=== PATIENT | male | born 1940 | race Caucasian/White ===

== ENCOUNTER → 2016-10-26 | Outpatient (CLI) | payer MEDICARE, BC | LOC: MW.CHFP 08:00 | PROVIDERS: ATTEND Emergency Medicine | DX: J32.9 Chronic sinusitis, unspecified (principal); J20.9 Acute bronchitis, unspecified | CPT/HCPCS: G0463 ==

== ENCOUNTER 2018-02-06 10:11 | Observation (INO) | payer MEDICARE, BC ==
[2018-02-06] MEDS ORDERED: Sodium Chloride 0.9% 10 ML Syringe FLUSH PRN (10:40)
[2018-02-06] MEDS ORDERED: Sodium Chloride 0.9% 1,000 ML IV ONE (10:40)
[2018-02-06] MEDS ORDERED: Sodium Chloride 0.9% 2.5 ML Syringe FLUSH PRN (10:40)
--- NOTE | 2018-02-06 10:44 | EDM.PDOC ---
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 Hope in the clinic and presents via EMS with for having chills 2 nights ago but no specific fever and then having a fever last night of 99.7 which then went up to 100.6 at 8 AM this morning. says she did not give any medications and he is currently afebrile. She says he's been eating and drinking normally and has had no systemic complaints of cough runny nose sore throat abdominal pain or urinary issues. He has been very constipated and she has given him symptomatic care and he started having loose stools over the last 1-2 days. The patient does get up with a walker and does work with physical therapy but is not as active as his baseline. He has not had any recent falls and she says that occasionally he will cough when he is eating but he has not had any choking episodes with food. She was concerned about the temperature and possibility of infection so asked for transport here. The patient's offers all history as the patient is not verbal on my evaluation. Review of systems: As per history of present illness and below otherwise all systems reviewed and negative. Past medical history: As per history of present illness and as reviewed below otherwise noncontributory. Surgical history: As per history of present illness and as reviewed below otherwise noncontributory. Social history: No reported history of drug or alcohol abuse. Family history: As per history of present illness and as reviewed below otherwise noncontributory. Physical exam: General: Well-developed well-nourished man who is thin and nontoxic and is nonverbal. Vital signs are noted by me HEENT: Atraumatic, normocephalic, pupils reactive, negative for conjunctival pallor or scleral icterus, mucous membranes dry, throat clear, neck supple, nontender, trachea midline. Lungs: Clear to auscultation diminished breath sounds bilaterally at the bases and poor effort but no overt wheezing stridor or rhonchi, breath sounds equal bilaterally, chest nontender. Heart: S1S2, regular, negative for clicks, rubs, or JVD. Abdomen: Soft, nondistended, nontender. Negative for masses or hepatosplenomegaly. NABS Pelvis: Deferred Genitourinary: Deferred. Rectal: Deferred. Extremities: Atraumatic, negative for cords or calf pain. Neurovascular unremarkable. Neuro: Awake, alert, oriented to voice and follows simple commands but is nonverbal. The patient's states that his neuro exam is at his baseline Exam nonfocal. He does have increased tone in all extremities upper greater than lower Diagnostics: CBC CMP UA urine culture blood cultures lactic acid chest x-ray Therapeutics: IV, IV fluids All testing results were discussed with the and patient as well as Dr. Hope , [id number].. Dr. Hope feels that he can follow this patient up in the clinic and once the to try to take him home as all testing is negative at this point and cultures are pending. The weight is comfortable taking him home and Dr. Hope just asked that we assist the in getting him up and make sure that he is at his baseline for movement so that she can handle him at home. We will do that prior to discharge. I've advised the to treat any temperatures over 100.4 high or in keep in touch with Dr. Hope. Impression: Episode of fever stable generalized weakness stable history of Bowie's chorea Definitive disposition and diagnosis as appropriate pending reevaluation and review of above. - Related Data Allergies Allergy/AdvReac Type Severity Reaction Status Date / Time olanzapine [From Zyprexa] Allergy Difficulty Verified 02/06/18 10:23 Swallowing Home Meds: Home Meds Pseudoephedrine HCl [Long Acting Nasal Decongestant] 120 mg PO BID 01/18/15 [ History] Sertraline HCl 100 mg PO BEDTIME 01/18/15 [History] guaiFENesin [Mucinex] 1,200 mg PO BEDTIME 01/18/15 [History] risperiDONE 3 mg PO BID 01/18/15 [History] Carboxymethylcellulose Sodium [Refresh Tears] 1 drop EYEBOTH DAILY 02/06/18 [ History] Cetirizine [ZyrTEC] 1 tab PO DAILY 02/06/18 [History] Oxybutynin [Oxybutynin ER] 10 mg PO DAILY 02/06/18 [History] guaiFENesin [Mucinex] 600 mg PO DAILY 02/06/18 [History] Past Medical History Other HEENT History: 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 ED EXAM, GENERAL - Physical Exam Exam: See Below (See dictation) Course - Vital Signs Last Recorded V/S: Last Vital Signs Temp 36.8 C 02/06/18 10:19 Pulse 92 02/06/18 10:19 Resp 24 H 02/06/18 10:19 BP 116/66 02/06/18 10:19 Pulse Ox 97 02/06/18 10:39 - Orders/Labs/Meds Orders: Active Orders 24 hr Category Date Time Status Blood Glucose Check, Bedside [RC] ONETIME Care 02/06/18 10:39 Active Oxygen Therapy, ED [RC] ASDIRECTED Care 02/06/18 10:39 Active Pulse Oximetry [RC] ASDIRECTED Care 02/06/18 10:39 Active Chest 1V Frontal [CR] Stat Exams 02/06/18 10:40 Taken CULTURE BLOOD [BC] Stat Lab 02/06/18 11:06 Received CULTURE BLOOD [BC] Stat Lab 02/06/18 11:06 Received CULTURE URINE [RM] Stat Lab 02/06/18 12:00 Ordered UA W/MICROSCOPIC [URIN] Stat Lab 02/06/18 12:00 Ordered Sodium Chloride 0.9% [Saline Flush] Med 02/06/18 10:40 Active 10 ml FLUSH ASDIRECTED PRN Sodium Chloride 0.9% [Saline Flush] Med 02/06/18 10:40 Active 2.5 ml FLUSH ASDIRECTED PRN Blood Culture x2 Reflex Set [OM.PC] Stat Oth 02/06/18 10:40 Ordered Saline Lock Insert [OM.PC] Stat Oth 02/06/18 10:39 Ordered Medication Orders Sodium Chloride (Saline Flush) 10 ml FLUSH ASDIRECTED PRN PRN Reason: Keep Vein Open Sodium Chloride (Saline Flush) 2.5 ml FLUSH ASDIRECTED PRN PRN Reason: Keep Vein Open Labs: Laboratory Tests 02/06/18 02/06/18 02/06/18 Range/Units 11:06 11:06 11:06 WBC 8.22 (4.0-11.0) K/uL RBC 4.73 (4.50-5.90) M/uL Hgb 13.8 (13.0-17.0) g/dL Hct 40.2 (38.0-50.0) % MCV 85.0 (80.0-98.0) fL MCH 29.2 (27.0-32.0) pg MCHC 34.3 (31.0-37.0) g/dL RDW Std Deviation 40.9 (28.0-62.0) fl RDW Coeff of Nino 13 (11.0-15.0) % Plt Count 137 L (150-400) K/uL MPV 9.00 (7.40-12.00) fL Neut % (Auto) 71.7 (48.0-80.0) % Lymph % (Auto) 17.2 (16.0-40.0) % Caroline % (Auto) 9.7 (0.0-15.0) % Eos % (Auto) 1.3 (0.0-7.0) % Baso % (Auto) 0.1 (0.0-1.5) % Neut # (Auto) 5.9 H (1.4-5.7) K/uL Lymph # (Auto) 1.4 (0.6-2.4) K/uL Caroline # (Auto) 0.8 (0.0-0.8) K/uL Eos # (Auto) 0.1 (0.0-0.7) K/uL Baso # (Auto) 0.0 (0.0-0.1) K/uL Nucleated RBC % 0.0 /100WBC Nucleated RBCs # 0 K/uL Lactate 0.7 (0.20-2.00) mmol/L Sodium 138 (136-148) mmol/L Potassium 4.0 (3.5-5.1) mmol/L Chloride 105 (98-107) mmol/L Carbon Dioxide 26.5 (21.0-32.0) mmol/L BUN 16 (7.0-18.0) mg/dL Creatinine 0.8 (0.8-1.3) mg/dL Est Cr Clr Drug Dosing 89.30 mL/min Estimated GFR (MDRD) > 60.0 ml/min Glucose 100 (74-106) mg/dL POC Glucose (60-110) mg/dL Calcium 8.7 (8.5-10.1) mg/dL Total Bilirubin 1.4 H (0.2-1.0) mg/dL AST 12 L (15-37) IU/L ALT 18 (14-63) IU/L Alkaline Phosphatase 71 (46-116) U/L Total Protein 7.0 (6.4-8.2) g/dL Albumin 3.5 (3.4-5.0) g/dL Globulin 3.5 (2.0-3.5) g/dL Albumin/Globulin Ratio 1.0 L (1.3-2.8) Urine Color Urine Appearance Urine pH (5.0-8.0) Ur Specific [place] (1.001-1.035) Urine Protein (NEGATIVE) mg/dL Urine Glucose (UA) (NEGATIVE) mg/dL Urine Ketones (NEGATIVE) mg/dL Urine Occult Blood (NEGATIVE) Urine Nitrite (NEGATIVE) Urine Bilirubin (NEGATIVE) Urine Urobilinogen (<2.0) EU/dL Ur Leukocyte Esterase (NEGATIVE) Urine RBC (0-2/HPF) Urine WBC (0-5/HPF) Ur Epithelial Cells (NONE-FEW) Urine Bacteria (NEGATIVE) 02/06/18 02/06/18 Range/Units 11:07 12:00 WBC (4.0-11.0) K/uL RBC (4.50-5.90) M/uL Hgb (13.0-17.0) g/dL Hct (38.0-50.0) % MCV (80.0-98.0) fL MCH (27.0-32.0) pg MCHC (31.0-37.0) g/dL RDW Std Deviation (28.0-62.0) fl RDW Coeff of Nino (11.0-15.0) % Plt Count (150-400) K/uL MPV (7.40-12.00) fL Neut % (Auto) (48.0-80.0) % Lymph % (Auto) (16.0-40.0) % Caroline % (Auto) (0.0-15.0) % Eos % (Auto) (0.0-7.0) % Baso % (Auto) (0.0-1.5) % Neut # (Auto) (1.4-5.7) K/uL Lymph # (Auto) (0.6-2.4) K/uL Caroline # (Auto) (0.0-0.8) K/uL Eos # (Auto) (0.0-0.7) K/uL Baso # (Auto) (0.0-0.1) K/uL Nucleated RBC % /100WBC Nucleated RBCs # K/uL Lactate (0.20-2.00) mmol/L Sodium (136-148) mmol/L Potassium (3.5-5.1) mmol/L Chloride (98-107) mmol/L Carbon Dioxide (21.0-32.0) mmol/L BUN (7.0-18.0) mg/dL Creatinine (0.8-1.3) mg/dL Est Cr Clr Drug Dosing mL/min Estimated GFR (MDRD) ml/min Glucose (74-106) mg/dL POC Glucose 97 (60-110) mg/dL Calcium (8.5-10.1) mg/dL Total Bilirubin (0.2-1.0) mg/dL AST (15-37) IU/L ALT (14-63) IU/L Alkaline Phosphatase (46-116) U/L Total Protein (6.4-8.2) g/dL Albumin (3.4-5.0) g/dL Globulin (2.0-3.5) g/dL Albumin/Globulin Ratio (1.3-2.8) Urine Color YELLOW Urine Appearance CLEAR Urine pH 5.5 (5.0-8.0) Ur Specific [place] >= 1.030 (1.001-1.035) Urine Protein NEGATIVE (NEGATIVE) mg/dL Urine Glucose (UA) NEGATIVE (NEGATIVE) mg/dL Urine Ketones NEGATIVE (NEGATIVE) mg/dL Urine Occult Blood MODERATE (NEGATIVE) Urine Nitrite NEGATIVE (NEGATIVE) Urine Bilirubin NEGATIVE (NEGATIVE) Urine Urobilinogen 0.2 (<2.0) EU/dL Ur Leukocyte Esterase NEGATIVE (NEGATIVE) Urine RBC 6-8 (0-2/HPF) Urine WBC 0-1 (0-5/HPF) Ur Epithelial Cells FEW (NONE-FEW) Urine Bacteria FEW (NEGATIVE) Meds: Medications Generic Name Dose Route Start Last Admin Trade Name Freq PRN Reason Stop Dose Admin Sodium Chloride 10 ml 02/06/18 10:40 Saline Flush FLUSH ASDIRECTED PRN Keep Vein Open Sodium Chloride 2.5 ml 02/06/18 10:40 Saline Flush FLUSH ASDIRECTED PRN Keep Vein Open Discontinued Medications Generic Name Dose Route Start Last Admin Trade Name Freq PRN Reason Stop Dose Admin Sodium Chloride 1,000 mls @ 999 mls/hr 02/06/18 10:40 02/06/18 11:00 Normal Saline IV 02/06/18 11:40 999 mls/hr STAT ONE Administration Departure - Departure Time of Disposition: 12:57 Disposition: Home, Self-Care 01 Condition: Good Clinical Impression: Weakness, Bowie chorea Fever Qualifiers: Fever type: unspecified Qualified Code(s): R50.9 - Fever, unspecified - Discharge Information Referrals: Ruslan Hope MD [Primary Care Provider] - Forms: ED Department Discharge Additional Instructions: The following information is given to patients seen in the emergency department who are being discharged to home. This information is to outline your options for follow-up care. We provide all patients seen in our emergency department with a follow-up referral. The need for follow-up, as well as the timing and circumstances, are variable depending upon the specifics of your emergency department visit. If you don't have a primary care physician on staff, we will provide you with a referral. We always advise you to contact your personal physician following an emergency department visit to inform them of the circumstance of the visit and for follow-up with them and/or the need for any referrals to a consulting specialist. The emergency department will also refer you to a specialist when appropriate. This referral assures that you have the opportunity for followup care with a specialist. All of these measure are taken in an effort to provide you with optimal care, which includes your followup. Under all circumstances we always encourage you to contact your private physician who remains a resource for coordinating your care. When calling for followup care, please make the office aware that this follow-up is from your recent emergency room visit. If for any reason you are refused follow-up, please contact the [facility] emergency department at and ask to speak to the emergency department charge nurse. [facility] Primary care- Internal Medicine and Family [address] Hope in the clinic and schedule a follow-up appointment as well as keep him in touch with any recurrent fevers. Please give Tylenol or ibuprofen for any temperatures greater than 100.4 as this needs to be treated. Push hydration and rest. The cultures will be called to if they are positive from blood and urine in the next few days. Return to ER as needed and as discussed - My Orders Last 24 Hours: My Active Orders 02/06/18 10:39 Blood Glucose Check, Bedside [RC] ONETIME Oxygen Therapy, ED [RC] ASDIRECTED Pulse Oximetry [RC] ASDIRECTED Saline Lock Insert [OM.PC] Stat 02/06/18 10:40 Chest 1V Frontal [CR] Stat Sodium Chloride 0.9% [Saline Flush] 10 ml FLUSH ASDIRECTED PRN Sodium Chloride 0.9% [Saline Flush] 2.5 ml FLUSH ASDIRECTED PRN Blood Culture x2 Reflex Set [OM.PC] Stat 02/06/18 11:06 CULTURE BLOOD [BC] Stat CULTURE BLOOD [BC] Stat 02/06/18 12:00 CULTURE URINE [RM] Stat UA W/MICROSCOPIC [URIN] Stat - Assessment/Plan Last 24 Hours: My Active Orders 02/06/18 10:39 Blood Glucose Check, Bedside [RC] ONETIME Oxygen Therapy, ED [RC] ASDIRECTED Pulse Oximetry [RC] ASDIRECTED Saline Lock Insert [OM.PC] Stat 02/06/18 10:40 Chest 1V Frontal [CR] Stat Sodium Chloride 0.9% [Saline Flush] 10 ml FLUSH ASDIRECTED PRN Sodium Chloride 0.9% [Saline Flush] 2.5 ml FLUSH ASDIRECTED PRN Blood Culture x2 Reflex Set [OM.PC] Stat 02/06/18 11:06 CULTURE BLOOD [BC] Stat CULTURE BLOOD [BC] Stat 02/06/18 12:00 CULTURE URINE [RM] Stat UA W/MICROSCOPIC [URIN] Stat
[2018-02-06 12:29] LABS: CHLORIDE,CL 105 mmol/L (98-107); SODIUM,NA 138 mmol/L (136-148)
--- NOTE | 2018-02-06 13:27 | CR ---
EXAM DATE: 02/06/18 PATIENT'S AGE: 77 Patient: JANES CHAPA Facility: [place], [place] Site . Site : [id number] Study: XRay Chest [id number]/22/2018 11:26:48 AM Ordering Physician: Veronica Edmond Final Report: HISTORY: Chest pain, fever, shortness of breath. TECHNIQUE: One view chest. COMPARISON: 10/19/2016. FINDINGS: Low lung volumes are shallow breath. Possible mild fibrosis. No acute lung infiltrate or pulmonary edema. No pneumothorax or pleural effusion. Cardiac size within normal limits. IMPRESSION: 1. No acute lung infiltrate. 2. Question mild fibrosis. Dictated by Quinton Ochoa MD @ 02/06/2018 11:59:01 AM Dictated by: Quinton Ochoa MD @ 02/06/2018 11:59:06 (Electronic Signature) Report Signed by Proxy. MADISON
[2018-02-07] MEDS ORDERED: Ondansetron 4 MG/2 ML SDV IVPUSH PRN (18:28)
[2018-02-07] MEDS ORDERED: Acetaminophen 325 MG Tab PO PRN (18:28)
[2018-02-07] MEDS ORDERED: LORazepam 2 MG/ML SDV IM PRN (18:28)
[2018-02-07] MEDS ORDERED: Levofloxacin/Dextrose 5%-Water 750 MG in Premix Bag 1 BAG IV ONE (18:32)
[2018-02-07] MEDS ORDERED: Vancomycin 2 GM in Sodium Chloride 0.9% 500 ML IV ONE (19:00)
[2018-02-07] MEDS: Enoxaparin 40 MG/0.4 ML Syringe SUBCUT SCH (19:18)
--- NOTE | 2018-02-07 19:24 | PCM.SN ---
- Free Text/Narrative Note: Called by nursing as they have been unable to obtain PIV access. Rt AC and Rt hand were attempted by me without success. Lt AC was visualized under ultrasound and 20g IV catheter was introduced without difficultly. 20mL of blood was obtained for lab studies. Catheter was secured with tape, tegaderm, and flushes with ease.
[2018-02-07] MEDS: Lactated Ringers 1,000 ML IV SCH (19:36)
[2018-02-07 19:42] LABS: CHLORIDE,CL 105 mmol/L (98-107); SODIUM,NA 138 mmol/L (136-148)
--- NOTE | 2018-02-07 20:36 | PCM.HP ---
H&P History of Present Illness - General Date of Service: 02/07/18 Admit Problem/Dx: Admission Diagnosis/Problem Admission Diagnosis/Problem Fever in adult Source of Information: Family () - History of Present Illness Initial Comments - Free Text/Narative: Patient 77 y old man presented to hospital due to lethargy for the past to 3 days, associated with the fever and gentamicin was 100.7, generalized weakness, decreased appetite, and poor oral intake. Patient was seen by his primary care physician Dr. Casas yesterday and he recommended patient to come to emergency room. In the emergency room chest x-ray and blood work were negative and patient returned home. Blood culture today to rule gram-positive cocci in clusters someone bottle, and patient returned to hospital to be admitted as direct admit as he was not feeling well he was lethargic for the past few days. His also was also sent that he was tachypneic at home . 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, and he follows up with physical therapy multiple days in a week, he needs assistance to transfer from bed to chair, but clinically he was not able to do it, because she was having generalized weakness Onset of Symptoms: Reports: Gradual Duration of Symptoms: Reports: Day(s): - Related Data Allergies/Adverse Reactions: Allergies Allergy/AdvReac Type Severity Reaction Status Date / Time olanzapine [From Zyprexa] Allergy Difficulty Verified 02/06/18 10:23 Swallowing Home Medications: Home Meds Pseudoephedrine HCl [Long Acting Nasal Decongestant] 120 mg PO BID 01/18/15 [ History] Sertraline HCl 100 mg PO BEDTIME 01/18/15 [History] guaiFENesin [Mucinex] 1,200 mg PO BEDTIME 01/18/15 [History] risperiDONE 3 mg PO BID 01/18/15 [History] Carboxymethylcellulose Sodium [Refresh Tears] 1 drop EYEBOTH DAILY 02/06/18 [ History] Cetirizine [ZyrTEC] 1 tab PO DAILY 02/06/18 [History] Oxybutynin [Oxybutynin ER] 10 mg PO DAILY 02/06/18 [History] guaiFENesin [Mucinex] 600 mg PO DAILY 02/06/18 [History] Past Medical History Other HEENT History: 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 Other Respiratory History: Patient had chronic Pneumonia as claimed Other Genitourinary History: Prostate Ablation Other Neuro History: dx with [place] Disease - Infectious Disease History Infectious Disease History: Reports: Measles, Mumps - Past Surgical History HEENT Surgical History: Reports: Adenoidectomy, Tonsillectomy GI Surgical History: Reports: Appendectomy Social & Family History - Family History Family Medical History: Noncontributory - Tobacco Use Smoking Status *Q: Former Smoker Used Tobacco, but Quit: Yes Month/Year Tobacco Last Used: 1988 Second Hand Smoke Exposure: No - Caffeine Use Caffeine Use: Reports: Coffee - Recreational Drug Use Recreational Drug Use: No H&P Review of Systems - Review of Systems: Review Of Systems: See Below General: Reports: Fever HEENT: Reports: No Symptoms Pulmonary: Reports: No Symptoms Cardiovascular: Reports: No Symptoms Gastrointestinal: Reports: No Symptoms Musculoskeletal: Reports: No Symptoms Skin: Reports: No Symptoms Psychiatric: Reports: No Symptoms Neurological: Reports: Trouble Speaking, Difficulty Walking, Weakness Hematologic/Lymphatic: Reports: No Symptoms Immunologic: Reports: No Symptoms Exam - Exam Exam: See Below - Vital Signs Vital Signs: Last Vital Signs Temp 98.5 F 02/07/18 19:56 Pulse 80 02/07/18 19:56 Resp 16 02/07/18 19:56 BP 120/66 02/07/18 19:56 Pulse Ox 97 02/07/18 19:56 Weight: 168 lb 12.8 oz - Exam General: Alert HEENT: Conjunctiva Clear Neck: Trachea Midline. No: JVD, Thyromegaly Lungs: Decreased Breath Sounds Cardiovascular: Regular Rate, Regular Rhythm, Normal S1, Normal S2 GI/Abdominal Exam: Normal Bowel Sounds, Soft, Non-Tender, No Organomegaly, No Distention Back Exam: Normal Inspection Extremities: Normal Inspection Skin: Warm, Dry, Intact Neurological: Cranial Nerves Intact Neuro Extensive - Mental Status: Alert, Oriented x3 - Patient Data Lab Results Last 24 hrs: Laboratory Results - last 24 hr 02/07/18 02/07/18 Range/Units 18:50 18:50 WBC 6.28 (4.0-11.0) K/uL RBC 4.31 L (4.50-5.90) M/uL Hgb 12.6 L (13.0-17.0) g/dL Hct 36.6 L (38.0-50.0) % MCV 84.9 (80.0-98.0) fL MCH 29.2 (27.0-32.0) pg MCHC 34.4 (31.0-37.0) g/dL RDW Std Deviation 40.9 (28.0-62.0) fl RDW Coeff of Nino 13 (11.0-15.0) % Plt Count 155 (150-400) K/uL MPV 9.00 (7.40-12.00) fL Neut % (Auto) 60.1 (48.0-80.0) % Lymph % (Auto) 22.9 (16.0-40.0) % [place] % (Auto) 13.5 (0.0-15.0) % Eos % (Auto) 3.3 (0.0-7.0) % Baso % (Auto) 0.2 (0.0-1.5) % Neut # (Auto) 3.8 (1.4-5.7) K/uL Lymph # (Auto) 1.4 (0.6-2.4) K/uL [place] # (Auto) 0.9 H (0.0-0.8) K/uL Eos # (Auto) 0.2 (0.0-0.7) K/uL Baso # (Auto) 0.0 (0.0-0.1) K/uL Nucleated RBC % 0.0 /100WBC Nucleated RBCs # 0 K/uL Sodium 138 (136-148) mmol/L Potassium 3.8 (3.5-5.1) mmol/L Chloride 105 (98-107) mmol/L Carbon Dioxide 27.3 (21.0-32.0) mmol/L BUN 16 (7.0-18.0) mg/dL Creatinine 0.9 (0.8-1.3) mg/dL Est Cr Clr Drug Dosing 74.44 mL/min Estimated GFR (MDRD) > 60.0 ml/min Glucose 102 (74-106) mg/dL Calcium 8.6 (8.5-10.1) mg/dL Total Bilirubin 0.8 (0.2-1.0) mg/dL AST 11 L (15-37) IU/L ALT 14 (14-63) IU/L Alkaline Phosphatase 62 (46-116) U/L Total Protein 6.4 (6.4-8.2) g/dL Albumin 2.9 L (3.4-5.0) g/dL Globulin 3.5 (2.0-3.5) g/dL Albumin/Globulin Ratio 0.8 L (1.3-2.8) Result Diagrams: 02/07/18 18:50 02/07/18 18:50 Derrick Results Last 24 hrs: Microbiology 02/06/18 11:06 Aerobic Blood Culture - Preliminary Blood - Venous Anaerobic Blood Culture - Preliminary NO GROWTH AFTER 1 DAY 02/06/18 11:06 Aerobic Blood Culture - Preliminary Blood - Venous - Lab Draw NO GROWTH AFTER 1 DAY Anaerobic Blood Culture - Preliminary NO GROWTH AFTER 1 DAY - Problem List (1) Pneumonia SNOMED Code(s): 458775865 ICD Code: J18.9 - PNEUMONIA, UNSPECIFIED ORGANISM Status: Acute Current Visit: Yes Problem List Initiated/Reviewed/Updated: Yes Orders Last 24hrs: Active Orders 24 hr Category Date Time Status Admission Status [Patient Status] [ADT] Routine ADT 02/07/18 19:02 Active Cardiac Monitoring [RC] Q8H Care 02/07/18 18:29 Active Up With Assistance [RC] ASDIRECTED Care 02/07/18 18:28 Active VTE/DVT Education [RC] PER UNIT ROUTINE Care 02/07/18 18:28 Active Vital Signs [RC] Q4H Care 02/07/18 18:28 Active Consult to Speech Language Pathology [TOUR ACTOR Evaluation Cons 02/07/18 19:50 Active and Treatment] [CONS] Routine OT Evaluation and Treatment [CONS] Routine Cons 02/07/18 18:28 Active PT Evaluation and Treatment [CONS] Routine Cons 02/07/18 18:28 Active 2 Gram Sodium Diet [DIET] Diet 02/07/18 Dinner Active CBC W/O DIFF,HEMOGRAM [HEME] AM Lab 02/08/18 05:11 Ordered COMPREHENSIVE METABOLIC PN,CMP [CHEM] AM Lab 02/08/18 05:11 Ordered CULTURE BLOOD [BC] Routine Lab 02/07/18 18:50 Received CULTURE BLOOD [BC] Routine Lab 02/07/18 19:05 Received VANCOMYCIN TROUGH [CHEM] Timed Lab 02/09/18 06:30 Ordered Acetaminophen [Tylenol] Med 02/07/18 18:28 Active 650 mg PO Q4H PRN Carboxymethylcellulose Sodium [Refresh Plus 0.5%] Med 02/08/18 09:00 Active 0 each EYEBOTH DAILY Cetirizine [ZyrTEC] Med 02/08/18 09:00 Active 10 mg PO DAILY Enoxaparin [Lovenox] Med 02/07/18 18:30 Active 40 mg SUBCUT Q24H LORazepam [Ativan] Med 02/07/18 18:28 Active 1 mg IM Q6H PRN Lactated Ringers [Ringers, Lactated] 1,000 ml Med 02/07/18 18:30 Active IV ASDIRECTED Ondansetron [Zofran] Med 02/07/18 18:28 Active 4 mg IVPUSH Q4H PRN Oxybutynin Med 02/08/18 09:00 Pending 10 mg PO DAILY Piperacillin/Tazobactam [Piperacil-Tazobact] 4.5 gm Med 02/07/18 20:00 Active Sodium Chloride 0.9% [Normal Saline] 100 ml IV Q6H Pseudoephedrine HCl [Long Acting Nasal Decongestant] Med 02/07/18 21:00 Pending 120 mg PO BID Sertraline [Zoloft] Med 02/07/18 21:00 Active 100 mg PO BEDTIME Vancomycin 1.25 gm Med 02/08/18 07:00 Active Sodium Chloride 0.9% [Normal Saline] 500 ml IV Q12H Vancomycin Pharmacy to Dose [Pharmacy to Dose - Med 02/07/18 18:45 Pending Vancomycin] See Dose Instructions .XX ASDIRECTED guaiFENesin [Mucinex] Med 02/08/18 09:00 Active 600 mg PO DAILY risperiDONE [RisperiDAL] Med 02/07/18 21:00 Active 3 mg PO BID Sequential Compression Device [OM.PC] Per Unit Routine Oth 02/07/18 18:29 Ordered Resuscitation Status Routine Resus Stat 02/07/18 18:28 Ordered Medication Orders Acetaminophen (Tylenol) 650 mg PO Q4H PRN PRN Reason: Pain (Mild 1-3)/fever Artificial Tears (Refresh Plus 0.5%) 0 each EYEBOTH DAILY KYRA Cetirizine HCl (Zyrtec) 10 mg PO DAILY KYRA Enoxaparin Sodium (Lovenox) 40 mg SUBCUT Q24H KYRA Last Admin: 02/07/18 19:18 Dose: 40 mg Guaifenesin (Mucinex) 600 mg PO DAILY [facility] Lactated Ringer's (Ringers, Lactated) 1,000 mls @ 125 mls/hr IV ASDIRECTED [facility] Last Admin: 02/07/18 19:36 Dose: 125 mls/hr Vancomycin HCl 1.25 gm/ Sodium (Chloride) 500 mls @ 333.333 mls/hr IV Q12H KYRA Piperacillin Sod/Tazobactam (Sod 4.5 gm/ Sodium Chloride) 100 mls @ 100 mls/hr IV Q6H KYRA Lorazepam (Ativan) 1 mg IM Q6H PRN PRN Reason: Nausea/Vomiting Non-Formulary Medication (Oxybutynin) 10 mg PO DAILY KYRA Non-Formulary Medication (Pseudoephedrine Hcl [Long Acting Nasal Decongestant]) 120 mg PO BID KYRA Ondansetron HCl (Zofran) 4 mg IVPUSH Q4H PRN PRN Reason: Nausea Risperidone (Risperidal) 3 mg PO BID [facility]RA Sertraline HCl (Zoloft) 100 mg PO BEDTIME KYRA Vancomycin HCl (Pharmacy To Dose - Vancomycin) 0 dose .XX ASDIRECTED [facility] CXr done 02/06/18- negative Assessment/Plan Comment:: a/p Fever - likely aspiration pneumonia , blood cultures , Gpositive cocci in clusters - will start patient on broad spectrum antibiotics: Vancomycin , zosyn and levaquin iv , f/up final report speech and swallow evaluation , PT/ OT Iv fluids For constipation - 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
[2018-02-07] MEDS ORDERED: PSEUDOEPHEDRINE HCL 120 MG PO PRN (21:00)
[2018-02-07] MEDS: Piperacillin/Tazobactam 4.5 GM in Sodium Chloride 0.9% 100 ML IV SCH (21:03)
[2018-02-07] MEDS: Sertraline 100 MG Tab PO SCH (21:06)
[2018-02-08] MEDS: Piperacillin/Tazobactam 4.5 GM in Sodium Chloride 0.9% 100 ML IV SCH ×4 (02:44→19:51)
[2018-02-08 06:00] LABS: CHLORIDE,CL 108 mmol/L (98-107); SODIUM,NA 143 mmol/L (136-148)
[2018-02-08] MEDS ORDERED: Vancomycin 1.25 GM in Sodium Chloride 0.9% 500 ML IV SCH ×2 (07:00→13:00)
[2018-02-08] MEDS: Lactated Ringers 1,000 ML IV SCH (08:38)
[2018-02-08] MEDS: Carboxymethylcellulose Sodium 0.5% Ophth Soln 0.4 ML UD Box of 30 EYEBOTH SCH (08:39)
[2018-02-08] MEDS: Cetirizine 10 MG Tab PO SCH (08:40)
[2018-02-08] MEDS: guaiFENesin 600 MG Tab.ER PO SCH (08:40)
[2018-02-08] MEDS ORDERED: Oxybutynin 5 MG Tab PO SCH (09:00)
[2018-02-08] MEDS ORDERED: Hydrocolloid Dressing 4x4 Bandage TOP PRN (14:43)
--- NOTE | 2018-02-08 17:05 | PCM.PN ---
- General Info Date of Service: 02/08/18 Admission Dx/Problem (Free Text): Admission Diagnosis/Problem Admission Diagnosis/Problem Fever in adult, generalized weakness Subjective Update: Patient strength is improved . He had physical therapy today . was able to walk across the room with one assist. His blood cx showed Staph epidermis which is a contaminant. - Review of Systems General: Reports: No Symptoms HEENT: Reports: No Symptoms Pulmonary: Reports: No Symptoms Cardiovascular: Reports: No Symptoms Gastrointestinal: Reports: No Symptoms Genitourinary: Reports: No Symptoms Musculoskeletal: Reports: No Symptoms Skin: Reports: No Symptoms Neurological: Reports: No Symptoms Psychiatric: Reports: No Symptoms - Patient Data Vitals - Most Recent: Last Vital Signs Temp 97.2 F 02/08/18 16:00 Pulse 77 02/08/18 16:00 Resp 18 02/08/18 16:00 BP 116/88 02/08/18 16:00 Pulse Ox 97 02/08/18 16:00 Weight - Most Recent: 164 lb 14.4 oz I&O - Last 24 Hours: Intake & Output 02/08/18 02/08/18 02/08/18 06:59 14:59 22:59 Intake Total 200 1349 Output Total 969 Balance -769 1349 Lab Results Last 24 Hours: Laboratory Results - last 24 hr 02/07/18 02/07/18 02/08/18 Range/Units 18:50 18:50 05:25 WBC 6.28 4.75 (4.0-11.0) K/uL RBC 4.31 L 4.09 L (4.50-5.90) M/uL Hgb 12.6 L 12.0 L (13.0-17.0) g/dL Hct 36.6 L 34.7 L (38.0-50.0) % MCV 84.9 84.8 (80.0-98.0) fL MCH 29.2 29.3 (27.0-32.0) pg MCHC 34.4 34.6 (31.0-37.0) g/dL RDW Std Deviation 40.9 40.1 (28.0-62.0) fl RDW Coeff of Nino 13 13 (11.0-15.0) % Plt Count 155 135 L (150-400) K/uL MPV 9.00 9.00 (7.40-12.00) fL Neut % (Auto) 60.1 (48.0-80.0) % Lymph % (Auto) 22.9 (16.0-40.0) % [place] % (Auto) 13.5 (0.0-15.0) % Eos % (Auto) 3.3 (0.0-7.0) % Baso % (Auto) 0.2 (0.0-1.5) % Neut # (Auto) 3.8 (1.4-5.7) K/uL Lymph # (Auto) 1.4 (0.6-2.4) K/uL [place] # (Auto) 0.9 H (0.0-0.8) K/uL Eos # (Auto) 0.2 (0.0-0.7) K/uL Baso # (Auto) 0.0 (0.0-0.1) K/uL Nucleated RBC % 0.0 0.0 /100WBC Nucleated RBCs # 0 0 K/uL Sodium 138 (136-148) mmol/L Potassium 3.8 (3.5-5.1) mmol/L Chloride 105 (98-107) mmol/L Carbon Dioxide 27.3 (21.0-32.0) mmol/L BUN 16 (7.0-18.0) mg/dL Creatinine 0.9 (0.8-1.3) mg/dL Est Cr Clr Drug Dosing 74.44 mL/min Estimated GFR (MDRD) > 60.0 ml/min Glucose 102 (74-106) mg/dL Calcium 8.6 (8.5-10.1) mg/dL Total Bilirubin 0.8 (0.2-1.0) mg/dL AST 11 L (15-37) IU/L ALT 14 (14-63) IU/L Alkaline Phosphatase 62 (46-116) U/L Total Protein 6.4 (6.4-8.2) g/dL Albumin 2.9 L (3.4-5.0) g/dL Globulin 3.5 (2.0-3.5) g/dL Albumin/Globulin Ratio 0.8 L (1.3-2.8) 02/08/18 Range/Units 05:25 WBC (4.0-11.0) K/uL RBC (4.50-5.90) M/uL Hgb (13.0-17.0) g/dL Hct (38.0-50.0) % MCV (80.0-98.0) fL MCH (27.0-32.0) pg MCHC (31.0-37.0) g/dL RDW Std Deviation (28.0-62.0) fl RDW Coeff of Nino (11.0-15.0) % Plt Count (150-400) K/uL MPV (7.40-12.00) fL Neut % (Auto) (48.0-80.0) % Lymph % (Auto) (16.0-40.0) % [place] % (Auto) (0.0-15.0) % Eos % (Auto) (0.0-7.0) % Baso % (Auto) (0.0-1.5) % Neut # (Auto) (1.4-5.7) K/uL Lymph # (Auto) (0.6-2.4) K/uL [place] # (Auto) (0.0-0.8) K/uL Eos # (Auto) (0.0-0.7) K/uL Baso # (Auto) (0.0-0.1) K/uL Nucleated RBC % /100WBC Nucleated RBCs # K/uL Sodium 143 (136-148) mmol/L Potassium 3.9 (3.5-5.1) mmol/L Chloride 108 H (98-107) mmol/L Carbon Dioxide 26.7 (21.0-32.0) mmol/L BUN 15 (7.0-18.0) mg/dL Creatinine 1.0 (0.8-1.3) mg/dL Est Cr Clr Drug Dosing 67.00 mL/min Estimated GFR (MDRD) > 60.0 ml/min Glucose 96 (74-106) mg/dL Calcium 8.9 (8.5-10.1) mg/dL Total Bilirubin 1.2 H (0.2-1.0) mg/dL AST 12 L (15-37) IU/L ALT 13 L (14-63) IU/L Alkaline Phosphatase 60 (46-116) U/L Total Protein 5.9 L (6.4-8.2) g/dL Albumin 2.6 L (3.4-5.0) g/dL Globulin 3.3 (2.0-3.5) g/dL Albumin/Globulin Ratio 0.8 L (1.3-2.8) Derrick Results Last 24 Hours: Microbiology 02/06/18 11:06 Aerobic Blood Culture - Preliminary Blood - Venous Anaerobic Blood Culture - Preliminary NO GROWTH AFTER 2 DAYS 02/06/18 11:06 Aerobic Blood Culture - Preliminary Blood - Venous - Lab Draw NO GROWTH AFTER 2 DAYS Anaerobic Blood Culture - Preliminary NO GROWTH AFTER 2 DAYS 02/06/18 12:00 Urine Culture - Final Urine, Clean Catch No Growth Med Orders - Current: Current Medications Acetaminophen (Tylenol) 650 mg PO Q4H PRN PRN Reason: Pain (Mild 1-3)/fever Artificial Tears (Refresh Plus 0.5%) 0 each EYEBOTH DAILY [facility] Last Admin: 02/08/18 08:39 Dose: 1 drop Cetirizine HCl (Zyrtec) 10 mg PO DAILY [facility] Last Admin: 02/08/18 08:40 Dose: 10 mg Enoxaparin Sodium (Lovenox) 40 mg SUBCUT Q24H [facility] Last Admin: 02/07/18 19:18 Dose: 40 mg Guaifenesin (Mucinex) 600 mg PO DAILY [facility] Last Admin: 02/08/18 08:40 Dose: 600 mg Lactated Ringer's (Ringers, Lactated) 1,000 mls @ 125 mls/hr IV ASDIRECTED [facility] Last Admin: 02/08/18 08:38 Dose: 125 mls/hr Piperacillin Sod/Tazobactam (Sod 4.5 gm/ Sodium Chloride) 100 mls @ 100 mls/hr IV Q6H [facility] Last Admin: 02/08/18 14:55 Dose: 100 mls/hr Lorazepam (Ativan) 1 mg IM Q6H PRN PRN Reason: Nausea/Vomiting Ondansetron HCl (Zofran) 4 mg IVPUSH Q4H PRN PRN Reason: Nausea Oxybutynin Chloride (Oxybutynin) 10 mg PO DAILY [facility] Last Admin: 02/08/18 08:39 Dose: 10 mg Pseudoephedrine Hcl [Long Acting Nasal Decongestant] 120mg 1 each PO BID PRN PRN Reason: congestion Risperidone (Risperidal) 3 mg PO BID [facility] Last Admin: 02/08/18 08:39 Dose: 3 mg Sertraline HCl (Zoloft) 100 mg PO BEDTIME [facility] Last Admin: 02/07/18 21:06 Dose: 100 mg Wound Care/Dressing Products (Duoderm Cgf) 1 each TOP ASDIRECTED PRN PRN Reason: pressure sore Discontinued Medications Sodium Chloride (Normal Saline) 1,000 mls @ 999 mls/hr IV STAT ONE Stop: 02/06/18 11:40 Last Admin: 02/06/18 11:00 Dose: 999 mls/hr Levofloxacin/Dextrose 750 mg/ (Premix) 150 mls @ 100 mls/hr IV ONETIME ONE Stop: 02/07/18 20:01 Last Admin: 02/07/18 19:14 Dose: 100 mls/hr Vancomycin HCl 2 gm/ Sodium (Chloride) 500 mls @ 333.333 mls/hr IV ONETIME ONE Stop: 02/07/18 20:29 Last Admin: 02/08/18 01:09 Dose: 333.333 mls/hr Vancomycin HCl 1.25 gm/ Sodium (Chloride) 500 mls @ 333.333 mls/hr IV Q12H [facility] Vancomycin HCl 1.25 gm/ Sodium (Chloride) 500 mls @ 333.333 mls/hr IV Q12H [facility] Vancomycin HCl 1.25 gm/ Sodium (Chloride) 250 mls @ 166.667 mls/hr IV Q12H [facility] Last Admin: 02/08/18 13:24 Dose: 166.667 mls/hr Sodium Chloride (Saline Flush) 10 ml FLUSH ASDIRECTED PRN PRN Reason: Keep Vein Open Sodium Chloride (Saline Flush) 2.5 ml FLUSH ASDIRECTED PRN PRN Reason: Keep Vein Open Vancomycin HCl (Pharmacy To Dose - Vancomycin) 0 dose .XX ASDIRECTED [facility] - Exam General: Alert, Oriented HEENT: Pupils Equal, Pupils Reactive Neck: Supple, Trachea Midline, No JVD, No Thyromegaly Lungs: Clear to Auscultation, Decreased Breath Sounds Cardiovascular: Regular Rate, Regular Rhythm GI/Abdominal Exam: Normal Bowel Sounds Extremities: Normal Inspection Skin: Warm, Dry Neurological: No New Focal Deficit Psy/Mental Status: Alert, Normal Affect - Problem List & Annotations (1) Pneumonia SNOMED Code(s): 993839660 Code(s): J18.9 - PNEUMONIA, UNSPECIFIED ORGANISM Status: Acute Current Visit: Yes - Problem List Review Problem List Initiated/Reviewed/Updated: Yes - My Orders Last 24 Hours: My Active Orders 02/07/18 18:28 Up With Assistance [RC] ASDIRECTED VTE/DVT Education [RC] PER UNIT ROUTINE Vital Signs [RC] Q4H OT Evaluation and Treatment [CONS] Routine PT Evaluation and Treatment [CONS] Routine Acetaminophen [Tylenol] 650 mg PO Q4H PRN LORazepam [Ativan] 1 mg IM Q6H PRN Ondansetron [Zofran] 4 mg IVPUSH Q4H PRN Resuscitation Status Routine 02/07/18 18:29 Cardiac Monitoring [RC] Q8H Sequential Compression Device [OM.PC] Per Unit Routine 02/07/18 18:30 Enoxaparin [Lovenox] 40 mg SUBCUT Q24H Lactated Ringers [Ringers, Lactated] 1,000 ml IV ASDIRECTED 02/07/18 18:50 CULTURE BLOOD [BC] Routine 02/07/18 19:02 Admission Status [Patient Status] [ADT] Routine 02/07/18 19:05 Telemetry Monitoring [Cardiac Monitoring] [RC] . DIRECTED CULTURE BLOOD [BC] Routine 02/07/18 19:50 Consult to Speech Language Pathology [ELECTRONIC SCIENCE TEACHER Evaluation and Treatment] [CONS] Routine 02/07/18 20:00 Piperacillin/Tazobactam [Piperacil-Tazobact] 4.5 gm Sodium Chloride 0.9% [ Normal Saline] 100 ml IV Q6H 02/07/18 21:00 Patient's Own Medication [Ptom] 1 each PO BID PRN Sertraline [Zoloft] 100 mg PO BEDTIME risperiDONE [RisperiDAL] 3 mg PO BID 02/08/18 09:00 Carboxymethylcellulose Sodium [Refresh Plus 0.5%] 0 each EYEBOTH DAILY Cetirizine [ZyrTEC] 10 mg PO DAILY Oxybutynin 10 mg PO DAILY guaiFENesin [Mucinex] 600 mg PO DAILY 02/08/18 14:43 Hydrocolloid Dressing [DuoDerm CGF] 1 each TOP ASDIRECTED PRN 02/08/18 Dinner Regular Diet [DIET] 02/09/18 05:11 BASIC METABOLIC PANEL,BMP [CHEM] Routine CBC WITH AUTO DIFF [HEME] Routine Aspiration pneumonia- continue Zosyn 4.5 grams q 6 h , d/c vancomycin , d/c levaquin. Modified barium studies as outpatient f/up PT upon discharge d/c planing tomorrow with Augmentine 875/125 1 tab po BID dvt prof : lovenox sq - Plan Plan:: a/p Fever - likely aspiration pneumonia , blood cultures , Gpositive cocci in clusters - will start patient on broad spectrum antibiotics: Vancomycin , zosyn and levaquin iv , f/up bc final report speech and swallow evaluation , PT/ OT Iv fluids For constipation - will continue with Miralax and colace prn for [place] Dz - risperdal 3 mg po BID PT/OT Depression: zoloft 100 mg po q hs Dvt prof : lovenox 40 mg sq daily
[2018-02-08] MEDS: Enoxaparin 40 MG/0.4 ML Syringe SUBCUT SCH (18:01)
[2018-02-08] MEDS: Sertraline 100 MG Tab PO SCH (20:01)
[2018-02-09] MEDS: Piperacillin/Tazobactam 4.5 GM in Sodium Chloride 0.9% 100 ML IV SCH ×4 (01:29→20:09)
[2018-02-09 06:21] LABS: CHLORIDE,CL 108 mmol/L (98-107); SODIUM,NA 143 mmol/L (136-148)
[2018-02-09] MEDS: Cetirizine 10 MG Tab PO SCH (08:22)
[2018-02-09] MEDS: guaiFENesin 600 MG Tab.ER PO SCH (08:23)
[2018-02-09] MEDS ORDERED: Bisacodyl 10 MG Supp RECTAL ONE (09:03)
[2018-02-09] MEDS: Carboxymethylcellulose Sodium 0.5% Ophth Soln 0.4 ML UD Box of 30 EYEBOTH SCH (10:00)
[2018-02-09] MEDS: Lactated Ringers 1,000 ML IV SCH (11:36)
--- NOTE | 2018-02-09 12:23 | PCM.PN ---
- General Info Date of Service: 02/09/18 Admission Dx/Problem (Free Text): Admission Diagnosis/Problem Admission Diagnosis/Problem Fever in adult, generalized weakness Subjective Update: Patient more alert and awake today , improved on physical therapy. - Review of Systems General: Reports: Weakness HEENT: Reports: No Symptoms Pulmonary: Reports: Cough Cardiovascular: Reports: No Symptoms Gastrointestinal: Reports: No Symptoms Genitourinary: Reports: No Symptoms Musculoskeletal: Reports: No Symptoms Skin: Reports: No Symptoms Neurological: Reports: Difficulty Walking, Weakness - Patient Data Vitals - Most Recent: Last Vital Signs Temp 96.7 F 02/09/18 08:00 Pulse 76 02/09/18 03:45 Resp 16 02/09/18 08:00 BP 108/59 L 02/09/18 08:00 Pulse Ox 93 L 02/09/18 08:00 Weight - Most Recent: 166 lb 4.8 oz I&O - Last 24 Hours: Intake & Output 02/08/18 02/09/18 02/09/18 22:59 06:59 14:59 Intake Total 1350 420 100 Balance 1350 420 100 Lab Results Last 24 Hours: Laboratory Results - last 24 hr 02/09/18 02/09/18 Range/Units 06:04 06:04 WBC 4.35 (4.0-11.0) K/uL RBC 4.16 L (4.50-5.90) M/uL Hgb 12.1 L (13.0-17.0) g/dL Hct 35.4 L (38.0-50.0) % MCV 85.1 (80.0-98.0) fL MCH 29.1 (27.0-32.0) pg MCHC 34.2 (31.0-37.0) g/dL RDW Std Deviation 40.1 (28.0-62.0) fl RDW Coeff of Nino 13 (11.0-15.0) % Plt Count 151 (150-400) K/uL MPV 8.50 (7.40-12.00) fL Neut % (Auto) 54.9 (48.0-80.0) % Lymph % (Auto) 28.7 (16.0-40.0) % [place] % (Auto) 12.0 (0.0-15.0) % Eos % (Auto) 4.4 (0.0-7.0) % Baso % (Auto) 0.0 (0.0-1.5) % Neut # (Auto) 2.4 (1.4-5.7) K/uL Lymph # (Auto) 1.3 (0.6-2.4) K/uL [place] # (Auto) 0.5 (0.0-0.8) K/uL Eos # (Auto) 0.2 (0.0-0.7) K/uL Baso # (Auto) 0.0 (0.0-0.1) K/uL Nucleated RBC % 0.0 /100WBC Nucleated RBCs # 0 K/uL Sodium 143 (136-148) mmol/L Potassium 3.9 (3.5-5.1) mmol/L Chloride 108 H (98-107) mmol/L Carbon Dioxide 29.9 (21.0-32.0) mmol/L BUN 14 (7.0-18.0) mg/dL Creatinine 1.0 (0.8-1.3) mg/dL Est Cr Clr Drug Dosing 65.45 mL/min Estimated GFR (MDRD) > 60.0 ml/min Glucose 93 (74-106) mg/dL Calcium 8.6 (8.5-10.1) mg/dL Derrick Results Last 24 Hours: Microbiology 02/06/18 11:06 Aerobic Blood Culture - Preliminary Blood - Venous - Lab Draw NO GROWTH AFTER 3 DAYS Anaerobic Blood Culture - Preliminary 02/06/18 11:06 Aerobic Blood Culture - Preliminary Blood - Venous Anaerobic Blood Culture - Preliminary NO GROWTH AFTER 3 DAYS 02/07/18 18:50 Aerobic Blood Culture - Preliminary Blood Anaerobic Blood Culture - Preliminary 02/07/18 19:05 Aerobic Blood Culture - Preliminary Blood - Venous NO GROWTH AFTER 1 DAY Anaerobic Blood Culture - Preliminary NO GROWTH AFTER 1 DAY 02/06/18 12:00 Urine Culture - Final Urine, Clean Catch No Growth Med Orders - Current: Current Medications Acetaminophen (Tylenol) 650 mg PO Q4H PRN PRN Reason: Pain (Mild 1-3)/fever Artificial Tears (Refresh Plus 0.5%) 0 each EYEBOTH DAILY [facility] Last Admin: 02/09/18 10:00 Dose: 1 drop Cetirizine HCl (Zyrtec) 10 mg PO DAILY [facility] Last Admin: 02/09/18 08:22 Dose: 10 mg Enoxaparin Sodium (Lovenox) 40 mg SUBCUT Q24H [facility] Last Admin: 02/08/18 18:01 Dose: 40 mg Guaifenesin (Mucinex) 600 mg PO DAILY [facility] Last Admin: 02/09/18 08:23 Dose: 600 mg Piperacillin Sod/Tazobactam (Sod 4.5 gm/ Sodium Chloride) 100 mls @ 100 mls/hr IV Q6H [facility] Last Admin: 02/09/18 08:23 Dose: 100 mls/hr Lactated Ringer's (Ringers, Lactated) 1,000 mls @ 75 mls/hr IV ASDIRECTED [facility] Last Admin: 02/09/18 11:36 Dose: 75 mls/hr Lorazepam (Ativan) 1 mg IM Q6H PRN PRN Reason: Nausea/Vomiting Ondansetron HCl (Zofran) 4 mg IVPUSH Q4H PRN PRN Reason: Nausea Pseudoephedrine Hcl [Long Acting Nasal Decongestant] 120mg 1 each PO BID PRN PRN Reason: congestion Risperidone (Risperidal) 3 mg PO BID [facility] Last Admin: 02/09/18 08:23 Dose: 3 mg Sertraline HCl (Zoloft) 100 mg PO BEDTIME [facility] Last Admin: 02/08/18 20:01 Dose: 100 mg Wound Care/Dressing Products (Duoderm Cgf) 1 each TOP ASDIRECTED PRN PRN Reason: pressure sore Last Admin: 02/08/18 20:06 Dose: 1 each Discontinued Medications Bisacodyl (Dulcolax) 10 mg RECTAL ONETIME ONE Stop: 02/09/18 09:04 Last Admin: 02/09/18 10:10 Dose: 10 mg Sodium Chloride (Normal Saline) 1,000 mls @ 999 mls/hr IV STAT ONE Stop: 02/06/18 11:40 Last Admin: 02/06/18 11:00 Dose: 999 mls/hr Lactated Ringer's (Ringers, Lactated) 1,000 mls @ 125 mls/hr IV ASDIRECTED [facility] Last Admin: 02/08/18 08:38 Dose: 125 mls/hr Levofloxacin/Dextrose 750 mg/ (Premix) 150 mls @ 100 mls/hr IV ONETIME ONE Stop: 02/07/18 20:01 Last Admin: 02/07/18 19:14 Dose: 100 mls/hr Vancomycin HCl 2 gm/ Sodium (Chloride) 500 mls @ 333.333 mls/hr IV ONETIME ONE Stop: 02/07/18 20:29 Last Admin: 02/08/18 01:09 Dose: 333.333 mls/hr Vancomycin HCl 1.25 gm/ Sodium (Chloride) 500 mls @ 333.333 mls/hr IV Q12H [facility] Vancomycin HCl 1.25 gm/ Sodium (Chloride) 500 mls @ 333.333 mls/hr IV Q12H [facility] Vancomycin HCl 1.25 gm/ Sodium (Chloride) 250 mls @ 166.667 mls/hr IV Q12H [facility] Last Admin: 02/08/18 13:24 Dose: 166.667 mls/hr Oxybutynin Chloride (Oxybutynin) 10 mg PO DAILY [facility] Last Admin: 02/08/18 08:39 Dose: 10 mg Sodium Chloride (Saline Flush) 10 ml FLUSH ASDIRECTED PRN PRN Reason: Keep Vein Open Sodium Chloride (Saline Flush) 2.5 ml FLUSH ASDIRECTED PRN PRN Reason: Keep Vein Open Vancomycin HCl (Pharmacy To Dose - Vancomycin) 0 dose .XX ASDIRECTED [facility] - Exam General: Alert HEENT: Pupils Equal Neck: Supple, No JVD Lungs: Decreased Breath Sounds. No: Wheezing Cardiovascular: Regular Rate, Regular Rhythm, No Murmurs GI/Abdominal Exam: Normal Bowel Sounds, Soft, Non-Tender, No Organomegaly, No Distention Extremities: Normal Inspection - Problem List & Annotations (1) Pneumonia SNOMED Code(s): 617078179 Code(s): J18.9 - PNEUMONIA, UNSPECIFIED ORGANISM Status: Acute Current Visit: Yes (2) Pneumonia, aspiration SNOMED Code(s): 547380532 Code(s): J69.0 - PNEUMONITIS DUE TO INHALATION OF FOOD AND VOMIT Status: Acute Current Visit: Yes - Problem List Review Problem List Initiated/Reviewed/Updated: Yes - My Orders Last 24 Hours: My Active Orders 02/08/18 14:43 Hydrocolloid Dressing [DuoDerm CGF] 1 each TOP ASDIRECTED PRN 02/08/18 Dinner Regular Diet [DIET] 02/09/18 10:03 Ready for Discharge [RC] PER UNIT ROUTINE 02/09/18 11:30 Lactated Ringers [Ringers, Lactated] 1,000 ml IV ASDIRECTED 02/09/18 12:22 Window Cutter Discontinue [Cardiac Monitoring Discontinue] [RC] Click to Edit - Plan Plan:: a/p aspiration pneumonia , blood cultures , Gpositive cocci in clusters coagulase negative - contamination- -d/c Vanco , d/c levaquin ( were d/c yesterday) iv , speech and swallow evaluation , PT/ OT recommended outpatient modified barium swallow Iv fluids For constipation - 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
[2018-02-09] MEDS: [UNRECOGNIZED DRUG - OTHER] PO SCH ×2 (13:16→20:10)
[2018-02-09] MEDS: Enoxaparin 40 MG/0.4 ML Syringe SUBCUT SCH (17:58)
[2018-02-09] MEDS: Sertraline 100 MG Tab PO SCH (20:10)
[2018-02-10] MEDS: Piperacillin/Tazobactam 4.5 GM in Sodium Chloride 0.9% 100 ML IV SCH ×2 (02:08→09:58)
[2018-02-10] MEDS: Lactated Ringers 1,000 ML IV SCH (02:14)
[2018-02-10] MEDS: Cetirizine 10 MG Tab PO SCH (09:56)
[2018-02-10] MEDS: guaiFENesin 600 MG Tab.ER PO SCH (09:59)
[2018-02-10] MEDS: [UNRECOGNIZED DRUG - OTHER] PO SCH (09:59)
[2018-02-10] MEDS: Carboxymethylcellulose Sodium 0.5% Ophth Soln 0.4 ML UD Box of 30 EYEBOTH SCH (10:00)
--- NOTE | 2018-02-10 11:20 | PCM.DCSUM1 ---
Discharge Summary - Hospital Course HPI Initial Comments: Patient 77 y old man presented to hospital due to lethargy for the past to 3 days, associated with the fever and gentamicin was 100.7, generalized weakness, decreased appetite, and poor oral intake. Patient was seen by his primary care physician Dr. Casas yesterday and he recommended patient to come to emergency room. In the emergency room chest x-ray and blood work were negative and patient returned home. Blood culture today to rule gram-positive cocci in clusters someone bottle, and patient returned to hospital to be admitted as direct admit as he was not feeling well he was lethargic for the past few days. His also was also sent that he was tachypneic at home . 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, and he follows up with physical therapy multiple days in a week, he needs assistance to transfer from bed to chair, but clinically he was not able to do it, because she was having generalized weakness Onset of Symptoms: Reports: Gradual Diagnosis: Stroke: No - Discharge Data Discharge Date: 02/10/18 Discharge Disposition: Home, Self-Care 01 Condition: Good - Discharge Diagnosis/Problem(s) (1) Pneumonia SNOMED Code(s): 266782682 ICD Code: J18.9 - PNEUMONIA, UNSPECIFIED ORGANISM Status: Deleted Qualifiers: Pneumonia type: aspiration pneumonia (2) Pneumonia, aspiration SNOMED Code(s): 241643493 ICD Code: J69.0 - PNEUMONITIS DUE TO INHALATION OF FOOD AND VOMIT Status: Acute (3) Pressure sore SNOMED Code(s): 412213948 ICD Code: L89.90 - PRESSURE ULCER OF UNSPECIFIED SITE, UNSPECIFIED STAGE Status: Acute (4) Generalized weakness SNOMED Code(s): 43854870 ICD Code: R53.1 - WEAKNESS Status: Acute (5) Gait disturbance SNOMED Code(s): 73692114 ICD Code: R26.9 - UNSPECIFIED ABNORMALITIES OF GAIT AND MOBILITY Status: Acute - Patient Summary/Data Consults: Consultations 02/07/18 18:28 OT Evaluation and Treatment [CONS] Routine PT Evaluation and Treatment [CONS] Routine 02/07/18 19:50 Consult to Speech Language Pathology [FIELD REPRESENTATIVE/HEALTH EDUCATION Evaluation and Treatment] [CONS] Routine Hospital Course: 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 Patient laboratory data show no significant leukocytosis and a chest x-ray was clear done the day prior to admission, patient had temperature maximum 100.7 as per his . Because patient has chronic and advanced neurologic: Disease he was treated for aspiration pneumonia and with Zosyn 4.5 g every 6 hours . Blood cultures were done at admission and the day before admission in ER and his his initial blood culture that were done a day ago in the emergency room grew gram-positive cocci in clusters and onto the definitive it is urgent was received patient was treated also with vancomycin and Levaquin. Patient also had physical therapy and speech and swallow evaluation. Speech and swallow recommended patient to have liquids with straw and sip cup, and the patient to have a modified barium swallow evaluation. Patient wanted to discuss this with and she said she will have this done as an outpatient . Patient was stable for discharge today, he was discharged home with another 8 days of Augmentin 875/125 mg by mouth twice a day . His final blood cultures grew out Staphylococcus epidermidis, and is coagulase negative - Patient Instructions Diet: Usual Diet as Tolerated Diet, Other: use straw and sip cups for liquids Activity: As Tolerated Driving: May Drive Today Showering/Bathing: May Shower - Discharge Plan Prescriptions/Med Rec: Amoxicillin/Clavulanate K [Augmentin 875-125 MG] 1 tab PO BID 8 Days #16 tablet Hydrocolloid Dressing [DuoDerm CGF] 1 each TOP ASDIRECTED PRN #14 bandage PRN Reason: pressure sore Home Medications: Home Meds Pseudoephedrine HCl [Long Acting Nasal Decongestant] 120 mg PO BID 01/18/15 [ History] Sertraline HCl 100 mg PO BEDTIME 01/18/15 [History] guaiFENesin [Mucinex] 1,200 mg PO BEDTIME 01/18/15 [History] risperiDONE 3 mg PO BID 01/18/15 [History] Carboxymethylcellulose Sodium [Refresh Tears] 1 drop EYEBOTH DAILY 02/06/18 [ History] Cetirizine [ZyrTEC] 1 tab PO DAILY 02/06/18 [History] guaiFENesin [Mucinex] 600 mg PO DAILY 02/06/18 [History] Amoxicillin/Clavulanate K [Augmentin 875-125 MG] 1 tab PO BID 8 Days #16 tablet 02/09/18 [Rx] Hydrocolloid Dressing [DuoDerm CGF] 1 each TOP ASDIRECTED PRN #14 bandage [Rx] Patient Handouts: Fergus Disease, Amoxicillin capsules or tablets, Weakness , [id number], Fever, Adult, [id number] Referrals: Ruslan Hope MD [Primary Care Provider] - - Discharge Summary/Plan Comment DC Time >30 min.: Yes - General Info Date of Service: 02/10/18 - Review of Systems Pulmonary: Reports: Cough - Patient Data Vitals - Most Recent: Last Vital Signs Temp 97.2 F 02/10/18 08:00 Pulse 73 02/10/18 04:00 Resp 18 02/10/18 08:00 BP 127/67 02/10/18 08:00 Pulse Ox 100 02/10/18 08:00 Weight - Most Recent: 166 lb 4.8 oz I&O - Last 24 hours: Intake & Output 02/09/18 02/10/18 02/10/18 22:59 06:59 14:59 Intake Total 1082 1339 Balance 1082 1339 LENA Results - Last 24 hrs: Microbiology 02/06/18 11:06 Aerobic Blood Culture - Preliminary Blood - Venous - Lab Draw NO GROWTH AFTER 4 DAYS Anaerobic Blood Culture - Preliminary 02/06/18 11:06 Aerobic Blood Culture - Preliminary Blood - Venous Anaerobic Blood Culture - Preliminary NO GROWTH AFTER 4 DAYS 02/07/18 19:05 Aerobic Blood Culture - Preliminary Blood - Venous NO GROWTH AFTER 2 DAYS Anaerobic Blood Culture - Preliminary NO GROWTH AFTER 2 DAYS 02/07/18 18:50 Aerobic Blood Culture - Preliminary Blood Anaerobic Blood Culture - Preliminary Med Orders - Current: Current Medications Acetaminophen (Tylenol) 650 mg PO Q4H PRN PRN Reason: Pain (Mild 1-3)/fever Amoxicillin/Clavulanate Potassium (Augmentin 875 Mg/125 Mg) 1 tab PO Q12HR [facility] Artificial Tears (Refresh Plus 0.5%) 0 each EYEBOTH DAILY [facility] Last Admin: 02/10/18 10:00 Dose: Not Given Cetirizine HCl (Zyrtec) 10 mg PO DAILY [facility] Last Admin: 02/10/18 09:56 Dose: 10 mg Enoxaparin Sodium (Lovenox) 40 mg SUBCUT Q24H [facility] Last Admin: 02/09/18 17:58 Dose: 40 mg Guaifenesin (Mucinex) 600 mg PO DAILY [facility] Last Admin: 02/10/18 09:59 Dose: 600 mg Piperacillin Sod/Tazobactam (Sod 4.5 gm/ Sodium Chloride) 100 mls @ 100 mls/hr IV Q6H [facility] Last Admin: 02/10/18 09:58 Dose: 100 mls/hr Lactated Ringer's (Ringers, Lactated) 1,000 mls @ 75 mls/hr IV ASDIRECTED [facility] Last Admin: 02/10/18 02:14 Dose: 75 mls/hr Lorazepam (Ativan) 1 mg IM Q6H PRN PRN Reason: Nausea/Vomiting Ondansetron HCl (Zofran) 4 mg IVPUSH Q4H PRN PRN Reason: Nausea Pseudoephedrine Hcl [Long Acting Nasal Decongestant] 120mg 1 each PO BID PRN PRN Reason: congestion Pseudoephedrine Hydrochloride Er 120mg/Tab 1 each PO BID [facility] Last Admin: 02/10/18 09:59 Dose: 1 each Risperidone (Risperidal) 3 mg PO BID [facility] Last Admin: 02/10/18 09:59 Dose: 3 mg Sertraline HCl (Zoloft) 100 mg PO BEDTIME [facility] Last Admin: 02/09/18 20:10 Dose: 100 mg Wound Care/Dressing Products (Duoderm Cgf) 1 each TOP ASDIRECTED PRN PRN Reason: pressure sore Last Admin: 02/08/18 20:06 Dose: 1 each Discontinued Medications Bisacodyl (Dulcolax) 10 mg RECTAL ONETIME ONE Stop: 02/09/18 09:04 Last Admin: 02/09/18 10:10 Dose: 10 mg Sodium Chloride (Normal Saline) 1,000 mls @ 999 mls/hr IV STAT ONE Stop: 02/06/18 11:40 Last Admin: 02/06/18 11:00 Dose: 999 mls/hr Lactated Ringer's (Ringers, Lactated) 1,000 mls @ 125 mls/hr IV ASDIRECTED [facility] Last Admin: 02/08/18 08:38 Dose: 125 mls/hr Levofloxacin/Dextrose 750 mg/ (Premix) 150 mls @ 100 mls/hr IV ONETIME ONE Stop: 02/07/18 20:01 Last Admin: 02/07/18 19:14 Dose: 100 mls/hr Vancomycin HCl 2 gm/ Sodium (Chloride) 500 mls @ 333.333 mls/hr IV ONETIME ONE Stop: 02/07/18 20:29 Last Admin: 02/08/18 01:09 Dose: 333.333 mls/hr Vancomycin HCl 1.25 gm/ Sodium (Chloride) 500 mls @ 333.333 mls/hr IV Q12H [facility] Vancomycin HCl 1.25 gm/ Sodium (Chloride) 500 mls @ 333.333 mls/hr IV Q12H [facility] Vancomycin HCl 1.25 gm/ Sodium (Chloride) 250 mls @ 166.667 mls/hr IV Q12H [facility] Last Admin: 02/08/18 13:24 Dose: 166.667 mls/hr Oxybutynin Chloride (Oxybutynin) 10 mg PO DAILY [facility] Last Admin: 02/08/18 08:39 Dose: 10 mg Sodium Chloride (Saline Flush) 10 ml FLUSH ASDIRECTED PRN PRN Reason: Keep Vein Open Sodium Chloride (Saline Flush) 2.5 ml FLUSH ASDIRECTED PRN PRN Reason: Keep Vein Open Vancomycin HCl (Pharmacy To Dose - Vancomycin) 0 dose .XX ASDIRECTED [facility] - Exam General: Reports: Alert HEENT: Reports: Pupils Equal, Pupils Reactive Neck: Reports: Supple, No JVD Lungs: Reports: Decreased Breath Sounds Cardiovascular: Reports: Regular Rate, Regular Rhythm, No Murmurs GI/Abdominal Exam: Normal Bowel Sounds, Soft, Non-Tender, No Organomegaly Skin: Reports: Warm, Dry Neurological: Reports: No New Focal Deficit. Denies: Normal Gait Psy/Mental Status: Reports: Alert
[2018-02-10 12:28] VITALS: BP 104/75
[2018-02-10] MEDS ORDERED: Amoxicillin/Clavulanate K 875-125 MG Tab PO SCH ×2 (12:45→21:00)
== END 2018-02-10 13:00 | disposition home or self-care (01) ==
LOC: MW.ED 10:11 → EEVIPCON 02-07 17:41 → MW.MS 02-07 17:41
PROVIDERS: ADMIT Internal Medicine; ATTEND Internal Medicine
DX: J69.0 Pneumonitis due to inhalation of food and vomit (principal); B95.7 Other staphylococcus as the cause of diseases classified elsewhere; B96.89 Other specified bacterial agents as the cause of diseases classified elsewhere; L89.90 Pressure ulcer of unspecified site, unspecified stage; K59.00 Constipation, unspecified; F32.9 Major depressive disorder, single episode, unspecified; R53.1 Weakness; R26.9 Unspecified abnormalities of gait and mobility; G10 Huntington's disease; Z87.891 Personal history of nicotine dependence; Z79.899 Other long term (current) drug therapy; Z88.8 Allergy status to other drugs, medicaments and biological substances
CPT/HCPCS: 36415; 71045; 80048; 80053; 81001; 82962; 83605; 85025; 85027; 87040; 87077; 87086; 87186; 96360; 97165; 97530; 99285; A9270; J1650; J1956; J2543; J3370; J7030; J7040; J7050; J7120; 96361; 99283

== ENCOUNTER 2018-02-07 17:41 | Inpatient (IN) | payer MEDICARE, BC ==
[2018-02-07 19:42] LABS: CHLORIDE,CL 105 mmol/L (98-107); SODIUM,NA 138 mmol/L (136-148)
--- NOTE | 2018-02-07 20:36 | PCM.HP ---
H&P History of Present Illness - General Date of Service: 02/07/18 Admit Problem/Dx: Admission Diagnosis/Problem Admission Diagnosis/Problem Fever in adult Source of Information: Family () - History of Present Illness Initial Comments - Free Text/Narative: Patient 77 y old man presented to hospital due to lethargy for the past to 3 days, associated with the fever and gentamicin was 100.7, generalized weakness, decreased appetite, and poor oral intake. Patient was seen by his primary care physician Dr. Casas yesterday and he recommended patient to come to emergency room. In the emergency room chest x-ray and blood work were negative and patient returned home. Blood culture today to rule gram-positive cocci in clusters someone bottle, and patient returned to hospital to be admitted as direct admit as he was not feeling well he was lethargic for the past few days. His also was also sent that he was tachypneic at home . 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, and he follows up with physical therapy multiple days in a week, he needs assistance to transfer from bed to chair, but clinically he was not able to do it, because she was having generalized weakness Onset of Symptoms: Reports: Gradual Duration of Symptoms: Reports: Day(s): - Related Data Allergies/Adverse Reactions: Allergies Allergy/AdvReac Type Severity Reaction Status Date / Time olanzapine [From Zyprexa] Allergy Difficulty Verified 02/06/18 10:23 Swallowing Home Medications: Home Meds Pseudoephedrine HCl [Long Acting Nasal Decongestant] 120 mg PO BID 01/18/15 [ History] Sertraline HCl 100 mg PO BEDTIME 01/18/15 [History] guaiFENesin [Mucinex] 1,200 mg PO BEDTIME 01/18/15 [History] risperiDONE 3 mg PO BID 01/18/15 [History] Carboxymethylcellulose Sodium [Refresh Tears] 1 drop EYEBOTH DAILY 02/06/18 [ History] Cetirizine [ZyrTEC] 1 tab PO DAILY 02/06/18 [History] Oxybutynin [Oxybutynin ER] 10 mg PO DAILY 02/06/18 [History] guaiFENesin [Mucinex] 600 mg PO DAILY 02/06/18 [History] Past Medical History Other HEENT History: 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 Other Respiratory History: Patient had chronic Pneumonia as claimed Other Genitourinary History: Prostate Ablation Other Neuro History: dx with Huntingtons Disease - Infectious Disease History Infectious Disease History: Reports: Measles, Mumps - Past Surgical History HEENT Surgical History: Reports: Adenoidectomy, Tonsillectomy GI Surgical History: Reports: Appendectomy Social & Family History - Family History Family Medical History: Noncontributory - Tobacco Use Smoking Status *Q: Former Smoker Used Tobacco, but Quit: Yes Month/Year Tobacco Last Used: 1988 Second Hand Smoke Exposure: No - Caffeine Use Caffeine Use: Reports: Coffee - Recreational Drug Use Recreational Drug Use: No H&P Review of Systems - Review of Systems: Review Of Systems: See Below General: Reports: Fever HEENT: Reports: No Symptoms Pulmonary: Reports: No Symptoms Cardiovascular: Reports: No Symptoms Gastrointestinal: Reports: No Symptoms Musculoskeletal: Reports: No Symptoms Skin: Reports: No Symptoms Psychiatric: Reports: No Symptoms Neurological: Reports: Trouble Speaking, Difficulty Walking, Weakness Hematologic/Lymphatic: Reports: No Symptoms Immunologic: Reports: No Symptoms Exam - Exam Exam: See Below - Vital Signs Vital Signs: Last Vital Signs Temp 98.5 F 02/07/18 19:56 Pulse 80 02/07/18 19:56 Resp 16 02/07/18 19:56 BP 120/66 02/07/18 19:56 Pulse Ox 97 02/07/18 19:56 Weight: 168 lb 12.8 oz - Exam General: Alert HEENT: Conjunctiva Clear Neck: Trachea Midline. No: JVD, Thyromegaly Lungs: Decreased Breath Sounds Cardiovascular: Regular Rate, Regular Rhythm, Normal S1, Normal S2 GI/Abdominal Exam: Normal Bowel Sounds, Soft, Non-Tender, No Organomegaly, No Distention Back Exam: Normal Inspection Extremities: Normal Inspection Skin: Warm, Dry, Intact Neurological: Cranial Nerves Intact Neuro Extensive - Mental Status: Alert, Oriented x3 - Patient Data Lab Results Last 24 hrs: Laboratory Results - last 24 hr 02/07/18 02/07/18 Range/Units 18:50 18:50 WBC 6.28 (4.0-11.0) K/uL RBC 4.31 L (4.50-5.90) M/uL Hgb 12.6 L (13.0-17.0) g/dL Hct 36.6 L (38.0-50.0) % MCV 84.9 (80.0-98.0) fL MCH 29.2 (27.0-32.0) pg MCHC 34.4 (31.0-37.0) g/dL RDW Std Deviation 40.9 (28.0-62.0) fl RDW Coeff of Nino 13 (11.0-15.0) % Plt Count 155 (150-400) K/uL MPV 9.00 (7.40-12.00) fL Neut % (Auto) 60.1 (48.0-80.0) % Lymph % (Auto) 22.9 (16.0-40.0) % [place] % (Auto) 13.5 (0.0-15.0) % Eos % (Auto) 3.3 (0.0-7.0) % Baso % (Auto) 0.2 (0.0-1.5) % Neut # (Auto) 3.8 (1.4-5.7) K/uL Lymph # (Auto) 1.4 (0.6-2.4) K/uL [place] # (Auto) 0.9 H (0.0-0.8) K/uL Eos # (Auto) 0.2 (0.0-0.7) K/uL Baso # (Auto) 0.0 (0.0-0.1) K/uL Nucleated RBC % 0.0 /100WBC Nucleated RBCs # 0 K/uL Sodium 138 (136-148) mmol/L Potassium 3.8 (3.5-5.1) mmol/L Chloride 105 (98-107) mmol/L Carbon Dioxide 27.3 (21.0-32.0) mmol/L BUN 16 (7.0-18.0) mg/dL Creatinine 0.9 (0.8-1.3) mg/dL Est Cr Clr Drug Dosing 74.44 mL/min Estimated GFR (MDRD) > 60.0 ml/min Glucose 102 (74-106) mg/dL Calcium 8.6 (8.5-10.1) mg/dL Total Bilirubin 0.8 (0.2-1.0) mg/dL AST 11 L (15-37) IU/L ALT 14 (14-63) IU/L Alkaline Phosphatase 62 (46-116) U/L Total Protein 6.4 (6.4-8.2) g/dL Albumin 2.9 L (3.4-5.0) g/dL Globulin 3.5 (2.0-3.5) g/dL Albumin/Globulin Ratio 0.8 L (1.3-2.8) Result Diagrams: 02/07/18 18:50 02/07/18 18:50 Derrick Results Last 24 hrs: Microbiology 02/06/18 11:06 Aerobic Blood Culture - Preliminary Blood - Venous Anaerobic Blood Culture - Preliminary NO GROWTH AFTER 1 DAY 02/06/18 11:06 Aerobic Blood Culture - Preliminary Blood - Venous - Lab Draw NO GROWTH AFTER 1 DAY Anaerobic Blood Culture - Preliminary NO GROWTH AFTER 1 DAY - Problem List (1) Pneumonia SNOMED Code(s): 816250100 ICD Code: J18.9 - PNEUMONIA, UNSPECIFIED ORGANISM Status: Acute Current Visit: Yes Problem List Initiated/Reviewed/Updated: Yes Orders Last 24hrs: Active Orders 24 hr Category Date Time Status Admission Status [Patient Status] [ADT] Routine ADT 02/07/18 19:02 Active Cardiac Monitoring [RC] Q8H Care 02/07/18 18:29 Active Up With Assistance [RC] ASDIRECTED Care 02/07/18 18:28 Active VTE/DVT Education [RC] PER UNIT ROUTINE Care 02/07/18 18:28 Active Vital Signs [RC] Q4H Care 02/07/18 18:28 Active Consult to Speech Language Pathology [BUSINESS SERVICES DIRECTOR Evaluation Cons 02/07/18 19:50 Active and Treatment] [CONS] Routine OT Evaluation and Treatment [CONS] Routine Cons 02/07/18 18:28 Active PT Evaluation and Treatment [CONS] Routine Cons 02/07/18 18:28 Active 2 Gram Sodium Diet [DIET] Diet 02/07/18 Dinner Active CBC W/O DIFF,HEMOGRAM [HEME] AM Lab 02/08/18 05:11 Ordered COMPREHENSIVE METABOLIC PN,CMP [CHEM] AM Lab 02/08/18 05:11 Ordered CULTURE BLOOD [BC] Routine Lab 02/07/18 18:50 Received CULTURE BLOOD [BC] Routine Lab 02/07/18 19:05 Received VANCOMYCIN TROUGH [CHEM] Timed Lab 02/09/18 06:30 Ordered Acetaminophen [Tylenol] Med 02/07/18 18:28 Active 650 mg PO Q4H PRN Carboxymethylcellulose Sodium [Refresh Plus 0.5%] Med 02/08/18 09:00 Active 0 each EYEBOTH DAILY Cetirizine [ZyrTEC] Med 02/08/18 09:00 Active 10 mg PO DAILY Enoxaparin [Lovenox] Med 02/07/18 18:30 Active 40 mg SUBCUT Q24H LORazepam [Ativan] Med 02/07/18 18:28 Active 1 mg IM Q6H PRN Lactated Ringers [Ringers, Lactated] 1,000 ml Med 02/07/18 18:30 Active IV ASDIRECTED Ondansetron [Zofran] Med 02/07/18 18:28 Active 4 mg IVPUSH Q4H PRN Oxybutynin Med 02/08/18 09:00 Pending 10 mg PO DAILY Piperacillin/Tazobactam [Piperacil-Tazobact] 4.5 gm Med 02/07/18 20:00 Active Sodium Chloride 0.9% [Normal Saline] 100 ml IV Q6H Pseudoephedrine HCl [Long Acting Nasal Decongestant] Med 02/07/18 21:00 Pending 120 mg PO BID Sertraline [Zoloft] Med 02/07/18 21:00 Active 100 mg PO BEDTIME Vancomycin 1.25 gm Med 02/08/18 07:00 Active Sodium Chloride 0.9% [Normal Saline] 500 ml IV Q12H Vancomycin Pharmacy to Dose [Pharmacy to Dose - Med 02/07/18 18:45 Pending Vancomycin] See Dose Instructions .XX ASDIRECTED guaiFENesin [Mucinex] Med 02/08/18 09:00 Active 600 mg PO DAILY risperiDONE [RisperiDAL] Med 02/07/18 21:00 Active 3 mg PO BID Sequential Compression Device [OM.PC] Per Unit Routine Oth 02/07/18 18:29 Ordered Resuscitation Status Routine Resus Stat 02/07/18 18:28 Ordered Medication Orders Acetaminophen (Tylenol) 650 mg PO Q4H PRN PRN Reason: Pain (Mild 1-3)/fever Artificial Tears (Refresh Plus 0.5%) 0 each EYEBOTH DAILY [facility]RA Cetirizine HCl (Zyrtec) 10 mg PO DAILY [facility] Enoxaparin Sodium (Lovenox) 40 mg SUBCUT Q24H [facility]RA Last Admin: 02/07/18 19:18 Dose: 40 mg Guaifenesin (Mucinex) 600 mg PO DAILY [facility] Lactated Ringer's (Ringers, Lactated) 1,000 mls @ 125 mls/hr IV ASDIRECTED [facility] Last Admin: 02/07/18 19:36 Dose: 125 mls/hr Vancomycin HCl 1.25 gm/ Sodium (Chloride) 500 mls @ 333.333 mls/hr IV Q12H KYRA Piperacillin Sod/Tazobactam (Sod 4.5 gm/ Sodium Chloride) 100 mls @ 100 mls/hr IV Q6H [facility]RA Lorazepam (Ativan) 1 mg IM Q6H PRN PRN Reason: Nausea/Vomiting Non-Formulary Medication (Oxybutynin) 10 mg PO DAILY [facility] Non-Formulary Medication (Pseudoephedrine Hcl [Long Acting Nasal Decongestant]) 120 mg PO BID [facility] Ondansetron HCl (Zofran) 4 mg IVPUSH Q4H PRN PRN Reason: Nausea Risperidone (Risperidal) 3 mg PO BID [facility] Sertraline HCl (Zoloft) 100 mg PO BEDTIME [facility]RA Vancomycin HCl (Pharmacy To Dose - Vancomycin) 0 dose .XX ASDIRECTED [facility] CXr done 02/06/18- negative Assessment/Plan Comment:: a/p Fever - likely aspiration pneumonia , blood cultures , Gpositive cocci in clusters - will start patient on broad spectrum antibiotics: Vancomycin , zosyn and levaquin iv , f/up final report speech and swallow evaluation , PT/ OT Iv fluids For constipation - 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
[2018-02-08 06:00] LABS: CHLORIDE,CL 108 mmol/L (98-107); SODIUM,NA 143 mmol/L (136-148)
--- NOTE | 2018-02-08 17:05 | PCM.PN ---
- General Info Date of Service: 02/08/18 Admission Dx/Problem (Free Text): Admission Diagnosis/Problem Admission Diagnosis/Problem Fever in adult, generalized weakness Subjective Update: Patient strength is improved . He had physical therapy today . was able to walk across the room with one assist. His blood cx showed Staph epidermis which is a contaminant. - Review of Systems General: Reports: No Symptoms HEENT: Reports: No Symptoms Pulmonary: Reports: No Symptoms Cardiovascular: Reports: No Symptoms Gastrointestinal: Reports: No Symptoms Genitourinary: Reports: No Symptoms Musculoskeletal: Reports: No Symptoms Skin: Reports: No Symptoms Neurological: Reports: No Symptoms Psychiatric: Reports: No Symptoms - Patient Data Vitals - Most Recent: Last Vital Signs Temp 97.2 F 02/08/18 16:00 Pulse 77 02/08/18 16:00 Resp 18 02/08/18 16:00 BP 116/88 02/08/18 16:00 Pulse Ox 97 02/08/18 16:00 Weight - Most Recent: 164 lb 14.4 oz I&O - Last 24 Hours: Intake & Output 02/08/18 02/08/18 02/08/18 06:59 14:59 22:59 Intake Total 200 1349 Output Total 969 Balance -769 1349 Lab Results Last 24 Hours: Laboratory Results - last 24 hr 02/07/18 02/07/18 02/08/18 Range/Units 18:50 18:50 05:25 WBC 6.28 4.75 (4.0-11.0) K/uL RBC 4.31 L 4.09 L (4.50-5.90) M/uL Hgb 12.6 L 12.0 L (13.0-17.0) g/dL Hct 36.6 L 34.7 L (38.0-50.0) % MCV 84.9 84.8 (80.0-98.0) fL MCH 29.2 29.3 (27.0-32.0) pg MCHC 34.4 34.6 (31.0-37.0) g/dL RDW Std Deviation 40.9 40.1 (28.0-62.0) fl RDW Coeff of Nino 13 13 (11.0-15.0) % Plt Count 155 135 L (150-400) K/uL MPV 9.00 9.00 (7.40-12.00) fL Neut % (Auto) 60.1 (48.0-80.0) % Lymph % (Auto) 22.9 (16.0-40.0) % [place] % (Auto) 13.5 (0.0-15.0) % Eos % (Auto) 3.3 (0.0-7.0) % Baso % (Auto) 0.2 (0.0-1.5) % Neut # (Auto) 3.8 (1.4-5.7) K/uL Lymph # (Auto) 1.4 (0.6-2.4) K/uL [place] # (Auto) 0.9 H (0.0-0.8) K/uL Eos # (Auto) 0.2 (0.0-0.7) K/uL Baso # (Auto) 0.0 (0.0-0.1) K/uL Nucleated RBC % 0.0 0.0 /100WBC Nucleated RBCs # 0 0 K/uL Sodium 138 (136-148) mmol/L Potassium 3.8 (3.5-5.1) mmol/L Chloride 105 (98-107) mmol/L Carbon Dioxide 27.3 (21.0-32.0) mmol/L BUN 16 (7.0-18.0) mg/dL Creatinine 0.9 (0.8-1.3) mg/dL Est Cr Clr Drug Dosing 74.44 mL/min Estimated GFR (MDRD) > 60.0 ml/min Glucose 102 (74-106) mg/dL Calcium 8.6 (8.5-10.1) mg/dL Total Bilirubin 0.8 (0.2-1.0) mg/dL AST 11 L (15-37) IU/L ALT 14 (14-63) IU/L Alkaline Phosphatase 62 (46-116) U/L Total Protein 6.4 (6.4-8.2) g/dL Albumin 2.9 L (3.4-5.0) g/dL Globulin 3.5 (2.0-3.5) g/dL Albumin/Globulin Ratio 0.8 L (1.3-2.8) 02/08/18 Range/Units 05:25 WBC (4.0-11.0) K/uL RBC (4.50-5.90) M/uL Hgb (13.0-17.0) g/dL Hct (38.0-50.0) % MCV (80.0-98.0) fL MCH (27.0-32.0) pg MCHC (31.0-37.0) g/dL RDW Std Deviation (28.0-62.0) fl RDW Coeff of Nino (11.0-15.0) % Plt Count (150-400) K/uL MPV (7.40-12.00) fL Neut % (Auto) (48.0-80.0) % Lymph % (Auto) (16.0-40.0) % [place] % (Auto) (0.0-15.0) % Eos % (Auto) (0.0-7.0) % Baso % (Auto) (0.0-1.5) % Neut # (Auto) (1.4-5.7) K/uL Lymph # (Auto) (0.6-2.4) K/uL [place] # (Auto) (0.0-0.8) K/uL Eos # (Auto) (0.0-0.7) K/uL Baso # (Auto) (0.0-0.1) K/uL Nucleated RBC % /100WBC Nucleated RBCs # K/uL Sodium 143 (136-148) mmol/L Potassium 3.9 (3.5-5.1) mmol/L Chloride 108 H (98-107) mmol/L Carbon Dioxide 26.7 (21.0-32.0) mmol/L BUN 15 (7.0-18.0) mg/dL Creatinine 1.0 (0.8-1.3) mg/dL Est Cr Clr Drug Dosing 67.00 mL/min Estimated GFR (MDRD) > 60.0 ml/min Glucose 96 (74-106) mg/dL Calcium 8.9 (8.5-10.1) mg/dL Total Bilirubin 1.2 H (0.2-1.0) mg/dL AST 12 L (15-37) IU/L ALT 13 L (14-63) IU/L Alkaline Phosphatase 60 (46-116) U/L Total Protein 5.9 L (6.4-8.2) g/dL Albumin 2.6 L (3.4-5.0) g/dL Globulin 3.3 (2.0-3.5) g/dL Albumin/Globulin Ratio 0.8 L (1.3-2.8) Derrick Results Last 24 Hours: Microbiology 02/06/18 11:06 Aerobic Blood Culture - Preliminary Blood - Venous Anaerobic Blood Culture - Preliminary NO GROWTH AFTER 2 DAYS 02/06/18 11:06 Aerobic Blood Culture - Preliminary Blood - Venous - Lab Draw NO GROWTH AFTER 2 DAYS Anaerobic Blood Culture - Preliminary NO GROWTH AFTER 2 DAYS 02/06/18 12:00 Urine Culture - Final Urine, Clean Catch No Growth Med Orders - Current: Current Medications Acetaminophen (Tylenol) 650 mg PO Q4H PRN PRN Reason: Pain (Mild 1-3)/fever Artificial Tears (Refresh Plus 0.5%) 0 each EYEBOTH DAILY [facility] Last Admin: 02/08/18 08:39 Dose: 1 drop Cetirizine HCl (Zyrtec) 10 mg PO DAILY [facility] Last Admin: 02/08/18 08:40 Dose: 10 mg Enoxaparin Sodium (Lovenox) 40 mg SUBCUT Q24H [facility] Last Admin: 02/07/18 19:18 Dose: 40 mg Guaifenesin (Mucinex) 600 mg PO DAILY [facility] Last Admin: 02/08/18 08:40 Dose: 600 mg Lactated Ringer's (Ringers, Lactated) 1,000 mls @ 125 mls/hr IV ASDIRECTED [facility] Last Admin: 02/08/18 08:38 Dose: 125 mls/hr Piperacillin Sod/Tazobactam (Sod 4.5 gm/ Sodium Chloride) 100 mls @ 100 mls/hr IV Q6H [facility] Last Admin: 02/08/18 14:55 Dose: 100 mls/hr Lorazepam (Ativan) 1 mg IM Q6H PRN PRN Reason: Nausea/Vomiting Ondansetron HCl (Zofran) 4 mg IVPUSH Q4H PRN PRN Reason: Nausea Oxybutynin Chloride (Oxybutynin) 10 mg PO DAILY [facility] Last Admin: 02/08/18 08:39 Dose: 10 mg Pseudoephedrine Hcl [Long Acting Nasal Decongestant] 120mg 1 each PO BID PRN PRN Reason: congestion Risperidone (Risperidal) 3 mg PO BID [facility] Last Admin: 02/08/18 08:39 Dose: 3 mg Sertraline HCl (Zoloft) 100 mg PO BEDTIME [facility] Last Admin: 02/07/18 21:06 Dose: 100 mg Wound Care/Dressing Products (Duoderm Cgf) 1 each TOP ASDIRECTED PRN PRN Reason: pressure sore Discontinued Medications Sodium Chloride (Normal Saline) 1,000 mls @ 999 mls/hr IV STAT ONE Stop: 02/06/18 11:40 Last Admin: 02/06/18 11:00 Dose: 999 mls/hr Levofloxacin/Dextrose 750 mg/ (Premix) 150 mls @ 100 mls/hr IV ONETIME ONE Stop: 02/07/18 20:01 Last Admin: 02/07/18 19:14 Dose: 100 mls/hr Vancomycin HCl 2 gm/ Sodium (Chloride) 500 mls @ 333.333 mls/hr IV ONETIME ONE Stop: 02/07/18 20:29 Last Admin: 02/08/18 01:09 Dose: 333.333 mls/hr Vancomycin HCl 1.25 gm/ Sodium (Chloride) 500 mls @ 333.333 mls/hr IV Q12H [facility] Vancomycin HCl 1.25 gm/ Sodium (Chloride) 500 mls @ 333.333 mls/hr IV Q12H [facility] Vancomycin HCl 1.25 gm/ Sodium (Chloride) 250 mls @ 166.667 mls/hr IV Q12H [facility] Last Admin: 02/08/18 13:24 Dose: 166.667 mls/hr Sodium Chloride (Saline Flush) 10 ml FLUSH ASDIRECTED PRN PRN Reason: Keep Vein Open Sodium Chloride (Saline Flush) 2.5 ml FLUSH ASDIRECTED PRN PRN Reason: Keep Vein Open Vancomycin HCl (Pharmacy To Dose - Vancomycin) 0 dose .XX ASDIRECTED [facility] - Exam General: Alert, Oriented HEENT: Pupils Equal, Pupils Reactive Neck: Supple, Trachea Midline, No JVD, No Thyromegaly Lungs: Clear to Auscultation, Decreased Breath Sounds Cardiovascular: Regular Rate, Regular Rhythm GI/Abdominal Exam: Normal Bowel Sounds Extremities: Normal Inspection Skin: Warm, Dry Neurological: No New Focal Deficit Psy/Mental Status: Alert, Normal Affect - Problem List & Annotations (1) Pneumonia SNOMED Code(s): 387878142 Code(s): J18.9 - PNEUMONIA, UNSPECIFIED ORGANISM Status: Acute Current Visit: Yes - Problem List Review Problem List Initiated/Reviewed/Updated: Yes - My Orders Last 24 Hours: My Active Orders 02/07/18 18:28 Up With Assistance [RC] ASDIRECTED VTE/DVT Education [RC] PER UNIT ROUTINE Vital Signs [RC] Q4H OT Evaluation and Treatment [CONS] Routine PT Evaluation and Treatment [CONS] Routine Acetaminophen [Tylenol] 650 mg PO Q4H PRN LORazepam [Ativan] 1 mg IM Q6H PRN Ondansetron [Zofran] 4 mg IVPUSH Q4H PRN Resuscitation Status Routine 02/07/18 18:29 Cardiac Monitoring [RC] Q8H Sequential Compression Device [OM.PC] Per Unit Routine 02/07/18 18:30 Enoxaparin [Lovenox] 40 mg SUBCUT Q24H Lactated Ringers [Ringers, Lactated] 1,000 ml IV ASDIRECTED 02/07/18 18:50 CULTURE BLOOD [BC] Routine 02/07/18 19:02 Admission Status [Patient Status] [ADT] Routine 02/07/18 19:05 Telemetry Monitoring [Cardiac Monitoring] [RC] . DIRECTED CULTURE BLOOD [BC] Routine 02/07/18 19:50 Consult to Speech Language Pathology [ASSISTANT PROFESSOR OF ENGLISH Evaluation and Treatment] [CONS] Routine 02/07/18 20:00 Piperacillin/Tazobactam [Piperacil-Tazobact] 4.5 gm Sodium Chloride 0.9% [ Normal Saline] 100 ml IV Q6H 02/07/18 21:00 Patient's Own Medication [Ptom] 1 each PO BID PRN Sertraline [Zoloft] 100 mg PO BEDTIME risperiDONE [RisperiDAL] 3 mg PO BID 02/08/18 09:00 Carboxymethylcellulose Sodium [Refresh Plus 0.5%] 0 each EYEBOTH DAILY Cetirizine [ZyrTEC] 10 mg PO DAILY Oxybutynin 10 mg PO DAILY guaiFENesin [Mucinex] 600 mg PO DAILY 02/08/18 14:43 Hydrocolloid Dressing [DuoDerm CGF] 1 each TOP ASDIRECTED PRN 02/08/18 Dinner Regular Diet [DIET] 02/09/18 05:11 BASIC METABOLIC PANEL,BMP [CHEM] Routine CBC WITH AUTO DIFF [HEME] Routine Aspiration pneumonia- continue Zosyn 4.5 grams q 6 h , d/c vancomycin , d/c levaquin. Modified barium studies as outpatient f/up PT upon discharge d/c planing tomorrow with Augmentine 875/125 1 tab po BID dvt prof : lovenox sq - Plan Plan:: a/p Fever - likely aspiration pneumonia , blood cultures , Gpositive cocci in clusters - will start patient on broad spectrum antibiotics: Vancomycin , zosyn and levaquin iv , f/up bc final report speech and swallow evaluation , PT/ OT Iv fluids For constipation - will continue with Miralax and colace prn for [place] Dz - risperdal 3 mg po BID PT/OT Depression: zoloft 100 mg po q hs Dvt prof : lovenox 40 mg sq daily
[2018-02-09 06:21] LABS: CHLORIDE,CL 108 mmol/L (98-107); SODIUM,NA 143 mmol/L (136-148)
--- NOTE | 2018-02-09 12:23 | PCM.PN ---
- General Info Date of Service: 02/09/18 Admission Dx/Problem (Free Text): Admission Diagnosis/Problem Admission Diagnosis/Problem Fever in adult, generalized weakness Subjective Update: Patient more alert and awake today , improved on physical therapy. - Review of Systems General: Reports: Weakness HEENT: Reports: No Symptoms Pulmonary: Reports: Cough Cardiovascular: Reports: No Symptoms Gastrointestinal: Reports: No Symptoms Genitourinary: Reports: No Symptoms Musculoskeletal: Reports: No Symptoms Skin: Reports: No Symptoms Neurological: Reports: Difficulty Walking, Weakness - Patient Data Vitals - Most Recent: Last Vital Signs Temp 96.7 F 02/09/18 08:00 Pulse 76 02/09/18 03:45 Resp 16 02/09/18 08:00 BP 108/59 L 02/09/18 08:00 Pulse Ox 93 L 02/09/18 08:00 Weight - Most Recent: 166 lb 4.8 oz I&O - Last 24 Hours: Intake & Output 02/08/18 02/09/18 02/09/18 22:59 06:59 14:59 Intake Total 1350 420 100 Balance 1350 420 100 Lab Results Last 24 Hours: Laboratory Results - last 24 hr 02/09/18 02/09/18 Range/Units 06:04 06:04 WBC 4.35 (4.0-11.0) K/uL RBC 4.16 L (4.50-5.90) M/uL Hgb 12.1 L (13.0-17.0) g/dL Hct 35.4 L (38.0-50.0) % MCV 85.1 (80.0-98.0) fL MCH 29.1 (27.0-32.0) pg MCHC 34.2 (31.0-37.0) g/dL RDW Std Deviation 40.1 (28.0-62.0) fl RDW Coeff of Nino 13 (11.0-15.0) % Plt Count 151 (150-400) K/uL MPV 8.50 (7.40-12.00) fL Neut % (Auto) 54.9 (48.0-80.0) % Lymph % (Auto) 28.7 (16.0-40.0) % [place] % (Auto) 12.0 (0.0-15.0) % Eos % (Auto) 4.4 (0.0-7.0) % Baso % (Auto) 0.0 (0.0-1.5) % Neut # (Auto) 2.4 (1.4-5.7) K/uL Lymph # (Auto) 1.3 (0.6-2.4) K/uL [place] # (Auto) 0.5 (0.0-0.8) K/uL Eos # (Auto) 0.2 (0.0-0.7) K/uL Baso # (Auto) 0.0 (0.0-0.1) K/uL Nucleated RBC % 0.0 /100WBC Nucleated RBCs # 0 K/uL Sodium 143 (136-148) mmol/L Potassium 3.9 (3.5-5.1) mmol/L Chloride 108 H (98-107) mmol/L Carbon Dioxide 29.9 (21.0-32.0) mmol/L BUN 14 (7.0-18.0) mg/dL Creatinine 1.0 (0.8-1.3) mg/dL Est Cr Clr Drug Dosing 65.45 mL/min Estimated GFR (MDRD) > 60.0 ml/min Glucose 93 (74-106) mg/dL Calcium 8.6 (8.5-10.1) mg/dL Derrick Results Last 24 Hours: Microbiology 02/06/18 11:06 Aerobic Blood Culture - Preliminary Blood - Venous - Lab Draw NO GROWTH AFTER 3 DAYS Anaerobic Blood Culture - Preliminary 02/06/18 11:06 Aerobic Blood Culture - Preliminary Blood - Venous Anaerobic Blood Culture - Preliminary NO GROWTH AFTER 3 DAYS 02/07/18 18:50 Aerobic Blood Culture - Preliminary Blood Anaerobic Blood Culture - Preliminary 02/07/18 19:05 Aerobic Blood Culture - Preliminary Blood - Venous NO GROWTH AFTER 1 DAY Anaerobic Blood Culture - Preliminary NO GROWTH AFTER 1 DAY 02/06/18 12:00 Urine Culture - Final Urine, Clean Catch No Growth Med Orders - Current: Current Medications Acetaminophen (Tylenol) 650 mg PO Q4H PRN PRN Reason: Pain (Mild 1-3)/fever Artificial Tears (Refresh Plus 0.5%) 0 each EYEBOTH DAILY [facility] Last Admin: 02/09/18 10:00 Dose: 1 drop Cetirizine HCl (Zyrtec) 10 mg PO DAILY [facility] Last Admin: 02/09/18 08:22 Dose: 10 mg Enoxaparin Sodium (Lovenox) 40 mg SUBCUT Q24H [facility] Last Admin: 02/08/18 18:01 Dose: 40 mg Guaifenesin (Mucinex) 600 mg PO DAILY [facility] Last Admin: 02/09/18 08:23 Dose: 600 mg Piperacillin Sod/Tazobactam (Sod 4.5 gm/ Sodium Chloride) 100 mls @ 100 mls/hr IV Q6H [facility] Last Admin: 02/09/18 08:23 Dose: 100 mls/hr Lactated Ringer's (Ringers, Lactated) 1,000 mls @ 75 mls/hr IV ASDIRECTED [facility] Last Admin: 02/09/18 11:36 Dose: 75 mls/hr Lorazepam (Ativan) 1 mg IM Q6H PRN PRN Reason: Nausea/Vomiting Ondansetron HCl (Zofran) 4 mg IVPUSH Q4H PRN PRN Reason: Nausea Pseudoephedrine Hcl [Long Acting Nasal Decongestant] 120mg 1 each PO BID PRN PRN Reason: congestion Risperidone (Risperidal) 3 mg PO BID [facility] Last Admin: 02/09/18 08:23 Dose: 3 mg Sertraline HCl (Zoloft) 100 mg PO BEDTIME [facility] Last Admin: 02/08/18 20:01 Dose: 100 mg Wound Care/Dressing Products (Duoderm Cgf) 1 each TOP ASDIRECTED PRN PRN Reason: pressure sore Last Admin: 02/08/18 20:06 Dose: 1 each Discontinued Medications Bisacodyl (Dulcolax) 10 mg RECTAL ONETIME ONE Stop: 02/09/18 09:04 Last Admin: 02/09/18 10:10 Dose: 10 mg Sodium Chloride (Normal Saline) 1,000 mls @ 999 mls/hr IV STAT ONE Stop: 02/06/18 11:40 Last Admin: 02/06/18 11:00 Dose: 999 mls/hr Lactated Ringer's (Ringers, Lactated) 1,000 mls @ 125 mls/hr IV ASDIRECTED [facility] Last Admin: 02/08/18 08:38 Dose: 125 mls/hr Levofloxacin/Dextrose 750 mg/ (Premix) 150 mls @ 100 mls/hr IV ONETIME ONE Stop: 02/07/18 20:01 Last Admin: 02/07/18 19:14 Dose: 100 mls/hr Vancomycin HCl 2 gm/ Sodium (Chloride) 500 mls @ 333.333 mls/hr IV ONETIME ONE Stop: 02/07/18 20:29 Last Admin: 02/08/18 01:09 Dose: 333.333 mls/hr Vancomycin HCl 1.25 gm/ Sodium (Chloride) 500 mls @ 333.333 mls/hr IV Q12H [facility] Vancomycin HCl 1.25 gm/ Sodium (Chloride) 500 mls @ 333.333 mls/hr IV Q12H [facility] Vancomycin HCl 1.25 gm/ Sodium (Chloride) 250 mls @ 166.667 mls/hr IV Q12H [facility] Last Admin: 02/08/18 13:24 Dose: 166.667 mls/hr Oxybutynin Chloride (Oxybutynin) 10 mg PO DAILY [facility] Last Admin: 02/08/18 08:39 Dose: 10 mg Sodium Chloride (Saline Flush) 10 ml FLUSH ASDIRECTED PRN PRN Reason: Keep Vein Open Sodium Chloride (Saline Flush) 2.5 ml FLUSH ASDIRECTED PRN PRN Reason: Keep Vein Open Vancomycin HCl (Pharmacy To Dose - Vancomycin) 0 dose .XX ASDIRECTED [facility] - Exam General: Alert HEENT: Pupils Equal Neck: Supple, No JVD Lungs: Decreased Breath Sounds. No: Wheezing Cardiovascular: Regular Rate, Regular Rhythm, No Murmurs GI/Abdominal Exam: Normal Bowel Sounds, Soft, Non-Tender, No Organomegaly, No Distention Extremities: Normal Inspection - Problem List & Annotations (1) Pneumonia SNOMED Code(s): 183410404 Code(s): J18.9 - PNEUMONIA, UNSPECIFIED ORGANISM Status: Acute Current Visit: Yes (2) Pneumonia, aspiration SNOMED Code(s): 954431678 Code(s): J69.0 - PNEUMONITIS DUE TO INHALATION OF FOOD AND VOMIT Status: Acute Current Visit: Yes - Problem List Review Problem List Initiated/Reviewed/Updated: Yes - My Orders Last 24 Hours: My Active Orders 02/08/18 14:43 Hydrocolloid Dressing [DuoDerm CGF] 1 each TOP ASDIRECTED PRN 02/08/18 Dinner Regular Diet [DIET] 02/09/18 10:03 Ready for Discharge [RC] PER UNIT ROUTINE 02/09/18 11:30 Lactated Ringers [Ringers, Lactated] 1,000 ml IV ASDIRECTED 02/09/18 12:22 Sheriffs Discontinue [Cardiac Monitoring Discontinue] [RC] Click to Edit - Plan Plan:: a/p aspiration pneumonia , blood cultures , Gpositive cocci in clusters coagulase negative - contamination- -d/c Vanco , d/c levaquin ( were d/c yesterday) iv , speech and swallow evaluation , PT/ OT recommended outpatient modified barium swallow Iv fluids For constipation - 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
--- NOTE | 2018-02-10 11:20 | PCM.DCSUM1 ---
Discharge Summary - Hospital Course HPI Initial Comments: Patient 77 y old man presented to hospital due to lethargy for the past to 3 days, associated with the fever and gentamicin was 100.7, generalized weakness, decreased appetite, and poor oral intake. Patient was seen by his primary care physician Dr. Casas yesterday and he recommended patient to come to emergency room. In the emergency room chest x-ray and blood work were negative and patient returned home. Blood culture today to rule gram-positive cocci in clusters someone bottle, and patient returned to hospital to be admitted as direct admit as he was not feeling well he was lethargic for the past few days. His also was also sent that he was tachypneic at home . 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, and he follows up with physical therapy multiple days in a week, he needs assistance to transfer from bed to chair, but clinically he was not able to do it, because she was having generalized weakness Onset of Symptoms: Reports: Gradual Diagnosis: Stroke: No - Discharge Data Discharge Date: 02/10/18 Discharge Disposition: Home, Self-Care 01 Condition: Good - Discharge Diagnosis/Problem(s) (1) Pneumonia SNOMED Code(s): 569241268 ICD Code: J18.9 - PNEUMONIA, UNSPECIFIED ORGANISM Status: Deleted Qualifiers: Pneumonia type: aspiration pneumonia (2) Pneumonia, aspiration SNOMED Code(s): 207817565 ICD Code: J69.0 - PNEUMONITIS DUE TO INHALATION OF FOOD AND VOMIT Status: Acute (3) Pressure sore SNOMED Code(s): 446983846 ICD Code: L89.90 - PRESSURE ULCER OF UNSPECIFIED SITE, UNSPECIFIED STAGE Status: Acute (4) Generalized weakness SNOMED Code(s): 93218618 ICD Code: R53.1 - WEAKNESS Status: Acute (5) Gait disturbance SNOMED Code(s): 50773447 ICD Code: R26.9 - UNSPECIFIED ABNORMALITIES OF GAIT AND MOBILITY Status: Acute - Patient Summary/Data Consults: Consultations 02/07/18 18:28 OT Evaluation and Treatment [CONS] Routine PT Evaluation and Treatment [CONS] Routine 02/07/18 19:50 Consult to Speech Language Pathology [END FINDER TWISTING DEPARTMENT Evaluation and Treatment] [CONS] Routine Hospital Course: 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 Patient laboratory data show no significant leukocytosis and a chest x-ray was clear done the day prior to admission, patient had temperature maximum 100.7 as per his . Because patient has chronic and advanced neurologic: Disease he was treated for aspiration pneumonia and with Zosyn 4.5 g every 6 hours . Blood cultures were done at admission and the day before admission in ER and his his initial blood culture that were done a day ago in the emergency room grew gram-positive cocci in clusters and onto the definitive it is urgent was received patient was treated also with vancomycin and Levaquin. Patient also had physical therapy and speech and swallow evaluation. Speech and swallow recommended patient to have liquids with straw and sip cup, and the patient to have a modified barium swallow evaluation. Patient wanted to discuss this with and she said she will have this done as an outpatient . Patient was stable for discharge today, he was discharged home with another 8 days of Augmentin 875/125 mg by mouth twice a day . His final blood cultures grew out Staphylococcus epidermidis, and is coagulase negative - Patient Instructions Diet: Usual Diet as Tolerated Diet, Other: use straw and sip cups for liquids Activity: As Tolerated Driving: May Drive Today Showering/Bathing: May Shower - Discharge Plan Prescriptions/Med Rec: Amoxicillin/Clavulanate K [Augmentin 875-125 MG] 1 tab PO BID 8 Days #16 tablet Hydrocolloid Dressing [DuoDerm CGF] 1 each TOP ASDIRECTED PRN #14 bandage PRN Reason: pressure sore Home Medications: Home Meds Pseudoephedrine HCl [Long Acting Nasal Decongestant] 120 mg PO BID 01/18/15 [ History] Sertraline HCl 100 mg PO BEDTIME 01/18/15 [History] guaiFENesin [Mucinex] 1,200 mg PO BEDTIME 01/18/15 [History] risperiDONE 3 mg PO BID 01/18/15 [History] Carboxymethylcellulose Sodium [Refresh Tears] 1 drop EYEBOTH DAILY 02/06/18 [ History] Cetirizine [ZyrTEC] 1 tab PO DAILY 02/06/18 [History] guaiFENesin [Mucinex] 600 mg PO DAILY 02/06/18 [History] Amoxicillin/Clavulanate K [Augmentin 875-125 MG] 1 tab PO BID 8 Days #16 tablet 02/09/18 [Rx] Hydrocolloid Dressing [DuoDerm CGF] 1 each TOP ASDIRECTED PRN #14 bandage [Rx] Patient Handouts: Hayes Disease, Amoxicillin capsules or tablets, Weakness , [id number], Fever, Adult, [id number] Referrals: Ruslan Hope MD [Primary Care Provider] - - Discharge Summary/Plan Comment DC Time >30 min.: Yes - General Info Date of Service: 02/10/18 - Review of Systems Pulmonary: Reports: Cough - Patient Data Vitals - Most Recent: Last Vital Signs Temp 97.2 F 02/10/18 08:00 Pulse 73 02/10/18 04:00 Resp 18 02/10/18 08:00 BP 127/67 02/10/18 08:00 Pulse Ox 100 02/10/18 08:00 Weight - Most Recent: 166 lb 4.8 oz I&O - Last 24 hours: Intake & Output 02/09/18 02/10/18 02/10/18 22:59 06:59 14:59 Intake Total 1082 1339 Balance 1082 1339 LENA Results - Last 24 hrs: Microbiology 02/06/18 11:06 Aerobic Blood Culture - Preliminary Blood - Venous - Lab Draw NO GROWTH AFTER 4 DAYS Anaerobic Blood Culture - Preliminary 02/06/18 11:06 Aerobic Blood Culture - Preliminary Blood - Venous Anaerobic Blood Culture - Preliminary NO GROWTH AFTER 4 DAYS 02/07/18 19:05 Aerobic Blood Culture - Preliminary Blood - Venous NO GROWTH AFTER 2 DAYS Anaerobic Blood Culture - Preliminary NO GROWTH AFTER 2 DAYS 02/07/18 18:50 Aerobic Blood Culture - Preliminary Blood Anaerobic Blood Culture - Preliminary Med Orders - Current: Current Medications Acetaminophen (Tylenol) 650 mg PO Q4H PRN PRN Reason: Pain (Mild 1-3)/fever Amoxicillin/Clavulanate Potassium (Augmentin 875 Mg/125 Mg) 1 tab PO Q12HR [facility] Artificial Tears (Refresh Plus 0.5%) 0 each EYEBOTH DAILY [facility] Last Admin: 02/10/18 10:00 Dose: Not Given Cetirizine HCl (Zyrtec) 10 mg PO DAILY [facility] Last Admin: 02/10/18 09:56 Dose: 10 mg Enoxaparin Sodium (Lovenox) 40 mg SUBCUT Q24H [facility] Last Admin: 02/09/18 17:58 Dose: 40 mg Guaifenesin (Mucinex) 600 mg PO DAILY [facility] Last Admin: 02/10/18 09:59 Dose: 600 mg Piperacillin Sod/Tazobactam (Sod 4.5 gm/ Sodium Chloride) 100 mls @ 100 mls/hr IV Q6H [facility] Last Admin: 02/10/18 09:58 Dose: 100 mls/hr Lactated Ringer's (Ringers, Lactated) 1,000 mls @ 75 mls/hr IV ASDIRECTED [facility] Last Admin: 02/10/18 02:14 Dose: 75 mls/hr Lorazepam (Ativan) 1 mg IM Q6H PRN PRN Reason: Nausea/Vomiting Ondansetron HCl (Zofran) 4 mg IVPUSH Q4H PRN PRN Reason: Nausea Pseudoephedrine Hcl [Long Acting Nasal Decongestant] 120mg 1 each PO BID PRN PRN Reason: congestion Pseudoephedrine Hydrochloride Er 120mg/Tab 1 each PO BID [facility] Last Admin: 02/10/18 09:59 Dose: 1 each Risperidone (Risperidal) 3 mg PO BID [facility] Last Admin: 02/10/18 09:59 Dose: 3 mg Sertraline HCl (Zoloft) 100 mg PO BEDTIME [facility] Last Admin: 02/09/18 20:10 Dose: 100 mg Wound Care/Dressing Products (Duoderm Cgf) 1 each TOP ASDIRECTED PRN PRN Reason: pressure sore Last Admin: 02/08/18 20:06 Dose: 1 each Discontinued Medications Bisacodyl (Dulcolax) 10 mg RECTAL ONETIME ONE Stop: 02/09/18 09:04 Last Admin: 02/09/18 10:10 Dose: 10 mg Sodium Chloride (Normal Saline) 1,000 mls @ 999 mls/hr IV STAT ONE Stop: 02/06/18 11:40 Last Admin: 02/06/18 11:00 Dose: 999 mls/hr Lactated Ringer's (Ringers, Lactated) 1,000 mls @ 125 mls/hr IV ASDIRECTED [facility] Last Admin: 02/08/18 08:38 Dose: 125 mls/hr Levofloxacin/Dextrose 750 mg/ (Premix) 150 mls @ 100 mls/hr IV ONETIME ONE Stop: 02/07/18 20:01 Last Admin: 02/07/18 19:14 Dose: 100 mls/hr Vancomycin HCl 2 gm/ Sodium (Chloride) 500 mls @ 333.333 mls/hr IV ONETIME ONE Stop: 02/07/18 20:29 Last Admin: 02/08/18 01:09 Dose: 333.333 mls/hr Vancomycin HCl 1.25 gm/ Sodium (Chloride) 500 mls @ 333.333 mls/hr IV Q12H KYRA Vancomycin HCl 1.25 gm/ Sodium (Chloride) 500 mls @ 333.333 mls/hr IV Q12H KYRA Vancomycin HCl 1.25 gm/ Sodium (Chloride) 250 mls @ 166.667 mls/hr IV Q12H [facility] Last Admin: 02/08/18 13:24 Dose: 166.667 mls/hr Oxybutynin Chloride (Oxybutynin) 10 mg PO DAILY [facility] Last Admin: 02/08/18 08:39 Dose: 10 mg Sodium Chloride (Saline Flush) 10 ml FLUSH ASDIRECTED PRN PRN Reason: Keep Vein Open Sodium Chloride (Saline Flush) 2.5 ml FLUSH ASDIRECTED PRN PRN Reason: Keep Vein Open Vancomycin HCl (Pharmacy To Dose - Vancomycin) 0 dose .XX ASDIRECTED KYRA - Exam General: Reports: Alert HEENT: Reports: Pupils Equal, Pupils Reactive Neck: Reports: Supple, No JVD Lungs: Reports: Decreased Breath Sounds Cardiovascular: Reports: Regular Rate, Regular Rhythm, No Murmurs GI/Abdominal Exam: Normal Bowel Sounds, Soft, Non-Tender, No Organomegaly Skin: Reports: Warm, Dry Neurological: Reports: No New Focal Deficit. Denies: Normal Gait Psy/Mental Status: Reports: Alert
== END 2018-02-10 13:00 | disposition home or self-care (01) | DRG 178 ==
LOC: MW.MS 17:41
PROVIDERS: ADMIT Internal Medicine; ATTEND Internal Medicine
DX: J69.0 Pneumonitis due to inhalation of food and vomit (principal); G10 Huntington's disease; R53.1 Weakness; R26.9 Unspecified abnormalities of gait and mobility; B95.7 Other staphylococcus as the cause of diseases classified elsewhere; K59.00 Constipation, unspecified; F32.9 Major depressive disorder, single episode, unspecified; L89.90 Pressure ulcer of unspecified site, unspecified stage; Z88.8 Allergy status to other drugs, medicaments and biological substances; Z79.899 Other long term (current) drug therapy; Z85.828 Personal history of other malignant neoplasm of skin; Z87.891 Personal history of nicotine dependence
CPT/HCPCS: 36415; 80048; 80053; 85025; 85027; 87040; 87077; 87186

== ENCOUNTER 2018-12-29 18:57 | Inpatient (IN) | payer MEDICARE, BC ==
--- NOTE | 2018-12-29 19:23 | EDM.PDOC ---
ED HPI GENERAL MEDICAL PROBLEM - General Chief Complaint: General Stated Complaint: AMB Time Seen by Provider: 12/29/18 19:23 Source of Information: Reports: Patient - History of Present Illness INITIAL COMMENTS - FREE TEXT/NARRATIVE: HISTORY AND PHYSICAL: History of present illness: [Patient presents via EMS Patient is nonverbal, he arrives on [employer]im[employer] oxygen at 10 L satting 97% hemodynamically stable street of [place]'s disease as well as recurrent pneumonia Review of systems: As per history of present illness and below otherwise all systems reviewed and negative. Past medical history: As per history of present illness and as reviewed below otherwise noncontributory. Surgical history: As per history of present illness and as reviewed below otherwise noncontributory. Social history: No reported history of drug or alcohol abuse. Family history: As per history of present illness and as reviewed below otherwise noncontributory. Physical exam: HEENT: Atraumatic, normocephalic, pupils reactive, negative for conjunctival pallor or scleral icterus, mucous membranes moist, throat clear, neck supple, nontender, trachea midline. Lungs: Clear to auscultation, breath sounds equal bilaterally, chest nontender. Post DuoNeb and Solu-Medrol Heart: S1S2, regular, negative for clicks, rubs, or JVD. Abdomen: Soft, nondistended, nontender. Negative for masses or hepatosplenomegaly. Negative for costovertebral tenderness. Pelvis: Stable nontender. Genitourinary: Deferred. Rectal: Deferred. Extremities: Atraumatic, negative for cords or calf pain. Neurovascular unremarkable. Neuro: Awake, alert, oriented. Cranial nerves II through XII unremarkable. Cerebellum unremarkable. Motor and sensory unremarkable throughout. Exam nonfocal. Diagnostics: [CBC CMP UA troponin lipase INR lactate blood cultures 2 Chest 1 view EKG ] Therapeutics: [ arm all saline DuoNeb Solu-Medrol 125 mg IV zosyn vanc admit in pt ] Impression: [ hypoxia Right-sided pneumonia Sinus tachycardia History of recurrent pneumonia ] History of Opal's disease Panic history baseline Definitive disposition and diagnosis as appropriate pending reevaluation and review of above. - Related Data Allergies Allergy/AdvReac Type Severity Reaction Status Date / Time olanzapine [From Zyprexa] Allergy Difficulty Verified 05/23/18 12:40 Swallowing Home Meds: Home Meds Pseudoephedrine HCl [Long Acting Nasal Decongestant] 120 mg PO BID 01/18/15 [ History] Sertraline HCl 100 mg PO BEDTIME 01/18/15 [History] guaiFENesin [Mucinex] 1,200 mg PO BEDTIME 01/18/15 [History] risperiDONE 3 mg PO BID 01/18/15 [History] guaiFENesin [Mucinex] 600 mg PO DAILY 02/06/18 [History] Famotidine [Pepcid] 20 mg PO BID 05/23/18 [History] Polyethylene Glycol 3350 [MiraLAX] 17 gm PO DAILY PRN 05/23/18 [History] Levofloxacin [Levaquin] 750 mg PO DAILY #3 tablet 05/28/18 [Rx] Past Medical History Other HEENT History: 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 Cardiovascular History: Reports: None Respiratory History: Reports: Pneumonia, Recurrent Other Respiratory History: Patient had chronic Pneumonia as claimed Gastrointestinal History: Reports: None Other Genitourinary History: Prostate Ablation Other Neuro History: dx with Huntingtons Disease - Infectious Disease History Infectious Disease History: Reports: Chicken Pox, Measles, Mumps - Past Surgical History HEENT Surgical History: Reports: Adenoidectomy, Tonsillectomy GI Surgical History: Reports: Appendectomy Social & Family History - Family History Family Medical History: Noncontributory - Caffeine Use Caffeine Use: Reports: Coffee - Living Situation & Occupation Living situation: Reports: Occupation: Retired ED ROS GENERAL - Review of Systems Review Of Systems: See Below ED EXAM, GENERAL - Physical Exam Exam: See Below Course - Vital Signs Last Recorded V/S: Last Vital Signs Temp 98.9 F 12/29/18 19:30 Pulse 108 H 12/29/18 19:30 Resp 34 H 12/29/18 19:30 BP 122/45 L 12/29/18 19:30 Pulse Ox 10 L 12/29/18 19:30 - Orders/Labs/Meds Orders: Active Orders 24 hr Category Date Time Status EKG Documentation Completion [RC] STAT Care 12/29/18 19:22 Active CULTURE BLOOD [BC] Stat Lab 12/29/18 19:48 Received CULTURE BLOOD [BC] Stat Lab 12/29/18 19:48 Received UA RFX LENA AND CULT IF INDIC [URIN] Stat Lab 12/29/18 19:22 Ordered Piperacillin/Tazobactam [Piperacil-Tazobact] 3.375 gm Med 12/29/18 20:42 Active Sodium Chloride 0.9% [Normal Saline] 50 ml IV ONETIME Sodium Chloride 0.9% [Normal Saline] 1,000 ml Med 12/29/18 19:30 Active IV STAT Vancomycin [Vancocin] 1 gm Med 12/29/18 20:42 Active Sodium Chloride 0.9% [Normal Saline] 250 ml IV ONETIME Blood Culture x2 Reflex Set [OM.PC] Stat Oth 12/29/18 19:36 Ordered Medication Orders Sodium Chloride (Normal Saline) 1,000 mls @ 125 mls/hr IV STAT KYRA Last Admin: 12/29/18 19:46 Dose: 125 mls/hr Piperacillin Sod/Tazobactam (Sod 3.375 gm/ Sodium Chloride) 50 mls @ 100 mls/ hr IV ONETIME ONE Stop: 12/29/18 21:11 Vancomycin HCl 1 gm/ Sodium (Chloride) 250 mls @ 166 mls/hr IV ONETIME ONE Stop: 12/29/18 22:12 Labs: Laboratory Tests 12/29/18 12/29/18 12/29/18 Range/Units 19:32 19:32 19:32 WBC 9.50 (4.0-11.0) K/uL RBC 5.02 (4.50-5.90) M/uL Hgb 14.2 (13.0-17.0) g/dL Hct 42.3 (38.0-50.0) % MCV 84.3 (80.0-98.0) fL MCH 28.3 (27.0-32.0) pg MCHC 33.6 (31.0-37.0) g/dL RDW Std Deviation 42.7 (28.0-62.0) fl RDW Coeff of Nino 14 (11.0-15.0) % Plt Count 162 (150-400) K/uL MPV 9.10 (7.40-12.00) fL Neut % (Auto) 79.2 (48.0-80.0) % Lymph % (Auto) 7.4 L (16.0-40.0) % [place] % (Auto) 13.2 (0.0-15.0) % Eos % (Auto) 0.2 (0.0-7.0) % Baso % (Auto) 0.0 (0.0-1.5) % Neut # (Auto) 7.5 H (1.4-5.7) K/uL Lymph # (Auto) 0.7 (0.6-2.4) K/uL [place] # (Auto) 1.3 H (0.0-0.8) K/uL Eos # (Auto) 0.0 (0.0-0.7) K/uL Baso # (Auto) 0.0 (0.0-0.1) K/uL Nucleated RBC % 0.0 /100WBC Nucleated RBCs # 0 K/uL INR 1.03 Lactate (0.20-2.00) mmol/L Sodium 139 (136-148) mmol/L Potassium 4.5 (3.5-5.1) mmol/L Chloride 104 (98-107) mmol/L Carbon Dioxide 24.7 (21.0-32.0) mmol/L BUN 21 H (7.0-18.0) mg/dL Creatinine 1.1 (0.8-1.3) mg/dL Est Cr Clr Drug Dosing TNP Estimated GFR (MDRD) > 60.0 ml/min Glucose 132 H (74-106) mg/dL Calcium 9.2 (8.5-10.1) mg/dL Total Bilirubin 1.1 H (0.2-1.0) mg/dL AST 19 (15-37) IU/L ALT 19 (14-63) IU/L Alkaline Phosphatase 90 (46-116) U/L Troponin I < 0.050 (0.000-0.056) ng/mL Total Protein 7.6 (6.4-8.2) g/dL Albumin 3.3 L (3.4-5.0) g/dL Globulin 4.3 H (2.6-4.0) g/dL Albumin/Globulin Ratio 0.8 L (0.9-1.6) Lipase 77 (73-393) U/L 12/29/18 Range/Units 19:32 WBC (4.0-11.0) K/uL RBC (4.50-5.90) M/uL Hgb (13.0-17.0) g/dL Hct (38.0-50.0) % MCV (80.0-98.0) fL MCH (27.0-32.0) pg MCHC (31.0-37.0) g/dL RDW Std Deviation (28.0-62.0) fl RDW Coeff of Nino (11.0-15.0) % Plt Count (150-400) K/uL MPV (7.40-12.00) fL Neut % (Auto) (48.0-80.0) % Lymph % (Auto) (16.0-40.0) % [place] % (Auto) (0.0-15.0) % Eos % (Auto) (0.0-7.0) % Baso % (Auto) (0.0-1.5) % Neut # (Auto) (1.4-5.7) K/uL Lymph # (Auto) (0.6-2.4) K/uL [place] # (Auto) (0.0-0.8) K/uL Eos # (Auto) (0.0-0.7) K/uL Baso # (Auto) (0.0-0.1) K/uL Nucleated RBC % /100WBC Nucleated RBCs # K/uL INR Lactate 1.1 (0.20-2.00) mmol/L Sodium (136-148) mmol/L Potassium (3.5-5.1) mmol/L Chloride (98-107) mmol/L Carbon Dioxide (21.0-32.0) mmol/L BUN (7.0-18.0) mg/dL Creatinine (0.8-1.3) mg/dL Est Cr Clr Drug Dosing Estimated GFR (MDRD) ml/min Glucose (74-106) mg/dL Calcium (8.5-10.1) mg/dL Total Bilirubin (0.2-1.0) mg/dL AST (15-37) IU/L ALT (14-63) IU/L Alkaline Phosphatase (46-116) U/L Troponin I (0.000-0.056) ng/mL Total Protein (6.4-8.2) g/dL Albumin (3.4-5.0) g/dL Globulin (2.6-4.0) g/dL Albumin/Globulin Ratio (0.9-1.6) Lipase (73-393) U/L Meds: Medications Generic Name Dose Route Start Last Admin Trade Name Freq PRN Reason Stop Dose Admin Sodium Chloride 1,000 mls @ 125 mls/hr 12/29/18 19:30 12/29/18 19:46 Normal Saline IV 125 mls/hr STAT KYRA Administration Piperacillin Sod/Tazobactam 50 mls @ 100 mls/hr 12/29/18 20:42 Sod 3.375 gm/ Sodium Chloride IV 12/29/18 21:11 ONETIME ONE Vancomycin HCl 1 gm/ Sodium 250 mls @ 166 mls/hr 12/29/18 20:42 Chloride IV 12/29/18 22:12 ONETIME ONE Discontinued Medications Generic Name Dose Route Start Last Admin Trade Name Freq PRN Reason Stop Dose Admin Albuterol/Ipratropium Confirm 12/29/18 19:38 12/29/18 19:44 Duoneb 3.0-0.5 Mg/3 Ml Administered 12/29/18 19:39 3 ml Dose Administration 3 ml .ROUTE .STK-MED ONE Methylprednisolone Sodium Succinate 125 mg 12/29/18 19:41 12/29/18 19:46 Solu-Medrol IVPUSH 12/29/18 19:42 125 mg ONETIME ONE Administration Departure - Departure Time of Disposition: 20:48 Disposition: Admitted As Inpatient 66 Condition: Poor Clinical Impression: Hypoxia Pneumonia Qualifiers: Pneumonia type: due to unspecified organism Laterality: bilateral Lung location : lower lobe of lung Qualified Code(s): J18.1 - Lobar pneumonia, unspecified organism - Discharge Information Referrals: Ruslan Hope MD [Primary Care Provider] - Forms: ED Department Discharge - My Orders Last 24 Hours: My Active Orders 12/29/18 19:22 EKG Documentation Completion [RC] STAT UA RFX LENA AND CULT IF INDIC [URIN] Stat 12/29/18 19:30 Sodium Chloride 0.9% [Normal Saline] 1,000 ml IV STAT 12/29/18 19:36 Blood Culture x2 Reflex Set [OM.PC] Stat 12/29/18 19:48 CULTURE BLOOD [BC] Stat CULTURE BLOOD [BC] Stat 12/29/18 20:42 Piperacillin/Tazobactam [Piperacil-Tazobact] 3.375 gm Sodium Chloride 0.9% [ Normal Saline] 50 ml IV ONETIME Vancomycin [Vancocin] 1 gm Sodium Chloride 0.9% [Normal Saline] 250 ml IV ONETIME - Assessment/Plan Last 24 Hours: My Active Orders 12/29/18 19:22 EKG Documentation Completion [RC] STAT UA RFX LENA AND CULT IF INDIC [URIN] Stat 12/29/18 19:30 Sodium Chloride 0.9% [Normal Saline] 1,000 ml IV STAT 12/29/18 19:36 Blood Culture x2 Reflex Set [OM.PC] Stat 12/29/18 19:48 CULTURE BLOOD [BC] Stat CULTURE BLOOD [BC] Stat 12/29/18 20:42 Piperacillin/Tazobactam [Piperacil-Tazobact] 3.375 gm Sodium Chloride 0.9% [ Normal Saline] 50 ml IV ONETIME Vancomycin [Vancocin] 1 gm Sodium Chloride 0.9% [Normal Saline] 250 ml IV ONETIME
[2018-12-29] MEDS ORDERED: Albuterol/Ipratropium 3.0-0.5 MG/3 ML Neb Soln ONE (19:38)
[2018-12-29] MEDS ORDERED: methylPREDNISolone Sodium Succinate 125 MG/2 ML SDV IVPUSH ONE (19:41)
[2018-12-29] MEDS: Sodium Chloride 0.9% 1,000 ML IV SCH (19:46)
[2018-12-29 20:07] LABS: CHLORIDE,CL 104 mmol/L (98-107); SODIUM,NA 139 mmol/L (136-148)
--- NOTE | 2018-12-29 20:35 | CR ---
INDICATION: Pt w/dyspnea. HISTORY: Dyspnea. COMPARISON: 06/07/2018. TECHNIQUE: Chest one-view portable upright. FINDINGS: Elevation of the right hemidiaphragm. Infiltrates are present in the right mid and lower lung zone, which are suspicious for pneumonia. Left lung is stable when compared with previous. Left lateral costophrenic sulcus is collimated off the field of view. Central airway is normal. The osseous structures are intact. IMPRESSION: 1. Airspace opacities in the right mid and lower lung zone are new when compared to 06/07/2018. 2. This may represent pneumonia given the history of dyspnea. Radiographic followup is advised to document resolution. Dictated by Ruslan Victoria MD @ 12/29/2018 8:33:30 PM Dictated by: Ruslan Victoria MD @ 12/29/2018 20:33:37 (Electronically Signed)
[2018-12-29] MEDS ORDERED: Piperacillin/Tazobactam 3.375 GM in Sodium Chloride 0.9% 50 ML IV ONE (20:42)
--- NOTE | 2018-12-29 23:11 | PCM.HP ---
H&P History of Present Illness - General Date of Service: 12/29/18 Admit Problem/Dx: Admission Diagnosis/Problem Admission Diagnosis/Problem Pneumonia - History of Present Illness Initial Comments - Free Text/Narative: 78 yo male with pmh of [place]'s chorea who presented to the ED with lethargy. He was satting in 90s with 10 L NC. His chest x-ray reported right mid and lower lung pneumonia. - Related Data Allergies/Adverse Reactions: Allergies Allergy/AdvReac Type Severity Reaction Status Date / Time olanzapine [From Zyprexa] Allergy Difficulty Verified 12/29/18 21:35 Swallowing Home Medications: Home Meds Pseudoephedrine HCl [Long Acting Nasal Decongestant] 120 mg PO BID 01/18/15 [ History] Sertraline HCl 100 mg PO BEDTIME 01/18/15 [History] guaiFENesin [Mucinex] 1,200 mg PO BEDTIME 01/18/15 [History] risperiDONE 3 mg PO BID 01/18/15 [History] guaiFENesin [Mucinex] 600 mg PO DAILY 02/06/18 [History] Famotidine [Pepcid] 20 mg PO BID 05/23/18 [History] Polyethylene Glycol 3350 [MiraLAX] 17 gm PO DAILY PRN 05/23/18 [History] Levofloxacin [Levaquin] 750 mg PO DAILY #3 tablet 05/28/18 [Rx] Cetirizine [ZyrTEC] 10 mg PO DAILY 12/30/18 [History] Past Medical History Other HEENT History: 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 - Infectious Disease History Infectious Disease History: Reports: Chicken Pox, Measles, Mumps - Past Surgical History HEENT Surgical History: Reports: Adenoidectomy, Tonsillectomy GI Surgical History: Reports: Appendectomy Social & Family History - Family History Family Medical History: Noncontributory - Tobacco Use Smoking Status *Q: Never Smoker Used Tobacco, but Quit: Yes Month/Year Tobacco Last Used: 1988 - Caffeine Use Caffeine Use: Reports: Coffee - Recreational Drug Use Recreational Drug Use: No - Living Situation & Occupation Living situation: Reports: Occupation: Retired H&P Review of Systems - Review of Systems: Review Of Systems: Unable To Obtain Exam - Exam Exam: See Below - Vital Signs Vital Signs: Last Vital Signs Temp 36.7 C 12/29/18 21:30 Pulse 106 H 12/29/18 21:30 Resp 25 H 12/29/18 21:30 BP 113/64 12/29/18 21:30 Pulse Ox 96 12/29/18 21:30 Weight: 75.342 kg - Exam General: No: Mild Distress HEENT: Mucosa Moist & [place] Lungs: Normal Respiratory Effort, Rhonchi Cardiovascular: Regular Rate, Regular Rhythm GI/Abdominal Exam: Soft, Non-Tender Extremities: Non-Tender, No Pedal Edema Skin: Warm, Intact - Patient Data Lab Results Last 24 hrs: Laboratory Results - last 24 hr 12/29/18 12/29/18 12/29/18 Range/Units 19:32 19:32 19:32 WBC 9.50 (4.0-11.0) K/uL RBC 5.02 (4.50-5.90) M/uL Hgb 14.2 (13.0-17.0) g/dL Hct 42.3 (38.0-50.0) % MCV 84.3 (80.0-98.0) fL MCH 28.3 (27.0-32.0) pg MCHC 33.6 (31.0-37.0) g/dL RDW Std Deviation 42.7 (28.0-62.0) fl RDW Coeff of Nino 14 (11.0-15.0) % Plt Count 162 (150-400) K/uL MPV 9.10 (7.40-12.00) fL Neut % (Auto) 79.2 (48.0-80.0) % Lymph % (Auto) 7.4 L (16.0-40.0) % [place] % (Auto) 13.2 (0.0-15.0) % Eos % (Auto) 0.2 (0.0-7.0) % Baso % (Auto) 0.0 (0.0-1.5) % Neut # (Auto) 7.5 H (1.4-5.7) K/uL Lymph # (Auto) 0.7 (0.6-2.4) K/uL [place] # (Auto) 1.3 H (0.0-0.8) K/uL Eos # (Auto) 0.0 (0.0-0.7) K/uL Baso # (Auto) 0.0 (0.0-0.1) K/uL Nucleated RBC % 0.0 /100WBC Nucleated RBCs # 0 K/uL INR 1.03 Lactate (0.20-2.00) mmol/L Sodium 139 (136-148) mmol/L Potassium 4.5 (3.5-5.1) mmol/L Chloride 104 (98-107) mmol/L Carbon Dioxide 24.7 (21.0-32.0) mmol/L BUN 21 H (7.0-18.0) mg/dL Creatinine 1.1 (0.8-1.3) mg/dL Est Cr Clr Drug Dosing TNP Estimated GFR (MDRD) > 60.0 ml/min Glucose 132 H (74-106) mg/dL Calcium 9.2 (8.5-10.1) mg/dL Total Bilirubin 1.1 H (0.2-1.0) mg/dL AST 19 (15-37) IU/L ALT 19 (14-63) IU/L Alkaline Phosphatase 90 (46-116) U/L Troponin I < 0.050 (0.000-0.056) ng/mL Total Protein 7.6 (6.4-8.2) g/dL Albumin 3.3 L (3.4-5.0) g/dL Globulin 4.3 H (2.6-4.0) g/dL Albumin/Globulin Ratio 0.8 L (0.9-1.6) Lipase 77 (73-393) U/L 12/29/18 Range/Units 19:32 WBC (4.0-11.0) K/uL RBC (4.50-5.90) M/uL Hgb (13.0-17.0) g/dL Hct (38.0-50.0) % MCV (80.0-98.0) fL MCH (27.0-32.0) pg MCHC (31.0-37.0) g/dL RDW Std Deviation (28.0-62.0) fl RDW Coeff of Nino (11.0-15.0) % Plt Count (150-400) K/uL MPV (7.40-12.00) fL Neut % (Auto) (48.0-80.0) % Lymph % (Auto) (16.0-40.0) % [place] % (Auto) (0.0-15.0) % Eos % (Auto) (0.0-7.0) % Baso % (Auto) (0.0-1.5) % Neut # (Auto) (1.4-5.7) K/uL Lymph # (Auto) (0.6-2.4) K/uL [place] # (Auto) (0.0-0.8) K/uL Eos # (Auto) (0.0-0.7) K/uL Baso # (Auto) (0.0-0.1) K/uL Nucleated RBC % /100WBC Nucleated RBCs # K/uL INR Lactate 1.1 (0.20-2.00) mmol/L Sodium (136-148) mmol/L Potassium (3.5-5.1) mmol/L Chloride (98-107) mmol/L Carbon Dioxide (21.0-32.0) mmol/L BUN (7.0-18.0) mg/dL Creatinine (0.8-1.3) mg/dL Est Cr Clr Drug Dosing Estimated GFR (MDRD) ml/min Glucose (74-106) mg/dL Calcium (8.5-10.1) mg/dL Total Bilirubin (0.2-1.0) mg/dL AST (15-37) IU/L ALT (14-63) IU/L Alkaline Phosphatase (46-116) U/L Troponin I (0.000-0.056) ng/mL Total Protein (6.4-8.2) g/dL Albumin (3.4-5.0) g/dL Globulin (2.6-4.0) g/dL Albumin/Globulin Ratio (0.9-1.6) Lipase (73-393) U/L Result Diagrams: 12/31/18 05:20 12/30/18 08:37 Problem List Initiated/Reviewed/Updated: Yes Orders Last 24hrs: Active Orders 24 hr Category Date Time Status Admission Status [Patient Status] [ADT] Stat ADT 12/29/18 20:49 Active EKG Documentation Completion [RC] STAT Care 12/29/18 19:22 Active CULTURE BLOOD [BC] Stat Lab 12/29/18 19:48 Received CULTURE BLOOD [BC] Stat Lab 12/29/18 19:48 Received UA RFX LENA AND CULT IF INDIC [URIN] Stat Lab 12/29/18 19:22 Ordered Azithromycin [Zithromax] 500 mg Med 12/29/18 23:15 Ordered Sodium Chloride 0.9% [Normal Saline] 250 ml IV Q24H Piperacillin/Tazobactam [Piperacil-Tazobact] 3.375 gm Med 12/30/18 03:00 Ordered Sodium Chloride 0.9% [Normal Saline] 50 ml IV Q6H Sertraline [Zoloft] Med 12/30/18 21:00 Ordered 100 mg PO BEDTIME Sodium Chloride 0.9% [Normal Saline] 1,000 ml Med 12/29/18 19:30 Active IV STAT risperiDONE [RisperiDAL] Med 12/30/18 09:00 Ordered 3 mg PO BID Blood Culture x2 Reflex Set [OM.PC] Stat Oth 12/29/18 19:36 Ordered Medication Orders Sodium Chloride (Normal Saline) 1,000 mls @ 125 mls/hr IV STAT [facility] Last Admin: 12/29/18 19:46 Dose: 125 mls/hr Azithromycin 500 mg/ Sodium (Chloride) 250 mls @ 250 mls/hr IV Q24H [facility] Piperacillin Sod/Tazobactam (Sod 3.375 gm/ Sodium Chloride) 50 mls @ 100 mls/ hr IV Q6H [facility] Risperidone (Risperidal) 3 mg PO BID [facility] Sertraline HCl (Zoloft) 100 mg PO BEDTIME [facility] Assessment/Plan Comment:: 78 yo male admitted with aspiration pneumonia. We will treat with Zosyn and azithromycin.
[2018-12-29] MEDS ORDERED: Azithromycin 500 MG in Sodium Chloride 0.9% 250 ML IV SCH (23:15)
[2018-12-30] MEDS: Piperacillin/Tazobactam 3.375 GM in Sodium Chloride 0.9% 50 ML IV SCH ×4 (03:33→20:40)
[2018-12-30] MEDS: Sodium Chloride 0.9% 1,000 ML IV SCH ×3 (03:34→20:30)
[2018-12-30] MEDS ORDERED: Acetaminophen 325 MG Tab PO PRN (09:06)
[2018-12-30] MEDS ORDERED: Ondansetron 4 MG/2 ML SDV IVPUSH PRN (09:06)
[2018-12-30] MEDS ORDERED: Polyethylene Glycol 3350 Powder 17 GM Packet PO PRN (09:08)
--- NOTE | 2018-12-30 09:10 | PCM.PN ---
- General Info Date of Service: 12/30/18 Admission Dx/Problem (Free Text): Admission Diagnosis/Problem Admission Diagnosis/Problem Pneumonia Subjective Update: feels he is more alert today, still not himself. Breathing has slowed slightly. Juan unable to communication, but shakes head no when asked about pain. - Patient Data Vitals - Most Recent: Last Vital Signs Temp 98.4 F 12/30/18 08:00 Pulse 94 12/30/18 08:00 Resp 34 H 12/30/18 08:00 BP 106/60 12/30/18 08:00 Pulse Ox 95 12/30/18 08:00 Weight - Most Recent: 75.342 kg I&O - Last 24 Hours: Intake & Output 12/29/18 12/30/18 12/30/18 22:59 06:59 14:59 Intake Total 992 Balance 992 Lab Results Last 24 Hours: Laboratory Results - last 24 hr 12/29/18 12/29/18 12/29/18 Range/Units 19:32 19:32 19:32 WBC 9.50 (4.0-11.0) K/uL RBC 5.02 (4.50-5.90) M/uL Hgb 14.2 (13.0-17.0) g/dL Hct 42.3 (38.0-50.0) % MCV 84.3 (80.0-98.0) fL MCH 28.3 (27.0-32.0) pg MCHC 33.6 (31.0-37.0) g/dL RDW Std Deviation 42.7 (28.0-62.0) fl RDW Coeff of Nino 14 (11.0-15.0) % Plt Count 162 (150-400) K/uL MPV 9.10 (7.40-12.00) fL Neut % (Auto) 79.2 (48.0-80.0) % Lymph % (Auto) 7.4 L (16.0-40.0) % [place] % (Auto) 13.2 (0.0-15.0) % Eos % (Auto) 0.2 (0.0-7.0) % Baso % (Auto) 0.0 (0.0-1.5) % Neut # (Auto) 7.5 H (1.4-5.7) K/uL Lymph # (Auto) 0.7 (0.6-2.4) K/uL [place] # (Auto) 1.3 H (0.0-0.8) K/uL Eos # (Auto) 0.0 (0.0-0.7) K/uL Baso # (Auto) 0.0 (0.0-0.1) K/uL Nucleated RBC % 0.0 /100WBC Nucleated RBCs # 0 K/uL INR 1.03 Lactate (0.20-2.00) mmol/L Sodium 139 (136-148) mmol/L Potassium 4.5 (3.5-5.1) mmol/L Chloride 104 (98-107) mmol/L Carbon Dioxide 24.7 (21.0-32.0) mmol/L BUN 21 H (7.0-18.0) mg/dL Creatinine 1.1 (0.8-1.3) mg/dL Est Cr Clr Drug Dosing TNP Estimated GFR (MDRD) > 60.0 ml/min Glucose 132 H (74-106) mg/dL Calcium 9.2 (8.5-10.1) mg/dL Total Bilirubin 1.1 H (0.2-1.0) mg/dL AST 19 (15-37) IU/L ALT 19 (14-63) IU/L Alkaline Phosphatase 90 (46-116) U/L Troponin I < 0.050 (0.000-0.056) ng/mL Total Protein 7.6 (6.4-8.2) g/dL Albumin 3.3 L (3.4-5.0) g/dL Globulin 4.3 H (2.6-4.0) g/dL Albumin/Globulin Ratio 0.8 L (0.9-1.6) Lipase 77 (73-393) U/L 12/29/18 12/30/18 12/30/18 Range/Units 19:32 08:37 08:37 WBC 10.47 (4.0-11.0) K/uL RBC 4.39 L (4.50-5.90) M/uL Hgb 12.4 L (13.0-17.0) g/dL Hct 37.6 L (38.0-50.0) % MCV 85.6 (80.0-98.0) fL MCH 28.2 (27.0-32.0) pg MCHC 33.0 (31.0-37.0) g/dL RDW Std Deviation 43.6 (28.0-62.0) fl RDW Coeff of Nino 14 (11.0-15.0) % Plt Count 137 L (150-400) K/uL MPV 9.40 (7.40-12.00) fL Neut % (Auto) 78.2 (48.0-80.0) % Lymph % (Auto) 9.7 L (16.0-40.0) % [place] % (Auto) 11.9 (0.0-15.0) % Eos % (Auto) 0.1 (0.0-7.0) % Baso % (Auto) 0.1 (0.0-1.5) % Neut # (Auto) 8.2 H (1.4-5.7) K/uL Lymph # (Auto) 1.0 (0.6-2.4) K/uL [place] # (Auto) 1.3 H (0.0-0.8) K/uL Eos # (Auto) 0.0 (0.0-0.7) K/uL Baso # (Auto) 0.0 (0.0-0.1) K/uL Nucleated RBC % 0.0 /100WBC Nucleated RBCs # 0 K/uL INR Lactate 1.1 (0.20-2.00) mmol/L Sodium 141 (136-148) mmol/L Potassium 3.8 (3.5-5.1) mmol/L Chloride 109 H (98-107) mmol/L Carbon Dioxide 25.4 (21.0-32.0) mmol/L BUN 23 H (7.0-18.0) mg/dL Creatinine 1.2 (0.8-1.3) mg/dL Est Cr Clr Drug Dosing 54.06 Estimated GFR (MDRD) 58.6 ml/min Glucose 118 H (74-106) mg/dL Calcium 8.5 (8.5-10.1) mg/dL Total Bilirubin (0.2-1.0) mg/dL AST (15-37) IU/L ALT (14-63) IU/L Alkaline Phosphatase (46-116) U/L Troponin I (0.000-0.056) ng/mL Total Protein (6.4-8.2) g/dL Albumin (3.4-5.0) g/dL Globulin (2.6-4.0) g/dL Albumin/Globulin Ratio (0.9-1.6) Lipase (73-393) U/L Med Orders - Current: Current Medications Azithromycin 500 mg/ Sodium (Chloride) 250 mls @ 250 mls/hr IV Q24H [facility] Last Admin: 12/30/18 01:14 Dose: 250 mls/hr Piperacillin Sod/Tazobactam (Sod 3.375 gm/ Sodium Chloride) 50 mls @ 100 mls/ hr IV Q6H [facility] Last Admin: 12/30/18 09:07 Dose: 100 mls/hr Risperidone (Risperidal) 3 mg PO BID [facility] Last Admin: 12/30/18 09:07 Dose: 3 mg Sertraline HCl (Zoloft) 100 mg PO BEDTIME [facility] Discontinued Medications Albuterol/Ipratropium (Duoneb 3.0-0.5 Mg/3 Ml) Confirm Administered Dose 3 ml .ROUTE .STK-MED ONE Stop: 12/29/18 19:39 Last Admin: 12/29/18 19:44 Dose: 3 ml Sodium Chloride (Normal Saline) 1,000 mls @ 125 mls/hr IV STAT [facility] Last Admin: 12/30/18 03:34 Dose: 125 mls/hr Piperacillin Sod/Tazobactam (Sod 3.375 gm/ Sodium Chloride) 50 mls @ 100 mls/ hr IV ONETIME ONE Stop: 12/29/18 21:11 Last Admin: 12/29/18 21:01 Dose: 100 mls/hr Vancomycin HCl 1 gm/ Sodium (Chloride) 250 mls @ 166 mls/hr IV ONETIME ONE Stop: 12/29/18 22:12 Last Admin: 12/29/18 23:03 Dose: 166 mls/hr Methylprednisolone Sodium Succinate (Solu-Medrol) 125 mg IVPUSH ONETIME ONE Stop: 12/29/18 19:42 Last Admin: 12/29/18 19:46 Dose: 125 mg - Exam General: Alert, Cooperative, Mild Distress (tachypnea) HEENT: No: Mucous Membr. Moist/[place] (dry) Neck: Supple Lungs: Crackles, Rhonchi. No: Normal Respiratory Effort (tachypnea) Cardiovascular: Regular Rate, Regular Rhythm GI/Abdominal Exam: Normal Bowel Sounds, Soft, Non-Tender Extremities: Normal Inspection, Normal Range of Motion, Non-Tender, No Pedal Edema Wound/Incisions: Other (redness to scrotum and sacral region, encourage frequent repositioning) Neurological: No New Focal Deficit Psy/Mental Status: Alert, Normal Affect - Problem List & Annotations (1) Aspiration pneumonia SNOMED Code(s): 137190019 Code(s): J69.0 - PNEUMONITIS DUE TO INHALATION OF FOOD AND VOMIT Status: Suspected Current Visit: Yes Qualifiers: Laterality: right Lung location: upper lobe of lung (2) Generalized weakness SNOMED Code(s): 13366926 Code(s): R53.1 - WEAKNESS Status: Acute Current Visit: No (3) Lethargy SNOMED Code(s): 900097567 Code(s): R53.83 - OTHER FATIGUE Status: Acute Current Visit: No (4) [facility] chorea SNOMED Code(s): 77669101 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 Priority: Medium Current Visit: No - Problem List Review Problem List Initiated/Reviewed/Updated: Yes - My Orders Last 24 Hours: My Active Orders 12/30/18 09:06 Oxygen Therapy [RC] PRN Up to Chair [RC] ASDIRECTED VTE/DVT Education [RC] PER UNIT ROUTINE Vital Signs [RC] Q4H PT Evaluation and Treatment [CONS] Routine Acetaminophen [Tylenol] 650 mg PO Q4H PRN Ondansetron [Zofran] 4 mg IVPUSH Q4H PRN Resuscitation Status Routine 12/30/18 09:07 Intake and Output [RC] QSHIFT 12/30/18 09:08 Polyethylene Glycol 3350 [MiraLAX] 17 gm PO DAILY PRN 12/30/18 09:09 guaiFENesin [Mucinex] 600 mg PO DAILY 12/30/18 09:15 Cetirizine [ZyrTEC] 10 mg PO DAILY Heparin Sodium 5,000 units SUBCUT Q12H Pseudoephedrine HCl [Long Acting Nasal Decongestant] 120 mg PO BID Sodium Chloride 0.9% @ 125 MLS/HR (1,000ml) Sodium Chloride 0.9% [Normal Saline ] 1,000 ml IV ASDIRECTED 12/30/18 21:00 Famotidine [Pepcid] 20 mg PO BID guaiFENesin [Mucinex] 1,200 mg PO BEDTIME 12/31/18 05:11 BASIC METABOLIC PANEL,BMP [CHEM] AM CBC WITH AUTO DIFF [HEME] AM 01/01/19 05:11 BASIC METABOLIC PANEL,BMP [CHEM] AM CBC WITH AUTO DIFF [HEME] AM 01/02/19 05:11 BASIC METABOLIC PANEL,BMP [CHEM] AM CBC WITH AUTO DIFF [HEME] AM - Plan Plan:: This 78 year old male admitted with tachypnea and suspected aspiration pneumonia 1. Suspected aspiration pneumonia: will not allow swallow study or ST consult. She notices coughing on certain foods and then avoids them. Will cover with Zosyn and Azithromycin. BC pending. 2. UTI: Zosyn will cover, UC pending. 3. Berny's chorea: Consult PT. is adamant about returning home with Home Health, she does not want placement in SNF even for short term rehabilitation. VTE prophylaxis: heparin Dispo: 2-3 days We did in depth talk about code status. She feels anything that were related to his admission, could be treated and she would like FULL CODE status. She would want everything to be at least tried, this is including pressors if needed as well as intubation.
[2018-12-30] MEDS ORDERED: Azithromycin 500 MG in Sodium Chloride 0.9% 250 ML IV SCH (10:31)
[2018-12-30] MEDS: Cetirizine 10 MG Tab PO SCH ×2 (11:46→19:32)
[2018-12-30] MEDS: guaiFENesin 600 MG Tab.ER PO SCH ×3 (11:46→20:46)
[2018-12-30] MEDS: Heparin Sodium 5,000 Units/ML Vial SUBCUT SCH ×2 (11:46→20:50)
[2018-12-30] MEDS: PSEUDOEPHEDRINE 120 MG PO SCH ×3 (11:46→20:46)
[2018-12-30] MEDS: Famotidine 20 MG Tab PO SCH (20:45)
[2018-12-30] MEDS: Sertraline 100 MG Tab PO SCH (20:45)
[2018-12-30] MEDS: Azithromycin 500 MG in Sodium Chloride 0.9% 250 ML IV SCH (23:15)
[2018-12-31] MEDS: Piperacillin/Tazobactam 3.375 GM in Sodium Chloride 0.9% 50 ML IV SCH ×4 (03:00→21:30)
[2018-12-31] MEDS: Sodium Chloride 0.9% 1,000 ML IV SCH (06:00)
[2018-12-31] MEDS: guaiFENesin 600 MG Tab.ER PO SCH ×2 (09:37→21:18)
[2018-12-31] MEDS: Famotidine 20 MG Tab PO SCH ×2 (09:38→21:18)
[2018-12-31] MEDS: Cetirizine 10 MG Tab PO SCH (09:39)
[2018-12-31] MEDS: PSEUDOEPHEDRINE 120 MG PO SCH ×2 (09:39→21:21)
[2018-12-31] MEDS: Heparin Sodium 5,000 Units/ML Vial SUBCUT SCH ×2 (09:46→21:29)
--- NOTE | 2018-12-31 09:55 | PCM.PN ---
- General Info Date of Service: 12/31/18 Admission Dx/Problem (Free Text): Admission Diagnosis/Problem Admission Diagnosis/Problem Pneumonia Subjective Update: Improving slightly today, respirations still up. reports more alert. Patient non verbal. - Patient Data Vitals - Most Recent: Last Vital Signs Temp 98.6 F 12/31/18 05:00 Pulse 92 12/31/18 05:00 Resp 32 H 12/31/18 05:00 BP 131/61 12/31/18 05:00 Pulse Ox 94 L 12/31/18 05:00 Weight - Most Recent: 75.342 kg I&O - Last 24 Hours: Intake & Output 12/30/18 12/31/18 12/31/18 22:59 06:59 14:59 Intake Total 1100 1262 Balance 1100 1262 Lab Results Last 24 Hours: Laboratory Results - last 24 hr 12/30/18 12/31/18 Range/Units 12:15 05:20 WBC 6.42 (4.0-11.0) K/uL RBC 3.79 L (4.50-5.90) M/uL Hgb 10.8 L (13.0-17.0) g/dL Hct 32.5 L (38.0-50.0) % MCV 85.8 (80.0-98.0) fL MCH 28.5 (27.0-32.0) pg MCHC 33.2 (31.0-37.0) g/dL RDW Std Deviation 44.7 (28.0-62.0) fl RDW Coeff of Nino 14 (11.0-15.0) % Plt Count 146 L (150-400) K/uL MPV 9.20 (7.40-12.00) fL Neut % (Auto) 75.8 (48.0-80.0) % Lymph % (Auto) 10.7 L (16.0-40.0) % [place] % (Auto) 12.5 (0.0-15.0) % Eos % (Auto) 0.8 (0.0-7.0) % Baso % (Auto) 0.2 (0.0-1.5) % Neut # (Auto) 4.9 (1.4-5.7) K/uL Lymph # (Auto) 0.7 (0.6-2.4) K/uL [place] # (Auto) 0.8 (0.0-0.8) K/uL Eos # (Auto) 0.1 (0.0-0.7) K/uL Baso # (Auto) 0.0 (0.0-0.1) K/uL Nucleated RBC % 0.0 /100WBC Nucleated RBCs # 0 K/uL Urine Color YELLOW Urine Appearance CLOUDY Urine pH 5.5 (5.0-8.0) Ur Specific [place] >= 1.030 (1.001-1.035) Urine Protein 100 H (NEGATIVE) mg/dL Urine Glucose (UA) NEGATIVE (NEGATIVE) mg/dL Urine Ketones NEGATIVE (NEGATIVE) mg/dL Urine Occult Blood LARGE H (NEGATIVE) Urine Nitrite NEGATIVE (NEGATIVE) Urine Bilirubin NEGATIVE (NEGATIVE) Urine Urobilinogen 1.0 (<2.0) EU/dL Ur Leukocyte Esterase MODERATE H (NEGATIVE) Urine RBC 0-3 (0-2/HPF) Urine WBC TO NUMEROUS TO COUNT H (0-5/HPF) Ur Epithelial Cells RARE (NONE-FEW) Urine Bacteria 1+ H (NEGATIVE) Derrick Results Last 24 Hours: Microbiology 12/29/18 19:48 Aerobic Blood Culture - Preliminary Blood - Venous - Lab Draw NO GROWTH AFTER 1 DAY Anaerobic Blood Culture - Preliminary NO GROWTH AFTER 1 DAY 12/29/18 19:48 Aerobic Blood Culture - Preliminary Blood - Venous NO GROWTH AFTER 1 DAY Anaerobic Blood Culture - Preliminary NO GROWTH AFTER 1 DAY Med Orders - Current: Current Medications Acetaminophen (Tylenol) 650 mg PO Q4H PRN PRN Reason: Pain (mild 1-3) Albuterol/Ipratropium (Duoneb 3.0-0.5 Mg/3 Ml) 3 ml NEB Q6HRRT [facility] Cetirizine HCl (Zyrtec) 10 mg PO DAILY [facility] Last Admin: 12/31/18 09:39 Dose: 10 mg Famotidine (Pepcid) 20 mg PO BID [facility] Last Admin: 12/31/18 09:38 Dose: 20 mg Guaifenesin (Mucinex) 600 mg PO DAILY [facility] Last Admin: 12/31/18 09:37 Dose: 600 mg Guaifenesin (Mucinex) 1,200 mg PO BEDTIME [facility] Last Admin: 12/30/18 20:46 Dose: Not Given Heparin Sodium (Porcine) (Heparin Sodium) 5,000 units SUBCUT Q12H [facility] Last Admin: 12/31/18 09:46 Dose: 5,000 units Piperacillin Sod/Tazobactam (Sod 3.375 gm/ Sodium Chloride) 50 mls @ 100 mls/ hr IV Q6H [facility] Last Admin: 12/31/18 09:29 Dose: 100 mls/hr Sodium Chloride (Normal Saline) 1,000 mls @ 125 mls/hr IV ASDIRECTED [facility] Last Admin: 12/31/18 06:00 Dose: 125 mls/hr Azithromycin 500 mg/ Sodium (Chloride) 250 mls @ 250 mls/hr IV Q24H [facility] Last Admin: 12/30/18 23:15 Dose: 250 mls/hr Ondansetron HCl (Zofran) 4 mg IVPUSH Q4H PRN PRN Reason: Nausea Pseudoephedrine 120 (Mg La) 1 each PO BID [facility] Last Admin: 12/31/18 09:39 Dose: 1 each Polyethylene Glycol (Miralax) 17 gm PO DAILY PRN PRN Reason: Constipation Risperidone (Risperidal) 3 mg PO BID [facility] Last Admin: 12/31/18 09:37 Dose: 3 mg Sertraline HCl (Zoloft) 100 mg PO BEDTIME [facility] Last Admin: 12/30/18 20:45 Dose: 100 mg Discontinued Medications Albuterol/Ipratropium (Duoneb 3.0-0.5 Mg/3 Ml) Confirm Administered Dose 3 ml .ROUTE .STK-MED ONE Stop: 12/29/18 19:39 Last Admin: 12/29/18 19:44 Dose: 3 ml Sodium Chloride (Normal Saline) 1,000 mls @ 125 mls/hr IV STAT [facility] Last Admin: 12/30/18 03:34 Dose: 125 mls/hr Piperacillin Sod/Tazobactam (Sod 3.375 gm/ Sodium Chloride) 50 mls @ 100 mls/ hr IV ONETIME ONE Stop: 12/29/18 21:11 Last Admin: 12/29/18 21:01 Dose: 100 mls/hr Vancomycin HCl 1 gm/ Sodium (Chloride) 250 mls @ 166 mls/hr IV ONETIME ONE Stop: 12/29/18 22:12 Last Admin: 12/29/18 23:03 Dose: 166 mls/hr Azithromycin 500 mg/ Sodium (Chloride) 250 mls @ 250 mls/hr IV Q24H [facility] Last Admin: 12/30/18 01:14 Dose: 250 mls/hr Azithromycin 500 mg/ Sodium (Chloride) 250 mls @ 250 mls/hr IV Q24H [facility] Methylprednisolone Sodium Succinate (Solu-Medrol) 125 mg IVPUSH ONETIME ONE Stop: 12/29/18 19:42 Last Admin: 12/29/18 19:46 Dose: 125 mg - Exam General: Alert, Cooperative, No Acute Distress Lungs: Decreased Breath Sounds (R lung monson) Cardiovascular: Regular Rate, Regular Rhythm GI/Abdominal Exam: Normal Bowel Sounds, Soft, Non-Tender Extremities: Normal Inspection, Normal Range of Motion, Non-Tender, No Pedal Edema Neurological: No New Focal Deficit Psy/Mental Status: Alert, Normal Affect, Normal Mood - Problem List & Annotations (1) Aspiration pneumonia SNOMED Code(s): 216613198 Code(s): J69.0 - PNEUMONITIS DUE TO INHALATION OF FOOD AND VOMIT Status: Suspected Current Visit: Yes Qualifiers: Laterality: right Lung location: upper lobe of lung (2) UTI (urinary tract infection) SNOMED Code(s): 19757887 Code(s): N39.0 - URINARY TRACT INFECTION, SITE NOT SPECIFIED Status: Acute Current Visit: Yes Qualifiers: Urinary tract infection type: acute cystitis (3) Generalized weakness SNOMED Code(s): 02077969 Code(s): R53.1 - WEAKNESS Status: Acute Current Visit: No (4) Lethargy SNOMED Code(s): 179061591 Code(s): R53.83 - OTHER FATIGUE Status: Acute Current Visit: No (5) Berny chorea SNOMED Code(s): 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 Priority: Medium Current Visit: No - Problem List Review Problem List Initiated/Reviewed/Updated: Yes - My Orders Last 24 Hours: My Active Orders 12/30/18 09:06 Oxygen Therapy [RC] PRN Up to Chair [RC] ASDIRECTED VTE/DVT Education [RC] PER UNIT ROUTINE Vital Signs [RC] Q4H PT Evaluation and Treatment [CONS] Routine Acetaminophen [Tylenol] 650 mg PO Q4H PRN Ondansetron [Zofran] 4 mg IVPUSH Q4H PRN Resuscitation Status Routine 12/30/18 09:07 Intake and Output [RC] QSHIFT 12/30/18 09:08 Polyethylene Glycol 3350 [MiraLAX] 17 gm PO DAILY PRN 12/30/18 09:09 guaiFENesin [Mucinex] 600 mg PO DAILY 12/30/18 09:15 Cetirizine [ZyrTEC] 10 mg PO DAILY Heparin Sodium 5,000 units SUBCUT Q12H Patient's Own Medication [Ptom] 1 each PO BID Sodium Chloride 0.9% [Normal Saline] 1,000 ml IV ASDIRECTED 12/30/18 21:00 Famotidine [Pepcid] 20 mg PO BID guaiFENesin [Mucinex] 1,200 mg PO BEDTIME 12/31/18 05:20 BASIC METABOLIC PANEL,BMP [CHEM] AM 12/31/18 09:32 Albuterol/Ipratropium [DuoNeb 3.0-0.5 MG/3 ML] 3 ml NEB Q6HRRT RT Acapella [RESPCARE] Routine 12/31/18 09:33 RT Aerosol Therapy [RC] ASDIRECTED 01/01/19 05:11 BASIC METABOLIC PANEL,BMP [CHEM] AM CBC WITH AUTO DIFF [HEME] AM 01/02/19 05:11 BASIC METABOLIC PANEL,BMP [CHEM] AM CBC WITH AUTO DIFF [HEME] AM - Plan Plan:: This 78 year old male admitted with tachypnea and suspected aspiration pneumonia 1. Suspected aspiration pneumonia: will not allow swallow study. Wanted ST consult today to discuss thickening liquids. Delayed cough noted today with yogurt, during my assessment with patient. Continue Zosyn and Azithromycin. BC pending. 2. UTI: Zosyn will cover, UC pending. 3. [place]'s chorea: Consult PT. is adamant about returning home with Home Health, she does not want placement in SNF even for short term rehabilitation. VTE prophylaxis: heparin Dispo: 2-3 days
[2018-12-31] MEDS: Albuterol/Ipratropium 3.0-0.5 MG/3 ML Neb Soln NEB SCH ×4 (10:05→23:15)
[2018-12-31 12:18] LABS: CHLORIDE,CL 111 mmol/L (98-107); SODIUM,NA 144 mmol/L (136-148)
[2018-12-31] MEDS: Sertraline 100 MG Tab PO SCH (21:18)
[2018-12-31] MEDS: Azithromycin 500 MG in Sodium Chloride 0.9% 250 ML IV SCH (22:10)
[2019-01-01] MEDS: Piperacillin/Tazobactam 3.375 GM in Sodium Chloride 0.9% 50 ML IV SCH ×4 (03:15→20:59)
[2019-01-01] MEDS: Albuterol/Ipratropium 3.0-0.5 MG/3 ML Neb Soln NEB SCH ×3 (06:09→18:18)
[2019-01-01] MEDS: Cetirizine 10 MG Tab PO SCH (09:48)
[2019-01-01] MEDS: guaiFENesin 600 MG Tab.ER PO SCH ×2 (09:48→20:41)
[2019-01-01] MEDS: Heparin Sodium 5,000 Units/ML Vial SUBCUT SCH ×2 (09:52→21:08)
[2019-01-01] MEDS: PSEUDOEPHEDRINE 120 MG PO SCH ×2 (10:08→20:42)
[2019-01-01] MEDS: Famotidine 20 MG Tab PO SCH ×2 (10:22→20:41)
--- NOTE | 2019-01-01 11:39 | PCM.PN ---
- General Info Date of Service: 01/01/19 - Review of Systems Systems Review Comment:: nonverbal - Patient Data Vitals - Most Recent: Last Vital Signs Temp 36.4 C 01/01/19 07:35 Pulse 69 01/01/19 07:35 Resp 25 H 01/01/19 07:35 BP 105/54 L 01/01/19 07:35 Pulse Ox 97 01/01/19 03:45 Weight - Most Recent: 75.342 kg I&O - Last 24 Hours: Intake & Output 12/31/18 01/01/19 01/01/19 22:59 06:59 14:59 Intake Total 550 500 Output Total 0 Balance 550 500 Lab Results Last 24 Hours: Laboratory Results - last 24 hr 12/31/18 01/01/19 01/01/19 Range/Units 05:20 06:20 06:20 WBC 4.59 (4.0-11.0) K/uL RBC 3.67 L (4.50-5.90) M/uL Hgb 10.3 L (13.0-17.0) g/dL Hct 31.5 L (38.0-50.0) % MCV 85.8 (80.0-98.0) fL MCH 28.1 (27.0-32.0) pg MCHC 32.7 (31.0-37.0) g/dL RDW Std Deviation 44.1 (28.0-62.0) fl RDW Coeff of Nino 14 (11.0-15.0) % Plt Count 139 L (150-400) K/uL MPV 9.30 (7.40-12.00) fL Neut % (Auto) 64.4 (48.0-80.0) % Lymph % (Auto) 21.8 (16.0-40.0) % [place] % (Auto) 12.9 (0.0-15.0) % Eos % (Auto) 0.9 (0.0-7.0) % Baso % (Auto) 0.0 (0.0-1.5) % Neut # (Auto) 3.0 (1.4-5.7) K/uL Lymph # (Auto) 1.0 (0.6-2.4) K/uL [place] # (Auto) 0.6 (0.0-0.8) K/uL Eos # (Auto) 0.0 (0.0-0.7) K/uL Baso # (Auto) 0.0 (0.0-0.1) K/uL Nucleated RBC % 0.0 /100WBC Nucleated RBCs # 0 K/uL Sodium 144 146 (136-148) mmol/L Potassium 3.8 3.6 (3.5-5.1) mmol/L Chloride 111 H 111 H (98-107) mmol/L Carbon Dioxide 26.2 25.7 (21.0-32.0) mmol/L BUN 21 H 18 (7.0-18.0) mg/dL Creatinine 1.1 1.2 (0.8-1.3) mg/dL Est Cr Clr Drug Dosing 58.98 54.06 mL/min Estimated GFR (MDRD) > 60.0 58.6 ml/min Glucose 99 99 (74-106) mg/dL Calcium 8.2 L 8.3 L (8.5-10.1) mg/dL Derrick Results Last 24 Hours: Microbiology 12/30/18 12:15 Urine Culture - Final Urine, Clean Catch MIXED JAZZMINE <1000 CFU/ML 12/29/18 19:48 Aerobic Blood Culture - Preliminary Blood - Venous - Lab Draw NO GROWTH AFTER 2 DAYS Anaerobic Blood Culture - Preliminary NO GROWTH AFTER 2 DAYS 12/29/18 19:48 Aerobic Blood Culture - Preliminary Blood - Venous NO GROWTH AFTER 2 DAYS Anaerobic Blood Culture - Preliminary NO GROWTH AFTER 2 DAYS Med Orders - Current: Current Medications Acetaminophen (Tylenol) 650 mg PO Q4H PRN PRN Reason: Pain (mild 1-3) Albuterol/Ipratropium (Duoneb 3.0-0.5 Mg/3 Ml) 3 ml NEB Q6HRRT [facility] Last Admin: 01/01/19 06:09 Dose: 3 ml Cetirizine HCl (Zyrtec) 10 mg PO DAILY [facility] Last Admin: 01/01/19 09:48 Dose: 10 mg Famotidine (Pepcid) 20 mg PO BID [facility] Last Admin: 01/01/19 10:22 Dose: 20 mg Guaifenesin (Mucinex) 600 mg PO DAILY [facility] Last Admin: 01/01/19 09:48 Dose: 600 mg Guaifenesin (Mucinex) 1,200 mg PO BEDTIME [facility] Last Admin: 12/31/18 21:18 Dose: 600 mg Heparin Sodium (Porcine) (Heparin Sodium) 5,000 units SUBCUT Q12H [facility] Last Admin: 01/01/19 09:52 Dose: 5,000 units Piperacillin Sod/Tazobactam (Sod 3.375 gm/ Sodium Chloride) 50 mls @ 100 mls/ hr IV Q6H [facility] Last Admin: 01/01/19 10:19 Dose: 100 mls/hr Azithromycin 500 mg/ Sodium (Chloride) 250 mls @ 250 mls/hr IV Q24H [facility] Last Admin: 12/31/18 22:10 Dose: 250 mls/hr Ondansetron HCl (Zofran) 4 mg IVPUSH Q4H PRN PRN Reason: Nausea Pseudoephedrine 120 (Mg La) 1 each PO BID [facility] Last Admin: 01/01/19 10:08 Dose: 1 each Polyethylene Glycol (Miralax) 17 gm PO DAILY PRN PRN Reason: Constipation Risperidone (Risperidal) 3 mg PO BID [facility] Last Admin: 01/01/19 09:48 Dose: 3 mg Sertraline HCl (Zoloft) 100 mg PO BEDTIME [facility] Last Admin: 12/31/18 21:18 Dose: 100 mg Discontinued Medications Albuterol/Ipratropium (Duoneb 3.0-0.5 Mg/3 Ml) Confirm Administered Dose 3 ml .ROUTE .STK-MED ONE Stop: 12/29/18 19:39 Last Admin: 12/29/18 19:44 Dose: 3 ml Sodium Chloride (Normal Saline) 1,000 mls @ 125 mls/hr IV STAT [facility] Last Admin: 12/30/18 03:34 Dose: 125 mls/hr Piperacillin Sod/Tazobactam (Sod 3.375 gm/ Sodium Chloride) 50 mls @ 100 mls/ hr IV ONETIME ONE Stop: 12/29/18 21:11 Last Admin: 12/29/18 21:01 Dose: 100 mls/hr Vancomycin HCl 1 gm/ Sodium (Chloride) 250 mls @ 166 mls/hr IV ONETIME ONE Stop: 12/29/18 22:12 Last Admin: 12/29/18 23:03 Dose: 166 mls/hr Azithromycin 500 mg/ Sodium (Chloride) 250 mls @ 250 mls/hr IV Q24H [facility] Last Admin: 12/30/18 01:14 Dose: 250 mls/hr Sodium Chloride (Normal Saline) 1,000 mls @ 125 mls/hr IV ASDIRECTED [facility] Last Admin: 12/31/18 06:00 Dose: 125 mls/hr Azithromycin 500 mg/ Sodium (Chloride) 250 mls @ 250 mls/hr IV Q24H [facility] Methylprednisolone Sodium Succinate (Solu-Medrol) 125 mg IVPUSH ONETIME ONE Stop: 12/29/18 19:42 Last Admin: 12/29/18 19:46 Dose: 125 mg - Exam Lungs: Normal Respiratory Effort, Rhonchi Cardiovascular: Regular Rate, Regular Rhythm GI/Abdominal Exam: Soft, Non-Tender Extremities: Non-Tender, No Pedal Edema Skin: Warm, Dry, Intact - Problem List Review Problem List Initiated/Reviewed/Updated: Yes - Plan Plan:: This 78 year old male admitted with suspected aspiration pneumonia. We will continue Zosyn and azithromycin. Anticipate discharge home tomorrow.
[2019-01-01] MEDS: Sertraline 100 MG Tab PO SCH (20:40)
[2019-01-01] MEDS: Azithromycin 500 MG in Sodium Chloride 0.9% 250 ML IV SCH (23:13)
[2019-01-02] MEDS: Albuterol/Ipratropium 3.0-0.5 MG/3 ML Neb Soln NEB SCH ×4 (00:02→17:59)
[2019-01-02] MEDS: Piperacillin/Tazobactam 3.375 GM in Sodium Chloride 0.9% 50 ML IV SCH ×4 (03:20→21:51)
[2019-01-02 06:20] LABS: CHLORIDE,CL 110 mmol/L (98-107); SODIUM,NA 146 mmol/L (136-148)
[2019-01-02] MEDS: Cetirizine 10 MG Tab PO SCH (09:35)
[2019-01-02] MEDS: Famotidine 20 MG Tab PO SCH ×2 (09:35→21:52)
[2019-01-02] MEDS: guaiFENesin 600 MG Tab.ER PO SCH ×2 (09:35→21:52)
[2019-01-02] MEDS: PSEUDOEPHEDRINE 120 MG PO SCH ×2 (09:36→21:52)
[2019-01-02] MEDS: Heparin Sodium 5,000 Units/ML Vial SUBCUT SCH ×2 (09:37→21:53)
--- NOTE | 2019-01-02 11:10 | PCM.PN ---
- General Info Date of Service: 01/02/19 - Review of Systems Systems Review Comment:: patient nonverbal, smiles when talked to. - Patient Data Vitals - Most Recent: Last Vital Signs Temp 36.4 C 01/02/19 07:44 Pulse 68 01/02/19 07:44 Resp 18 01/02/19 07:44 BP 129/73 01/02/19 07:44 Pulse Ox 96 01/02/19 07:44 Weight - Most Recent: 75.342 kg I&O - Last 24 Hours: Intake & Output 01/01/19 01/02/19 01/02/19 22:59 06:59 14:59 Intake Total 390 1240 50 Balance 390 1240 50 Lab Results Last 24 Hours: Laboratory Results - last 24 hr 01/02/19 01/02/19 Range/Units 05:37 05:37 WBC 3.30 L (4.0-11.0) K/uL RBC 3.73 L (4.50-5.90) M/uL Hgb 10.5 L (13.0-17.0) g/dL Hct 32.0 L (38.0-50.0) % MCV 85.8 (80.0-98.0) fL MCH 28.2 (27.0-32.0) pg MCHC 32.8 (31.0-37.0) g/dL RDW Std Deviation 44.4 (28.0-62.0) fl RDW Coeff of Nino 14 (11.0-15.0) % Plt Count 152 (150-400) K/uL MPV 9.40 (7.40-12.00) fL Neut % (Auto) 64.0 (48.0-80.0) % Lymph % (Auto) 18.2 (16.0-40.0) % [place] % (Auto) 13.9 (0.0-15.0) % Eos % (Auto) 3.6 (0.0-7.0) % Baso % (Auto) 0.3 (0.0-1.5) % Neut # (Auto) 2.1 (1.4-5.7) K/uL Lymph # (Auto) 0.6 (0.6-2.4) K/uL [place] # (Auto) 0.5 (0.0-0.8) K/uL Eos # (Auto) 0.1 (0.0-0.7) K/uL Baso # (Auto) 0.0 (0.0-0.1) K/uL Nucleated RBC % 0.0 /100WBC Nucleated RBCs # 0 K/uL Sodium 146 (136-148) mmol/L Potassium 3.6 (3.5-5.1) mmol/L Chloride 110 H (98-107) mmol/L Carbon Dioxide 26.1 (21.0-32.0) mmol/L BUN 21 H (7.0-18.0) mg/dL Creatinine 1.1 (0.8-1.3) mg/dL Est Cr Clr Drug Dosing 58.98 mL/min Estimated GFR (MDRD) > 60.0 ml/min Glucose 97 (74-106) mg/dL Calcium 8.3 L (8.5-10.1) mg/dL Derrick Results Last 24 Hours: Microbiology 12/29/18 19:48 Aerobic Blood Culture - Preliminary Blood - Venous - Lab Draw NO GROWTH AFTER 3 DAYS Anaerobic Blood Culture - Preliminary NO GROWTH AFTER 3 DAYS 12/29/18 19:48 Aerobic Blood Culture - Preliminary Blood - Venous NO GROWTH AFTER 3 DAYS Anaerobic Blood Culture - Preliminary NO GROWTH AFTER 3 DAYS 12/30/18 12:15 Urine Culture - Final Urine, Clean Catch MIXED JAZZM[place] <1000 CFU/ML Med Orders - Current: Current Medications Acetaminophen (Tylenol) 650 mg PO Q4H PRN PRN Reason: Pain (mild 1-3) Albuterol/Ipratropium (Duoneb 3.0-0.5 Mg/3 Ml) 3 ml NEB Q6HRRT [facility] Last Admin: 01/02/19 06:05 Dose: 3 ml Cetirizine HCl (Zyrtec) 10 mg PO DAILY [facility] Last Admin: 01/02/19 09:35 Dose: 10 mg Famotidine (Pepcid) 20 mg PO BID [facility] Last Admin: 01/02/19 09:35 Dose: 20 mg Guaifenesin (Mucinex) 600 mg PO DAILY [facility] Last Admin: 01/02/19 09:35 Dose: 600 mg Guaifenesin (Mucinex) 1,200 mg PO BEDTIME [facility] Last Admin: 01/01/19 20:41 Dose: 600 mg Heparin Sodium (Porcine) (Heparin Sodium) 5,000 units SUBCUT Q12H [facility] Last Admin: 01/02/19 09:37 Dose: 5,000 units Piperacillin Sod/Tazobactam (Sod 3.375 gm/ Sodium Chloride) 50 mls @ 100 mls/ hr IV Q6H [facility] Last Admin: 01/02/19 09:34 Dose: 100 mls/hr Azithromycin 500 mg/ Sodium (Chloride) 250 mls @ 250 mls/hr IV Q24H [facility] Last Admin: 01/01/19 23:13 Dose: 250 mls/hr Ondansetron HCl (Zofran) 4 mg IVPUSH Q4H PRN PRN Reason: Nausea Pseudoephedrine 120 (Mg La) 1 each PO BID [facility] Last Admin: 01/02/19 09:36 Dose: 1 each Polyethylene Glycol (Miralax) 17 gm PO DAILY PRN PRN Reason: Constipation Risperidone (Risperidal) 3 mg PO BID [facility] Last Admin: 01/02/19 09:35 Dose: 3 mg Sertraline HCl (Zoloft) 100 mg PO BEDTIME [facility] Last Admin: 01/01/19 20:40 Dose: 100 mg Discontinued Medications Albuterol/Ipratropium (Duoneb 3.0-0.5 Mg/3 Ml) Confirm Administered Dose 3 ml .ROUTE .STK-MED ONE Stop: 12/29/18 19:39 Last Admin: 12/29/18 19:44 Dose: 3 ml Sodium Chloride (Normal Saline) 1,000 mls @ 125 mls/hr IV STAT [facility] Last Admin: 12/30/18 03:34 Dose: 125 mls/hr Piperacillin Sod/Tazobactam (Sod 3.375 gm/ Sodium Chloride) 50 mls @ 100 mls/ hr IV ONETIME ONE Stop: 12/29/18 21:11 Last Admin: 12/29/18 21:01 Dose: 100 mls/hr Vancomycin HCl 1 gm/ Sodium (Chloride) 250 mls @ 166 mls/hr IV ONETIME ONE Stop: 12/29/18 22:12 Last Admin: 12/29/18 23:03 Dose: 166 mls/hr Azithromycin 500 mg/ Sodium (Chloride) 250 mls @ 250 mls/hr IV Q24H [facility] Last Admin: 12/30/18 01:14 Dose: 250 mls/hr Sodium Chloride (Normal Saline) 1,000 mls @ 125 mls/hr IV ASDIRECTED [facility] Last Admin: 12/31/18 06:00 Dose: 125 mls/hr Azithromycin 500 mg/ Sodium (Chloride) 250 mls @ 250 mls/hr IV Q24H [facility] Methylprednisolone Sodium Succinate (Solu-Medrol) 125 mg IVPUSH ONETIME ONE Stop: 12/29/18 19:42 Last Admin: 12/29/18 19:46 Dose: 125 mg - Exam General: Alert, Oriented Neck: Supple Lungs: Clear to Auscultation Cardiovascular: Regular Rate, Regular Rhythm GI/Abdominal Exam: Soft, Non-Tender Extremities: No Pedal Edema Skin: Warm, Dry, Intact - Problem List Review Problem List Initiated/Reviewed/Updated: Yes - Plan Plan:: This 78 year old male admitted with suspected aspiration pneumonia. We will continue Zosyn and azithromycin. not ready to take him home as he is not standing well. If strength does not improve may need SNF
[2019-01-02] MEDS: Sertraline 100 MG Tab PO SCH (21:52)
[2019-01-03] MEDS: Azithromycin 500 MG in Sodium Chloride 0.9% 250 ML IV SCH (00:07)
[2019-01-03] MEDS: Albuterol/Ipratropium 3.0-0.5 MG/3 ML Neb Soln NEB SCH ×2 (00:12→06:07)
[2019-01-03] MEDS: Piperacillin/Tazobactam 3.375 GM in Sodium Chloride 0.9% 50 ML IV SCH ×2 (03:05→08:19)
[2019-01-03 07:35] VITALS: BP 139/70
[2019-01-03] MEDS: Heparin Sodium 5,000 Units/ML Vial SUBCUT SCH (08:18)
[2019-01-03] MEDS: Famotidine 20 MG Tab PO SCH (08:19)
[2019-01-03] MEDS: Cetirizine 10 MG Tab PO SCH (08:19)
[2019-01-03] MEDS: guaiFENesin 600 MG Tab.ER PO SCH (08:19)
[2019-01-03] MEDS: PSEUDOEPHEDRINE 120 MG PO SCH (08:27)
--- NOTE | 2019-01-03 10:18 | PCM.DCSUM1 ---
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 He presented to the ED with lethargy and worsening mobility. He was satting in 90s with 10 L NC. He had course ronchi on lung exam. His chest x-ray reported right mid and lower lung pneumonia. He was treated with IV zosyn and azithromycin. He did have improvement of his oxygenation and alertness. Today he is being discharged home. He was referred to home health as he is home bound. 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 He would benefit for correction care for medical management of his new medical regiment as well as physical therapy. He will follow up with Dr. Hope. - Patient Instructions Diet: Usual Diet as Tolerated Activity: As Tolerated - Discharge Plan Prescriptions/Med Rec: Amoxicillin/Clavulanate K [Augmentin 875-125 MG] 1 tab PO BID #10 tablet Home Medications: Home Meds Pseudoephedrine HCl [Long Acting Nasal Decongestant] 120 mg PO BID 01/18/15 [ History] Sertraline HCl 100 mg PO BEDTIME 01/18/15 [History] guaiFENesin [Mucinex] 1,200 mg PO BEDTIME 01/18/15 [History] risperiDONE 3 mg PO BID 01/18/15 [History] guaiFENesin [Mucinex] 600 mg PO DAILY 02/06/18 [History] Famotidine [Pepcid] 20 mg PO BID 05/23/18 [History] Polyethylene Glycol 3350 [MiraLAX] 17 gm PO DAILY PRN 05/23/18 [History] Cetirizine [ZyrTEC] 10 mg PO DAILY 12/30/18 [History] Amoxicillin/Clavulanate K [Augmentin 875-125 MG] 1 tab PO BID #10 tablet [Rx] Patient Handouts: Amoxicillin; Clavulanic Acid tablets, Community-Acquired Pneumonia, Adult, [id number] Referrals: Ruslan Hoep MD [Primary Care Provider] - 01/09/19 1:45 pm - Discharge Summary/Plan Comment DC Time >30 min.: No - Patient Data Vitals - Most Recent: Last Vital Signs Temp 36.3 C 01/03/19 07:34 Pulse 84 01/03/19 07:34 Resp 18 01/03/19 07:34 BP 139/70 01/03/19 07:34 Pulse Ox 97 01/03/19 07:34 Weight - Most Recent: 75.342 kg I&O - Last 24 hours: Intake & Output 01/02/19 01/03/19 01/03/19 22:59 06:59 14:59 Intake Total 1240 970 Output Total 0 Balance 1240 970 LENA Results - Last 24 hrs: Microbiology 12/29/18 19:48 Aerobic Blood Culture - Preliminary Blood - Venous - Lab Draw NO GROWTH AFTER 4 DAYS Anaerobic Blood Culture - Preliminary NO GROWTH AFTER 4 DAYS 12/29/18 19:48 Aerobic Blood Culture - Preliminary Blood - Venous NO GROWTH AFTER 4 DAYS Anaerobic Blood Culture - Preliminary NO GROWTH AFTER 4 DAYS Med Orders - Current: Current Medications Acetaminophen (Tylenol) 650 mg PO Q4H PRN PRN Reason: Pain (mild 1-3) Albuterol/Ipratropium (Duoneb 3.0-0.5 Mg/3 Ml) 3 ml NEB Q6HRRT [facility] Last Admin: 01/03/19 06:07 Dose: 3 ml Cetirizine HCl (Zyrtec) 10 mg PO DAILY [facility] Last Admin: 01/03/19 08:19 Dose: 10 mg Famotidine (Pepcid) 20 mg PO BID [facility] Last Admin: 01/03/19 08:19 Dose: 20 mg Guaifenesin (Mucinex) 600 mg PO DAILY [facility] Last Admin: 01/03/19 08:19 Dose: 600 mg Guaifenesin (Mucinex) 1,200 mg PO BEDTIME [facility] Last Admin: 01/02/19 21:52 Dose: 600 mg Heparin Sodium (Porcine) (Heparin Sodium) 5,000 units SUBCUT Q12H [facility] Last Admin: 01/03/19 08:18 Dose: 5,000 units Piperacillin Sod/Tazobactam (Sod 3.375 gm/ Sodium Chloride) 50 mls @ 100 mls/ hr IV Q6H [facility] Last Admin: 01/03/19 08:19 Dose: 100 mls/hr Azithromycin 500 mg/ Sodium (Chloride) 250 mls @ 250 mls/hr IV Q24H [facility] Last Admin: 01/03/19 00:07 Dose: 250 mls/hr Ondansetron HCl (Zofran) 4 mg IVPUSH Q4H PRN PRN Reason: Nausea Pseudoephedrine 120 (Mg La) 1 each PO BID [facility] Last Admin: 01/03/19 08:27 Dose: 1 each Polyethylene Glycol (Miralax) 17 gm PO DAILY PRN PRN Reason: Constipation Risperidone (Risperidal) 3 mg PO BID [facility] Last Admin: 01/03/19 08:19 Dose: 3 mg Sertraline HCl (Zoloft) 100 mg PO BEDTIME [facility] Last Admin: 01/02/19 21:52 Dose: 100 mg Discontinued Medications Albuterol/Ipratropium (Duoneb 3.0-0.5 Mg/3 Ml) Confirm Administered Dose 3 ml .ROUTE .STK-MED ONE Stop: 12/29/18 19:39 Last Admin: 12/29/18 19:44 Dose: 3 ml Sodium Chloride (Normal Saline) 1,000 mls @ 125 mls/hr IV STAT [facility] Last Admin: 12/30/18 03:34 Dose: 125 mls/hr Piperacillin Sod/Tazobactam (Sod 3.375 gm/ Sodium Chloride) 50 mls @ 100 mls/ hr IV ONETIME ONE Stop: 12/29/18 21:11 Last Admin: 12/29/18 21:01 Dose: 100 mls/hr Vancomycin HCl 1 gm/ Sodium (Chloride) 250 mls @ 166 mls/hr IV ONETIME ONE Stop: 12/29/18 22:12 Last Admin: 12/29/18 23:03 Dose: 166 mls/hr Azithromycin 500 mg/ Sodium (Chloride) 250 mls @ 250 mls/hr IV Q24H [facility] Last Admin: 12/30/18 01:14 Dose: 250 mls/hr Sodium Chloride (Normal Saline) 1,000 mls @ 125 mls/hr IV ASDIRECTED [facility] Last Admin: 12/31/18 06:00 Dose: 125 mls/hr Azithromycin 500 mg/ Sodium (Chloride) 250 mls @ 250 mls/hr IV Q24H [facility] Methylprednisolone Sodium Succinate (Solu-Medrol) 125 mg IVPUSH ONETIME ONE Stop: 12/29/18 19:42 Last Admin: 12/29/18 19:46 Dose: 125 mg
== END 2019-01-03 10:45 | disposition home or self-care (01) | DRG 178 ==
LOC: MW.ED 18:57 → MW.MS 20:49 → EEVIPCON 20:49 → MW.MS 21:26
PROVIDERS: ADMIT Internal Medicine; ATTEND Internal Medicine
DX: J69.0 Pneumonitis due to inhalation of food and vomit (principal); N30.00 Acute cystitis without hematuria; J18.1 Lobar pneumonia, unspecified organism; Z87.01 Personal history of pneumonia (recurrent); G10 Huntington's disease; Z90.49 Acquired absence of other specified parts of digestive tract; Z88.8 Allergy status to other drugs, medicaments and biological substances; Z79.899 Other long term (current) drug therapy
CPT/HCPCS: 36415; 71045; 80053; 83605; 83690; 84484; 85025; 85610; 87040 ×2; 93005; 96361; 96375; 99285; J2930; J7040; 80048; 81001; 87086; 94640; 94667; 94668; 96365; 97110-GP; 97161-GP; 97530-GP; A9270-GY; J0456; J1644; J2543; J3370; J7050; J7620-GY

== ENCOUNTER 2020-03-03 15:01 | Observation (INO) | payer MEDICARE, BC, OTHER ==
[2020-03-03] MEDS ORDERED: Sodium Chloride 0.9% 2.5 ML Syringe FLUSH PRN (15:32)
[2020-03-03] MEDS ORDERED: Sodium Chloride 0.9% 10 ML Syringe FLUSH PRN (15:32)
[2020-03-03] MEDS ORDERED: Lactated Ringers 1,000 ML IV ONE (15:34)
[2020-03-03 16:00] LABS: BLOOD UREA NITROGEN,BUN 20 mg/dL (7.0-18.0); CARBON DIOXIDE,CO2 26.9 mmol/L (21.0-32.0); CHLORIDE,CL 102 mmol/L (98-107); GLUCOSE RANDOM 103 mg/dL (74-106); LIPASE 103 U/L (73-393); POTASSIUM,K 4.3 mmol/L (3.5-5.1); SODIUM,NA 138 mmol/L (136-148)
--- NOTE | 2020-03-03 16:16 | CR ---
Chest: Frontal view of the chest was obtained utilizing portable technique. Comparison: Prior chest x-ray of 07/04/19. Heart size and mediastinum are within normal limits for portable technique. Minimal atelectasis within the right lung base is noted. Lungs otherwise are clear. Old healed left clavicle deformity is noted. Impression: 1. Slight right basilar atelectasis. 2. Nothing acute is appreciated. Diagnostic code #2 This report was dictated in MDT
--- NOTE | 2020-03-03 16:39 | CT ---
Head CT Technique: Multiple axial sections through the brain were obtained. Intravenous contrast was not utilized. Comparison: No prior study. Findings: Ventricles along with basal cisterns and sulci with convexities are very prominent. Mild areas of diminished density are noted within the periventricular white matter compatible with small vessel ischemic demyelination change. No other abnormal parenchymal densities are seen. No evidence of intracranial hemorrhage. No midline shift or mass-effect is appreciated. Bone window settings were reviewed. Visualized paranasal sinuses and mastoid sinuses show nothing acute. No acute calvarial finding is seen. Impression: 1. Diffuse generalized atrophy. Small vessel ischemic demyelination change also felt to be present. 2. No acute intracranial abnormality is appreciated. Diagnostic code #3 This report was dictated in MDT
--- NOTE | 2020-03-03 16:52 | CT ---
PA chest Technique: Multiple axial sections were obtained from above the lung apices inferiorly through the lung bases. Intravenous contrast was utilized. Comparison: Prior chest x-ray performed earlier on the same day (3:41 PM). Findings: Aorta shows no aneurysm. No adenopathy is seen within the mediastinum or hilar regions. No pericardial thickening is seen. Interstitial changes are seen within both lung bases as well as posteriorly within the right lung base. Findings have the appearance of mostly fibrosis. There is mild atelectasis within the left base. I see nothing to indicate definite acute parenchymal change. Bone window settings were reviewed which shows scattered endplate spurring within the spine. Nothing acute is appreciated. Impression: 1. Interstitial change within both lung bases and posteriorly on the right side. Findings most likely represent fibrosis. 2. Atelectasis within the left lung base. 3. Nothing acute is suspected on CT study of the chest. Diagnostic code #2 This report was dictated in MDT
--- NOTE | 2020-03-03 16:58 | CT ---
CT abdomen and pelvis Technique: Multiple axial sections were obtained from above the dome of the diaphragm inferiorly through the pubic symphysis. Intravenous contrast was utilized. No oral contrast has been given. Findings: Liver shows no focal parenchymal abnormality. Gallbladder contains no calcified gallstones. Small fatty lesion is seen possibly due to small cholesterol gallstones. Spleen has several low density lesions which are most likely benign. Adrenal glands show no nodule. Pancreas shows no discrete abnormality. Aorta shows aneurysm distally with AP dimension of 4.1 cm. Right common iliac artery is also slightly ectatic at 2.1 cm. Atherosclerotic calcification seen within the aorta and iliac vessels. No retroperitoneal adenopathy is seen. No mesenteric abnormalities are noted. Dilated rectum with stool compatible with fecal impaction. Lesser stool is seen within the sigmoid regions and other portions of the colon. Appendix not definitely visualized with certainty. Bone window settings were reviewed which shows no acute osseous finding. Impression: 1. Fecal impaction with lesser stool within the sigmoid regions and within other portions of the colon. 2. 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 3. No other acute abnormality appreciated on CT study of the abdomen and pelvis. Diagnostic code #3 This report was dictated in MDT
--- NOTE | 2020-03-03 18:45 | EDM.PDOC ---
ED HPI GENERAL MEDICAL PROBLEM - General Chief Complaint: General Stated Complaint: LARGIC Time Seen by Provider: 03/03/20 15:05 Source of Information: Reports: Patient, Family, Old Records - History of Present Illness INITIAL COMMENTS - FREE TEXT/NARRATIVE: 79-year-old male with a past medical history of Cost disease presenting with concern for fatigue and poor oral intake. Brought in by ambulance from home. Patient spouse was concerned because the patient seemed extremely tired compared to usual, onset last night. She states that he has not had much to eat or drink today and seems generally weak. She checked his temperature with a tympanic thermometer at some point this morning and got a reading of 100.6 F. She is concerned that he may have pneumonia. She is concerned that he may be dehydrated. She denies any complaints of new pain, recent vomiting or diarrhea or GI bleeding, rash, cough. Patient is only intermittently able to respond to questions and commands and is not able to participate in the HPI. ROS: A 10-point review of systems was negative, except as noted in the HPI (or in the ROS section of this note). Past medical history: Reviewed, no additional pertinent history. Surgical history: Reviewed in system, no additional pertinent history. Social history: Reviewed in system, no additional pertinent history. Family history: Reviewed in system, no additional pertinent history. PHYSICAL EXAM Vital signs reviewed. Nursing notes reviewed. Constitutional: Sleepy but awakens to voice. Thin appearing man. Head: Normocephalic, atraumatic. Eyes: EOMI, conjunctiva normal, no discharge, no scleral icterus. Ears, Nose, Throat: External ears and nose normal, moist oral mucosa. Cardiovascular: Tachycardic, 2+ radial pulse, capillary refill less than 2 seconds. Pulmonary: On arrival patient had intermittent upper airway obstruction with the tongue, with tachypnea and some sternal retractions. These resolved with airway repositioning and after stimulating the patient verbaly. CTA BL. Abdomen/GI: Soft, nontender, nondistended, no guarding or rigidity, no masses. Musculoskeletal: No deformities. Integumentary: Appropriate color for ethnicity, warm, dry, no pallor or jaundice, no rash. Neurologic: Awakens to voice, able to follow some commands. One-word responses. No facial droop, moving all extremities well. states this is his baseline. Psychiatric: Unable to assess. - Related Data Allergies Allergy/AdvReac Type Severity Reaction Status Date / Time olanzapine [From Zyprexa] Allergy Difficulty Verified 03/03/20 15:18 Swallowing Home Meds: Home Meds Pseudoephedrine HCl [Long Acting Nasal Decongestant] 120 mg PO BID 01/18/15 [History] Sertraline HCl 100 mg PO BEDTIME 01/18/15 [History] guaiFENesin [Mucinex] 1,200 mg PO BEDTIME 01/18/15 [History] risperiDONE 3 mg PO BID 01/18/15 [History] guaiFENesin [Mucinex] 600 mg PO DAILY 02/06/18 [History] Famotidine [Pepcid] 20 mg PO BID 05/23/18 [History] polyethylene glycoL 3350 [MiraLAX] 17 gm PO DAILY PRN 05/23/18 [History] Cetirizine [ZyrTEC] 10 mg PO DAILY 12/30/18 [History] Amoxicillin/Clavulanate K [Augmentin 875-125 MG] 1 tab PO BID #10 tablet 01/03/19 [Rx] Past Medical History Other HEENT History: 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 - Infectious Disease History Infectious Disease History: Reports: Chicken Pox, Measles, Mumps - Past Surgical History HEENT Surgical History: Reports: Adenoidectomy, Tonsillectomy GI Surgical History: Reports: Appendectomy Social & Family History - Family History Family Medical History: Noncontributory - Tobacco Use Smoking Status *Q: Unknown Ever Smoked - Caffeine Use Caffeine Use: Reports: Coffee - Living Situation & Occupation Living situation: Reports: Occupation: Retired ED ROS GENERAL - Review of Systems Review Of Systems: See Below ED EXAM, GENERAL - Physical Exam Exam: See Below EKG INTERPRETATION EKG Interpretation Comments: 12-Lead ECG Interpretation Acquired: 3:12 PM Rhythm: Sinus tachycardia Rate: 109 bpm [place]rumpler: Normal Intervals: Normal Ectopy: None Ischemic Changes: None apparent RV Strain: No obvious RV strain pattern. ST Segments/T-Waves: No notable changes Interpretation: Wandering baseline but no obvious ischemia or acute abnormalities appreciated. Course - Vital Signs Text/Narrative:: 79-year-old male presenting with concern for failure to thrive, fatigue, poor oral intake. On arrival noted to be tachycardic, tachypneic and hypoxic with room air saturations in the low 80s and loud sonorous breathing. Airway repositioning was performed and oxygen saturations improved, patient appears to be breathing comfortably. Patient became more awake and alert and was able to maintain his own airway. IV access established and labs were sent. Obtained twelve-lead EKG, showing no acute ischemia or appreciable abnormalities. Given 1 L of lactated Ringer's. Labs are largely reassuring. No leukocytosis, mild thrombocytopenia. Normal INR. Normal lactate. Electrolytes and renal function reassuring. Normal LFTs, negative troponin, normal lipase, normal TSH. Negative COVID swab. Chest x- ray shows no acute infiltrates. Head CT negative. CT imaging of the chest, abdomen, and pelvis showed no acute findings, show incidental AAA along with large stool burden but no evidence of stercoral colitis. I am concerned about the fever early at home, the infectious source is not clear at this point. We did obtain 2 sets of blood cultures. I did discuss with the patient's spouse that we recommended straight catheterization for a clean urine sample. She is adamantly refusing this because she is concerned that the straight cath procedure may cause him to develop a UTI. I explained that this was standard of care when evaluating for UTI or pyelonephritis but the patient's is still refusing to allow us to perform the straight cath. Patient appears more awake and alert and his mental status is improved. He shows no signs of respiratory compromise. He is requiring low-flow oxygen by nasal cannula. Etiology of his fever is not entirely clear, no obvious source of infection at this point. Given poor oral intake and unclear source of symptoms, would favor admission to the hospital on observation status. No in dication for empiric antibiotics given no obvious source of infection at this point. No indication for LP given improvement of mental status, lack of fever or leukocytosis. I spoke with the hospitalist Dr. Thang Rdz who agrees to admit to observation. Last Recorded V/S: Last Vital Signs Temp 36.1 C 03/03/20 15:18 Pulse 89 03/03/20 17:53 Resp 18 03/03/20 17:53 BP 132/55 L 03/03/20 17:53 Pulse Ox 100 03/03/20 17:53 - Orders/Labs/Meds Orders: Active Orders 24 hr Category Date Time Status Cardiac Monitoring [RC] CONTINUOUS Care 03/03/20 15:33 Active EKG Documentation Completion [RC] STAT Care 03/03/20 15:32 Active Overnight Pulse Oximetry [RC] Click to Edit Care 03/03/20 15:33 Active Oxygen Therapy, ED [RC] STAT Care 03/03/20 15:33 Active CORONAVIRUS COVID-19 PCR PHL Stat Lab 03/03/20 17:11 Received CULTURE BLOOD [BC] Stat Lab 03/03/20 16:42 Received CULTURE BLOOD [BC] Stat Lab 03/03/20 16:57 Results UA W/MICROSCOPIC [URIN] Stat Lab 03/03/20 15:33 Ordered Sodium Chloride 0.9% [Saline Flush] Med 03/03/20 15:32 Active 10 ml FLUSH ASDIRECTED PRN Sodium Chloride 0.9% [Saline Flush] Med 03/03/20 15:32 Active 2.5 ml FLUSH ASDIRECTED PRN Blood Culture x2 Reflex Set [OM.PC] Stat Oth 03/03/20 15:33 Ordered Pulse Oximetry Continuous Monitoring [OM.PC] Routine Oth 03/03/20 15:32 Ordered Saline Lock Insert [OM.PC] Stat Oth 03/03/20 15:33 Ordered Severe Sepsis Onset Time [OM.PC] Stat Oth 03/03/20 15:33 Ordered Medication Orders Sodium Chloride (Saline Flush) 10 ml FLUSH ASDIRECTED PRN PRN Reason: Keep Vein Open Sodium Chloride (Saline Flush) 2.5 ml FLUSH ASDIRECTED PRN PRN Reason: Keep Vein Open Labs: Laboratory Tests 03/03/20 03/03/20 03/03/20 Range/Units 15:02 15:05 15:05 WBC (4.0-11.0) K/uL RBC (4.50-5.90) M/uL Hgb (13.0-17.0) g/dL Hct (38.0-50.0) % MCV (80.0-98.0) fL MCH (27.0-32.0) pg MCHC (31.0-37.0) g/dL RDW Std Deviation (28.0-62.0) fl RDW Coeff of Nino (11.0-15.0) % Plt Count (150-400) K/uL MPV (7.40-12.00) fL Neut % (Auto) (48.0-80.0) % Lymph % (Auto) (16.0-40.0) % Putnam % (Auto) (0.0-15.0) % Eos % (Auto) (0.0-7.0) % Baso % (Auto) (0.0-1.5) % Neut # (Auto) (1.4-5.7) K/uL Lymph # (Auto) (0.6-2.4) K/uL Putnam # (Auto) (0.0-0.8) K/uL Eos # (Auto) (0.0-0.7) K/uL Baso # (Auto) (0.0-0.1) K/uL Nucleated RBC % /100WBC Nucleated RBCs # K/uL INR 1.04 VBG pH (7.31-7.41) VBG pCO2 (35-45) mmHG VBG pO2 (30-40) mmHG VBG HCO3 (22-30) mEq/L VBG Total CO2 (41-51) mmol/L VBG Base Excess (-3.0-3.0) Lactate (0.20-2.00) mmol/L Sodium 138 (136-148) mmol/L Potassium 4.3 (3.5-5.1) mmol/L Chloride 102 (98-107) mmol/L Carbon Dioxide 26.9 (21.0-32.0) mmol/L BUN 20 H (7.0-18.0) mg/dL Creatinine 1.1 (0.8-1.3) mg/dL Est Cr Clr Drug Dosing 57.64 mL/min Estimated GFR (MDRD) > 60.0 ml/min Glucose 103 (74-106) mg/dL Calcium 8.9 (8.5-10.1) mg/dL Total Bilirubin 1.0 (0.2-1.0) mg/dL AST 15 (15-37) IU/L ALT 20 (14-63) IU/L Alkaline Phosphatase 72 (46-116) U/L Troponin I < 0.050 (0.000-0.056) ng/mL Total Protein 7.6 (6.4-8.2) g/dL Albumin 3.7 (3.4-5.0) g/dL Globulin 3.9 (2.6-4.0) g/dL Albumin/Globulin Ratio 0.9 (0.9-1.6) Lipase 103 (73-393) U/L TSH 3rd Generation 1.58 (0.36-3.74) uIU/mL SARS CoV-2 RNA Rapid BIRDIE (NEGATIVE) 03/03/20 03/03/20 03/03/20 Range/Units 15:05 15:05 15:05 WBC 10.67 (4.0-11.0) K/uL RBC 4.80 (4.50-5.90) M/uL Hgb 14.1 (13.0-17.0) g/dL Hct 41.9 (38.0-50.0) % MCV 87.3 (80.0-98.0) fL MCH 29.4 (27.0-32.0) pg MCHC 33.7 (31.0-37.0) g/dL RDW Std Deviation 41.4 (28.0-62.0) fl RDW Coeff of Nino 13 (11.0-15.0) % Plt Count 139 L (150-400) K/uL MPV 8.70 (7.40-12.00) fL Neut % (Auto) 80.4 H (48.0-80.0) % Lymph % (Auto) 8.8 L (16.0-40.0) % Putnam % (Auto) 10.0 (0.0-15.0) % Eos % (Auto) 0.7 (0.0-7.0) % Baso % (Auto) 0.1 (0.0-1.5) % Neut # (Auto) 8.6 H (1.4-5.7) K/uL Lymph # (Auto) 0.9 (0.6-2.4) K/uL Putnam # (Auto) 1.1 H (0.0-0.8) K/uL Eos # (Auto) 0.1 (0.0-0.7) K/uL Baso # (Auto) 0.0 (0.0-0.1) K/uL Nucleated RBC % 0.0 /100WBC Nucleated RBCs # 0 K/uL INR VBG pH 7.39 (7.31-7.41) VBG pCO2 48 H (35-45) mmHG VBG pO2 29 L (30-40) mmHG VBG HCO3 29 (22-30) mEq/L VBG Total CO2 26 L (41-51) mmol/L VBG Base Excess 3.2 H (-3.0-3.0) Lactate 1.0 (0.20-2.00) mmol/L Sodium (136-148) mmol/L Potassium (3.5-5.1) mmol/L Chloride (98-107) mmol/L Carbon Dioxide (21.0-32.0) mmol/L BUN (7.0-18.0) mg/dL Creatinine (0.8-1.3) mg/dL Est Cr Clr Drug Dosing mL/min Estimated GFR (MDRD) ml/min Glucose (74-106) mg/dL Calcium (8.5-10.1) mg/dL Total Bilirubin (0.2-1.0) mg/dL AST (15-37) IU/L ALT (14-63) IU/L Alkaline Phosphatase (46-116) U/L Troponin I (0.000-0.056) ng/mL Total Protein (6.4-8.2) g/dL Albumin (3.4-5.0) g/dL Globulin (2.6-4.0) g/dL Albumin/Globulin Ratio (0.9-1.6) Lipase (73-393) U/L TSH 3rd Generation (0.36-3.74) uIU/mL SARS CoV-2 RNA Rapid BIRDIE (NEGATIVE) 03/03/20 Range/Units 17:11 WBC (4.0-11.0) K/uL RBC (4.50-5.90) M/uL Hgb (13.0-17.0) g/dL Hct (38.0-50.0) % MCV (80.0-98.0) fL MCH (27.0-32.0) pg MCHC (31.0-37.0) g/dL RDW Std Deviation (28.0-62.0) fl RDW Coeff of Nino (11.0-15.0) % Plt Count (150-400) K/uL MPV (7.40-12.00) fL Neut % (Auto) (48.0-80.0) % Lymph % (Auto) (16.0-40.0) % Putnam % (Auto) (0.0-15.0) % Eos % (Auto) (0.0-7.0) % Baso % (Auto) (0.0-1.5) % Neut # (Auto) (1.4-5.7) K/uL Lymph # (Auto) (0.6-2.4) K/uL Putnam # (Auto) (0.0-0.8) K/uL Eos # (Auto) (0.0-0.7) K/uL Baso # (Auto) (0.0-0.1) K/uL Nucleated RBC % /100WBC Nucleated RBCs # K/uL INR VBG pH (7.31-7.41) VBG pCO2 (35-45) mmHG VBG pO2 (30-40) mmHG VBG HCO3 (22-30) mEq/L VBG Total CO2 (41-51) mmol/L VBG Base Excess (-3.0-3.0) Lactate (0.20-2.00) mmol/L Sodium (136-148) mmol/L Potassium (3.5-5.1) mmol/L Chloride (98-107) mmol/L Carbon Dioxide (21.0-32.0) mmol/L BUN (7.0-18.0) mg/dL Creatinine (0.8-1.3) mg/dL Est Cr Clr Drug Dosing mL/min Estimated GFR (MDRD) ml/min Glucose (74-106) mg/dL Calcium (8.5-10.1) mg/dL Total Bilirubin (0.2-1.0) mg/dL AST (15-37) IU/L ALT (14-63) IU/L Alkaline Phosphatase (46-116) U/L Troponin I (0.000-0.056) ng/mL Total Protein (6.4-8.2) g/dL Albumin (3.4-5.0) g/dL Globulin (2.6-4.0) g/dL Albumin/Globulin Ratio (0.9-1.6) Lipase (73-393) U/L TSH 3rd Generation (0.36-3.74) uIU/mL SARS CoV-2 RNA Rapid BIRDIE NEGATIVE (NEGATIVE) Meds: Medications Generic Name Dose Route Start Last Admin Trade Name Freq PRN Reason Stop Dose Admin Sodium Chloride 10 ml 03/03/20 15:32 Saline Flush FLUSH ASDIRECTED PRN Keep Vein Open Sodium Chloride 2.5 ml 03/03/20 15:32 Saline Flush FLUSH ASDIRECTED PRN Keep Vein Open Discontinued Medications Generic Name Dose Route Start Last Admin Trade Name Freq PRN Reason Stop Dose Admin Lactated Ringer's 1,000 mls @ 999 mls/hr 03/03/20 15:34 03/03/20 18:04 Ringers, Lactated IV 03/03/20 16:34 999 mls/hr .BOLUS ONE Administration Departure - Departure Time of Disposition: 18:44 Disposition: Refer to Observation Condition: Good Clinical Impression: Fever in adult Failure to thrive Qualifiers: Failure to thrive age range: in adult Qualified Code(s): R62.7 - Adult failure to thrive Fatigue Qualifiers: Fatigue type: unspecified Qualified Code(s): R53.83 - Other fatigue - Discharge Information *PRESCRIPTION DRUG MONITORING PROGRAM REVIEWED*: Not Applicable *COPY OF PRESCRIPTION DRUG MONITORING REPORT IN PATIENT JOSE: Not Applicable Sepsis Event Note (ED) - Evaluation Sepsis Screening Result: No Definite Risk - Focused Exam Vital Signs: Vital Signs Temp Pulse Resp BP Pulse Ox 03/03/20 17:53 89 18 132/55 L 100 03/03/20 17:23 93 18 141/72 H 100 03/03/20 16:42 93 20 126/65 100 03/03/20 15:53 110 H 23 H 117/72 99 03/03/20 15:23 104 H 24 H 115/70 100 03/03/20 15:18 36.1 C 97 17 107/65 96 - My Orders Last 24 Hours: My Active Orders 03/03/20 15:32 EKG Documentation Completion [RC] STAT Sodium Chloride 0.9% [Saline Flush] 10 ml FLUSH ASDIRECTED PRN Sodium Chloride 0.9% [Saline Flush] 2.5 ml FLUSH ASDIRECTED PRN Pulse Oximetry Continuous Monitoring [OM.PC] Routine 03/03/20 15:33 Cardiac Monitoring [RC] CONTINUOUS Overnight Pulse Oximetry [RC] Click to Edit Oxygen Therapy, ED [RC] STAT UA W/MICROSCOPIC [URIN] Stat Blood Culture x2 Reflex Set [OM.PC] Stat Saline Lock Insert [OM.PC] Stat Severe Sepsis Onset Time [OM.PC] Stat 03/03/20 16:42 CULTURE BLOOD [BC] Stat 03/03/20 16:57 CULTURE BLOOD [BC] Stat 03/03/20 17:11 CORONAVIRUS COVID-19 PCR PHL Stat - Assessment/Plan Last 24 Hours: My Active Orders 03/03/20 15:32 EKG Documentation Completion [RC] STAT Sodium Chloride 0.9% [Saline Flush] 10 ml FLUSH ASDIRECTED PRN Sodium Chloride 0.9% [Saline Flush] 2.5 ml FLUSH ASDIRECTED PRN Pulse Oximetry Continuous Monitoring [OM.PC] Routine 03/03/20 15:33 Cardiac Monitoring [RC] CONTINUOUS Overnight Pulse Oximetry [RC] Click to Edit Oxygen Therapy, ED [RC] STAT UA W/MICROSCOPIC [URIN] Stat Blood Culture x2 Reflex Set [OM.PC] Stat Saline Lock Insert [OM.PC] Stat Severe Sepsis Onset Time [OM.PC] Stat 03/03/20 16:42 CULTURE BLOOD [BC] Stat 03/03/20 16:57 CULTURE BLOOD [BC] Stat 03/03/20 17:11 CORONAVIRUS COVID-19 PCR PHL Stat
--- NOTE | 2020-03-03 19:13 | PCM.HP.2 ---
H&P History of Present Illness - General Date of Service: 03/03/20 Admit Problem/Dx: Admission Diagnosis/Problem Admission Diagnosis/Problem Fatigue Source of Information: Patient, Family History Limitations: Reports: Other (non-vergbal ) - History of Present Illness Initial Comments - Free Text/Narative: 79 y.o male w. significant PMH of [place] on risperidone, accompanied by , presenting today with concners about increasing fatigue and decrease PO intake. mentions he has refused his morning meds and his appetite has been in drastic decline as of this AM.pt is non-verbal at baseline and history is being relayed to me by . Mentions no overt symptoms including chills, bodyaches but does endorse a mild fever while at home w. the tympanic thermometer (100.3); otherwise was concerned this was a repeat pneumonia , as his symptoms were similar last year. Denies any other concners. Of note, states he has not has a BM in possibly 4-5 days due to concerns about having an "accident" during his PT appointments. States he had some small stools this afternoon; but does not think he had a full BM Denies any emesis, sick contacts or otherwise. ED course: CT chest, abdomen and pelvis did not demonstrate any CAP. Dis demonstrate an stable aneurysm and some increasing constiaption. received 1 liter of LR in ED - Related Data Allergies/Adverse Reactions: Allergies Allergy/AdvReac Type Severity Reaction Status Date / Time olanzapine [From Zyprexa] Allergy Difficulty Verified 03/03/20 15:18 Swallowing Home Medications: Home Meds Pseudoephedrine HCl [Long Acting Nasal Decongestant] 120 mg PO BID 01/18/15 [History] Sertraline HCl 100 mg PO BEDTIME 01/18/15 [History] guaiFENesin [Mucinex] 1,200 mg PO BEDTIME 01/18/15 [History] risperiDONE 3 mg PO BID 01/18/15 [History] guaiFENesin [Mucinex] 600 mg PO DAILY 02/06/18 [History] Famotidine [Pepcid] 20 mg PO BID 05/23/18 [History] polyethylene glycoL 3350 [MiraLAX] 17 gm PO DAILY PRN 05/23/18 [History] Cetirizine [ZyrTEC] 10 mg PO DAILY 12/30/18 [History] Amoxicillin/Clavulanate K [Augmentin 875-125 MG] 1 tab PO BID #10 tablet 01/03/19 [Rx] Past Medical History Other HEENT History: 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 - Infectious Disease History Infectious Disease History: Reports: Chicken Pox, Measles, Mumps - Past Surgical History HEENT Surgical History: Reports: Adenoidectomy, Tonsillectomy GI Surgical History: Reports: Appendectomy Social & Family History - Family History Family Medical History: Noncontributory - Tobacco Use Smoking Status *Q: Unknown Ever Smoked - Caffeine Use Caffeine Use: Reports: Coffee - Living Situation & Occupation Living situation: Reports: Occupation: Retired H&P Review of Systems - Review of Systems: Review Of Systems: See Below Free Text/Narrative: relayed through General: Reports: Fever, Fatigue. Denies: Chills, Malaise HEENT: Reports: No Symptoms Pulmonary: Reports: No Symptoms Cardiovascular: Reports: No Symptoms Gastrointestinal: Reports: Constipation, Decreased Appetite. Denies: Abdominal Pain, Diarrhea, Nausea, Stool Incontinence, Vomiting Genitourinary: Reports: Incontinence (baseline ) Musculoskeletal: Reports: No Symptoms Skin: Reports: No Symptoms Neurological: Reports: Pre-Existing Deficit Exam - Exam Exam: See Below - Vital Signs Vital Signs: Last Vital Signs Temp 98.2 F 03/03/20 19:06 Pulse 102 H 03/03/20 19:06 Resp 27 H 03/03/20 19:06 BP 110/63 03/03/20 19:06 Pulse Ox 94 L 03/03/20 19:06 Weight: 74.843 kg - Exam Quality Assessment: Supplemental Oxygen General: Alert, Cooperative HEENT: EACs Clear, EOMI Neck: Supple, Trachea Midline Lungs: Normal Respiratory Effort, Other (+upper airway sound; no rales , rhonchi or wheezing noted on auscultation however ) Cardiovascular: Regular Rate, Regular Rhythm GI/Abdominal Exam: Soft, Non-Tender, No Distention, Other (decreased BS in left abdomen ; ) Rectal (Males) Exam: Deferred Back Exam: No: CVA Tenderness (L), CVA Tenderness (R) Extremities: No Pedal Edema Skin: Warm Neurological: Focal Deficit Neuro Extensive - Mental Status: Alert Neuro Extensive - Motor, Sensory, Reflexes: Other (huntingtons at baseline ) Psychiatric: Alert - Patient Data Lab Results Last 24 hrs: Laboratory Results - last 24 hr 03/03/20 03/03/20 03/03/20 Range/Units 15:02 15:05 15:05 WBC (4.0-11.0) K/uL RBC (4.50-5.90) M/uL Hgb (13.0-17.0) g/dL Hct (38.0-50.0) % MCV (80.0-98.0) fL MCH (27.0-32.0) pg MCHC (31.0-37.0) g/dL RDW Std Deviation (28.0-62.0) fl RDW Coeff of Nino (11.0-15.0) % Plt Count (150-400) K/uL MPV (7.40-12.00) fL Neut % (Auto) (48.0-80.0) % Lymph % (Auto) (16.0-40.0) % Nance % (Auto) (0.0-15.0) % Eos % (Auto) (0.0-7.0) % Baso % (Auto) (0.0-1.5) % Neut # (Auto) (1.4-5.7) K/uL Lymph # (Auto) (0.6-2.4) K/uL Nance # (Auto) (0.0-0.8) K/uL Eos # (Auto) (0.0-0.7) K/uL Baso # (Auto) (0.0-0.1) K/uL Nucleated RBC % /100WBC Nucleated RBCs # K/uL INR 1.04 VBG pH (7.31-7.41) VBG pCO2 (35-45) mmHG VBG pO2 (30-40) mmHG VBG HCO3 (22-30) mEq/L VBG Total CO2 (41-51) mmol/L VBG Base Excess (-3.0-3.0) Lactate (0.20-2.00) mmol/L Sodium 138 (136-148) mmol/L Potassium 4.3 (3.5-5.1) mmol/L Chloride 102 (98-107) mmol/L Carbon Dioxide 26.9 (21.0-32.0) mmol/L BUN 20 H (7.0-18.0) mg/dL Creatinine 1.1 (0.8-1.3) mg/dL Est Cr Clr Drug Dosing 57.64 mL/min Estimated GFR (MDRD) > 60.0 ml/min Glucose 103 (74-106) mg/dL Calcium 8.9 (8.5-10.1) mg/dL Total Bilirubin 1.0 (0.2-1.0) mg/dL AST 15 (15-37) IU/L ALT 20 (14-63) IU/L Alkaline Phosphatase 72 (46-116) U/L Troponin I < 0.050 (0.000-0.056) ng/mL Total Protein 7.6 (6.4-8.2) g/dL Albumin 3.7 (3.4-5.0) g/dL Globulin 3.9 (2.6-4.0) g/dL Albumin/Globulin Ratio 0.9 (0.9-1.6) Lipase 103 (73-393) U/L TSH 3rd Generation 1.58 (0.36-3.74) uIU/mL SARS CoV-2 RNA Rapid BIRDIE (NEGATIVE) 03/03/20 03/03/20 03/03/20 Range/Units 15:05 15:05 15:05 WBC 10.67 (4.0-11.0) K/uL RBC 4.80 (4.50-5.90) M/uL Hgb 14.1 (13.0-17.0) g/dL Hct 41.9 (38.0-50.0) % MCV 87.3 (80.0-98.0) fL MCH 29.4 (27.0-32.0) pg MCHC 33.7 (31.0-37.0) g/dL RDW Std Deviation 41.4 (28.0-62.0) fl RDW Coeff of Nino 13 (11.0-15.0) % Plt Count 139 L (150-400) K/uL MPV 8.70 (7.40-12.00) fL Neut % (Auto) 80.4 H (48.0-80.0) % Lymph % (Auto) 8.8 L (16.0-40.0) % Nance % (Auto) 10.0 (0.0-15.0) % Eos % (Auto) 0.7 (0.0-7.0) % Baso % (Auto) 0.1 (0.0-1.5) % Neut # (Auto) 8.6 H (1.4-5.7) K/uL Lymph # (Auto) 0.9 (0.6-2.4) K/uL Nance # (Auto) 1.1 H (0.0-0.8) K/uL Eos # (Auto) 0.1 (0.0-0.7) K/uL Baso # (Auto) 0.0 (0.0-0.1) K/uL Nucleated RBC % 0.0 /100WBC Nucleated RBCs # 0 K/uL INR VBG pH 7.39 (7.31-7.41) VBG pCO2 48 H (35-45) mmHG VBG pO2 29 L (30-40) mmHG VBG HCO3 29 (22-30) mEq/L VBG Total CO2 26 L (41-51) mmol/L VBG Base Excess 3.2 H (-3.0-3.0) Lactate 1.0 (0.20-2.00) mmol/L Sodium (136-148) mmol/L Potassium (3.5-5.1) mmol/L Chloride (98-107) mmol/L Carbon Dioxide (21.0-32.0) mmol/L BUN (7.0-18.0) mg/dL Creatinine (0.8-1.3) mg/dL Est Cr Clr Drug Dosing mL/min Estimated GFR (MDRD) ml/min Glucose (74-106) mg/dL Calcium (8.5-10.1) mg/dL Total Bilirubin (0.2-1.0) mg/dL AST (15-37) IU/L ALT (14-63) IU/L Alkaline Phosphatase (46-116) U/L Troponin I (0.000-0.056) ng/mL Total Protein (6.4-8.2) g/dL Albumin (3.4-5.0) g/dL Globulin (2.6-4.0) g/dL Albumin/Globulin Ratio (0.9-1.6) Lipase (73-393) U/L TSH 3rd Generation (0.36-3.74) uIU/mL SARS CoV-2 RNA Rapid BIRDIE (NEGATIVE) 03/03/20 Range/Units 17:11 WBC (4.0-11.0) K/uL RBC (4.50-5.90) M/uL Hgb (13.0-17.0) g/dL Hct (38.0-50.0) % MCV (80.0-98.0) fL MCH (27.0-32.0) pg MCHC (31.0-37.0) g/dL RDW Std Deviation (28.0-62.0) fl RDW Coeff of Nino (11.0-15.0) % Plt Count (150-400) K/uL MPV (7.40-12.00) fL Neut % (Auto) (48.0-80.0) % Lymph % (Auto) (16.0-40.0) % Nance % (Auto) (0.0-15.0) % Eos % (Auto) (0.0-7.0) % Baso % (Auto) (0.0-1.5) % Neut # (Auto) (1.4-5.7) K/uL Lymph # (Auto) (0.6-2.4) K/uL Nance # (Auto) (0.0-0.8) K/uL Eos # (Auto) (0.0-0.7) K/uL Baso # (Auto) (0.0-0.1) K/uL Nucleated RBC % /100WBC Nucleated RBCs # K/uL INR VBG pH (7.31-7.41) VBG pCO2 (35-45) mmHG VBG pO2 (30-40) mmHG VBG HCO3 (22-30) mEq/L VBG Total CO2 (41-51) mmol/L VBG Base Excess (-3.0-3.0) Lactate (0.20-2.00) mmol/L Sodium (136-148) mmol/L Potassium (3.5-5.1) mmol/L Chloride (98-107) mmol/L Carbon Dioxide (21.0-32.0) mmol/L BUN (7.0-18.0) mg/dL Creatinine (0.8-1.3) mg/dL Est Cr Clr Drug Dosing mL/min Estimated GFR (MDRD) ml/min Glucose (74-106) mg/dL Calcium (8.5-10.1) mg/dL Total Bilirubin (0.2-1.0) mg/dL AST (15-37) IU/L ALT (14-63) IU/L Alkaline Phosphatase (46-116) U/L Troponin I (0.000-0.056) ng/mL Total Protein (6.4-8.2) g/dL Albumin (3.4-5.0) g/dL Globulin (2.6-4.0) g/dL Albumin/Globulin Ratio (0.9-1.6) Lipase (73-393) U/L TSH 3rd Generation (0.36-3.74) uIU/mL SARS CoV-2 RNA Rapid BIRDIE NEGATIVE (NEGATIVE) Result Diagrams: 03/03/20 15:05 03/03/20 15:05 Derrick Results Last 24 hrs: Microbiology 03/03/20 16:57 Anaerobic Blood Culture - Final Blood - Venous - Lab Draw Sepsis Event Note - Evaluation Sepsis Screening Result: No Definite Risk - Focused Exam Vital Signs: Vital Signs Temp Pulse Resp BP Pulse Ox 03/03/20 19:06 98.2 F 102 H 27 H 110/63 94 L 03/03/20 18:53 99 124/63 03/03/20 17:53 89 18 132/55 L 100 03/03/20 17:23 93 18 141/72 H 100 03/03/20 16:42 93 20 126/65 100 03/03/20 15:53 110 H 23 H 117/72 99 03/03/20 15:23 104 H 24 H 115/70 100 03/03/20 15:18 97.0 F 97 17 107/65 96 Problem List Initiated/Reviewed/Updated: Yes Orders Last 24hrs: Active Orders 24 hr Category Date Time Status Admission Status [Patient Status] [ADT] Stat ADT 03/03/20 17:59 Active Cardiac Monitoring [RC] CONTINUOUS Care 03/03/20 15:33 Active EKG Documentation Completion [RC] STAT Care 03/03/20 15:32 Active Overnight Pulse Oximetry [RC] Click to Edit Care 03/03/20 15:33 Active Oxygen Therapy, ED [RC] STAT Care 03/03/20 15:33 Active CORONAVIRUS COVID-19 PCR PHL Stat Lab 03/03/20 17:11 Received CULTURE BLOOD [BC] Stat Lab 03/03/20 16:42 Received CULTURE BLOOD [BC] Stat Lab 03/03/20 16:57 Results UA W/MICROSCOPIC [URIN] Stat Lab 03/03/20 15:33 Ordered Sodium Chloride 0.9% [Saline Flush] Med 03/03/20 15:32 Active 10 ml FLUSH ASDIRECTED PRN Sodium Chloride 0.9% [Saline Flush] Med 03/03/20 15:32 Active 2.5 ml FLUSH ASDIRECTED PRN Blood Culture x2 Reflex Set [OM.PC] Stat Oth 03/03/20 15:33 Ordered Pulse Oximetry Continuous Monitoring [OM.PC] Routine Oth 03/03/20 15:32 Ordered Saline Lock Insert [OM.PC] Stat Oth 03/03/20 15:33 Ordered Severe Sepsis Onset Time [OM.PC] Stat Oth 03/03/20 15:33 Ordered Medication Orders Sodium Chloride (Saline Flush) 10 ml FLUSH ASDIRECTED PRN PRN Reason: Keep Vein Open Sodium Chloride (Saline Flush) 2.5 ml FLUSH ASDIRECTED PRN PRN Reason: Keep Vein Open Assessment/Plan Comment:: Assessment: 1. 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 Constipation 3. Decrease oral intake 4. Stable aneurysm Plan Admit to observation. Full code. I/o per routine. DVT: scd GI:pantoprazole 1. Symptoms of decreased intake possibly related to constipation based off History and ct-abdomen; will trial a Fleet enema tonight and continue IV maintenance fluids ; reassess in AM with repeat labs. Since history of CAP (concerns for aspiration CAP) ; will redo an CXR in AM Would also like to do a UA via straight cath; however is deferring this as she believes this will cause a UTI; accepted that if a fever were to develop (no recorded temp here in facility) ; will recommended a straight cath for UA, understands agrees. Continue to monitor PO fluid hydration status 2. Incidental finding of stable aneurysm: recommend outpatient follow up 3. Concerns about worsening [place]/failure to thrive dementia are also part of our differential lif symptoms do not improve with hydration, constipation relief and [id number] processes are r/o COVID negative
[2020-03-03] MEDS: Sodium Chloride 0.9% 1,000 ML IV ONE (20:19)
[2020-03-03] MEDS: Docusate Sodium 100 MG Cap PO SCH (21:15)
[2020-03-04] MEDS: Sodium Chloride 0.9% 1,000 ML IV ONE (04:55)
[2020-03-04 07:30] LABS: BLOOD UREA NITROGEN,BUN 16 mg/dL (7.0-18.0); CARBON DIOXIDE,CO2 26.2 mmol/L (21.0-32.0); CHLORIDE,CL 104 mmol/L (98-107); GLUCOSE RANDOM 88 mg/dL (74-106); POTASSIUM,K 3.8 mmol/L (3.5-5.1); SODIUM,NA 140 mmol/L (136-148)
[2020-03-04] MEDS ORDERED: Pantoprazole 40 MG Tab.CR PO SCH (07:30)
[2020-03-04] MEDS: Docusate Sodium 100 MG Cap PO SCH (08:18)
--- NOTE | 2020-03-04 09:22 | CR ---
Abdomen: Single upright view of the abdomen was obtained. Pelvis not included on this exam. Mild increased stool is seen within the visualized colon. No abnormal calcifications are seen. Bony structures appear within normal limits for the patient's age. No free air is seen. Impression: 1. Mild increased stool. 2. No free air. Diagnostic code #2 This report was dictated in MDT
--- NOTE | 2020-03-04 12:35 | PCM.DCSUM1 ---
<Ranjana Carey - Last Filed: 03/04/20 15:26> Discharge Summary - Hospital Course Free Text/Narrative:: 79 y.o male w. 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 mentions he has refused his morning meds and his appetite has been in drastic decline as of this AM.pt is non-verbal at baseline and history is being relayed to me by . Mentions no overt symptoms including chills, bodyaches but does endorse a mild fever while at home w. the tympanic thermometer (100.3); otherwise was concerned this was a repeat pneumonia , as his symptoms were similar last year. Denies any other concners. Of note, states he has not has a BM in possibly 4-5 days due to concerns about having an "accident" during his PT appointments. States he had some small stools this afternoon; but does not think he had a full BM Denies any emesis, sick contacts or otherwise. ED course: CT chest, abdomen and pelvis did not demonstrate any CAP. Dis demonstrate an stable aneurysm and some increasing constiaption. 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 , sanitary aide. advised for outpatient follow up fleet enema provided w. moderate amount of stool expressed. Pt. appeared more alert and less lethargic since BM in AM Repeat abdominal x-ray showed some retained stool but interval improvement since fleet enema Labs stable. Per PT/OT: much improved from baseline; stable for discharge Discussed with , sanitary aide, to try daily Dulcolax stool softener; and to attempt laxative if no BM every 48-72 hours. 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 Discharged home in stable condition. - Discharge Data Discharge Date: 03/04/20 Discharge Disposition: Home, Self-Care 01 Condition: Fair - Referral to Home Health Primary Care Physician: Ruslan Hope MD - Patient Summary/Data Consults: Consultations 03/04/20 09:32 PT Evaluation and Treatment [CONS] Routine - Patient Instructions Diet: Regular Diet as Tolerated Notify Provider of: Fever, Nausea and/or Vomiting Other/Special Instructions: ADVISED TO USE DULCOLAX DAILY; CAN USE MIRALAX EVERY 48 HOURS IF NO BOWEL MOVEMENTS - Discharge Plan *PRESCRIPTION DRUG MONITORING PROGRAM REVIEWED*: Not Applicable *COPY OF PRESCRIPTION DRUG MONITORING REPORT IN PATIENT JOSE: Not Applicable Home Medications: Home Meds Pseudoephedrine HCl [Long Acting Nasal Decongestant] 120 mg PO BID 01/18/15 [History] Sertraline HCl 150 mg PO BEDTIME 01/18/15 [History] guaiFENesin [Mucinex] 1,200 mg PO BEDTIME 01/18/15 [History] risperiDONE 3 mg PO BID 01/18/15 [History] guaiFENesin [Mucinex] 600 mg PO DAILY 02/06/18 [History] Famotidine [Pepcid] 20 mg PO BID 05/23/18 [History] polyethylene glycoL 3350 [MiraLAX] 17 gm PO DAILY PRN 05/23/18 [History] Cetirizine [ZyrTEC] 10 mg PO DAILY 12/30/18 [History] Docusate Sodium [Colace] 100 mg PO DAILY cap 03/04/20 [Rx] Forms: ED Department Discharge Referrals: Ruslan Hope MD [Primary Care Provider] - - Discharge Summary/Plan Comment DC Time >30 min.: No - Patient Data Vitals - Most Recent: Last Vital Signs Temp 98.1 F 03/04/20 08:00 Pulse 82 03/04/20 08:00 Resp 20 03/04/20 08:00 BP 97/58 L 03/04/20 08:00 Pulse Ox 96 03/04/20 08:00 Weight - Most Recent: 74.843 kg I&O - Last 24 hours: Intake & Output 03/03/20 03/04/20 03/04/20 22:59 06:59 14:59 Intake Total 1145 Balance 1145 Lab Results - Last 24 hrs: Laboratory Results - last 24 hr 03/03/20 03/03/20 03/03/20 Range/Units 15:02 15:05 15:05 WBC (4.0-11.0) K/uL RBC (4.50-5.90) M/uL Hgb (13.0-17.0) g/dL Hct (38.0-50.0) % MCV (80.0-98.0) fL MCH (27.0-32.0) pg MCHC (31.0-37.0) g/dL RDW Std Deviation (28.0-62.0) fl RDW Coeff of Nino (11.0-15.0) % Plt Count (150-400) K/uL MPV (7.40-12.00) fL Neut % (Auto) (48.0-80.0) % Lymph % (Auto) (16.0-40.0) % [place] % (Auto) (0.0-15.0) % Eos % (Auto) (0.0-7.0) % Baso % (Auto) (0.0-1.5) % Neut # (Auto) (1.4-5.7) K/uL Lymph # (Auto) (0.6-2.4) K/uL Fre[place] # (Auto) (0.0-0.8) K/uL Eos # (Auto) (0.0-0.7) K/uL Baso # (Auto) (0.0-0.1) K/uL Nucleated RBC % /100WBC Nucleated RBCs # K/uL INR 1.04 VBG pH (7.31-7.41) VBG pCO2 (35-45) mmHG VBG pO2 (30-40) mmHG VBG HCO3 (22-30) mEq/L VBG Total CO2 (41-51) mmol/L VBG Base Excess (-3.0-3.0) Lactate (0.20-2.00) mmol/L Sodium 138 (136-148) mmol/L Potassium 4.3 (3.5-5.1) mmol/L Chloride 102 (98-107) mmol/L Carbon Dioxide 26.9 (21.0-32.0) mmol/L BUN 20 H (7.0-18.0) mg/dL Creatinine 1.1 (0.8-1.3) mg/dL Est Cr Clr Drug Dosing 57.64 mL/min Estimated GFR (MDRD) > 60.0 ml/min Glucose 103 (74-106) mg/dL Calcium 8.9 (8.5-10.1) mg/dL Total Bilirubin 1.0 (0.2-1.0) mg/dL AST 15 (15-37) IU/L ALT 20 (14-63) IU/L Alkaline Phosphatase 72 (46-116) U/L Troponin I < 0.050 (0.000-0.056) ng/mL Total Protein 7.6 (6.4-8.2) g/dL Albumin 3.7 (3.4-5.0) g/dL Globulin 3.9 (2.6-4.0) g/dL Albumin/Globulin Ratio 0.9 (0.9-1.6) Lipase 103 (73-393) U/L TSH 3rd Generation 1.58 (0.36-3.74) uIU/mL Urine Color Urine Appearance Urine pH (5.0-8.0) Ur Specific [place] (1.001-1.035) Urine Protein (NEGATIVE) mg/dL Urine Glucose (UA) (NEGATIVE) mg/dL Urine Ketones (NEGATIVE) mg/dL Urine Occult Blood (NEGATIVE) Urine Nitrite (NEGATIVE) Urine Bilirubin (NEGATIVE) Urine Urobilinogen (<2.0) EU/dL Ur Leukocyte Esterase (NEGATIVE) Urine RBC (0-2/HPF) Urine WBC (0-5/HPF) Ur Epithelial Cells (NONE-FEW) Urine Bacteria (NEGATIVE) Urinalysis Comment SARS CoV-2 RNA Rapid BIRDIE (NEGATIVE) 03/03/20 03/03/20 03/03/20 Range/Units 15:05 15:05 15:05 WBC 10.67 (4.0-11.0) K/uL RBC 4.80 (4.50-5.90) M/uL Hgb 14.1 (13.0-17.0) g/dL Hct 41.9 (38.0-50.0) % MCV 87.3 (80.0-98.0) fL MCH 29.4 (27.0-32.0) pg MCHC 33.7 (31.0-37.0) g/dL RDW Std Deviation 41.4 (28.0-62.0) fl RDW Coeff of Nino 13 (11.0-15.0) % Plt Count 139 L (150-400) K/uL MPV 8.70 (7.40-12.00) fL Neut % (Auto) 80.4 H (48.0-80.0) % Lymph % (Auto) 8.8 L (16.0-40.0) % [place] % (Auto) 10.0 (0.0-15.0) % Eos % (Auto) 0.7 (0.0-7.0) % Baso % (Auto) 0.1 (0.0-1.5) % Neut # (Auto) 8.6 H (1.4-5.7) K/uL Lymph # (Auto) 0.9 (0.6-2.4) K/uL Fre[place] # (Auto) 1.1 H (0.0-0.8) K/uL Eos # (Auto) 0.1 (0.0-0.7) K/uL Baso # (Auto) 0.0 (0.0-0.1) K/uL Nucleated RBC % 0.0 /100WBC Nucleated RBCs # 0 K/uL INR VBG pH 7.39 (7.31-7.41) VBG pCO2 48 H (35-45) mmHG VBG pO2 29 L (30-40) mmHG VBG HCO3 29 (22-30) mEq/L VBG Total CO2 26 L (41-51) mmol/L VBG Base Excess 3.2 H (-3.0-3.0) Lactate 1.0 (0.20-2.00) mmol/L Sodium (136-148) mmol/L Potassium (3.5-5.1) mmol/L Chloride (98-107) mmol/L Carbon Dioxide (21.0-32.0) mmol/L BUN (7.0-18.0) mg/dL Creatinine (0.8-1.3) mg/dL Est Cr Clr Drug Dosing mL/min Estimated GFR (MDRD) ml/min Glucose (74-106) mg/dL Calcium (8.5-10.1) mg/dL Total Bilirubin (0.2-1.0) mg/dL AST (15-37) IU/L ALT (14-63) IU/L Alkaline Phosphatase (46-116) U/L Troponin I (0.000-0.056) ng/mL Total Protein (6.4-8.2) g/dL Albumin (3.4-5.0) g/dL Globulin (2.6-4.0) g/dL Albumin/Globulin Ratio (0.9-1.6) Lipase (73-393) U/L TSH 3rd Generation (0.36-3.74) uIU/mL Urine Color Urine Appearance Urine pH (5.0-8.0) Ur Specific [place] (1.001-1.035) Urine Protein (NEGATIVE) mg/dL Urine Glucose (UA) (NEGATIVE) mg/dL Urine Ketones (NEGATIVE) mg/dL Urine Occult Blood (NEGATIVE) Urine Nitrite (NEGATIVE) Urine Bilirubin (NEGATIVE) Urine Urobilinogen (<2.0) EU/dL Ur Leukocyte Esterase (NEGATIVE) Urine RBC (0-2/HPF) Urine WBC (0-5/HPF) Ur Epithelial Cells (NONE-FEW) Urine Bacteria (NEGATIVE) Urinalysis Comment SARS CoV-2 RNA Rapid BIRDIE (NEGATIVE) 03/03/20 03/03/20 03/04/20 Range/Units 17:11 19:50 05:28 WBC 7.05 (4.0-11.0) K/uL RBC 4.18 L (4.50-5.90) M/uL Hgb 12.0 L (13.0-17.0) g/dL Hct 36.8 L (38.0-50.0) % MCV 88.0 (80.0-98.0) fL MCH 28.7 (27.0-32.0) pg MCHC 32.6 (31.0-37.0) g/dL RDW Std Deviation 41.0 (28.0-62.0) fl RDW Coeff of Nino 13 (11.0-15.0) % Plt Count 153 (150-400) K/uL MPV 9.10 (7.40-12.00) fL Neut % (Auto) 62.8 (48.0-80.0) % Lymph % (Auto) 21.8 (16.0-40.0) % [place] % (Auto) 13.2 (0.0-15.0) % Eos % (Auto) 2.1 (0.0-7.0) % Baso % (Auto) 0.1 (0.0-1.5) % Neut # (Auto) 4.4 (1.4-5.7) K/uL Lymph # (Auto) 1.5 (0.6-2.4) K/uL [place] # (Auto) 0.9 H (0.0-0.8) K/uL Eos # (Auto) 0.2 (0.0-0.7) K/uL Baso # (Auto) 0.0 (0.0-0.1) K/uL Nucleated RBC % 0.0 /100WBC Nucleated RBCs # 0 K/uL INR VBG pH (7.31-7.41) VBG pCO2 (35-45) mmHG VBG pO2 (30-40) mmHG VBG HCO3 (22-30) mEq/L VBG Total CO2 (41-51) mmol/L VBG Base Excess (-3.0-3.0) Lactate (0.20-2.00) mmol/L Sodium (136-148) mmol/L Potassium (3.5-5.1) mmol/L Chloride (98-107) mmol/L Carbon Dioxide (21.0-32.0) mmol/L BUN (7.0-18.0) mg/dL Creatinine (0.8-1.3) mg/dL Est Cr Clr Drug Dosing mL/min Estimated GFR (MDRD) ml/min Glucose (74-106) mg/dL Calcium (8.5-10.1) mg/dL Total Bilirubin (0.2-1.0) mg/dL AST (15-37) IU/L ALT (14-63) IU/L Alkaline Phosphatase (46-116) U/L Troponin I (0.000-0.056) ng/mL Total Protein (6.4-8.2) g/dL Albumin (3.4-5.0) g/dL Globulin (2.6-4.0) g/dL Albumin/Globulin Ratio (0.9-1.6) Lipase (73-393) U/L TSH 3rd Generation (0.36-3.74) uIU/mL Urine Color YELLOW Urine Appearance CLEAR Urine pH 6.0 (5.0-8.0) Ur Specific [place] 1.010 (1.001-1.035) Urine Protein NEGATIVE (NEGATIVE) mg/dL Urine Glucose (UA) NEGATIVE (NEGATIVE) mg/dL Urine Ketones NEGATIVE (NEGATIVE) mg/dL Urine Occult Blood TRACE-INTACT H (NEGATIVE) Urine Nitrite NEGATIVE (NEGATIVE) Urine Bilirubin NEGATIVE (NEGATIVE) Urine Urobilinogen 0.2 (<2.0) EU/dL Ur Leukocyte Esterase NEGATIVE (NEGATIVE) Urine RBC 0-2 (0-2/HPF) Urine WBC 0-1 (0-5/HPF) Ur Epithelial Cells RARE (NONE-FEW) Urine Bacteria RARE (NEGATIVE) Urinalysis Comment SARS CoV-2 RNA Rapid BIRDIE NEGATIVE (NEGATIVE) 03/04/20 Range/Units 05:28 WBC (4.0-11.0) K/uL RBC (4.50-5.90) M/uL Hgb (13.0-17.0) g/dL Hct (38.0-50.0) % MCV (80.0-98.0) fL MCH (27.0-32.0) pg MCHC (31.0-37.0) g/dL RDW Std Deviation (28.0-62.0) fl RDW Coeff of Nino (11.0-15.0) % Plt Count (150-400) K/uL MPV (7.40-12.00) fL Neut % (Auto) (48.0-80.0) % Lymph % (Auto) (16.0-40.0) % [place] % (Auto) (0.0-15.0) % Eos % (Auto) (0.0-7.0) % Baso % (Auto) (0.0-1.5) % Neut # (Auto) (1.4-5.7) K/uL Lymph # (Auto) (0.6-2.4) K/uL [place] # (Auto) (0.0-0.8) K/uL Eos # (Auto) (0.0-0.7) K/uL Baso # (Auto) (0.0-0.1) K/uL Nucleated RBC % /100WBC Nucleated RBCs # K/uL INR VBG pH (7.31-7.41) VBG pCO2 (35-45) mmHG VBG pO2 (30-40) mmHG VBG HCO3 (22-30) mEq/L VBG Total CO2 (41-51) mmol/L VBG Base Excess (-3.0-3.0) Lactate (0.20-2.00) mmol/L Sodium 140 (136-148) mmol/L Potassium 3.8 (3.5-5.1) mmol/L Chloride 104 (98-107) mmol/L Carbon Dioxide 26.2 (21.0-32.0) mmol/L BUN 16 (7.0-18.0) mg/dL Creatinine 1.0 (0.8-1.3) mg/dL Est Cr Clr Drug Dosing 63.41 mL/min Estimated GFR (MDRD) > 60.0 ml/min Glucose 88 (74-106) mg/dL Calcium 8.3 L (8.5-10.1) mg/dL Total Bilirubin (0.2-1.0) mg/dL AST (15-37) IU/L ALT (14-63) IU/L Alkaline Phosphatase (46-116) U/L Troponin I (0.000-0.056) ng/mL Total Protein (6.4-8.2) g/dL Albumin (3.4-5.0) g/dL Globulin (2.6-4.0) g/dL Albumin/Globulin Ratio (0.9-1.6) Lipase (73-393) U/L TSH 3rd Generation (0.36-3.74) uIU/mL Urine Color Urine Appearance Urine pH (5.0-8.0) Ur Specific [place] (1.001-1.035) Urine Protein (NEGATIVE) mg/dL Urine Glucose (UA) (NEGATIVE) mg/dL Urine Ketones (NEGATIVE) mg/dL Urine Occult Blood (NEGATIVE) Urine Nitrite (NEGATIVE) Urine Bilirubin (NEGATIVE) Urine Urobilinogen (<2.0) EU/dL Ur Leukocyte Esterase (NEGATIVE) Urine RBC (0-2/HPF) Urine WBC (0-5/HPF) Ur Epithelial Cells (NONE-FEW) Urine Bacteria (NEGATIVE) Urinalysis Comment SARS CoV-2 RNA Rapid BIRDIE (NEGATIVE) LENA Results - Last 24 hrs: Microbiology 03/03/20 16:57 Anaerobic Blood Culture - Final Blood - Venous - Lab Draw Med Orders - Current: Current Medications Docusate Sodium (Colace) 100 mg PO DAILY [facility] Last Admin: 03/04/20 08:18 Dose: 100 mg Documented by: Pantoprazole Sodium (Protonix) 40 mg PO ACBREAKFAST [facility] Last Admin: 03/04/20 08:16 Dose: 40 mg Documented by: Risperidone (Risperidal) 3 mg PO BID [facility] Last Admin: 03/04/20 09:51 Dose: 3 mg Documented by: Sodium Chloride (Saline Flush) 10 ml FLUSH ASDIRECTED PRN PRN Reason: Keep Vein Open Sodium Chloride (Saline Flush) 2.5 ml FLUSH ASDIRECTED PRN PRN Reason: Keep Vein Open Discontinued Medications Lactated Ringer's (Ringers, Lactated) 1,000 mls @ 999 mls/hr IV .BOLUS ONE Stop: 03/03/20 16:34 Last Admin: 03/03/20 18:04 Dose: 999 mls/hr Documented by: Sodium Chloride (Normal Saline) 1,000 mls @ 100 mls/hr IV CONTINUOUS ONE Stop: 03/04/20 05:30 Last Admin: 03/04/20 04:55 Dose: 100 mls/hr Documented by: <Antoni Vidal - Last Filed: 03/06/20 13:38> Discharge Summary - Hospital Course Free Text/Narrative:: I have seen and evaluated the patient and agree with the residents note unless specified in my note - Referral to Home Health Primary Care Physician: Ruslan Hope MD - Patient Summary/Data Consults: Consultations 03/04/20 09:32 PT Evaluation and Treatment [CONS] Routine - Patient Data Vitals - Most Recent: Last Vital Signs Temp 37.3 C 03/04/20 12:00 Pulse 87 03/04/20 12:00 Resp 20 03/04/20 12:00 BP 116/63 03/04/20 12:00 Pulse Ox 97 03/04/20 12:00 LENA Results - Last 24 hrs: Microbiology 03/03/20 16:57 Aerobic Blood Culture - Preliminary Blood - Venous - Lab Draw NO GROWTH AFTER 2 DAYS Anaerobic Blood Culture - Final 03/03/20 16:42 Aerobic Blood Culture - Final Blood - Venous Anaerobic Blood Culture - Preliminary NO GROWTH AFTER 2 DAYS Med Orders - Current: Current Medications Discontinued Medications Docusate Sodium (Colace) 100 mg PO DAILY [facility] Last Admin: 03/04/20 08:18 Dose: 100 mg Documented by: Lactated Ringer's (Ringers, Lactated) 1,000 mls @ 999 mls/hr IV .BOLUS ONE Stop: 03/03/20 16:34 Last Admin: 03/03/20 18:04 Dose: 999 mls/hr Documented by: Sodium Chloride (Normal Saline) 1,000 mls @ 100 mls/hr IV CONTINUOUS ONE Stop: 03/04/20 05:30 Last Admin: 03/04/20 04:55 Dose: 100 mls/hr Documented by: Pantoprazole Sodium (Protonix) 40 mg PO ACBREAKFAST [facility] Last Admin: 03/04/20 08:16 Dose: 40 mg Documented by: Risperidone (Risperidal) 3 mg PO BID [facility] Last Admin: 03/04/20 09:51 Dose: 3 mg Documented by: Sodium Chloride (Saline Flush) 10 ml FLUSH ASDIRECTED PRN PRN Reason: Keep Vein Open Sodium Chloride (Saline Flush) 2.5 ml FLUSH ASDIRECTED PRN PRN Reason: Keep Vein Open
[2020-03-04 14:06] VITALS: BP 116/63; PULSE 87
== END 2020-03-04 16:00 | disposition home or self-care (01) ==
LOC: MW.ED 15:01 → MW.ICU 17:59
PROVIDERS: ADMIT Internal Medicine; ATTEND Internal Medicine
DX: R62.7 Adult failure to thrive (principal); G10 Huntington's disease; K59.00 Constipation, unspecified; R63.0 Anorexia; R53.83 Other fatigue; Z87.01 Personal history of pneumonia (recurrent); Z88.8 Allergy status to other drugs, medicaments and biological substances; Z79.899 Other long term (current) drug therapy; Z68.22 Body mass index [BMI] 22.0-22.9, adult; Z20.828 Contact with and (suspected) exposure to other viral communicable diseases
CPT/HCPCS: 36415; 70450; 71045; 71260; 74018; 74177; 80048; 80053; 81001; 82803; 83605; 83690; 84443; 84484; 85025; 85610; 87040; 93005; 96360; 96361; 97161; 99285; A9270; G0378; J7030; J7120; U0002; 99217; 99218; 99221; 99238; 99283

== ENCOUNTER 2020-05-07 11:48 | Inpatient (IN) | payer MEDICARE, BC ==
[2020-05-07] MEDS ORDERED: Sodium Chloride 0.9% 1,000 ML IV ONE (12:09)
[2020-05-07] MEDS ORDERED: Albuterol/Ipratropium 3.0-0.5 MG/3 ML Neb Soln NEB ONE ×3 (12:10→12:12)
[2020-05-07] MEDS ORDERED: Magnesium Sulfate (4.06 MEQ/ML) 1 GM/2 ML SDV IV ONE (12:19)
[2020-05-07] MEDS ORDERED: Dexamethasone 10 MG/ML SDV IVPUSH ONE (12:19)
--- NOTE | 2020-05-07 13:10 | PCM.SN.2 ---
- Free Text/Narrative Note: EKG Time 103pm Rate 101 Sinus Tach no RUSSELL
[2020-05-07 13:12] LABS: BLOOD UREA NITROGEN,BUN 25 mg/dL (7.0-18.0); CARBON DIOXIDE,CO2 29.9 mmol/L (21.0-32.0); CHLORIDE,CL 107 mmol/L (98-107); GLUCOSE RANDOM 124 mg/dL (74-106); POTASSIUM,K 4.4 mmol/L (3.5-5.1); SODIUM,NA 144 mmol/L (136-148)
--- NOTE | 2020-05-07 13:59 | EDM.PDOC ---
ED HPI GENERAL MEDICAL PROBLEM - General Chief Complaint: General Stated Complaint: EMS ARRIVAL Time Seen by Provider: 05/07/20 11:51 Source of Information: Reports: Patient, Family History Limitations: Reports: No Limitations - History of Present Illness INITIAL COMMENTS - FREE TEXT/NARRATIVE: HISTORY AND PHYSICAL: History of present illness: Patient is an 80-year-old male who presents to the ED today via EMS with concern of increased respiratory rate/work of breathing. 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 Per , she has noticed that patient has been having a more difficult time with breathing yesterday which worsened today with increased work of breathing and breathing faster. 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 Patient's states that today he was breathing more rapidly/shallow so she was concerned and called the ambulance despite normal oxygenation at home. Patient's states other than the history of [place]'s, he does not have any other health history. Patient's states he lives at home with her, and she typically performs all of his cares for him. She states that he is able to ambulate slightly but requires assistance due to being shaky. She states that he is able to eat per baseline but does have difficulties with fluid sometimes. states that he has not been able to eat or drink today due to his increased respiratory rate and difficulties with breathing. Full code per including intubation/CPR. states he has been constipated with last full BM 5 days ago but did have a small BM this morning. states she usually has to give him medication OTC to have a BM and she would usually give it this AM but did not give it due to him having a hard time breathing. denies fever, chills, or cough. Denies syncope. Denies vomiting, abdominal pain, diarrhea or dysuria. Has not noted any blood in urine or stool. Review of systems: As per history of present illness and below otherwise all systems reviewed and negative. Past medical history: As per history of present illness and as reviewed below otherwise noncontributory. Surgical history: As per history of present illness and as reviewed below otherwise noncontributory. Social history: See social history for further information Family history: As per history of present illness and as reviewed below otherwise noncon tributory. Physical exam: General: Patient is alert, and non communicative, per baseline according to . He is tachypneic of about 30s but o2 on RA is 96% but appears to be breathing uncomfortably. HEENT: Atraumatic, normocephalic, pupils equal and reactive bilaterally, negative for conjunctival pallor or scleral icterus, mucous membranes moist, TMs normal bilaterally, throat clear, neck supple, nontender, trachea midline. No drooling or trismus noted. No meningeal signs. No hot potato voice noted. Lungs: Tachypneic, use of accessory muscles for breathing with shallow respirations. Non-communicative per baseline. No wheezing or stridor. Lungs are diminished but equal bilaterally without wheezing or stridor. Heart: S1S2, regular rate and rhythm without overt murmur Abdomen: Soft, nondistended, nontender. Negative for masses or hepatosplenomegaly. Negative for costovertebral tenderness. Pelvis: Stable nontender. Genitourinary: Deferred. Rectal: Deferred. Skin: Intact, warm, dry. No lesions or rashes noted. Extremities: Atraumatic, negative for cords or calf pain. Neurovascular unremarkable. Neuro: Awake, alert, non communicative per baseline. Notes: Dr. Crandall directly involved in patient care. Initial exam, patient does appear uncomfortable and is taking shallow and rapid breaths, however, despite increased work of breathing, his oxygen is maintained at this time. Duo nebs initiated along with placement of BiPAP, Dr. Crandall at bedside. Upon reevaluation of patient following nebulizers and BiPAP therapy, patient is less tachypneic and appears to be breathing more comfortably; he does remain tachypneic around 22 RR on bipap but taking deep inspiratory breaths and clinically appearing more comfortable. His oxygen saturation throughout entire stay in ED consistently above 95% and he never becomes hypoxic and remainder of vitals stable throughout course in ED. Ang CT of chest shows no evidence of pulmonary embolism. Hyperinflation and chronic interstitial changes with new patchy airspace opacity in the right greater than left lung, likely representing infiltrate. Antibiotics initiated. Dr. Rdz consulted on patient and will admit to inpatient ICU. Diagnostics: EKG, CBC, CMP, UA, Ddimer, CXR, Ang CT, COVID19, trop, VBG Therapeutics: Bipap, duoneb x 3, decadron, magnesium, Rocephin, BIPAP Impression: Community acquired pneumonia Respiratory distress, improving Plan: Admit to inpatient to Dr. Rdz to inpatient ICU. Critical care time is exclusive of billable procedures and the time to perform these procedures. Critical care time was used to prevent vital system organ failure and deterioration. Critical care time includes bedside management and high-complexity decision making requiring my highest level of mental preparedness and attention. This includes reviewing the patient's chart and prior medical records, ordering and reviewing interpreting laboratory studies and imaging results, interpretation of vital signs and EKG, pulse oximetry, and discussion with the admitting team along with nursing staff. Patient presented with a clinical presentation that required immediate intervention, acute respiratory distress requiring Bipap and transfer to the ICU for additional close monitoring and continuation of treatment CC Time: 45 minutes Definitive disposition and diagnosis as appropriate pending reevaluation and review of above. - Related Data Allergies Allergy/AdvReac Type Severity Reaction Status Date / Time olanzapine [From Zyprexa] Allergy Difficulty Verified 05/07/20 11:53 Swallowing Home Meds: Home Meds Pseudoephedrine HCl [Long Acting Nasal Decongestant] 120 mg PO BID 01/18/15 [History] Sertraline HCl 150 mg PO BEDTIME 01/18/15 [History] guaiFENesin [Mucinex] 1,200 mg PO BEDTIME 01/18/15 [History] risperiDONE 3 mg PO BID 01/18/15 [History] guaiFENesin [Mucinex] 600 mg PO DAILY 02/06/18 [History] Famotidine [Pepcid] 20 mg PO BID 05/23/18 [History] polyethylene glycoL 3350 [MiraLAX] 17 gm PO DAILY PRN 05/23/18 [History] Past Medical History Other HEENT History: 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 - Infectious Disease History Infectious Disease History: Reports: Chicken Pox, Measles, Mumps - Past Surgical History HEENT Surgical History: Reports: Adenoidectomy, Tonsillectomy GI Surgical History: Reports: Appendectomy Social & Family History - Family History Family Medical History: No Pertinent Family History - Tobacco Use Tobacco Use Status *Q: Never Tobacco User Second Hand Smoke Exposure: No - Caffeine Use Caffeine Use: Reports: Coffee - Recreational Drug Use Recreational Drug Use: No - Living Situation & Occupation Living situation: Reports: Occupation: Retired ED ROS GENERAL - Review of Systems Review Of Systems: Comprehensive ROS is negative, except as noted in HPI. ED EXAM, GENERAL - Physical Exam Exam: See Below (see dictation) Course - Vital Signs Last Recorded V/S: Last Vital Signs Temp 97.8 F 05/07/20 11:52 Pulse 95 05/07/20 17:45 Resp 28 H 05/07/20 11:52 BP 129/76 05/07/20 17:45 Pulse Ox 93 L 05/07/20 17:45 - Orders/Labs/Meds Orders: Active Orders 24 hr Category Date Time Status BIPAP [RT BiPAP/CPAP] [RC] ASDIRECTED Care 05/07/20 12:19 Active Cardiac Monitoring [RC] . DIRECTED Care 05/07/20 12:09 Active RT Aerosol Therapy [RC] ASDIRECTED Care 05/07/20 12:12 Active CULTURE BLOOD [BC] Stat Lab 05/07/20 12:34 Received CULTURE BLOOD [BC] Stat Lab 05/07/20 13:00 Results UA RFX LENA AND CULT IF INDIC [URIN] Stat Lab 05/07/20 12:09 Ordered Blood Culture x2 Reflex Set [OM.PC] Stat Oth 05/07/20 12:24 Ordered Isolation [COMM] Routine Oth 05/07/20 12:11 Active Medication Orders Albuterol/Ipratropium (Combivent Respimat) 0 gm INH Q4H PRN PRN Reason: Dyspnea Bisacodyl (Dulcolax) 10 mg RECTAL DAILY KYRA Famotidine (Pepcid) 20 mg PO BID KYRA Last Admin: 05/07/20 21:07 Dose: 20 mg Documented by: NELLLEJAMEL Heparin Sodium (Porcine) (Heparin Sodium) 5,000 units SUBCUT Q8H KYRA Last Admin: 05/07/20 21:10 Dose: 5,000 units Documented by: APOLEVA Levofloxacin/Dextrose 750 mg/ (Premix) 150 mls @ 100 mls/hr IV Q24H [facility] Last Admin: 05/07/20 21:13 Dose: 100 mls/hr Documented by: BARRINGTON Polyethylene Glycol (Miralax) 17 gm PO DAILY PRN PRN Reason: Constipation Prednisone (Prednisone) 40 mg PO WITHBREAKFAST [facility] Risperidone (Risperidal) 3 mg PO BID [facility] Last Admin: 05/07/20 21:08 Dose: 3 mg Documented by: BARRINGTON Senna/Docusate Sodium (Senna Plus) 2 tab PO BID [facility] Last Admin: 05/07/20 21:07 Dose: 2 tab Documented by: BARRINGTON Sertraline HCl (Zoloft) 150 mg PO BEDTIME [facility] Last Admin: 05/07/20 20:59 Dose: 150 mg Documented by: BARRINGTON Labs: Laboratory Tests 05/07/20 05/07/20 05/07/20 Range/Units 12:34 12:34 12:34 WBC 7.25 (4.0-11.0) K/uL RBC 4.72 (4.50-5.90) M/uL Hgb 13.6 (13.0-17.0) g/dL Hct 41.8 (38.0-50.0) % MCV 88.6 (80.0-98.0) fL MCH 28.8 (27.0-32.0) pg MCHC 32.5 (31.0-37.0) g/dL RDW Std Deviation 42.5 (28.0-62.0) fl RDW Coeff of Nino 13 (11.0-15.0) % Plt Count 174 (150-400) K/uL MPV 9.20 (7.40-12.00) fL Neut % (Auto) 69.2 (48.0-80.0) % Lymph % (Auto) 14.5 L (16.0-40.0) % [place] % (Auto) 15.9 H (0.0-15.0) % Eos % (Auto) 0.4 (0.0-7.0) % Baso % (Auto) 0.0 (0.0-1.5) % Neut # (Auto) 5.0 (1.4-5.7) K/uL Lymph # (Auto) 1.1 (0.6-2.4) K/uL [place] # (Auto) 1.2 H (0.0-0.8) K/uL Eos # (Auto) 0.0 (0.0-0.7) K/uL Baso # (Auto) 0.0 (0.0-0.1) K/uL Nucleated RBC % 0.0 /100WBC Nucleated RBCs # 0 K/uL D-Dimer, Quantitative 3.02 H (0.0-0.50) mg/L FEU VBG pH (7.31-7.41) VBG pCO2 (35-45) mmHG VBG pO2 (30-40) mmHG VBG HCO3 (22-30) mEq/L VBG Total CO2 (41-51) mmol/L VBG Base Excess (-3.0-3.0) Lactate (0.20-2.00) mmol/L Sodium 144 (136-148) mmol/L Potassium 4.4 (3.5-5.1) mmol/L Chloride 107 (98-107) mmol/L Carbon Dioxide 29.9 (21.0-32.0) mmol/L BUN 25 H (7.0-18.0) mg/dL Creatinine 1.2 (0.8-1.3) mg/dL Est Cr Clr Drug Dosing 52.29 mL/min Estimated GFR (MDRD) 58.3 ml/min Glucose 124 H (74-106) mg/dL Calcium 9.6 (8.5-10.1) mg/dL Total Bilirubin 1.0 (0.2-1.0) mg/dL AST 15 (15-37) IU/L ALT 22 (14-63) IU/L Alkaline Phosphatase 82 (46-116) U/L Troponin I < 0.050 (0.000-0.056) ng/mL Total Protein 7.9 (6.4-8.2) g/dL Albumin 3.2 L (3.4-5.0) g/dL Globulin 4.7 H (2.6-4.0) g/dL Albumin/Globulin Ratio 0.7 L (0.9-1.6) SARS-CoV-2 RNA (BIRDIE) (NEGATIVE) 05/07/20 05/07/20 05/07/20 Range/Units 12:34 12:34 13:21 WBC (4.0-11.0) K/uL RBC (4.50-5.90) M/uL Hgb (13.0-17.0) g/dL Hct (38.0-50.0) % MCV (80.0-98.0) fL MCH (27.0-32.0) pg MCHC (31.0-37.0) g/dL RDW Std Deviation (28.0-62.0) fl RDW Coeff of Nino (11.0-15.0) % Plt Count (150-400) K/uL MPV (7.40-12.00) fL Neut % (Auto) (48.0-80.0) % Lymph % (Auto) (16.0-40.0) % [place] % (Auto) (0.0-15.0) % Eos % (Auto) (0.0-7.0) % Baso % (Auto) (0.0-1.5) % Neut # (Auto) (1.4-5.7) K/uL Lymph # (Auto) (0.6-2.4) K/uL [place] # (Auto) (0.0-0.8) K/uL Eos # (Auto) (0.0-0.7) K/uL Baso # (Auto) (0.0-0.1) K/uL Nucleated RBC % /100WBC Nucleated RBCs # K/uL D-Dimer, Quantitative (0.0-0.50) mg/L FEU VBG pH 7.42 H (7.31-7.41) VBG pCO2 43 (35-45) mmHG VBG pO2 52 H (30-40) mmHG VBG HCO3 28 (22-30) mEq/L VBG Total CO2 25 L (41-51) mmol/L VBG Base Excess 3.2 H (-3.0-3.0) Lactate 1.0 (0.20-2.00) mmol/L Sodium (136-148) mmol/L Potassium (3.5-5.1) mmol/L Chloride (98-107) mmol/L Carbon Dioxide (21.0-32.0) mmol/L BUN (7.0-18.0) mg/dL Creatinine (0.8-1.3) mg/dL Est Cr Clr Drug Dosing mL/min Estimated GFR (MDRD) ml/min Glucose (74-106) mg/dL Calcium (8.5-10.1) mg/dL Total Bilirubin (0.2-1.0) mg/dL AST (15-37) IU/L ALT (14-63) IU/L Alkaline Phosphatase (46-116) U/L Troponin I (0.000-0.056) ng/mL Total Protein (6.4-8.2) g/dL Albumin (3.4-5.0) g/dL Globulin (2.6-4.0) g/dL Albumin/Globulin Ratio (0.9-1.6) SARS-CoV-2 RNA (BIRDIE) NEGATIVE (NEGATIVE) Meds: Medications Generic Name Dose Route Start Last Admin Trade Name Freq PRN Reason Stop Dose Admin Albuterol/Ipratropium 0 gm 05/07/20 19:10 Combivent Respimat INH Q4H PRN Dyspnea Bisacodyl 10 mg 05/08/20 09:00 Dulcolax RECTAL DAILY KYRA Famotidine 20 mg 05/07/20 21:00 05/07/20 21:07 Pepcid PO 20 mg BID KYRA Administration Heparin Sodium (Porcine) 5,000 units 05/07/20 21:00 05/07/20 21:10 Heparin Sodium SUBCUT 5,000 units Q8H KYRA Administration Levofloxacin/Dextrose 750 mg/ 150 mls @ 100 mls/hr 05/07/20 20:00 05/07/20 21:13 Premix IV 100 mls/hr Q24H KYRA Administration Polyethylene Glycol 17 gm 05/07/20 19:10 Miralax PO DAILY PRN Constipation Prednisone 40 mg 05/08/20 08:00 Prednisone PO WITHBREAKFAST KYRA Risperidone 3 mg 05/07/20 21:00 05/07/20 21:08 Risperidal PO 3 mg BID KYRA Administration Senna/Docusate Sodium 2 tab 05/07/20 21:00 05/07/20 21:07 Senna Plus PO 2 tab BID KYRA Administration Sertraline HCl 150 mg 05/07/20 21:00 05/07/20 20:59 Zoloft PO 150 mg BEDTIME KYRA Administration Discontinued Medications Generic Name Dose Route Start Last Admin Trade Name Freq PRN Reason Stop Dose Admin Albuterol/Ipratropium 3 ml 05/07/20 12:10 05/07/20 12:22 Duoneb 3.0-0.5 Mg/3 Ml NEB 05/07/20 12:11 3 ml ONETIME ONE Administration Albuterol/Ipratropium 3 ml 05/07/20 12:10 05/07/20 12:51 Duoneb 3.0-0.5 Mg/3 Ml NEB 05/07/20 12:11 3 ml ONETIME ONE Administration Albuterol/Ipratropium 3 ml 05/07/20 12:12 05/07/20 13:00 Duoneb 3.0-0.5 Mg/3 Ml NEB 05/07/20 12:13 3 ml ONETIME ONE Administration Dexamethasone 6 mg 05/07/20 12:19 05/07/20 12:51 Decadron IVPUSH 05/07/20 12:20 6 mg ONETIME ONE Administration Sodium Chloride 1,000 mls @ 500 mls/hr 05/07/20 12:09 05/07/20 13:05 Normal Saline IV 05/07/20 14:08 500 mls/hr BOLUS ONE Administration Magnesium Sulfate 1 gm/ Sodium 52 mls @ 104 mls/hr 05/07/20 13:15 05/07/20 13:16 Chloride IV 05/07/20 13:44 104 mls/hr ONETIME ONE Administration Ceftriaxone Sodium/Dextrose 1 50 mls @ 100 mls/hr 05/07/20 15:45 05/07/20 16:09 gm/ Premix IV 05/07/20 16:14 100 mls/hr ONETIME ONE Administration Iopamidol 60 ml 05/07/20 14:56 Isovue Multipack-370 (76%) IVPUSH 05/07/20 14:57 ONETIME STA Iopamidol 60 ml 05/07/20 15:06 Isovue Multipack-370 (76%) IVPUSH 05/07/20 15:07 ONETIME STA Departure - Departure Time of Disposition: 17:38 Disposition: Admitted As Inpatient 66 Clinical Impression: Community acquired pneumonia Qualifiers: Laterality: right Lung location: middle lobe of lung Qualified Code(s): J18.9 - Pneumonia, unspecified organism Respiratory failure Qualifiers: Chronicity: acute Respiratory failure complication: unspecified whether with hypoxia or hypercapnia Qualified Code(s): J96.00 - Acute respiratory failure, unspecified whether with hypoxia or hypercapnia - Discharge Information Sepsis Event Note (ED) - Focused Exam Vital Signs: Vital Signs Temp Pulse Resp BP Pulse Ox 05/07/20 16:41 89 138/84 95 05/07/20 16:26 91 141/78 H 93 L 05/07/20 16:11 87 130/81 94 L 05/07/20 15:56 91 128/73 93 L 05/07/20 15:41 88 112/70 96 05/07/20 15:26 89 118/74 96 05/07/20 14:34 97 135/80 97 05/07/20 14:19 94 142/83 H 98 05/07/20 14:04 93 142/79 H 98 05/07/20 13:04 103 H 158/76 H 97 05/07/20 12:49 97 141/88 H 97 05/07/20 12:34 97 138/80 98 05/07/20 11:52 97.8 F 93 28 H 117/67 94 L - My Orders Last 24 Hours: My Active Orders 05/07/20 12:09 Cardiac Monitoring [RC] . DIRECTED UA RFX LENA AND CULT IF INDIC [URIN] Stat 05/07/20 12:11 Isolation [COMM] Routine 05/07/20 12:12 RT Aerosol Therapy [RC] ASDIRECTED 05/07/20 12:19 BIPAP [RT BiPAP/CPAP] [RC] ASDIRECTED 05/07/20 12:24 Blood Culture x2 Reflex Set [OM.PC] Stat 05/07/20 12:34 CULTURE BLOOD [BC] Stat 05/07/20 13:00 CULTURE BLOOD [BC] Stat - Assessment/Plan Last 24 Hours: My Active Orders 05/07/20 12:09 Cardiac Monitoring [RC] . DIRECTED UA RFX LENA AND CULT IF INDIC [URIN] Stat 05/07/20 12:11 Isolation [COMM] Routine 05/07/20 12:12 RT Aerosol Therapy [RC] ASDIRECTED 05/07/20 12:19 BIPAP [RT BiPAP/CPAP] [RC] ASDIRECTED 05/07/20 12:24 Blood Culture x2 Reflex Set [OM.PC] Stat 05/07/20 12:34 CULTURE BLOOD [BC] Stat 05/07/20 13:00 CULTURE BLOOD [BC] Stat
--- NOTE | 2020-05-07 14:00 | CR ---
Indication: Tachypnea Comparison: 2 view chest dated Jul 04, 2019 Technique: Single AP view chest Findings: There is hyperinflation and chronic interstitial change. Increasing interstitial and airspace disease likely representing worsening infiltrates. The cardiomediastinal silhouette is within normal limits. The bony thorax is grossly intact. Impression: Increasing interstitial markings with right greater than left basilar infiltrates. Dictated by Everett Bond MD @ May 07 2020 1:45PM Signed by Dr. Everett Bond @ May 07 2020 1:58PM
[2020-05-07] MEDS ORDERED: Iopamidol 755 MG/ML 500 ML Multipack Bottle IVPUSH STA ×2 (14:56→15:06)
--- NOTE | 2020-05-07 15:44 | CT ---
Indication: Elevated D-dimer and tachypnea Technique: Volumetric multidetector CT images of the chest were obtained after the administration of IV contrast. 60 cc Isovue 370 Comparison: None available. Findings: The thoracic inlet and thyroid gland are unremarkable. The thoracic aorta is nonaneurysmal. There is no central filling defect to suggest pulmonary embolism. There is no mediastinal, hilar or axillary adenopathy. There is traction bronchiectasis with mild central bronchial thickening. There is patchy airspace opacification of the right lung base. There is biapical pleural thickening with mild paraseptal emphysematous changes. There is no pneumothorax. There is no evidence of pulmonary mass or suspicious pulmonary nodule. The partially visualized upper abdominal viscera are within normal limits. The thoracic vertebral body heights are grossly maintained with minimal endplate Schmorl`s defects. There is no significant spondylolisthesis or displaced fracture. Impression: No evidence of pulmonary embolism. Hyperinflation and chronic interstitial changes with patchy airspace opacity in the right greater than left lung base likely representing infiltrate. Please note that all CT scans at this facility use dose modulation, iterative reconstruction, and/or weight-based dosing when appropriate to reduce radiation dose to as low as reasonably achievable. Dictated by Everett Bond MD @ May 07 2020 3:21PM Signed by Dr. Everett Bond @ May 07 2020 3:42PM
[2020-05-07] MEDS ORDERED: cefTRIAXone 1 GM in Premix Bag 1 BAG IV ONE (15:45)
[2020-05-07] MEDS ORDERED: Albuterol/Ipratropium 4 GM Inhalation Spray INH PRN (19:10)
[2020-05-07] MEDS ORDERED: Polyethylene Glycol 3350 Powder 17 GM Packet PO PRN (19:10)
--- NOTE | 2020-05-07 19:19 | PCM.HP.2 ---
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 noted patient was having difficulty breathing today. She also noted an elevated heart rate and fever of 100.3 In the ED patient was satting 92% on RA but was noted to be in respitratory distress. PAtient received decadrone, duonebs and was breifly placed on BIPAP. He did have improvement in his dyspnea and was weened off BIPAP. CT angio noted right greater than left patchy opacities and no PE. - Related Data Allergies/Adverse Reactions: Allergies Allergy/AdvReac Type Severity Reaction Status Date / Time olanzapine [From Zyprexa] Allergy Difficulty Verified 05/07/20 11:53 Swallowing Home Medications: Home Meds Pseudoephedrine HCl [Long Acting Nasal Decongestant] 120 mg PO BID 01/18/15 [History] Sertraline HCl 150 mg PO BEDTIME 01/18/15 [History] guaiFENesin [Mucinex] 1,200 mg PO BEDTIME 01/18/15 [History] risperiDONE 3 mg PO BID 01/18/15 [History] guaiFENesin [Mucinex] 600 mg PO DAILY 02/06/18 [History] Famotidine [Pepcid] 20 mg PO BID 05/23/18 [History] polyethylene glycoL 3350 [MiraLAX] 17 gm PO DAILY PRN 05/23/18 [History] Past Medical History Other HEENT History: 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 - Infectious Disease History Infectious Disease History: Reports: Chicken Pox, Measles, Mumps - Past Surgical History HEENT Surgical History: Reports: Adenoidectomy, Tonsillectomy GI Surgical History: Reports: Appendectomy Social & Family History - Family History Family Medical History: No Pertinent Family History - Tobacco Use Tobacco Use Status *Q: Never Tobacco User Second Hand Smoke Exposure: No - Caffeine Use Caffeine Use: Reports: Coffee - Recreational Drug Use Recreational Drug Use: No - Living Situation & Occupation Living situation: Reports: Occupation: Retired H&P Review of Systems - Review of Systems: Review Of Systems: Unable To Obtain Reason Not Obtained: nonverbal Exam - Exam Exam: See Below - Vital Signs Vital Signs: Last Vital Signs Temp 36.6 C 05/07/20 11:52 Pulse 95 05/07/20 17:45 Resp 28 H 05/07/20 11:52 BP 129/76 05/07/20 17:45 Pulse Ox 93 L 05/07/20 17:45 Weight: 75.296 kg - Exam General: Alert, Cooperative. No: Mild Distress HEENT: Mucosa Moist & [place] Lungs: Normal Respiratory Effort, Rhonchi Cardiovascular: Regular Rate, Regular Rhythm GI/Abdominal Exam: Normal Bowel Sounds, Soft, Non-Tender Extremities: Normal Inspection, Non-Tender, No Pedal Edema Skin: Warm, Dry, Intact - Patient Data Lab Results Last 24 hrs: Laboratory Results - last 24 hr 05/07/20 05/07/20 05/07/20 Range/Units 12:34 12:34 12:34 WBC 7.25 (4.0-11.0) K/uL RBC 4.72 (4.50-5.90) M/uL Hgb 13.6 (13.0-17.0) g/dL Hct 41.8 (38.0-50.0) % MCV 88.6 (80.0-98.0) fL MCH 28.8 (27.0-32.0) pg MCHC 32.5 (31.0-37.0) g/dL RDW Std Deviation 42.5 (28.0-62.0) fl RDW Coeff of Nino 13 (11.0-15.0) % Plt Count 174 (150-400) K/uL MPV 9.20 (7.40-12.00) fL Neut % (Auto) 69.2 (48.0-80.0) % Lymph % (Auto) 14.5 L (16.0-40.0) % [place] % (Auto) 15.9 H (0.0-15.0) % Eos % (Auto) 0.4 (0.0-7.0) % Baso % (Auto) 0.0 (0.0-1.5) % Neut # (Auto) 5.0 (1.4-5.7) K/uL Lymph # (Auto) 1.1 (0.6-2.4) K/uL [place] # (Auto) 1.2 H (0.0-0.8) K/uL Eos # (Auto) 0.0 (0.0-0.7) K/uL Baso # (Auto) 0.0 (0.0-0.1) K/uL Nucleated RBC % 0.0 /100WBC Nucleated RBCs # 0 K/uL D-Dimer, Quantitative 3.02 H (0.0-0.50) mg/L FEU VBG pH (7.31-7.41) VBG pCO2 (35-45) mmHG VBG pO2 (30-40) mmHG VBG HCO3 (22-30) mEq/L VBG Total CO2 (41-51) mmol/L VBG Base Excess (-3.0-3.0) Lactate (0.20-2.00) mmol/L Sodium 144 (136-148) mmol/L Potassium 4.4 (3.5-5.1) mmol/L Chloride 107 (98-107) mmol/L Carbon Dioxide 29.9 (21.0-32.0) mmol/L BUN 25 H (7.0-18.0) mg/dL Creatinine 1.2 (0.8-1.3) mg/dL Est Cr Clr Drug Dosing 52.29 mL/min Estimated GFR (MDRD) 58.3 ml/min Glucose 124 H (74-106) mg/dL Calcium 9.6 (8.5-10.1) mg/dL Total Bilirubin 1.0 (0.2-1.0) mg/dL AST 15 (15-37) IU/L ALT 22 (14-63) IU/L Alkaline Phosphatase 82 (46-116) U/L Troponin I < 0.050 (0.000-0.056) ng/mL Total Protein 7.9 (6.4-8.2) g/dL Albumin 3.2 L (3.4-5.0) g/dL Globulin 4.7 H (2.6-4.0) g/dL Albumin/Globulin Ratio 0.7 L (0.9-1.6) SARS-CoV-2 RNA (BIRDIE) (NEGATIVE) 05/07/20 05/07/20 05/07/20 Range/Units 12:34 12:34 13:21 WBC (4.0-11.0) K/uL RBC (4.50-5.90) M/uL Hgb (13.0-17.0) g/dL Hct (38.0-50.0) % MCV (80.0-98.0) fL MCH (27.0-32.0) pg MCHC (31.0-37.0) g/dL RDW Std Deviation (28.0-62.0) fl RDW Coeff of Nino (11.0-15.0) % Plt Count (150-400) K/uL MPV (7.40-12.00) fL Neut % (Auto) (48.0-80.0) % Lymph % (Auto) (16.0-40.0) % [place] % (Auto) (0.0-15.0) % Eos % (Auto) (0.0-7.0) % Baso % (Auto) (0.0-1.5) % Neut # (Auto) (1.4-5.7) K/uL Lymph # (Auto) (0.6-2.4) K/uL [place] # (Auto) (0.0-0.8) K/uL Eos # (Auto) (0.0-0.7) K/uL Baso # (Auto) (0.0-0.1) K/uL Nucleated RBC % /100WBC Nucleated RBCs # K/uL D-Dimer, Quantitative (0.0-0.50) mg/L FEU VBG pH 7.42 H (7.31-7.41) VBG pCO2 43 (35-45) mmHG VBG pO2 52 H (30-40) mmHG VBG HCO3 28 (22-30) mEq/L VBG Total CO2 25 L (41-51) mmol/L VBG Base Excess 3.2 H (-3.0-3.0) Lactate 1.0 (0.20-2.00) mmol/L Sodium (136-148) mmol/L Potassium (3.5-5.1) mmol/L Chloride (98-107) mmol/L Carbon Dioxide (21.0-32.0) mmol/L BUN (7.0-18.0) mg/dL Creatinine (0.8-1.3) mg/dL Est Cr Clr Drug Dosing mL/min Estimated GFR (MDRD) ml/min Glucose (74-106) mg/dL Calcium (8.5-10.1) mg/dL Total Bilirubin (0.2-1.0) mg/dL AST (15-37) IU/L ALT (14-63) IU/L Alkaline Phosphatase (46-116) U/L Troponin I (0.000-0.056) ng/mL Total Protein (6.4-8.2) g/dL Albumin (3.4-5.0) g/dL Globulin (2.6-4.0) g/dL Albumin/Globulin Ratio (0.9-1.6) SARS-CoV-2 RNA (BIRDIE) NEGATIVE (NEGATIVE) Result Diagrams: 05/07/20 12:34 05/07/20 12:34 Derrick Results Last 24 hrs: Microbiology 05/07/20 12:11 Influenza Type A Antigen Screen - Final Nasopharyngeal Swab NEGATIVE INFLUENZA A VIRUS AG REFERENCE RANGE: NEGATIVE Influenza Type B Antigen Screen - Final NEGATIVE INFLUENZA B VIRUS AG REFERENCE RANGE: NEGATIVE 05/07/20 13:00 Anaerobic Blood Culture - Final Blood - Venous - Lab Draw Sepsis Event Note - Focused Exam Vital Signs: Vital Signs Temp Pulse Resp BP Pulse Ox 05/07/20 17:45 95 129/76 93 L 05/07/20 17:44 97 109/82 96 05/07/20 17:26 85 137/81 95 05/07/20 17:11 87 129/76 92 L 05/07/20 16:56 91 140/72 93 L 05/07/20 16:41 89 138/84 95 05/07/20 16:26 91 141/78 H 93 L 05/07/20 16:11 87 130/81 94 L 05/07/20 15:56 91 128/73 93 L 05/07/20 15:41 88 112/70 96 05/07/20 15:26 89 118/74 96 05/07/20 14:34 97 135/80 97 05/07/20 14:19 94 142/83 H 98 05/07/20 14:04 93 142/79 H 98 05/07/20 13:04 103 H 158/76 H 97 05/07/20 12:49 97 141/88 H 97 05/07/20 12:34 97 138/80 98 05/07/20 11:52 36.6 C 93 28 H 117/67 94 L Problem List Initiated/Reviewed/Updated: Yes Orders Last 24hrs: Active Orders 24 hr Category Date Time Status Admission Status [Patient Status] [ADT] Stat ADT 05/07/20 16:43 Active Antiembolic Devices [RC] PER UNIT ROUTINE Care 05/07/20 19:13 Ordered BIPAP [RT BiPAP/CPAP] [RC] ASDIRECTED Care 05/07/20 12:19 Active Blood Glucose Check, Bedside [RC] TIDMEALS Care 05/07/20 19:12 Ordered Cardiac Monitoring [RC] . DIRECTED Care 05/07/20 12:09 Active EKG Documentation Completion [RC] STAT Care 05/07/20 12:09 Active Oxygen Therapy [RC] PRN Care 05/07/20 19:12 Ordered RT Aerosol Therapy [RC] ASDIRECTED Care 05/07/20 12:10 Active RT Aerosol Therapy [RC] ASDIRECTED Care 05/07/20 12:10 Active RT Aerosol Therapy [RC] ASDIRECTED Care 05/07/20 12:12 Active RT Post Treatment Assessment [RC] Click to Edit Care 05/07/20 19:10 Ordered RT Pre-Treatment Assessment [RC] Click to Edit Care 05/07/20 19:10 Ordered Up ad Suzette [RC] ASDIRECTED Care 05/07/20 19:12 Ordered VTE/DVT Education [RC] PER UNIT ROUTINE Care 05/07/20 19:12 Ordered Vital Signs [RC] Q4H Care 05/07/20 19:12 Ordered Regular Diet [DIET] Diet 05/07/20 Breakfast Ordered BASIC METABOLIC PANEL,BMP [CHEM] AM Lab 05/08/20 05:11 Ordered CBC WITH AUTO DIFF [HEME] AM Lab 05/08/20 05:11 Ordered CULTURE BLOOD [BC] Stat Lab 05/07/20 12:34 Received CULTURE BLOOD [BC] Stat Lab 05/07/20 13:00 Results UA RFX DERRICK AND CULT IF INDIC [URIN] Stat Lab 05/07/20 12:09 Ordered Albuterol/Ipratropium [Combivent Respimat] Med 05/07/20 19:10 Ordered 1 gm INH Q4H PRN Docusate Sodium/Sennosides [Senna Plus] Med 05/07/20 21:00 Ordered 2 tab PO BID Famotidine [Pepcid] Med 05/07/20 21:00 Ordered 20 mg PO BID Heparin Sodium Med 05/07/20 19:15 Ordered 5,000 units SUBCUT Q8H Levofloxacin/Dextrose 5%-Water [Levaquin in D5W 750 MG/ Med 05/07/20 19:15 Ordered 150 ML] 750 mg Premix Bag 1 bag IV Q24H Sertraline [Zoloft] Med 05/07/20 21:00 Ordered 150 mg PO BEDTIME bisacodyL [Dulcolax] Med 05/07/20 19:11 Once 10 mg RECTAL DAILY ONE polyethylene glycoL 3350 [MiraLAX] Med 05/07/20 19:10 Ordered 17 gm PO DAILY PRN predniSONE Med 05/08/20 08:00 Ordered 40 mg PO WITHBREAKFAST risperiDONE [RisperiDAL] Med 05/07/20 21:00 Ordered 3 mg PO BID Blood Culture x2 Reflex Set [OM.PC] Stat Oth 05/07/20 12:24 Ordered Isolation [COMM] Routine Oth 05/07/20 12:11 Active Sequential Compression Device [OM.PC] Per Unit Routine Oth 05/07/20 19:13 Ordered Resuscitation Status Routine Resus Stat 05/07/20 19:12 Ordered Medication Orders Albuterol/Ipratropium (Combivent Respimat) 1 gm INH Q4H PRN PRN Reason: Dyspnea Bisacodyl (Dulcolax) 10 mg RECTAL DAILY ONE Stop: 05/07/20 19:12 Famotidine (Pepcid) 20 mg PO BID KYRA Levofloxacin/Dextrose 750 mg/ (Premix) 150 mls @ 100 mls/hr IV Q24H [facility] Polyethylene Glycol (Miralax) 17 gm PO DAILY PRN PRN Reason: Constipation Prednisone (Prednisone) 40 mg PO WITHBREAKFAST [facility]RA Risperidone (Risperidal) 3 mg PO BID [facility] Senna/Docusate Sodium (Senna Plus) 2 tab PO BID KYRA Sertraline HCl (Zoloft) 150 mg PO BEDTIME KYRA Assessment/Plan Comment:: 80 yo male admitted for pneumonia and likely COPD exacerbation Pneumonia: levaquin, cultures pending, COVID negative COPD: Combivent, prednisone
[2020-05-07] MEDS: Sertraline 50 MG Tab PO SCH (20:59)
[2020-05-07] MEDS: Famotidine 20 MG Tab PO SCH (21:07)
[2020-05-07] MEDS: Heparin Sodium 5,000 Units/ML Vial SUBCUT SCH (21:10)
[2020-05-07] MEDS: Levofloxacin/Dextrose 5%-Water 750 MG in Premix Bag 1 BAG IV SCH (21:13)
[2020-05-08] MEDS: Heparin Sodium 5,000 Units/ML Vial SUBCUT SCH ×3 (04:47→21:19)
[2020-05-08 07:04] LABS: BLOOD UREA NITROGEN,BUN 24 mg/dL (7.0-18.0); CHLORIDE,CL 108 mmol/L (98-107); GLUCOSE RANDOM 103 mg/dL (74-106); SODIUM,NA 144 mmol/L (136-148)
[2020-05-08] MEDS: predniSONE 20 MG Tab PO SCH (09:30)
[2020-05-08] MEDS: Famotidine 20 MG Tab PO SCH ×2 (09:30→21:18)
[2020-05-08] MEDS: Bisacodyl 10 MG Supp RECTAL SCH (10:56)
--- NOTE | 2020-05-08 12:38 | PCM.PN ---
- General Info Date of Service: 05/08/20 - Review of Systems Systems Review Comment:: who is presents states he is doing much better, more alert. - Patient Data Vitals - Most Recent: Last Vital Signs Temp 36.4 C 05/08/20 07:51 Pulse 95 05/07/20 17:45 Resp 22 H 05/08/20 12:04 BP 108/61 05/08/20 10:24 Pulse Ox 94 L 05/08/20 12:04 Weight - Most Recent: 77.201 kg I&O - Last 24 Hours: Intake & Output 05/07/20 05/08/20 05/08/20 22:59 06:59 14:59 Intake Total 390 Balance 390 Lab Results Last 24 Hours: Laboratory Results - last 24 hr 05/07/20 05/07/20 05/07/20 Range/Units 12:34 12:34 12:34 WBC 7.25 (4.0-11.0) K/uL RBC 4.72 (4.50-5.90) M/uL Hgb 13.6 (13.0-17.0) g/dL Hct 41.8 (38.0-50.0) % MCV 88.6 (80.0-98.0) fL MCH 28.8 (27.0-32.0) pg MCHC 32.5 (31.0-37.0) g/dL RDW Std Deviation 42.5 (28.0-62.0) fl RDW Coeff of Nino 13 (11.0-15.0) % Plt Count 174 (150-400) K/uL MPV 9.20 (7.40-12.00) fL Neut % (Auto) 69.2 (48.0-80.0) % Lymph % (Auto) 14.5 L (16.0-40.0) % Carter % (Auto) 15.9 H (0.0-15.0) % Eos % (Auto) 0.4 (0.0-7.0) % Baso % (Auto) 0.0 (0.0-1.5) % Neut # (Auto) 5.0 (1.4-5.7) K/uL Lymph # (Auto) 1.1 (0.6-2.4) K/uL Carter # (Auto) 1.2 H (0.0-0.8) K/uL Eos # (Auto) 0.0 (0.0-0.7) K/uL Baso # (Auto) 0.0 (0.0-0.1) K/uL Nucleated RBC % 0.0 /100WBC Nucleated RBCs # 0 K/uL D-Dimer, Quantitative 3.02 H (0.0-0.50) mg/L FEU VBG pH (7.31-7.41) VBG pCO2 (35-45) mmHG VBG pO2 (30-40) mmHG VBG HCO3 (22-30) mEq/L VBG Total CO2 (41-51) mmol/L VBG Base Excess (-3.0-3.0) Lactate (0.20-2.00) mmol/L Sodium 144 (136-148) mmol/L Potassium 4.4 (3.5-5.1) mmol/L Chloride 107 (98-107) mmol/L Carbon Dioxide 29.9 (21.0-32.0) mmol/L BUN 25 H (7.0-18.0) mg/dL Creatinine 1.2 (0.8-1.3) mg/dL Est Cr Clr Drug Dosing 52.29 mL/min Estimated GFR (MDRD) 58.3 ml/min Glucose 124 H (74-106) mg/dL Calcium 9.6 (8.5-10.1) mg/dL Total Bilirubin 1.0 (0.2-1.0) mg/dL AST 15 (15-37) IU/L ALT 22 (14-63) IU/L Alkaline Phosphatase 82 (46-116) U/L Troponin I < 0.050 (0.000-0.056) ng/mL Total Protein 7.9 (6.4-8.2) g/dL Albumin 3.2 L (3.4-5.0) g/dL Globulin 4.7 H (2.6-4.0) g/dL Albumin/Globulin Ratio 0.7 L (0.9-1.6) Urine Color Urine Appearance Urine pH (5.0-8.0) Ur Specific [place] (1.001-1.035) Urine Protein (NEGATIVE) mg/dL Urine Glucose (UA) (NEGATIVE) mg/dL Urine Ketones (NEGATIVE) mg/dL Urine Occult Blood (NEGATIVE) Urine Nitrite (NEGATIVE) Urine Bilirubin (NEGATIVE) Urine Urobilinogen (<2.0) EU/dL Ur Leukocyte Esterase (NEGATIVE) Urine RBC (0-2/HPF) Urine WBC (0-5/HPF) Ur Epithelial Cells (NONE-FEW) Urine Bacteria (NEGATIVE) Urine Mucus (NONE-MOD) SARS-CoV-2 RNA (BIRDIE) (NEGATIVE) 05/07/20 05/07/20 05/07/20 Range/Units 12:34 12:34 13:21 WBC (4.0-11.0) K/uL RBC (4.50-5.90) M/uL Hgb (13.0-17.0) g/dL Hct (38.0-50.0) % MCV (80.0-98.0) fL MCH (27.0-32.0) pg MCHC (31.0-37.0) g/dL RDW Std Deviation (28.0-62.0) fl RDW Coeff of Nino (11.0-15.0) % Plt Count (150-400) K/uL MPV (7.40-12.00) fL Neut % (Auto) (48.0-80.0) % Lymph % (Auto) (16.0-40.0) % Carter % (Auto) (0.0-15.0) % Eos % (Auto) (0.0-7.0) % Baso % (Auto) (0.0-1.5) % Neut # (Auto) (1.4-5.7) K/uL Lymph # (Auto) (0.6-2.4) K/uL Carter # (Auto) (0.0-0.8) K/uL Eos # (Auto) (0.0-0.7) K/uL Baso # (Auto) (0.0-0.1) K/uL Nucleated RBC % /100WBC Nucleated RBCs # K/uL D-Dimer, Quantitative (0.0-0.50) mg/L FEU VBG pH 7.42 H (7.31-7.41) VBG pCO2 43 (35-45) mmHG VBG pO2 52 H (30-40) mmHG VBG HCO3 28 (22-30) mEq/L VBG Total CO2 25 L (41-51) mmol/L VBG Base Excess 3.2 H (-3.0-3.0) Lactate 1.0 (0.20-2.00) mmol/L Sodium (136-148) mmol/L Potassium (3.5-5.1) mmol/L Chloride (98-107) mmol/L Carbon Dioxide (21.0-32.0) mmol/L BUN (7.0-18.0) mg/dL Creatinine (0.8-1.3) mg/dL Est Cr Clr Drug Dosing mL/min Estimated GFR (MDRD) ml/min Glucose (74-106) mg/dL Calcium (8.5-10.1) mg/dL Total Bilirubin (0.2-1.0) mg/dL AST (15-37) IU/L ALT (14-63) IU/L Alkaline Phosphatase (46-116) U/L Troponin I (0.000-0.056) ng/mL Total Protein (6.4-8.2) g/dL Albumin (3.4-5.0) g/dL Globulin (2.6-4.0) g/dL Albumin/Globulin Ratio (0.9-1.6) Urine Color Urine Appearance Urine pH (5.0-8.0) Ur Specific [place] (1.001-1.035) Urine Protein (NEGATIVE) mg/dL Urine Glucose (UA) (NEGATIVE) mg/dL Urine Ketones (NEGATIVE) mg/dL Urine Occult Blood (NEGATIVE) Urine Nitrite (NEGATIVE) Urine Bilirubin (NEGATIVE) Urine Urobilinogen (<2.0) EU/dL Ur Leukocyte Esterase (NEGATIVE) Urine RBC (0-2/HPF) Urine WBC (0-5/HPF) Ur Epithelial Cells (NONE-FEW) Urine Bacteria (NEGATIVE) Urine Mucus (NONE-MOD) SARS-CoV-2 RNA (BIRDIE) NEGATIVE (NEGATIVE) 05/08/20 05/08/20 05/08/20 Range/Units 06:00 06:00 11:30 WBC 6.74 (4.0-11.0) K/uL RBC 4.29 L (4.50-5.90) M/uL Hgb 12.2 L (13.0-17.0) g/dL Hct 38.4 (38.0-50.0) % MCV 89.5 (80.0-98.0) fL MCH 28.4 (27.0-32.0) pg MCHC 31.8 (31.0-37.0) g/dL RDW Std Deviation 42.4 (28.0-62.0) fl RDW Coeff of Nino 13 (11.0-15.0) % Plt Count 191 (150-400) K/uL MPV 9.60 (7.40-12.00) fL Neut % (Auto) 73.7 (48.0-80.0) % Lymph % (Auto) 13.9 L (16.0-40.0) % Carter % (Auto) 12.3 (0.0-15.0) % Eos % (Auto) 0.0 (0.0-7.0) % Baso % (Auto) 0.1 (0.0-1.5) % Neut # (Auto) 5.0 (1.4-5.7) K/uL Lymph # (Auto) 0.9 (0.6-2.4) K/uL Carter # (Auto) 0.8 (0.0-0.8) K/uL Eos # (Auto) 0.0 (0.0-0.7) K/uL Baso # (Auto) 0.0 (0.0-0.1) K/uL Nucleated RBC % 0.0 /100WBC Nucleated RBCs # 0 K/uL D-Dimer, Quantitative (0.0-0.50) mg/L FEU VBG pH (7.31-7.41) VBG pCO2 (35-45) mmHG VBG pO2 (30-40) mmHG VBG HCO3 (22-30) mEq/L VBG Total CO2 (41-51) mmol/L VBG Base Excess (-3.0-3.0) Lactate (0.20-2.00) mmol/L Sodium 144 (136-148) mmol/L Potassium 4.0 (3.5-5.1) mmol/L Chloride 108 H (98-107) mmol/L Carbon Dioxide 27.0 (21.0-32.0) mmol/L BUN 24 H (7.0-18.0) mg/dL Creatinine 1.0 (0.8-1.3) mg/dL Est Cr Clr Drug Dosing 64.33 mL/min Estimated GFR (MDRD) > 60.0 ml/min Glucose 103 (74-106) mg/dL Calcium 9.2 (8.5-10.1) mg/dL Total Bilirubin (0.2-1.0) mg/dL AST (15-37) IU/L ALT (14-63) IU/L Alkaline Phosphatase (46-116) U/L Troponin I (0.000-0.056) ng/mL Total Protein (6.4-8.2) g/dL Albumin (3.4-5.0) g/dL Globulin (2.6-4.0) g/dL Albumin/Globulin Ratio (0.9-1.6) Urine Color YELLOW Urine Appearance SLT CLOUDY Urine pH 6.0 (5.0-8.0) Ur Specific [place] >= 1.030 (1.001-1.035) Urine Protein 100 H (NEGATIVE) mg/dL Urine Glucose (UA) NEGATIVE (NEGATIVE) mg/dL Urine Ketones NEGATIVE (NEGATIVE) mg/dL Urine Occult Blood MODERATE H (NEGATIVE) Urine Nitrite NEGATIVE (NEGATIVE) Urine Bilirubin NEGATIVE (NEGATIVE) Urine Urobilinogen 0.2 (<2.0) EU/dL Ur Leukocyte Esterase SMALL H (NEGATIVE) Urine RBC 1-5 (0-2/HPF) Urine WBC 20-30 (0-5/HPF) Ur Epithelial Cells OCCASIONAL (NONE-FEW) Urine Bacteria FEW (NEGATIVE) Urine Mucus LIGHT (NONE-MOD) SARS-CoV-2 RNA (BIRDIE) (NEGATIVE) Derrick Results Last 24 Hours: Microbiology 05/07/20 12:11 Influenza Type A Antigen Screen - Final Nasopharyngeal Swab NEGATIVE INFLUENZA A VIRUS AG REFERENCE RANGE: NEGATIVE Influenza Type B Antigen Screen - Final NEGATIVE INFLUENZA B VIRUS AG REFERENCE RANGE: NEGATIVE 05/07/20 13:00 Anaerobic Blood Culture - Final Blood - Venous - Lab Draw Med Orders - Current: Current Medications Albuterol/Ipratropium (Combivent Respimat) 0 gm INH Q4H PRN PRN Reason: Dyspnea Bisacodyl (Dulcolax) 10 mg RECTAL DAILY [facility] Last Admin: 05/08/20 10:56 Dose: 10 mg Documented by: Famotidine (Pepcid) 20 mg PO BID [facility] Last Admin: 05/08/20 09:30 Dose: 20 mg Documented by: Guaifenesin (Mucinex) 600 mg PO DAILY [facility] Guaifenesin (Mucinex) 1,200 mg PO BEDTIME [facility] Heparin Sodium (Porcine) (Heparin Sodium) 5,000 units SUBCUT Q8H [facility] Last Admin: 05/08/20 04:47 Dose: 5,000 units Documented by: Levofloxacin/Dextrose 750 mg/ (Premix) 150 mls @ 100 mls/hr IV Q24H [facility] Last Admin: 05/07/20 21:13 Dose: 100 mls/hr Documented by: Polyethylene Glycol (Miralax) 17 gm PO DAILY PRN PRN Reason: Constipation Prednisone (Prednisone) 40 mg PO WITHBREAKFAST [facility] Last Admin: 05/08/20 09:30 Dose: 40 mg Documented by: Risperidone (Risperidal) 3 mg PO BID [facility] Last Admin: 05/08/20 09:30 Dose: 3 mg Documented by: Senna/Docusate Sodium (Senna Plus) 2 tab PO BID [facility] Last Admin: 05/08/20 09:30 Dose: 2 tab Documented by: Sertraline HCl (Zoloft) 150 mg PO BEDTIME [facility] Last Admin: 05/07/20 20:59 Dose: 150 mg Documented by: Discontinued Medications Albuterol/Ipratropium (Duoneb 3.0-0.5 Mg/3 Ml) 3 ml NEB ONETIME ONE Stop: 05/07/20 12:11 Last Admin: 05/07/20 12:22 Dose: 3 ml Documented by: Albuterol/Ipratropium (Duoneb 3.0-0.5 Mg/3 Ml) 3 ml NEB ONETIME ONE Stop: 05/07/20 12:11 Last Admin: 05/07/20 12:51 Dose: 3 ml Documented by: Albuterol/Ipratropium (Duoneb 3.0-0.5 Mg/3 Ml) 3 ml NEB ONETIME ONE Stop: 05/07/20 12:13 Last Admin: 05/07/20 13:00 Dose: 3 ml Documented by: Dexamethasone (Decadron) 6 mg IVPUSH ONETIME ONE Stop: 05/07/20 12:20 Last Admin: 05/07/20 12:51 Dose: 6 mg Documented by: Sodium Chloride (Normal Saline) 1,000 mls @ 500 mls/hr IV BOLUS ONE Stop: 05/07/20 14:08 Last Admin: 05/07/20 13:05 Dose: 500 mls/hr Documented by: Magnesium Sulfate 1 gm/ Sodium (Chloride) 52 mls @ 104 mls/hr IV ONETIME ONE Stop: 05/07/20 13:44 Last Admin: 05/07/20 13:16 Dose: 104 mls/hr Documented by: Ceftriaxone Sodium/Dextrose 1 (gm/ Premix) 50 mls @ 100 mls/hr IV ONETIME ONE Stop: 05/07/20 16:14 Last Admin: 05/07/20 16:09 Dose: 100 mls/hr Documented by: Iopamidol (Isovue Multipack-370 (76%)) 60 ml IVPUSH ONETIME STA Stop: 05/07/20 14:57 Iopamidol (Isovue Multipack-370 (76%)) 60 ml IVPUSH ONETIME STA Stop: 05/07/20 15:07 - Exam General: Alert, Cooperative Lungs: Clear to Auscultation, Normal Respiratory Effort Cardiovascular: Regular Rate, Regular Rhythm GI/Abdominal Exam: Soft, Non-Tender Extremities: Non-Tender, No Pedal Edema Skin: Warm, Dry Sepsis Event Note - Evaluation Sepsis Screening Result: No Definite Risk - Focused Exam Vital Signs: Vital Signs Temp Resp BP Pulse Ox 05/08/20 12:04 22 H 94 L 05/08/20 10:24 23 H 108/61 95 05/08/20 09:00 21 H 92 L 05/08/20 08:00 91/64 05/08/20 07:51 36.4 C 20 92 L 05/08/20 07:00 20 116/85 94 L 05/08/20 06:00 24 H 101/65 94 L 05/08/20 05:00 18 95 05/08/20 04:00 36.6 C 20 105/54 L 93 L 05/08/20 03:00 17 115/76 95 05/08/20 02:00 22 H 126/67 98 05/08/20 01:00 18 131/66 98 - Problem List Review Problem List Initiated/Reviewed/Updated: Yes - My Orders Last 24 Hours: My Active Orders 05/07/20 19:10 RT Post Treatment Assessment [RC] Click to Edit RT Pre-Treatment Assessment [RC] Click to Edit Albuterol/Ipratropium [Combivent Respimat] 0 gm INH Q4H PRN polyethylene glycoL 3350 [MiraLAX] 17 gm PO DAILY PRN 05/07/20 19:12 Blood Glucose Check, Bedside [RC] TIDMEALS Oxygen Therapy [RC] PRN Up ad Suzette [RC] ASDIRECTED VTE/DVT Education [RC] PER UNIT ROUTINE Vital Signs [RC] Q4H Resuscitation Status Routine 05/07/20 19:13 Antiembolic Devices [RC] Q12H Sequential Compression Device [OM.PC] Per Unit Routine 05/07/20 20:00 Levofloxacin/Dextrose 5%-Water [Levaquin in D5W 750 MG/150 ML] 750 mg Premix Bag 1 bag IV Q24H 05/07/20 21:00 Docusate Sodium/Sennosides [Senna Plus] 2 tab PO BID Famotidine [Pepcid] 20 mg PO BID Heparin Sodium 5,000 units SUBCUT Q8H Sertraline [Zoloft] 150 mg PO BEDTIME risperiDONE [RisperiDAL] 3 mg PO BID 05/08/20 08:00 predniSONE 40 mg PO WITHBREAKFAST 05/08/20 09:00 bisacodyL [Dulcolax] 10 mg RECTAL DAILY 05/08/20 12:06 Transfer Patient (Change bed) [ADT] Routine 05/08/20 12:45 guaiFENesin [Mucinex] 600 mg PO DAILY 05/08/20 21:00 guaiFENesin [Mucinex] 1,200 mg PO BEDTIME 05/09/20 05:11 BASIC METABOLIC PANEL,BMP [CHEM] AM CBC WITH AUTO DIFF [HEME] AM - Plan Plan:: 80 yo male admitted for pneumonia and likely COPD exacerbation Pneumonia: continue Levaquin, cultures pending, COVID negative, continue cultures COPD: Combivent, prednisone
[2020-05-08] MEDS: guaiFENesin 600 MG Tab.ER PO SCH ×2 (13:12→21:18)
[2020-05-08] MEDS: Levofloxacin/Dextrose 5%-Water 750 MG in Premix Bag 1 BAG IV SCH (20:06)
[2020-05-08] MEDS: Sertraline 50 MG Tab PO SCH (21:16)
[2020-05-09] MEDS: Heparin Sodium 5,000 Units/ML Vial SUBCUT SCH ×3 (04:55→20:08)
[2020-05-09 06:42] LABS: BLOOD UREA NITROGEN,BUN 29 mg/dL (7.0-18.0); CARBON DIOXIDE,CO2 28.2 mmol/L (21.0-32.0); CHLORIDE,CL 107 mmol/L (98-107); GLUCOSE RANDOM 102 mg/dL (74-106); POTASSIUM,K 3.8 mmol/L (3.5-5.1); SODIUM,NA 142 mmol/L (136-148)
--- NOTE | 2020-05-09 09:16 | PCM.PN ---
- General Info Date of Service: 05/09/20 - Review of Systems Systems Review Comment:: no complaints - Patient Data Vitals - Most Recent: Last Vital Signs Temp 36.3 C 05/09/20 04:45 Pulse 77 05/09/20 04:45 Resp 20 05/09/20 04:45 BP 118/71 05/09/20 04:45 Pulse Ox 95 05/09/20 04:45 Weight - Most Recent: 77.201 kg I&O - Last 24 Hours: Intake & Output 05/08/20 05/09/20 05/09/20 22:59 06:59 14:59 Intake Total 600 540 Output Total 830 Balance 600 -290 Lab Results Last 24 Hours: Laboratory Results - last 24 hr 05/08/20 05/08/20 05/09/20 Range/Units 11:30 17:52 06:00 WBC 6.93 (4.0-11.0) K/uL RBC 4.20 L (4.50-5.90) M/uL Hgb 11.9 L (13.0-17.0) g/dL Hct 37.2 L (38.0-50.0) % MCV 88.6 (80.0-98.0) fL MCH 28.3 (27.0-32.0) pg MCHC 32.0 (31.0-37.0) g/dL RDW Std Deviation 40.7 (28.0-62.0) fl RDW Coeff of Nino 13 (11.0-15.0) % Plt Count 173 (150-400) K/uL MPV 9.10 (7.40-12.00) fL Neut % (Auto) 75.8 (48.0-80.0) % Lymph % (Auto) 14.3 L (16.0-40.0) % Green % (Auto) 9.8 (0.0-15.0) % Eos % (Auto) 0.1 (0.0-7.0) % Baso % (Auto) 0.0 (0.0-1.5) % Neut # (Auto) 5.3 (1.4-5.7) K/uL Lymph # (Auto) 1.0 (0.6-2.4) K/uL Green # (Auto) 0.7 (0.0-0.8) K/uL Eos # (Auto) 0.0 (0.0-0.7) K/uL Baso # (Auto) 0.0 (0.0-0.1) K/uL Nucleated RBC % 0.0 /100WBC Nucleated RBCs # 0 K/uL Sodium (136-148) mmol/L Potassium (3.5-5.1) mmol/L Chloride (98-107) mmol/L Carbon Dioxide (21.0-32.0) mmol/L BUN (7.0-18.0) mg/dL Creatinine (0.8-1.3) mg/dL Est Cr Clr Drug Dosing mL/min Estimated GFR (MDRD) ml/min Glucose (74-106) mg/dL POC Glucose 147 H (60-110) mg/dL Calcium (8.5-10.1) mg/dL Urine Color YELLOW Urine Appearance SLT CLOUDY Urine pH 6.0 (5.0-8.0) Ur Specific [place] >= 1.030 (1.001-1.035) Urine Protein 100 H (NEGATIVE) mg/dL Urine Glucose (UA) NEGATIVE (NEGATIVE) mg/dL Urine Ketones NEGATIVE (NEGATIVE) mg/dL Urine Occult Blood MODERATE H (NEGATIVE) Urine Nitrite NEGATIVE (NEGATIVE) Urine Bilirubin NEGATIVE (NEGATIVE) Urine Urobilinogen 0.2 (<2.0) EU/dL Ur Leukocyte Esterase SMALL H (NEGATIVE) Urine RBC 1-5 (0-2/HPF) Urine WBC 20-30 (0-5/HPF) Ur Epithelial Cells OCCASIONAL (NONE-FEW) Urine Bacteria FEW (NEGATIVE) Urine Mucus LIGHT (NONE-MOD) 05/09/20 05/09/20 Range/Units 06:00 07:28 WBC (4.0-11.0) K/uL RBC (4.50-5.90) M/uL Hgb (13.0-17.0) g/dL Hct (38.0-50.0) % MCV (80.0-98.0) fL MCH (27.0-32.0) pg MCHC (31.0-37.0) g/dL RDW Std Deviation (28.0-62.0) fl RDW Coeff of Nino (11.0-15.0) % Plt Count (150-400) K/uL MPV (7.40-12.00) fL Neut % (Auto) (48.0-80.0) % Lymph % (Auto) (16.0-40.0) % Green % (Auto) (0.0-15.0) % Eos % (Auto) (0.0-7.0) % Baso % (Auto) (0.0-1.5) % Neut # (Auto) (1.4-5.7) K/uL Lymph # (Auto) (0.6-2.4) K/uL Green # (Auto) (0.0-0.8) K/uL Eos # (Auto) (0.0-0.7) K/uL Baso # (Auto) (0.0-0.1) K/uL Nucleated RBC % /100WBC Nucleated RBCs # K/uL Sodium 142 (136-148) mmol/L Potassium 3.8 (3.5-5.1) mmol/L Chloride 107 (98-107) mmol/L Carbon Dioxide 28.2 (21.0-32.0) mmol/L BUN 29 H (7.0-18.0) mg/dL Creatinine 1.1 (0.8-1.3) mg/dL Est Cr Clr Drug Dosing 58.49 mL/min Estimated GFR (MDRD) > 60.0 ml/min Glucose 102 (74-106) mg/dL POC Glucose 92 (60-110) mg/dL Calcium 8.9 (8.5-10.1) mg/dL Urine Color Urine Appearance Urine pH (5.0-8.0) Ur Specific [place] (1.001-1.035) Urine Protein (NEGATIVE) mg/dL Urine Glucose (UA) (NEGATIVE) mg/dL Urine Ketones (NEGATIVE) mg/dL Urine Occult Blood (NEGATIVE) Urine Nitrite (NEGATIVE) Urine Bilirubin (NEGATIVE) Urine Urobilinogen (<2.0) EU/dL Ur Leukocyte Esterase (NEGATIVE) Urine RBC (0-2/HPF) Urine WBC (0-5/HPF) Ur Epithelial Cells (NONE-FEW) Urine Bacteria (NEGATIVE) Urine Mucus (NONE-MOD) Derrick Results Last 24 Hours: Microbiology 05/07/20 13:00 Aerobic Blood Culture - Preliminary Blood - Venous - Lab Draw NO GROWTH AFTER 1 DAY Anaerobic Blood Culture - Final 05/07/20 12:34 Aerobic Blood Culture - Preliminary Blood - Venous NO GROWTH AFTER 1 DAY Anaerobic Blood Culture - Preliminary NO GROWTH AFTER 1 DAY Med Orders - Current: Current Medications Albuterol/Ipratropium (Combivent Respimat) 0 gm INH Q4H PRN PRN Reason: Dyspnea Bisacodyl (Dulcolax) 10 mg RECTAL DAILY [facility] Last Admin: 05/08/20 10:56 Dose: 10 mg Documented by: Famotidine (Pepcid) 20 mg PO BID [facility] Last Admin: 05/08/20 21:18 Dose: 20 mg Documented by: Guaifenesin (Mucinex) 600 mg PO DAILY [facility] Last Admin: 05/08/20 13:12 Dose: Not Given Documented by: Guaifenesin (Mucinex) 1,200 mg PO BEDTIME [facility] Last Admin: 05/08/20 21:18 Dose: 1,200 mg Documented by: Heparin Sodium (Porcine) (Heparin Sodium) 5,000 units SUBCUT Q8H [facility] Last Admin: 05/09/20 04:55 Dose: 5,000 units Documented by: Levofloxacin/Dextrose 750 mg/ (Premix) 150 mls @ 100 mls/hr IV Q24H [facility] Last Admin: 05/08/20 20:06 Dose: 100 mls/hr Documented by: Polyethylene Glycol (Miralax) 17 gm PO DAILY PRN PRN Reason: Constipation Prednisone (Prednisone) 40 mg PO WITHBREAKFAST [facility] Last Admin: 05/08/20 09:30 Dose: 40 mg Documented by: Risperidone (Risperidal) 3 mg PO BID [facility] Last Admin: 05/08/20 21:20 Dose: 3 mg Documented by: Senna/Docusate Sodium (Senna Plus) 2 tab PO BID [facility] Last Admin: 05/08/20 21:17 Dose: 2 tab Documented by: Sertraline HCl (Zoloft) 150 mg PO BEDTIME [facility] Last Admin: 05/08/20 21:16 Dose: 150 mg Documented by: Discontinued Medications Albuterol/Ipratropium (Duoneb 3.0-0.5 Mg/3 Ml) 3 ml NEB ONETIME ONE Stop: 05/07/20 12:11 Last Admin: 05/07/20 12:22 Dose: 3 ml Documented by: Albuterol/Ipratropium (Duoneb 3.0-0.5 Mg/3 Ml) 3 ml NEB ONETIME ONE Stop: 05/07/20 12:11 Last Admin: 05/07/20 12:51 Dose: 3 ml Documented by: Albuterol/Ipratropium (Duoneb 3.0-0.5 Mg/3 Ml) 3 ml NEB ONETIME ONE Stop: 05/07/20 12:13 Last Admin: 05/07/20 13:00 Dose: 3 ml Documented by: Dexamethasone (Decadron) 6 mg IVPUSH ONETIME ONE Stop: 05/07/20 12:20 Last Admin: 05/07/20 12:51 Dose: 6 mg Documented by: Sodium Chloride (Normal Saline) 1,000 mls @ 500 mls/hr IV BOLUS ONE Stop: 05/07/20 14:08 Last Admin: 05/07/20 13:05 Dose: 500 mls/hr Documented by: Magnesium Sulfate 1 gm/ Sodium (Chloride) 52 mls @ 104 mls/hr IV ONETIME ONE Stop: 05/07/20 13:44 Last Admin: 05/07/20 13:16 Dose: 104 mls/hr Documented by: Ceftriaxone Sodium/Dextrose 1 (gm/ Premix) 50 mls @ 100 mls/hr IV ONETIME ONE Stop: 05/07/20 16:14 Last Admin: 05/07/20 16:09 Dose: 100 mls/hr Documented by: Iopamidol (Isovue Multipack-370 (76%)) 60 ml IVPUSH ONETIME STA Stop: 05/07/20 14:57 Last Admin: 05/08/20 19:14 Dose: Not Given Documented by: Iopamidol (Isovue Multipack-370 (76%)) 60 ml IVPUSH ONETIME STA Stop: 05/07/20 15:07 Last Admin: 05/08/20 19:14 Dose: Not Given Documented by: - Exam General: Cooperative, No Acute Distress Lungs: Clear to Auscultation, Normal Respiratory Effort Cardiovascular: Regular Rate, Regular Rhythm GI/Abdominal Exam: Normal Bowel Sounds, Soft, Non-Tender, No Distention Extremities: Non-Tender, No Pedal Edema Skin: Warm, Dry, Intact Neurological: No New Focal Deficit Sepsis Event Note - Evaluation Sepsis Screening Result: No Definite Risk - Focused Exam Vital Signs: Vital Signs Temp Pulse Resp BP Pulse Ox 05/09/20 04:45 36.3 C 77 20 118/71 95 05/08/20 23:49 36.2 C 85 16 104/56 L 93 L - Problem List Review Problem List Initiated/Reviewed/Updated: Yes - My Orders Last 24 Hours: My Active Orders 05/08/20 09:00 bisacodyL [Dulcolax] 10 mg RECTAL DAILY 05/08/20 12:06 Transfer Patient (Change bed) [ADT] Routine 05/08/20 12:45 guaiFENesin [Mucinex] 600 mg PO DAILY 05/08/20 21:00 guaiFENesin [Mucinex] 1,200 mg PO BEDTIME 05/09/20 08:07 CORONAVIRUS COVID-19 PCR PHL Routine 05/10/20 05:11 BASIC METABOLIC PANEL,BMP [CHEM] AM CBC WITH AUTO DIFF [HEME] AM - Plan Plan:: 80 yo male admitted for pneumonia and likely COPD exacerbation Pneumonia: continue Levaquin, blood and urine cultures pending, COVID negative, COPD: Combivent, prednisone
[2020-05-09] MEDS: Famotidine 20 MG Tab PO SCH ×2 (09:21→20:08)
[2020-05-09] MEDS: guaiFENesin 600 MG Tab.ER PO SCH ×2 (09:27→20:07)
[2020-05-09] MEDS: predniSONE 20 MG Tab PO SCH (09:27)
[2020-05-09] MEDS: Bisacodyl 10 MG Supp RECTAL SCH (09:27)
[2020-05-09] MEDS: Sertraline 50 MG Tab PO SCH (20:08)
[2020-05-09] MEDS: Levofloxacin/Dextrose 5%-Water 750 MG in Premix Bag 1 BAG IV SCH (20:09)
[2020-05-10] MEDS: Heparin Sodium 5,000 Units/ML Vial SUBCUT SCH ×3 (05:27→21:16)
[2020-05-10 06:46] LABS: BLOOD UREA NITROGEN,BUN 33 mg/dL (7.0-18.0); CARBON DIOXIDE,CO2 27.2 mmol/L (21.0-32.0); CHLORIDE,CL 107 mmol/L (98-107); GLUCOSE RANDOM 94 mg/dL (74-106); POTASSIUM,K 4.3 mmol/L (3.5-5.1); SODIUM,NA 142 mmol/L (136-148)
[2020-05-10] MEDS: guaiFENesin 600 MG Tab.ER PO SCH ×2 (08:35→21:14)
[2020-05-10] MEDS: Famotidine 20 MG Tab PO SCH ×2 (08:35→21:16)
[2020-05-10] MEDS: predniSONE 20 MG Tab PO SCH (08:35)
[2020-05-10] MEDS: Bisacodyl 10 MG Supp RECTAL SCH (08:36)
--- NOTE | 2020-05-10 14:46 | PCM.PN ---
- General Info Date of Service: 05/10/20 Subjective Update: Patients manager technical training states that the patient is doing well. She states he slept well overnight and has had a good appetite. Denies that the patient is having any pain or discomfort. - Review of Systems General: Denies: Fever, Chills Pulmonary: Denies: Shortness of Breath, Cough Cardiovascular: Denies: Chest Pain Gastrointestinal: Denies: Abdominal Pain, Decreased Appetite, Diarrhea, Nausea, Vomiting Skin: Denies: Cyanosis Neurological: Denies: Tremors - Patient Data Vitals - Most Recent: Last Vital Signs Temp 96 F L 05/10/20 12:00 Pulse 84 05/10/20 12:00 Resp 22 H 05/10/20 12:00 BP 99/56 L 05/10/20 12:00 Pulse Ox 93 L 05/10/20 12:00 Weight - Most Recent: 170 lb 3.2 oz I&O - Last 24 Hours: Intake & Output 05/09/20 05/10/20 05/10/20 22:59 06:59 14:59 Intake Total 670 660 Balance 670 660 Lab Results Last 24 Hours: Laboratory Results - last 24 hr 05/09/20 05/09/20 05/10/20 Range/Units 15:14 18:56 06:00 WBC 7.20 (4.0-11.0) K/uL RBC 4.10 L (4.50-5.90) M/uL Hgb 11.8 L (13.0-17.0) g/dL Hct 36.2 L (38.0-50.0) % MCV 88.3 (80.0-98.0) fL MCH 28.8 (27.0-32.0) pg MCHC 32.6 (31.0-37.0) g/dL RDW Std Deviation 40.8 (28.0-62.0) fl RDW Coeff of Nino 13 (11.0-15.0) % Plt Count 180 (150-400) K/uL MPV 9.30 (7.40-12.00) fL Neut % (Auto) 72.3 (48.0-80.0) % Lymph % (Auto) 15.7 L (16.0-40.0) % [place] % (Auto) 11.9 (0.0-15.0) % Eos % (Auto) 0.1 (0.0-7.0) % Baso % (Auto) 0.0 (0.0-1.5) % Neut # (Auto) 5.2 (1.4-5.7) K/uL Lymph # (Auto) 1.1 (0.6-2.4) K/uL [place] # (Auto) 0.9 H (0.0-0.8) K/uL Eos # (Auto) 0.0 (0.0-0.7) K/uL Baso # (Auto) 0.0 (0.0-0.1) K/uL Nucleated RBC % 0.0 /100WBC Nucleated RBCs # 0 K/uL Sodium (136-148) mmol/L Potassium (3.5-5.1) mmol/L Chloride (98-107) mmol/L Carbon Dioxide (21.0-32.0) mmol/L BUN (7.0-18.0) mg/dL Creatinine (0.8-1.3) mg/dL Est Cr Clr Drug Dosing mL/min Estimated GFR (MDRD) ml/min Glucose (74-106) mg/dL POC Glucose 148 H 201 H (60-110) mg/dL Calcium (8.5-10.1) mg/dL 05/10/20 05/10/20 Range/Units 06:00 11:25 WBC (4.0-11.0) K/uL RBC (4.50-5.90) M/uL Hgb (13.0-17.0) g/dL Hct (38.0-50.0) % MCV (80.0-98.0) fL MCH (27.0-32.0) pg MCHC (31.0-37.0) g/dL RDW Std Deviation (28.0-62.0) fl RDW Coeff of Nino (11.0-15.0) % Plt Count (150-400) K/uL MPV (7.40-12.00) fL Neut % (Auto) (48.0-80.0) % Lymph % (Auto) (16.0-40.0) % [place] % (Auto) (0.0-15.0) % Eos % (Auto) (0.0-7.0) % Baso % (Auto) (0.0-1.5) % Neut # (Auto) (1.4-5.7) K/uL Lymph # (Auto) (0.6-2.4) K/uL [place] # (Auto) (0.0-0.8) K/uL Eos # (Auto) (0.0-0.7) K/uL Baso # (Auto) (0.0-0.1) K/uL Nucleated RBC % /100WBC Nucleated RBCs # K/uL Sodium 142 (136-148) mmol/L Potassium 4.3 (3.5-5.1) mmol/L Chloride 107 (98-107) mmol/L Carbon Dioxide 27.2 (21.0-32.0) mmol/L BUN 33 H (7.0-18.0) mg/dL Creatinine 1.1 (0.8-1.3) mg/dL Est Cr Clr Drug Dosing 58.49 mL/min Estimated GFR (MDRD) > 60.0 ml/min Glucose 94 (74-106) mg/dL POC Glucose 109 (60-110) mg/dL Calcium 8.8 (8.5-10.1) mg/dL Derrick Results Last 24 Hours: Microbiology 05/07/20 13:00 Aerobic Blood Culture - Preliminary Blood - Venous - Lab Draw NO GROWTH AFTER 3 DAYS Anaerobic Blood Culture - Final 05/07/20 12:34 Aerobic Blood Culture - Preliminary Blood - Venous NO GROWTH AFTER 3 DAYS Anaerobic Blood Culture - Preliminary NO GROWTH AFTER 3 DAYS 05/08/20 11:30 Urine Culture - Final Urine, Clean Catch MIXED JAZZMINE 1,000-10,000 CFU/ML Med Orders - Current: Current Medications Albuterol/Ipratropium (Combivent Respimat) 0 gm INH Q4H PRN PRN Reason: Dyspnea Bisacodyl (Dulcolax) 10 mg RECTAL DAILY [facility] Last Admin: 05/10/20 08:36 Dose: 10 mg Documented by: Famotidine (Pepcid) 20 mg PO BID [facility] Last Admin: 05/10/20 08:35 Dose: 20 mg Documented by: Guaifenesin (Mucinex) 600 mg PO DAILY [facility] Last Admin: 05/10/20 08:35 Dose: 600 mg Documented by: Guaifenesin (Mucinex) 1,200 mg PO BEDTIME [facility] Last Admin: 05/09/20 20:07 Dose: 1,200 mg Documented by: Heparin Sodium (Porcine) (Heparin Sodium) 5,000 units SUBCUT Q8H [facility] Last Admin: 05/10/20 13:47 Dose: 5,000 units Documented by: Levofloxacin/Dextrose 750 mg/ (Premix) 150 mls @ 100 mls/hr IV Q24H [facility] Last Admin: 05/09/20 20:09 Dose: 100 mls/hr Documented by: Polyethylene Glycol (Miralax) 17 gm PO DAILY PRN PRN Reason: Constipation Prednisone (Prednisone) 40 mg PO WITHBREAKFAST [facility] Last Admin: 05/10/20 08:35 Dose: 40 mg Documented by: Risperidone (Risperidal) 3 mg PO BID [facility] Last Admin: 05/10/20 09:27 Dose: 3 mg Documented by: Senna/Docusate Sodium (Senna Plus) 2 tab PO BID [facility] Last Admin: 05/10/20 08:35 Dose: 2 tab Documented by: Sertraline HCl (Zoloft) 150 mg PO BEDTIME [facility] Last Admin: 05/09/20 20:08 Dose: 150 mg Documented by: Discontinued Medications Albuterol/Ipratropium (Duoneb 3.0-0.5 Mg/3 Ml) 3 ml NEB ONETIME ONE Stop: 05/07/20 12:11 Last Admin: 05/07/20 12:22 Dose: 3 ml Documented by: Albuterol/Ipratropium (Duoneb 3.0-0.5 Mg/3 Ml) 3 ml NEB ONETIME ONE Stop: 05/07/20 12:11 Last Admin: 05/07/20 12:51 Dose: 3 ml Documented by: Albuterol/Ipratropium (Duoneb 3.0-0.5 Mg/3 Ml) 3 ml NEB ONETIME ONE Stop: 05/07/20 12:13 Last Admin: 05/07/20 13:00 Dose: 3 ml Documented by: Dexamethasone (Decadron) 6 mg IVPUSH ONETIME ONE Stop: 05/07/20 12:20 Last Admin: 05/07/20 12:51 Dose: 6 mg Documented by: Sodium Chloride (Normal Saline) 1,000 mls @ 500 mls/hr IV BOLUS ONE Stop: 05/07/20 14:08 Last Admin: 05/07/20 13:05 Dose: 500 mls/hr Documented by: Magnesium Sulfate 1 gm/ Sodium (Chloride) 52 mls @ 104 mls/hr IV ONETIME ONE Stop: 05/07/20 13:44 Last Admin: 05/07/20 13:16 Dose: 104 mls/hr Documented by: Ceftriaxone Sodium/Dextrose 1 (gm/ Premix) 50 mls @ 100 mls/hr IV ONETIME ONE Stop: 05/07/20 16:14 Last Admin: 05/07/20 16:09 Dose: 100 mls/hr Documented by: Iopamidol (Isovue Multipack-370 (76%)) 60 ml IVPUSH ONETIME STA Stop: 05/07/20 14:57 Last Admin: 05/08/20 19:14 Dose: Not Given Documented by: Iopamidol (Isovue Multipack-370 (76%)) 60 ml IVPUSH ONETIME STA Stop: 05/07/20 15:07 Last Admin: 05/08/20 19:14 Dose: Not Given Documented by: - Exam General: Alert, Oriented Lungs: Clear to Auscultation, Normal Respiratory Effort Cardiovascular: Regular Rate, Regular Rhythm GI/Abdominal Exam: Normal Bowel Sounds, Soft, Non-Tender Extremities: No Pedal Edema Neurological: No: Normal Speech Sepsis Event Note - Evaluation Sepsis Screening Result: No Definite Risk - Focused Exam Vital Signs: Vital Signs Temp Pulse Resp BP Pulse Ox Pulse Ox 05/10/20 12:00 96 F L 84 22 H 99/56 L 93 L 05/10/20 11:00 93 L 05/10/20 08:00 96.9 F 76 18 108/78 96 05/10/20 05:25 97.4 F 77 18 105/46 L 95 - Problem List Review Problem List Initiated/Reviewed/Updated: Yes - Plan Plan:: Pneumonia: continue Levaquin, COVID negative, Flu negative, Blood cultures negative COPD: Combivent, prednisone
[2020-05-10] MEDS ORDERED: Acetaminophen 325 MG Tab PO PRN (19:38)
[2020-05-10] MEDS: Levofloxacin/Dextrose 5%-Water 750 MG in Premix Bag 1 BAG IV SCH (19:56)
[2020-05-10] MEDS: Sertraline 50 MG Tab PO SCH (21:14)
[2020-05-11] MEDS: Heparin Sodium 5,000 Units/ML Vial SUBCUT SCH ×2 (04:48→13:13)
[2020-05-11 06:19] LABS: BLOOD UREA NITROGEN,BUN 34 mg/dL (7.0-18.0); CARBON DIOXIDE,CO2 27.6 mmol/L (21.0-32.0); CHLORIDE,CL 106 mmol/L (98-107); GLUCOSE RANDOM 96 mg/dL (74-106); POTASSIUM,K 4.4 mmol/L (3.5-5.1); SODIUM,NA 141 mmol/L (136-148)
[2020-05-11] MEDS: Famotidine 20 MG Tab PO SCH (09:36)
[2020-05-11] MEDS: predniSONE 20 MG Tab PO SCH (09:36)
[2020-05-11] MEDS: guaiFENesin 600 MG Tab.ER PO SCH (09:37)
[2020-05-11] MEDS: Bisacodyl 10 MG Supp RECTAL SCH (09:38)
[2020-05-11 12:09] VITALS: BP 101/58; PULSE 83
--- NOTE | 2020-05-11 18:46 | PCM.DCSUM1 ---
Discharge Summary - Hospital Course Free Text/Narrative:: 80 yo male admitted for pneumonia with possibnle COPD exaceberation. Patient has a pmh of Opal's chorea. Patient was accompanied through his admission by his . Patient was admitted on 05-07 through the ED due to tachypnea, increased HR and a fever all noted by his . CT angio on admission noted right greater than left patchy opacities and no PE. Patient was briefly placed on BiPap in the ED but was weened off. During admission had oxygen saturation between 92%-96% and rarely required oxygen support. When required, it was 1L. Patient was treated with levaquin, combivent and predinisone. - Discharge Data Discharge Date: 05/11/20 Discharge Disposition: Home, Self-Care 01 Condition: Stable - Referral to Home Health Primary Care Physician: Ruslan Hope MD - Discharge Plan Prescriptions/Med Rec: levoFLOXacin [Levaquin] 750 mg PO DAILY 1 Days #1 tab predniSONE [Prednisone] 40 mg PO DAILY 1 Days #2 tablet Docusate Sodium/Sennosides [Senna Plus] 2 tab PO BID #40 tablet Home Medications: Home Meds Pseudoephedrine HCl [Long Acting Nasal Decongestant] 120 mg PO BID 01/18/15 [History] Sertraline HCl 150 mg PO BEDTIME 01/18/15 [History] guaiFENesin [Mucinex] 1,200 mg PO BEDTIME 01/18/15 [History] risperiDONE 3 mg PO BID 01/18/15 [History] guaiFENesin [Mucinex] 600 mg PO DAILY 02/06/18 [History] Famotidine [Pepcid] 20 mg PO BID 05/23/18 [History] polyethylene glycoL 3350 [MiraLAX] 17 gm PO DAILY PRN 05/23/18 [History] Docusate Sodium/Sennosides [Senna Plus] 2 tab PO BID #40 tablet 05/11/20 [Rx] levoFLOXacin [Levaquin] 750 mg PO DAILY 1 Days #1 tab 05/11/20 [Rx] predniSONE [Prednisone] 40 mg PO DAILY 1 Days #2 tablet 05/11/20 [Rx] Patient Handouts: Senna tablets or capsules, Acute Respiratory Failure, Adult, Levofloxacin tablets, Prednisone tablets, Community-Acquired Pneumonia, Adult, [id number] Referrals: Ruslan Hope MD [Primary Care Provider] - 05/24/20 2:30 pm - Discharge Summary/Plan Comment DC Time >30 min.: Yes - General Info Date of Service: 05/11/20 Subjective Update: Per patients , she states that the patient slept well overnight and has had a good appetite. She states that she has no concerns and is ready for her to be discharged today. No fever, chills, nausea, vomiting noted. Patient did not appear to be in any respiratory distress. - Review of Systems General: Denies: Fever, Chills Pulmonary: Denies: Shortness of Breath, Cough Gastrointestinal: Denies: Decreased Appetite, Nausea, Vomiting - Patient Data Vitals - Most Recent: Last Vital Signs Temp 96.0 F L 05/11/20 12:00 Pulse 83 05/11/20 12:00 Resp 20 05/11/20 12:00 BP 101/58 L 05/11/20 12:00 Pulse Ox 96 05/11/20 12:00 Weight - Most Recent: 170 lb 3.2 oz I&O - Last 24 hours: Intake & Output 05/11/20 05/11/20 05/11/20 06:59 14:59 22:59 Intake Total 750 Balance 750 Lab Results - Last 24 hrs: Laboratory Results - last 24 hr 05/11/20 05/11/20 05/11/20 Range/Units 05:53 05:53 11:21 WBC 6.20 (4.0-11.0) K/uL RBC 4.09 L (4.50-5.90) M/uL Hgb 11.5 L (13.0-17.0) g/dL Hct 36.1 L (38.0-50.0) % MCV 88.3 (80.0-98.0) fL MCH 28.1 (27.0-32.0) pg MCHC 31.9 (31.0-37.0) g/dL RDW Std Deviation 41.0 (28.0-62.0) fl RDW Coeff of Nino 13 (11.0-15.0) % Plt Count 182 (150-400) K/uL MPV 9.40 (7.40-12.00) fL Neut % (Auto) 64.5 (48.0-80.0) % Lymph % (Auto) 23.2 (16.0-40.0) % [place] % (Auto) 11.5 (0.0-15.0) % Eos % (Auto) 0.8 (0.0-7.0) % Baso % (Auto) 0.0 (0.0-1.5) % Neut # (Auto) 4.0 (1.4-5.7) K/uL Lymph # (Auto) 1.4 (0.6-2.4) K/uL [place] # (Auto) 0.7 (0.0-0.8) K/uL Eos # (Auto) 0.1 (0.0-0.7) K/uL Baso # (Auto) 0.0 (0.0-0.1) K/uL Nucleated RBC % 0.0 /100WBC Nucleated RBCs # 0 K/uL Sodium 141 (136-148) mmol/L Potassium 4.4 (3.5-5.1) mmol/L Chloride 106 (98-107) mmol/L Carbon Dioxide 27.6 (21.0-32.0) mmol/L BUN 34 H (7.0-18.0) mg/dL Creatinine 1.1 (0.8-1.3) mg/dL Est Cr Clr Drug Dosing 58.49 mL/min Estimated GFR (MDRD) > 60.0 ml/min Glucose 96 (74-106) mg/dL POC Glucose 143 H (60-110) mg/dL Calcium 8.5 (8.5-10.1) mg/dL [facility] Results - Last 24 hrs: Microbiology 05/07/20 13:00 Aerobic Blood Culture - Preliminary Blood - Venous - Lab Draw NO GROWTH AFTER 4 DAYS Anaerobic Blood Culture - Final 05/07/20 12:34 Aerobic Blood Culture - Preliminary Blood - Venous NO GROWTH AFTER 4 DAYS Anaerobic Blood Culture - Preliminary NO GROWTH AFTER 4 DAYS Med Orders - Current: Current Medications Discontinued Medications Acetaminophen (Tylenol) 650 mg PO Q6H PRN PRN Reason: Pain Last Admin: 05/10/20 21:17 Dose: 650 mg Documented by: Albuterol/Ipratropium (Duoneb 3.0-0.5 Mg/3 Ml) 3 ml NEB ONETIME ONE Stop: 05/07/20 12:11 Last Admin: 05/07/20 12:22 Dose: 3 ml Documented by: Albuterol/Ipratropium (Duoneb 3.0-0.5 Mg/3 Ml) 3 ml NEB ONETIME ONE Stop: 05/07/20 12:11 Last Admin: 05/07/20 12:51 Dose: 3 ml Documented by: Albuterol/Ipratropium (Duoneb 3.0-0.5 Mg/3 Ml) 3 ml NEB ONETIME ONE Stop: 05/07/20 12:13 Last Admin: 05/07/20 13:00 Dose: 3 ml Documented by: Albuterol/Ipratropium (Combivent Respimat) 0 gm INH Q4H PRN PRN Reason: Dyspnea Bisacodyl (Dulcolax) 10 mg RECTAL DAILY [facility] Last Admin: 05/11/20 09:38 Dose: 10 mg Documented by: Dexamethasone (Decadron) 6 mg IVPUSH ONETIME ONE Stop: 05/07/20 12:20 Last Admin: 05/07/20 12:51 Dose: 6 mg Documented by: Famotidine (Pepcid) 20 mg PO BID [facility] Last Admin: 05/11/20 09:36 Dose: 20 mg Documented by: Guaifenesin (Mucinex) 600 mg PO DAILY [facility] Last Admin: 05/11/20 09:37 Dose: 600 mg Documented by: Guaifenesin (Mucinex) 1,200 mg PO BEDTIME [facility] Last Admin: 05/10/20 21:14 Dose: 1,200 mg Documented by: Heparin Sodium (Porcine) (Heparin Sodium) 5,000 units SUBCUT Q8H [facility] Last Admin: 05/11/20 13:13 Dose: 5,000 units Documented by: Sodium Chloride (Normal Saline) 1,000 mls @ 500 mls/hr IV BOLUS ONE Stop: 05/07/20 14:08 Last Admin: 05/07/20 13:05 Dose: 500 mls/hr Documented by: Magnesium Sulfate 1 gm/ Sodium (Chloride) 52 mls @ 104 mls/hr IV ONETIME ONE Stop: 05/07/20 13:44 Last Admin: 05/07/20 13:16 Dose: 104 mls/hr Documented by: Ceftriaxone Sodium/Dextrose 1 (gm/ Premix) 50 mls @ 100 mls/hr IV ONETIME ONE Stop: 05/07/20 16:14 Last Admin: 05/07/20 16:09 Dose: 100 mls/hr Documented by: Levofloxacin/Dextrose 750 mg/ (Premix) 150 mls @ 100 mls/hr IV Q24H [facility] Last Admin: 05/10/20 19:56 Dose: 100 mls/hr Documented by: Iopamidol (Isovue Multipack-370 (76%)) 60 ml IVPUSH ONETIME STA Stop: 05/07/20 14:57 Last Admin: 05/08/20 19:14 Dose: Not Given Documented by: Iopamidol (Isovue Multipack-370 (76%)) 60 ml IVPUSH ONETIME STA Stop: 05/07/20 15:07 Last Admin: 05/08/20 19:14 Dose: Not Given Documented by: Polyethylene Glycol (Miralax) 17 gm PO DAILY PRN PRN Reason: Constipation Prednisone (Prednisone) 40 mg PO WITHBREAKFAST [facility] Last Admin: 05/11/20 09:36 Dose: 40 mg Documented by: Risperidone (Risperidal) 3 mg PO BID [facility] Last Admin: 05/11/20 09:40 Dose: 3 mg Documented by: Senna/Docusate Sodium (Senna Plus) 2 tab PO BID [facility] Last Admin: 05/11/20 14:23 Dose: Not Given Documented by: Sertraline HCl (Zoloft) 150 mg PO BEDTIME [facility] Last Admin: 05/10/20 21:14 Dose: 150 mg Documented by: - Exam General: Reports: Alert Lungs: Reports: Clear to Auscultation, Normal Respiratory Effort Cardiovascular: Reports: Regular Rate, Regular Rhythm GI/Abdominal Exam: Normal Bowel Sounds, Soft, Non-Tender Extremities: No Pedal Edema Skin: Reports: Warm, Dry Neurological: Denies: Normal Speech (H[place] chorea), Normal Tone
== END 2020-05-11 14:21 | disposition home or self-care (01) | DRG 193 ==
LOC: MW.ED 11:48 → MW.MS 16:43 → MW.ICU 18:01 → MW.MS 05-08 12:32
PROVIDERS: ADMIT Internal Medicine; ATTEND Internal Medicine
DX: J18.9 Pneumonia, unspecified organism (principal); J96.00 Acute respiratory failure, unspecified whether with hypoxia or hypercapnia; J44.0 Chronic obstructive pulmonary disease with (acute) lower respiratory infection; J44.1 Chronic obstructive pulmonary disease with (acute) exacerbation; Z20.828 Contact with and (suspected) exposure to other viral communicable diseases; Z85.828 Personal history of other malignant neoplasm of skin; Z87.01 Personal history of pneumonia (recurrent); G10 Huntington's disease; Z98.890 Other specified postprocedural states; Z88.8 Allergy status to other drugs, medicaments and biological substances; Z79.899 Other long term (current) drug therapy; Z90.49 Acquired absence of other specified parts of digestive tract
CPT/HCPCS: 36415; 71045; 71275; 80053; 82803; 83605; 84484; 85025; 85379; 87040 ×2; 87804 ×2; 94640; 94660; 96361; 96365; 96367; 96375; 99285; J0696; J1100; J3475; J7030; U0002; 80048; 81001; 82962; 87086; 99222; 99231; 99232; 99238; 99291; A9270-GY; J1644; J1956; J7620-GY

== ENCOUNTER 2020-09-24 15:00 | Emergency (ER) | payer MEDICARE, BC ==
[2020-09-24] MEDS ORDERED: Sodium Chloride 0.9% 10 ML Syringe FLUSH PRN (15:02)
[2020-09-24] MEDS ORDERED: Sodium Chloride 0.9% 2.5 ML Syringe FLUSH PRN (15:02)
--- NOTE | 2020-09-24 15:07 | EDM.PDOC ---
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 History is from . Patient is nonverbal at baseline and unable to provide history. She notes that he has been a little more tired than normal over the last couple of days and that his breathing seems to be heavier than normal. He does have a history of aspiration pneumonia in the past. She denies any known fevers. He is eating okay without vomiting. - Related Data Allergies Allergy/AdvReac Type Severity Reaction Status Date / Time olanzapine [From Zyprexa] Allergy Difficulty Verified 09/24/20 15:40 Swallowing Home Meds: Home Meds Pseudoephedrine HCl [Long Acting Nasal Decongestant] 120 mg PO BID 01/18/15 [History] Sertraline HCl 150 mg PO BEDTIME 01/18/15 [History] guaiFENesin [Mucinex] 1,200 mg PO BEDTIME 01/18/15 [History] risperiDONE 3 mg PO BID 01/18/15 [History] guaiFENesin [Mucinex] 600 mg PO DAILY 02/06/18 [History] Famotidine [Pepcid] 20 mg PO BID 05/23/18 [History] polyethylene glycoL 3350 [MiraLAX] 17 gm PO DAILY PRN 05/23/18 [History] Docusate Sodium/Sennosides [Senna Plus] 2 tab PO BID #40 tablet 05/11/20 [Rx] levoFLOXacin [Levaquin] 750 mg PO DAILY 1 Days #1 tab 05/11/20 [Rx] predniSONE [Prednisone] 40 mg PO DAILY 1 Days #2 tablet 05/11/20 [Rx] Cefpodoxime [Vantin] 200 mg PO BID 14 Days #28 tab 09/24/20 [Rx] Past Medical History Other HEENT History: 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 - Infectious Disease History Infectious Disease History: Reports: Chicken Pox, Measles, Mumps - Past Surgical History HEENT Surgical History: Reports: Adenoidectomy, Tonsillectomy GI Surgical History: Reports: Appendectomy Other Neurological Surgeries/Procedures: non-verbal Social & Family History - Family History Family Medical History: No Pertinent Family History - Caffeine Use Caffeine Use: Reports: Coffee, Soda - Living Situation & Occupation Living situation: Reports: Occupation: Retired ED ROS GENERAL - Review of Systems Review Of Systems: Unable To Obtain Reason Not Obtained: clinical condition ED EXAM, GENERAL - Physical Exam Exam: See Below Exam Limited By: Altered Mental Status General Appearance: Other (elderly male in NAD, non-verbal at baseline ) Eye Exam: Bilateral Eye: PERRL Throat/Mouth: Normal Voice, No Airway Compromise Head: Atraumatic, Normocephalic Neck: Normal Inspection Respiratory/Chest: No Respiratory Distress, Lungs Clear, Normal Breath Sounds, No Accessory Muscle Use Cardiovascular: Normal Peripheral Pulses, Regular Rate, Rhythm, No Edema GI/Abdominal: Soft, Non-Tender Extremities: Normal Inspection Neurological: Alert Skin Exam: Warm, Dry, Intact, Normal Color #1 Interpretation EKG Date: 09/24/20 Time: 15:49 Rhythm: NSR Rate (Beats/Min): 106 [place]: Normal P-Wave: Present QRS: Normal ST-T: Normal QT: Normal [place]/PQ Interval: 184 EKG Interpretation Comments: sinus tachycardia at 106; incomplete RBBB Course - Vital Signs Last Recorded V/S: Last Vital Signs Temp 97.6 F 09/24/20 17:29 Pulse 97 09/24/20 17:29 Resp 17 09/24/20 17:29 BP 128/67 09/24/20 17:29 Pulse Ox 97 09/24/20 17:29 - Orders/Labs/Meds Orders: Active Orders 24 hr Category Date Time Status Blood Glucose Check, Bedside [RC] ONETIME Care 09/24/20 15:03 Active Cardiac Monitoring [RC] . DIRECTED Care 09/24/20 15:02 Active EKG Documentation Completion [RC] STAT Care 09/24/20 15:02 Active Insert Urinary Catheter [OM.PC] Q24H Care 09/24/20 15:15 Ordered Pulse Oximetry [RC] ASDIRECTED Care 09/24/20 15:02 Active Urinary Catheter Assessment [RC] ASDIRECTED Care 09/24/20 15:08 Active Sodium Chloride 0.9% [Saline Flush] Med 09/24/20 15:02 Active 10 ml FLUSH ASDIRECTED PRN Sodium Chloride 0.9% [Saline Flush] Med 09/24/20 15:02 Active 2.5 ml FLUSH ASDIRECTED PRN cefTRIAXone [Rocephin in Dextrose,Iso-Osm 1 GM/50 ML] 1 Med 09/24/20 18:15 Active gm Premix Bag 1 bag IV ONETIME cefTRIAXone [Rocephin] 1 gm Med 09/24/20 18:09 Active Sodium Chloride 0.9% [Normal Saline] 50 ml IV ONETIME Saline Lock Insert [OM.PC] Stat Oth 09/24/20 15:02 Ordered Medication Orders Ceftriaxone Sodium 1 gm/ (Sodium Chloride) 50 mls @ 200 mls/hr IV ONETIME ONE Stop: 09/24/20 18:23 Last Admin: 09/24/20 18:15 Dose: Not Given Documented by: RED Ceftriaxone Sodium/Dextrose 1 (gm/ Premix) 50 mls @ 100 mls/hr IV ONETIME ONE Stop: 09/24/20 18:44 Sodium Chloride (Sodium Chloride 0.9% 10 Ml Syringe) 10 ml FLUSH ASDIRECTED PRN PRN Reason: Keep Vein Open Last Admin: 09/24/20 15:36 Dose: 10 ml Documented by: RED Sodium Chloride (Sodium Chloride 0.9% 2.5 Ml Syringe) 2.5 ml FLUSH ASDIRECTED PRN PRN Reason: Keep Vein Open Labs: Laboratory Tests 09/24/20 09/24/20 09/24/20 Range/Units 15:30 15:30 15:30 WBC 8.08 (4.0-11.0) K/uL RBC 4.57 (4.50-5.90) M/uL Hgb 13.3 (13.0-17.0) g/dL Hct 40.2 (38.0-50.0) % MCV 88.0 (80.0-98.0) fL MCH 29.1 (27.0-32.0) pg MCHC 33.1 (31.0-37.0) g/dL RDW Std Deviation 42.9 (28.0-62.0) fl RDW Coeff of Nino 13 (11.0-15.0) % Plt Count 168 (150-400) K/uL MPV 9.30 (7.40-12.00) fL Neut % (Auto) 75.1 (48.0-80.0) % Lymph % (Auto) 11.6 L (16.0-40.0) % Stanley % (Auto) 11.8 (0.0-15.0) % Eos % (Auto) 1.4 (0.0-7.0) % Baso % (Auto) 0.1 (0.0-1.5) % Neut # (Auto) 6.1 H (1.4-5.7) K/uL Lymph # (Auto) 0.9 (0.6-2.4) K/uL Stanley # (Auto) 1.0 H (0.0-0.8) K/uL Eos # (Auto) 0.1 (0.0-0.7) K/uL Baso # (Auto) 0.0 (0.0-0.1) K/uL Nucleated RBC % 0.0 /100WBC Nucleated RBCs # 0 K/uL INR 1.07 APTT 29.9 (18.6-31.3) SEC Lactate 1.4 (0.20-2.00) mmol/L Sodium (136-148) mmol/L Potassium (3.5-5.1) mmol/L Chloride (98-107) mmol/L Carbon Dioxide (21.0-32.0) mmol/L BUN (7.0-18.0) mg/dL Creatinine (0.8-1.3) mg/dL Est Cr Clr Drug Dosing mL/min Estimated GFR (MDRD) ml/min Glucose (74-106) mg/dL POC Glucose (60-110) mg/dL Calcium (8.5-10.1) mg/dL Magnesium (1.8-2.4) mg/dL Total Bilirubin (0.2-1.0) mg/dL AST (15-37) IU/L ALT (14-63) IU/L Alkaline Phosphatase (46-116) U/L Troponin I (0.000-0.056) ng/mL B-Natriuretic Peptide (<100) PG/ML Total Protein (6.4-8.2) g/dL Albumin (3.4-5.0) g/dL Globulin (2.6-4.0) g/dL Albumin/Globulin Ratio (0.9-1.6) Lipase (73-393) U/L Urine Color Urine Appearance Urine pH (5.0-8.0) Ur Specific [place] (1.001-1.035) Urine Protein (NEGATIVE) mg/dL Urine Glucose (UA) (NEGATIVE) mg/dL Urine Ketones (NEGATIVE) mg/dL Urine Occult Blood (NEGATIVE) Urine Nitrite (NEGATIVE) Urine Bilirubin (NEGATIVE) Urine Urobilinogen (<2.0) EU/dL Ur Leukocyte Esterase (NEGATIVE) Urine RBC (0-2/HPF) Urine WBC (0-5/HPF) Ur Epithelial Cells (NONE-FEW) Urine Bacteria (NEGATIVE) SARS-CoV-2 RNA (BIRDIE) (NEGATIVE) 09/24/20 09/24/20 09/24/20 Range/Units 15:30 15:30 15:45 WBC (4.0-11.0) K/uL RBC (4.50-5.90) M/uL Hgb (13.0-17.0) g/dL Hct (38.0-50.0) % MCV (80.0-98.0) fL MCH (27.0-32.0) pg MCHC (31.0-37.0) g/dL RDW Std Deviation (28.0-62.0) fl RDW Coeff of Nino (11.0-15.0) % Plt Count (150-400) K/uL MPV (7.40-12.00) fL Neut % (Auto) (48.0-80.0) % Lymph % (Auto) (16.0-40.0) % Stanley % (Auto) (0.0-15.0) % Eos % (Auto) (0.0-7.0) % Baso % (Auto) (0.0-1.5) % Neut # (Auto) (1.4-5.7) K/uL Lymph # (Auto) (0.6-2.4) K/uL Stanley # (Auto) (0.0-0.8) K/uL Eos # (Auto) (0.0-0.7) K/uL Baso # (Auto) (0.0-0.1) K/uL Nucleated RBC % /100WBC Nucleated RBCs # K/uL INR APTT (18.6-31.3) SEC Lactate (0.20-2.00) mmol/L Sodium 139 (136-148) mmol/L Potassium 4.3 (3.5-5.1) mmol/L Chloride 103 (98-107) mmol/L Carbon Dioxide 25.4 (21.0-32.0) mmol/L BUN 24 H (7.0-18.0) mg/dL Creatinine 1.2 (0.8-1.3) mg/dL Est Cr Clr Drug Dosing 50.40 mL/min Estimated GFR (MDRD) 58.3 ml/min Glucose 133 H (74-106) mg/dL POC Glucose (60-110) mg/dL Calcium 9.4 (8.5-10.1) mg/dL Magnesium 2.1 (1.8-2.4) mg/dL Total Bilirubin 0.8 (0.2-1.0) mg/dL AST 14 L (15-37) IU/L ALT 18 (14-63) IU/L Alkaline Phosphatase 79 (46-116) U/L Troponin I < 0.050 (0.000-0.056) ng/mL B-Natriuretic Peptide 33 (<100) PG/ML Total Protein 7.7 (6.4-8.2) g/dL Albumin 3.2 L (3.4-5.0) g/dL Globulin 4.5 H (2.6-4.0) g/dL Albumin/Globulin Ratio 0.7 L (0.9-1.6) Lipase 105 (73-393) U/L Urine Color Urine Appearance Urine pH (5.0-8.0) Ur Specific [place] (1.001-1.035) Urine Protein (NEGATIVE) mg/dL Urine Glucose (UA) (NEGATIVE) mg/dL Urine Ketones (NEGATIVE) mg/dL Urine Occult Blood (NEGATIVE) Urine Nitrite (NEGATIVE) Urine Bilirubin (NEGATIVE) Urine Urobilinogen (<2.0) EU/dL Ur Leukocyte Esterase (NEGATIVE) Urine RBC (0-2/HPF) Urine WBC (0-5/HPF) Ur Epithelial Cells (NONE-FEW) Urine Bacteria (NEGATIVE) SARS-CoV-2 RNA (BIRDIE) NEGATIVE (NEGATIVE) 09/24/20 09/24/20 Range/Units 15:52 17:52 WBC (4.0-11.0) K/uL RBC (4.50-5.90) M/uL Hgb (13.0-17.0) g/dL Hct (38.0-50.0) % MCV (80.0-98.0) fL MCH (27.0-32.0) pg MCHC (31.0-37.0) g/dL RDW Std Deviation (28.0-62.0) fl RDW Coeff of Nino (11.0-15.0) % Plt Count (150-400) K/uL MPV (7.40-12.00) fL Neut % (Auto) (48.0-80.0) % Lymph % (Auto) (16.0-40.0) % [place] % (Auto) (0.0-15.0) % Eos % (Auto) (0.0-7.0) % Baso % (Auto) (0.0-1.5) % Neut # (Auto) (1.4-5.7) K/uL Lymph # (Auto) (0.6-2.4) K/uL [place] # (Auto) (0.0-0.8) K/uL Eos # (Auto) (0.0-0.7) K/uL Baso # (Auto) (0.0-0.1) K/uL Nucleated RBC % /100WBC Nucleated RBCs # K/uL INR APTT (18.6-31.3) SEC Lactate (0.20-2.00) mmol/L Sodium (136-148) mmol/L Potassium (3.5-5.1) mmol/L Chloride (98-107) mmol/L Carbon Dioxide (21.0-32.0) mmol/L BUN (7.0-18.0) mg/dL Creatinine (0.8-1.3) mg/dL Est Cr Clr Drug Dosing mL/min Estimated GFR (MDRD) ml/min Glucose (74-106) mg/dL POC Glucose 140 H (60-110) mg/dL Calcium (8.5-10.1) mg/dL Magnesium (1.8-2.4) mg/dL Total Bilirubin (0.2-1.0) mg/dL AST (15-37) IU/L ALT (14-63) IU/L Alkaline Phosphatase (46-116) U/L Troponin I (0.000-0.056) ng/mL B-Natriuretic Peptide (<100) PG/ML Total Protein (6.4-8.2) g/dL Albumin (3.4-5.0) g/dL Globulin (2.6-4.0) g/dL Albumin/Globulin Ratio (0.9-1.6) Lipase (73-393) U/L Urine Color YELLOW Urine Appearance CLOUDY Urine pH 5.5 (5.0-8.0) Ur Specific [place] >= 1.030 (1.001-1.035) Urine Protein 100 H (NEGATIVE) mg/dL Urine Glucose (UA) NEGATIVE (NEGATIVE) mg/dL Urine Ketones NEGATIVE (NEGATIVE) mg/dL Urine Occult Blood LARGE H (NEGATIVE) Urine Nitrite POSITIVE H (NEGATIVE) Urine Bilirubin NEGATIVE (NEGATIVE) Urine Urobilinogen 0.2 (<2.0) EU/dL Ur Leukocyte Esterase LARGE H (NEGATIVE) Urine RBC 50-60 (0-2/HPF) Urine WBC 110-120 (0-5/HPF) Ur Epithelial Cells FEW (NONE-FEW) Urine Bacteria 1+ H (NEGATIVE) SARS-CoV-2 RNA (BIRDIE) (NEGATIVE) Meds: Medications Generic Name Dose Route Start Last Admin Trade Name Freq PRN Reason Stop Dose Admin Ceftriaxone Sodium 1 gm/ 50 mls @ 200 mls/hr 09/24/20 18:09 09/24/20 18:15 Sodium Chloride IV 09/24/20 18:23 Not Given ONETIME ONE Ceftriaxone Sodium/Dextrose 1 50 mls @ 100 mls/hr 09/24/20 18:15 gm/ Premix IV 09/24/20 18:44 ONETIME ONE Sodium Chloride 10 ml 09/24/20 15:02 09/24/20 15:36 Sodium Chloride 0.9% 10 Ml Syringe FLUSH 10 ml ASDIRECTED PRN Administration Keep Vein Open Sodium Chloride 2.5 ml 09/24/20 15:02 Sodium Chloride 0.9% 2.5 Ml Syringe FLUSH ASDIRECTED PRN Keep Vein Open Discontinued Medications Generic Name Dose Route Start Last Admin Trade Name Vincenzo PRN Reason Stop Dose Admin Sodium Chloride 1,000 mls @ 999 mls/hr 09/24/20 16:02 09/24/20 16:08 Normal Saline IV 09/24/20 17:02 999 mls/hr .Bolus ONE Administration - Re-Assessments/Exams Free Text/Narrative Re-Assessment/Exam: 09/24/20 17:40 Labs are grossly normal aside from dehydration. 1 L fluid bolus has been ordered. Still waiting on urine sample. 09/24/20 18:16 Patient's heart rate is normalized after IV fluid bolus. His blood labs are grossly unremarkable. Except for mild dehydration. Urine shows a large urinary tract infection. 1 dose ceftriaxone given in the emergency department. Will discharge patient with Vantin x2 weeks. Departure - Departure Time of Disposition: 18:17 Disposition: Home, Self-Care 01 Condition: Good Clinical Impression: UTI (urinary tract infection) Qualifiers: Urinary tract infection type: acute cystitis Hematuria presence: without hematuria Qualified Code(s): N30.00 - Acute cystitis without hematuria - Discharge Information Prescriptions: Cefpodoxime [Vantin] 200 mg PO BID 14 Days #28 tab Instructions: Urinary Tract Infection, Adult, [id number] Referrals: PCP,None [Primary Care Provider] - Additional Instructions: The following information is given to patients seen in the emergency department who are being discharged to home. This information is to outline your options for follow-up care. We provide all patients seen in our emergency department with a follow-up referral. The need for follow-up, as well as the timing and circumstances, are variable depending upon the specifics of your emergency department visit. If you don't have a primary care physician on staff, we will provide you with a referral. We always advise you to contact your personal physician following an emergency department visit to inform them of the circumstance of the visit and for follow-up with them and/or the need for any referrals to a consulting specialist. The emergency department will also refer you to a specialist when appropriate. This referral assures that you have the opportunity for follow-up care with a specialist. All of these measure are taken in an effort to provide you with optimal care, which includes your follow-up. Under all circumstances we always encourage you to contact your private physician who remains a resource for coordinating your care. When calling for follow-up care, please make the office aware that this follow-up is from your recent emergency room visit. If for any reason you are refused follow-up, please contact the [facility] Emergency Department at and asked to speak to the emergency department charge nurse. Please follow up with your primary care physician. If you do not have a primary care physician, see below: [facility] [address] [place] [address] [phone] My [facility] [address] [place] [id number] [facility] [address] [place] [id number] Sepsis Event Note (ED) - Focused Exam Vital Signs: Vital Signs Temp Pulse Resp BP Pulse Ox 09/24/20 17:29 97.6 F 97 17 128/67 97 09/24/20 15:00 98.6 F 106 H 16 119/73 94 L - My Orders Last 24 Hours: My Active Orders 09/24/20 15:02 Cardiac Monitoring [RC] . DIRECTED EKG Documentation Completion [RC] STAT Pulse Oximetry [RC] ASDIRECTED Sodium Chloride 0.9% [Saline Flush] 10 ml FLUSH ASDIRECTED PRN Sodium Chloride 0.9% [Saline Flush] 2.5 ml FLUSH ASDIRECTED PRN Saline Lock Insert [OM.PC] Stat 09/24/20 15:03 Blood Glucose Check, Bedside [RC] ONETIME 09/24/20 15:08 Urinary Catheter Assessment [RC] ASDIRECTED 09/24/20 15:15 Insert Urinary Catheter [OM.PC] Q24H 09/24/20 18:09 cefTRIAXone [Rocephin] 1 gm Sodium Chloride 0.9% [Normal Saline] 50 ml IV ONETIME 09/24/20 18:15 cefTRIAXone [Rocephin in Dextrose,Iso-Osm 1 GM/50 ML] 1 gm Premix Bag 1 bag IV ONETIME - Assessment/Plan Last 24 Hours: My Active Orders 09/24/20 15:02 Cardiac Monitoring [RC] . DIRECTED EKG Documentation Completion [RC] STAT Pulse Oximetry [RC] ASDIRECTED Sodium Chloride 0.9% [Saline Flush] 10 ml FLUSH ASDIRECTED PRN Sodium Chloride 0.9% [Saline Flush] 2.5 ml FLUSH ASDIRECTED PRN Saline Lock Insert [OM.PC] Stat 09/24/20 15:03 Blood Glucose Check, Bedside [RC] ONETIME 09/24/20 15:08 Urinary Catheter Assessment [RC] ASDIRECTED 09/24/20 15:15 Insert Urinary Catheter [OM.PC] Q24H 09/24/20 18:09 cefTRIAXone [Rocephin] 1 gm Sodium Chloride 0.9% [Normal Saline] 50 ml IV ONETIME 09/24/20 18:15 cefTRIAXone [Rocephin in Dextrose,Iso-Osm 1 GM/50 ML] 1 gm Premix Bag 1 bag IV ONETIME
[2020-09-24] MEDS ORDERED: Sodium Chloride 0.9% 1,000 ML IV ONE (16:02)
[2020-09-24 16:13] LABS: BLOOD UREA NITROGEN,BUN 24 mg/dL (7.0-18.0); CARBON DIOXIDE,CO2 25.4 mmol/L (21.0-32.0); CHLORIDE,CL 103 mmol/L (98-107); GLUCOSE RANDOM 133 mg/dL (74-106); LIPASE 105 U/L (73-393); POTASSIUM,K 4.3 mmol/L (3.5-5.1); SODIUM,NA 139 mmol/L (136-148)
--- NOTE | 2020-09-24 16:36 | CR ---
Indication: Fall, COVID positive Technique: Chest 1 view Comparison: August 17, 2020 Findings/Impression: Stable cardiomediastinal silhouette. Normal pulmonary vasculature. There is some stable linear scarring or atelectasis in the right lung. No new focal consolidation, effusion, or pneumothorax. There is a healed left clavicle fracture. No acute fracture identified. Dictated by Hortensia Luna MD @ Sep 24 2020 4:32PM Signed by Dr. Hortensia Luna @ Sep 24 2020 4:34PM
[2020-09-24] MEDS ORDERED: cefTRIAXone 1 GM in Sodium Chloride 0.9% 50 ML IV ONE (18:09)
[2020-09-24] MEDS ORDERED: cefTRIAXone 1 GM in Premix Bag 1 BAG IV ONE (18:15)
[2020-09-24 19:28] VITALS: BP 126/69; PULSE 93
== END 2020-09-24 19:47 | disposition home or self-care (01) ==
LOC: MW.ED 15:00
DX: N30.00 Acute cystitis without hematuria (principal); Z88.8 Allergy status to other drugs, medicaments and biological substances; Z79.899 Other long term (current) drug therapy; Z20.822 Contact with and (suspected) exposure to COVID-19
CPT/HCPCS: 36415; 71045; 80053; 81001; 82962; 83605; 83690; 83735; 83880; 84484; 85025; 85610; 85730; 93005; 96365; 99285; J0696; J7030; U0002; 93010; 99283

== ENCOUNTER 2020-09-25 10:20 | Emergency (ER) | payer MEDICARE, BC ==
[2020-09-25] MEDS ORDERED: Sodium Chloride 0.9% 1,000 ML IV ONE (10:23)
[2020-09-25] MEDS ORDERED: Sodium Chloride 0.9% 10 ML Syringe FLUSH PRN (10:23)
[2020-09-25] MEDS ORDERED: Sodium Chloride 0.9% 2.5 ML Syringe FLUSH PRN (10:23)
--- NOTE | 2020-09-25 10:25 | EDM.PDOC ---
ED HPI GENERAL MEDICAL PROBLEM - General Stated Complaint: UNKNOWN Time Seen by Provider: 09/25/20 10:22 Source of Information: Reports: EMS, Family History Limitations: Reports: Other (non-verbal (at baseline)) - History of Present Illness INITIAL COMMENTS - FREE TEXT/NARRATIVE: 80-year-old male past medical history Obion's disease, history of aspiration pneumonia, history of failure to thrive presents for rapid breathing and desaturations to low 90s on room air. Patient is nonverbal at baseline and unable to provide history. History is from EMS and . Patient was seen in the emergency department yesterday for worsening generalized weakness, heavier than normal breathing. Patient's had called their primary care physician who recommended that he be seen in the emergency department for possible pneumonia versus urinary tract infection. He extensive labs and chest x-ray which did not reveal any evidence of pneumonia, no leukocytosis, normal lactate the patient was noted to have a nitrite positive urinary tract infection. He was given a dose of ceftriaxone in the emergency department and sent home on Vantin. provides additional history. She notes that since discharge from emergency department last night patient has had decreased appetite and she has had difficulty getting him to eat anything. She was able to get him to take his nighttime medications but this morning he was unable to eat or drink anything. She notes that his breathing seems to have worsened and he has been tachypneic in the 30s with O2 sats in the low 90s at home throughout the morning. No fevers that she has noted. His heart rate has remained in the mid to high 90s. - Related Data Allergies Allergy/AdvReac Type Severity Reaction Status Date / Time olanzapine [From Zyprexa] Allergy Difficulty Verified 09/25/20 10:31 Swallowing Home Meds: Home Meds Pseudoephedrine HCl [Long Acting Nasal Decongestant] 120 mg PO BID 01/18/15 [History] Sertraline HCl 150 mg PO BEDTIME 01/18/15 [History] guaiFENesin [Mucinex] 1,200 mg PO BEDTIME 01/18/15 [History] risperiDONE 3 mg PO BID 01/18/15 [History] guaiFENesin [Mucinex] 600 mg PO DAILY 02/06/18 [History] Famotidine [Pepcid] 20 mg PO BID 05/23/18 [History] polyethylene glycoL 3350 [MiraLAX] 17 gm PO DAILY PRN 12/06/18 [History] Docusate Sodium/Sennosides [Senna Plus] 2 tab PO BID #40 tablet 05/11/20 [Rx] levoFLOXacin [Levaquin] 750 mg PO DAILY 1 Days #1 tab 05/11/20 [Rx] predniSONE [Prednisone] 40 mg PO DAILY 1 Days #2 tablet 05/11/20 [Rx] Cefpodoxime [Vantin] 200 mg PO BID 14 Days #28 tab 09/24/20 [Rx] Past Medical History Other HEENT History: 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 - Infectious Disease History Infectious Disease History: Reports: Chicken Pox, Measles, Mumps - Past Surgical History HEENT Surgical History: Reports: Adenoidectomy, Tonsillectomy GI Surgical History: Reports: Appendectomy Other Neurological Surgeries/Procedures: non-verbal Social & Family History - Family History Family Medical History: No Pertinent Family History - Caffeine Use Caffeine Use: Reports: None - Living Situation & Occupation Living situation: Reports: Occupation: Retired ED ROS GENERAL - Review of Systems Review Of Systems: Unable To Obtain (non-verbal) Reason Not Obtained: non-verbal ED EXAM, GENERAL - Physical Exam Exam: See Below Exam Limited By: Other (non-verbal) General Appearance: Alert, Other (thin, elderly male in NAD, mild tachypnea without retractions or respiratory distress) Eye Exam: Bilateral Eye: PERRL Ears: Hearing Grossly Normal Throat/Mouth: Normal Voice, No Airway Compromise Head: Atraumatic, Normocephalic Neck: Normal Inspection, Supple Respiratory/Chest: No Respiratory Distress, Lungs Clear, Normal Breath Sounds, No Accessory Muscle Use, Other (tachypnea) Cardiovascular: Normal Peripheral Pulses, Regular Rate, Rhythm, No Edema GI/Abdominal: Soft, Non-Tender Extremities: Normal Inspection Skin Exam: Warm, Dry, Intact, Normal Color #1 Interpretation EKG Date: 09/25/20 Time: 10:40 Rhythm: NSR Rate (Beats/Min): 82 [place]: Normal P-Wave: Present QRS: Normal ST-T: Normal QT: Normal ND/PQ Interval: 196 Comparison: No Change EKG Interpretation Comments: no ischemic changes, incomplete RBBB Course - Vital Signs Last Recorded V/S: Last Vital Signs Temp 97.2 F 09/25/20 11:53 Pulse 83 09/25/20 11:53 Resp 25 H 09/25/20 11:53 BP 130/67 09/25/20 11:53 Pulse Ox 98 09/25/20 11:53 - Orders/Labs/Meds Orders: Active Orders 24 hr Category Date Time Status Cardiac Monitoring [RC] . DIRECTED Care 09/25/20 10:23 Active EKG Documentation Completion [RC] STAT Care 09/25/20 10:23 Active Pulse Oximetry [RC] ASDIRECTED Care 09/25/20 10:23 Active CULTURE BLOOD [BC] Stat Lab 09/25/20 10:24 Ordered CULTURE BLOOD [BC] Stat Lab 09/25/20 10:41 Results UA W/LENA RFLX IF INDICATED [URIN] Stat Lab 09/25/20 10:45 Ordered Sodium Chloride 0.9% [Saline Flush] Med 09/25/20 10:23 Active 10 ml FLUSH ASDIRECTED PRN Sodium Chloride 0.9% [Saline Flush] Med 09/25/20 10:23 Active 2.5 ml FLUSH ASDIRECTED PRN Blood Culture x2 Reflex Set [OM.PC] Stat Oth 09/25/20 10:24 Ordered Saline Lock Insert [OM.PC] Stat Oth 09/25/20 10:23 Ordered Medication Orders Sodium Chloride (Sodium Chloride 0.9% 10 Ml Syringe) 10 ml FLUSH ASDIRECTED PRN PRN Reason: Keep Vein Open Last Admin: 09/25/20 10:35 Dose: 10 ml Documented by: REZA Sodium Chloride (Sodium Chloride 0.9% 2.5 Ml Syringe) 2.5 ml FLUSH ASDIRECTED PRN PRN Reason: Keep Vein Open Last Admin: 09/25/20 10:35 Dose: 2.5 ml Documented by: REZA Labs: Laboratory Tests 09/25/20 09/25/20 09/25/20 Range/Units 10:24 10:24 10:24 WBC 5.64 (4.0-11.0) K/uL RBC 4.48 L (4.50-5.90) M/uL Hgb 12.9 L (13.0-17.0) g/dL Hct 39.1 (38.0-50.0) % MCV 87.3 (80.0-98.0) fL MCH 28.8 (27.0-32.0) pg MCHC 33.0 (31.0-37.0) g/dL RDW Std Deviation 40.3 (28.0-62.0) fl RDW Coeff of Nino 13 (11.0-15.0) % Plt Count 140 L (150-400) K/uL MPV 8.80 (7.40-12.00) fL Neut % (Auto) 81.5 H (48.0-80.0) % Lymph % (Auto) 7.3 L (16.0-40.0) % Randall % (Auto) 10.3 (0.0-15.0) % Eos % (Auto) 0.7 (0.0-7.0) % Baso % (Auto) 0.2 (0.0-1.5) % Neut # (Auto) 4.6 (1.4-5.7) K/uL Lymph # (Auto) 0.4 L (0.6-2.4) K/uL Randall # (Auto) 0.6 (0.0-0.8) K/uL Eos # (Auto) 0.0 (0.0-0.7) K/uL Baso # (Auto) 0.0 (0.0-0.1) K/uL INR 1.07 APTT 30.8 (18.6-31.3) SEC D-Dimer, Quantitative 2.85 H (0.0-0.50) mg/L FEU ABG pH (7.35-7.45) ABG pCO2 (35-45) mmHG ABG pO2 (75-100) mmHG ABG HCO3 (22-26) mEq/L ABG Total CO2 ABG Base Excess (-2.0-2.0) Lactate 0.8 (0.20-2.00) mmol/L Sodium (136-148) mmol/L Potassium (3.5-5.1) mmol/L Chloride (98-107) mmol/L Carbon Dioxide (21.0-32.0) mmol/L BUN (7.0-18.0) mg/dL Creatinine (0.8-1.3) mg/dL Est Cr Clr Drug Dosing mL/min Estimated GFR (MDRD) ml/min Glucose (74-106) mg/dL Calcium (8.5-10.1) mg/dL Magnesium (1.8-2.4) mg/dL Total Bilirubin (0.2-1.0) mg/dL AST (15-37) IU/L ALT (14-63) IU/L Alkaline Phosphatase (46-116) U/L Troponin I (0.000-0.056) ng/mL C-Reactive Protein (0.00-0.90) mg/dL B-Natriuretic Peptide (<100) PG/ML Total Protein (6.4-8.2) g/dL Albumin (3.4-5.0) g/dL Globulin (2.6-4.0) g/dL Albumin/Globulin Ratio (0.9-1.6) 09/25/20 09/25/20 09/25/20 Range/Units 10:24 10:24 11:15 WBC (4.0-11.0) K/uL RBC (4.50-5.90) M/uL Hgb (13.0-17.0) g/dL Hct (38.0-50.0) % MCV (80.0-98.0) fL MCH (27.0-32.0) pg MCHC (31.0-37.0) g/dL RDW Std Deviation (28.0-62.0) fl RDW Coeff of Nino (11.0-15.0) % Plt Count (150-400) K/uL MPV (7.40-12.00) fL Neut % (Auto) (48.0-80.0) % Lymph % (Auto) (16.0-40.0) % Randall % (Auto) (0.0-15.0) % Eos % (Auto) (0.0-7.0) % Baso % (Auto) (0.0-1.5) % Neut # (Auto) (1.4-5.7) K/uL Lymph # (Auto) (0.6-2.4) K/uL Randall # (Auto) (0.0-0.8) K/uL Eos # (Auto) (0.0-0.7) K/uL Baso # (Auto) (0.0-0.1) K/uL INR APTT (18.6-31.3) SEC D-Dimer, Quantitative (0.0-0.50) mg/L FEU ABG pH 7.400 (7.35-7.45) ABG pCO2 41 (35-45) mmHG ABG pO2 73 L (75-100) mmHG ABG HCO3 25 (22-26) mEq/L ABG Total CO2 23.2 ABG Base Excess 0.3 (-2.0-2.0) Lactate (0.20-2.00) mmol/L Sodium 136 (136-148) mmol/L Potassium 4.3 (3.5-5.1) mmol/L Chloride 104 (98-107) mmol/L Carbon Dioxide 28.3 (21.0-32.0) mmol/L BUN 22 H (7.0-18.0) mg/dL Creatinine 1.3 (0.8-1.3) mg/dL Est Cr Clr Drug Dosing 48.40 mL/min Estimated GFR (MDRD) 53.1 ml/min Glucose 106 (74-106) mg/dL Calcium 9.2 (8.5-10.1) mg/dL Magnesium 2.1 (1.8-2.4) mg/dL Total Bilirubin 1.0 (0.2-1.0) mg/dL AST 15 (15-37) IU/L ALT 23 (14-63) IU/L Alkaline Phosphatase 91 (46-116) U/L Troponin I < 0.050 (0.000-0.056) ng/mL C-Reactive Protein 21.90 H (0.00-0.90) mg/dL B-Natriuretic Peptide 50 (<100) PG/ML Total Protein 7.5 (6.4-8.2) g/dL Albumin 3.0 L (3.4-5.0) g/dL Globulin 4.5 H (2.6-4.0) g/dL Albumin/Globulin Ratio 0.7 L (0.9-1.6) Meds: Medications Generic Name Dose Route Start Last Admin Trade Name Vincenzo PRN Reason Stop Dose Admin Sodium Chloride 10 ml 09/25/20 10:23 09/25/20 10:35 Sodium Chloride 0.9% 10 Ml Syringe FLUSH 10 ml ASDIRECTED PRN Administration Keep Vein Open Sodium Chloride 2.5 ml 09/25/20 10:23 09/25/20 10:35 Sodium Chloride 0.9% 2.5 Ml Syringe FLUSH 2.5 ml ASDIRECTED PRN Administration Keep Vein Open Discontinued Medications Generic Name Dose Route Start Last Admin Trade Name Vincenzo PRN Reason Stop Dose Admin Sodium Chloride 1,000 mls @ 999 mls/hr 09/25/20 10:23 09/25/20 10:35 Normal Saline IV 09/25/20 11:23 999 mls/hr .Bolus ONE Administration Cefepime HCl 1 gm/ Premix 50 mls @ 100 mls/hr 09/25/20 10:34 09/25/20 10:43 IV 09/25/20 11:03 100 mls/hr ONETIME ONE Administration Iopamidol 100 ml 09/25/20 11:39 09/25/20 11:40 Iopamidol 755 Mg/Ml 500 Ml Multipack Bottle IVPUSH 09/25/20 11:40 100 ml ONETIME ONE Administration - Re-Assessments/Exams Free Text/Narrative Re-Assessment/Exam: 09/25/20 10:27 We will broaden the work-up today and get a CT angiogram of the chest to rule out pulmonary embolism or a pneumonia that may have been missed on yesterday's chest x-ray. Patient is noted to have stable vital signs in the emergency department with an O2 sat of 96% on room air, normal heart rate, soft but normal blood pressures 110s over 70s. He is afebrile. Will give an IV fluid bolus while working up. Will get blood cultures. We will get an ABG to look for CO2 retention. 09/25/20 12:17 Labs grossly unremarkable, similar to yesterday. D-dimer is markedly elevated. White blood cell count is downtrending. Lactate is downtrending. CRP is elevated. ABG reveals a normal pH without CO2 retention, borderline low O2 of 73. Patient's O2 sats remained 96 to 98% on room air. A follow-up CTA chest and CT A/P and disposition. 09/25/20 13:11 CT imaging is grossly unremarkable. Will discharge patient with instructions to continue antibiotics. Departure - Departure Time of Disposition: 13:11 Disposition: Home, Self-Care 01 Condition: Good Clinical Impression: UTI (urinary tract infection) Qualifiers: Urinary tract infection type: acute cystitis Hematuria presence: without he maturia Qualified Code(s): N30.00 - Acute cystitis without hematuria - Discharge Information Instructions: Urinary Tract Infection, Adult Referrals: Rusaln Hope MD [Primary Care Provider] - Additional Instructions: The following information is given to patients seen in the emergency department who are being discharged to home. This information is to outline your options for follow-up care. We provide all patients seen in our emergency department with a follow-up referral. The need for follow-up, as well as the timing and circumstances, are variable depending upon the specifics of your emergency department visit. If you don't have a primary care physician on staff, we will provide you with a referral. We always advise you to contact your personal physician following an emergency department visit to inform them of the circumstance of the visit and for follow-up with them and/or the need for any referrals to a consulting specialist. The emergency department will also refer you to a specialist when appropriate. This referral assures that you have the opportunity for follow-up care with a specialist. All of these measure are taken in an effort to provide you with optimal care, which includes your follow-up. Under all circumstances we always encourage you to contact your private physician who remains a resource for coordinating your care. When calling for follow-up care, please make the office aware that this follow-up is from your recent emergency room visit. If for any reason you are refused follow-up, please contact the [facility] Emergency Department at and asked to speak to the emergency department charge nurse. Please follow up with your primary care physician. If you do not have a primary care physician, see below: [facility] [address] [place] [id number] [id number] [facility] [address] [place] [id number] Sepsis Event Note (ED) - Focused Exam Vital Signs: Vital Signs Temp Pulse Resp BP Pulse Ox 09/25/20 11:53 97.2 F 83 25 H 130/67 98 09/25/20 11:09 77 22 H 120/63 98 09/25/20 10:50 80 22 H 117/63 97 09/25/20 10:27 97.7 F 85 25 H 113/69 96 - My Orders Last 24 Hours: My Active Orders 09/25/20 10:23 Cardiac Monitoring [RC] . DIRECTED EKG Documentation Completion [RC] STAT Pulse Oximetry [RC] ASDIRECTED Sodium Chloride 0.9% [Saline Flush] 10 ml FLUSH ASDIRECTED PRN Sodium Chloride 0.9% [Saline Flush] 2.5 ml FLUSH ASDIRECTED PRN Saline Lock Insert [OM.PC] Stat 09/25/20 10:24 CULTURE BLOOD [BC] Stat Blood Culture x2 Reflex Set [OM.PC] Stat 09/25/20 10:41 CULTURE BLOOD [BC] Stat 09/25/20 10:45 UA W/LENA RFLX IF INDICATED [URIN] Stat - Assessment/Plan Last 24 Hours: My Active Orders 09/25/20 10:23 Cardiac Monitoring [RC] . DIRECTED EKG Documentation Completion [RC] STAT Pulse Oximetry [RC] ASDIRECTED Sodium Chloride 0.9% [Saline Flush] 10 ml FLUSH ASDIRECTED PRN Sodium Chloride 0.9% [Saline Flush] 2.5 ml FLUSH ASDIRECTED PRN Saline Lock Insert [OM.PC] Stat 09/25/20 10:24 CULTURE BLOOD [BC] Stat Blood Culture x2 Reflex Set [OM.PC] Stat 09/25/20 10:41 CULTURE BLOOD [BC] Stat 09/25/20 10:45 UA W/LENA RFLX IF INDICATED [URIN] Stat
[2020-09-25] MEDS ORDERED: Cefepime 1 GM in Premix Bag 1 BAG IV ONE (10:34)
[2020-09-25 10:55] LABS: BLOOD UREA NITROGEN,BUN 22 mg/dL (7.0-18.0); CARBON DIOXIDE,CO2 28.3 mmol/L (21.0-32.0); CHLORIDE,CL 104 mmol/L (98-107); GLUCOSE RANDOM 106 mg/dL (74-106); POTASSIUM,K 4.3 mmol/L (3.5-5.1); SODIUM,NA 136 mmol/L (136-148)
[2020-09-25] MEDS ORDERED: Iopamidol 755 MG/ML 500 ML Multipack Bottle IVPUSH ONE (11:39)
[2020-09-25 11:53] VITALS: PULSE 83
--- NOTE | 2020-09-25 12:51 | CT ---
Indication: Dyspnea. Technique: Contrast enhanced CT chest 100 mL Isovue 370 Comparison: CT chest 05/07/2020 Findings: Respiratory motion artifact limits evaluation of peripheral PE. Normal caliber thoracic aorta. No central or proximal pulmonary emboli. The heart size is normal. No pericardial effusion. No mediastinal hilar adenopathy. Left upper lobe granuloma. Subpleural ground-glass and reticular opacities may represent fibrosis. Bibasilar atelectasis and patchy consolidation right hemidiaphragm elevated. Paraseptal mild emphysema. Impression: 1. No central or proximal pulmonary emboli. Significant respiratory motion artifact. 2. Bibasilar atelectasis and patchy consolidation. Subpleural ground-glass reticular opacities may represent fibrosis. Please note that all CT scans at this facility use dose modulation, iterative reconstruction, and/or weight-based dosing when appropriate to reduce radiation dose to as low as reasonably achievable. Dictated by Wendy Sifuentes MD @ Sep 25 2020 12:41PM Signed by Dr. Wendy Sifuentes @ Sep 25 2020 12:49PM
--- NOTE | 2020-09-25 13:04 | CT ---
Indication: Evaluate for pyelonephritis Technique: Contrast enhanced CT abdomen and pelvis with 100 mL Isovue 370 Comparison: No comparison Findings: Cholelithiasis. Liver adrenal glands pancreas appears unremarkable. Infrarenal abdominal aortic aneurysm measuring 4.4 x 4.2 centimeter with mural thrombus. Small low-density lesions in the spleen unchanged. Pancreas is unremarkable. Large amount of stool in the colon. Large amount of stool in the rectum. Diverticulosis. No obstruction. Atrophic appearance of the right kidney. left kidneys unremarkable. There is moderate hydronephrosis and hydroureter of the right kidney with urothelial thickening. 5 millimeter linear stone in the right renal pelvis, nonobstructing. No obstructing calculi seen the. Right urinary bladder unremarkable. Prostate gland is enlarged. No suspicious bony lesions. Impression: 1. Atrophic appearance of the right kidney. Moderate hydronephrosis and hydroureter with urothelial thickening. 5 millimeter linear stone in the right renal pelvis, nonobstructing. No obstructing calculi seen. Findings could be on basis of/UTI. 2. Aneurysmal dilatation of the infrarenal abdominal aorta measuring 4.4 x 4.2 cm. Please note that all CT scans at this facility use dose modulation, iterative reconstruction, and/or weight-based dosing when appropriate to reduce radiation dose to as low as reasonably achievable. Dictated by Wendy Sifuentes MD @ Sep 25 2020 12:49PM (Electronically Signed)
[2020-09-25 14:07] VITALS: BP 109/68
== END 2020-09-25 13:34 | disposition home or self-care (01) ==
LOC: MW.ED 10:20
DX: N30.00 Acute cystitis without hematuria (principal); Z88.8 Allergy status to other drugs, medicaments and biological substances; Z79.899 Other long term (current) drug therapy
CPT/HCPCS: 36415; 36600; 71275; 74177; 80053; 82803; 83605; 83735; 83880; 84484; 85025; 85379; 85610; 85730; 86140; 87040; 93005; 96365; 99285; J0692; J7030; Q9967; 93010; 99283

== ENCOUNTER 2020-12-18 11:26 | Emergency (ER) | payer MEDICARE, BC ==
[2020-12-18] MEDS ORDERED: Sodium Chloride 0.9% 1,000 ML IV ONE (11:44)
[2020-12-18] MEDS ORDERED: Sodium Chloride 0.9% 10 ML Syringe FLUSH PRN (11:44)
[2020-12-18] MEDS ORDERED: Sodium Chloride 0.9% 2.5 ML Syringe FLUSH PRN (11:44)
--- NOTE | 2020-12-18 12:22 | CR ---
Indication: Tachycardia Technique: Chest 1 view Comparison: September 24, 2020 Findings/Impression: Stable cardiomediastinal silhouette. New, patchy opacities in the mid to lower lung monson bilaterally concerning for infection or atelectasis. No significant effusion. No pneumothorax. Healed left clavicle fracture. Dictated by Hortensia Luna MD @ 12/18/2020 12:22:[address] Hortensia Luna @ Dec 18 2020 12:22PM
[2020-12-18 12:23] LABS: BLOOD UREA NITROGEN,BUN 25 mg/dL (7.0-18.0); CARBON DIOXIDE,CO2 28.9 mmol/L (21.0-32.0); CHLORIDE,CL 103 mmol/L (98-107); GLUCOSE RANDOM 104 mg/dL (74-106); LIPASE 81 U/L (73-393); POTASSIUM,K 4.3 mmol/L (3.5-5.1); SODIUM,NA 142 mmol/L (136-148)
[2020-12-18] MEDS ORDERED: cefTRIAXone 1 GM in Premix Bag 1 BAG IV ONE (12:59)
--- NOTE | 2020-12-18 14:10 | EDM.PDOC ---
ED HPI GENERAL MEDICAL PROBLEM - General Chief Complaint: General Stated Complaint: EMS Time Seen by Provider: 12/18/20 11:43 - History of Present Illness INITIAL COMMENTS - FREE TEXT/NARRATIVE: HISTORY AND PHYSICAL: History of present illness: This is an 80-year-old gentleman with a history significant for Opal's chorea who presents to the ER today secondary to decreased p.o. intake, increased weakness and sleepiness and concern for dehydration because of his decreased p.o. intake by his . Patient denies any recent fevers, shakes, chills, vomiting, diarrhea. reports he has had no complaints of any chest pain or abdominal pain. reports that he normally eats extremely well however over the last 1 to 2 days he has had decreased p.o. intake and has not been drinking from a straw very well. reports that he had a history significant for pneumonia in the past but he is currently not having any cough. She reports that his respiratory rate did increase to approximately 32 breath/min earlier this morning but she does report that currently his breathing is back to baseline. She reports that last time he was here he was diagnosed with a urinary tract infection and was having similar symptoms. Review of systems: As per history of present illness and below otherwise all systems reviewed and negative. Past medical history: As per history of present illness and as reviewed below otherwise noncontributory. Surgical history: As per history of present illness and as reviewed below otherwise noncontributory. Social history: No reported history of drug abuse. Family history: As per history of present illness and as reviewed below otherwise noncontributory. Physical exam: This patient was seen and evaluated during the 2019 SARS-CoV-2 novel coronavirus pandemic period. Community viral transmission is ongoing at time of this encounter and the emergency department is operating under pandemic response procedures. Constitutional: Patient is oriented to person, place, and time. Appears well- developed and well-nourished. No distress. HEENT: Moist mucous membranes Head: Normocephalic and atraumatic Eyes: Right eye exhibits no discharge. Left eye exhibits no discharge. No scleral icterus Neck: Normal range of motion. No tracheal deviation present. Cardiovascular: Normal rate and regular rhythm. Pulmonary: Effort normal, no respiratory distress. Abdominal: No distention Musculoskeletal: Normal range of motion Neurologic: Alert and oriented to person, place and time. Patient is able to nod yes and no to questions. Skin: [place], warm and dry. Psychiatric: Normal mood and affect. Nursing note and vital signs have been reviewed Diagnostics: Chest Xray: Normal cardiac silhouette No infiltrates or effusions identified. No PTX No evidence of acute bony fracture. As interpreted by ER MD: Joel X-ray consistent with likely atelectasis. EKG: As interpreted by ER physician: Joel: Nonspecific ST-T wave abnormalities Normal axis No evidence of ST elevation MD Normal sinus rhythm heart rate of 84 Therapeutics: NSS x1 L, Zofran 4 mg IV, Rocephin 1 g IV Assessment and plan: This is an 80-year-old gentleman with history significant for Opal's who presents ER today secondary to generalized weakness, decreased p.o. intake, and dehydration. Patient's labs in the ED have been unremarkable except for signs of urinary tract infection on his UA. Patient's vital signs are all normal. Patient is afebrile here in ED and does not appear to be toxic. Patient has received a liter of NSS and Zofran in the ER and was given a dose of IV Rocephin to initiate therapy for urinary tract infection. At this time, the patient is nontoxic-appearing and does not appear to meet criteria for inpatient observation level of care at this time. I feel that the patient is stable for outpatient treatment of his urinary tract infection with close follow-up with his . Return precautions have been discussed with her. She understands return to the ER if he has any difficulty keeping down with antibiotics, vomiting, fevers or any other symptoms or concerns. Reassessment at the time of disposition demonstrates that the patient is in no acute distress. The patient has remained stable throughout the entire ED visit and is without objective evidence for acute process requiring urgent intervention or hospitalization. The patient is stable for discharge, counseling is provided as documented above, discussed symptomatic treatment and specific conditions for return. I have spoken with the patient/caregiver and discussed todays findings, in addition to providing specific details for the plan of care. Questions are answered and there is agreement with the plan. Definitive disposition and diagnosis as appropriate pending reevaluation and review of above. - Related Data Allergies Allergy/AdvReac Type Severity Reaction Status Date / Time olanzapine [From Zyprexa] Allergy Difficulty Verified 12/18/20 11:36 Swallowing Home Meds: Home Meds Pseudoephedrine HCl [Long Acting Nasal Decongestant] 120 mg PO BID 01/18/15 [History] Sertraline HCl 150 mg PO BEDTIME 01/18/15 [History] guaiFENesin [Mucinex] 1,200 mg PO BEDTIME 01/18/15 [History] risperiDONE 3 mg PO BID 01/18/15 [History] guaiFENesin [Mucinex] 600 mg PO DAILY 02/06/18 [History] Famotidine [Pepcid] 20 mg PO BID 05/23/18 [History] polyethylene glycoL 3350 [MiraLAX] 17 gm PO DAILY PRN 05/23/18 [History] Docusate Sodium/Sennosides [Senna Plus] 2 tab PO BID #40 tablet 05/11/20 [Rx] levoFLOXacin [Levaquin] 750 mg PO DAILY 1 Days #1 tab 05/11/20 [Rx] predniSONE [Prednisone] 40 mg PO DAILY 1 Days #2 tablet 05/11/20 [Rx] Cefpodoxime [Vantin] 200 mg PO BID 14 Days #28 tab 09/24/20 [Rx] Cefdinir 300 mg PO Q12HR #20 capsule 12/18/20 [Rx] Ondansetron [Zofran ODT] 4 mg PO Q6H PRN #12 tab.dis 12/18/20 [Rx] Past Medical History Other HEENT History: 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 - Infectious Disease History Infectious Disease History: Reports: Chicken Pox, Measles, Mumps - Past Surgical History HEENT Surgical History: Reports: Adenoidectomy, Tonsillectomy GI Surgical History: Reports: Appendectomy Other Neurological Surgeries/Procedures: non-verbal Social & Family History - Family History Family Medical History: No Pertinent Family History - Caffeine Use Caffeine Use: Reports: None - Living Situation & Occupation Living situation: Reports: Occupation: Retired ED ROS GENERAL - Review of Systems Review Of Systems: See Below ED EXAM, GENERAL - Physical Exam Exam: See Below Course - Vital Signs Last Recorded V/S: Last Vital Signs Temp 97.4 F 12/18/20 11:34 Pulse 88 12/18/20 13:14 Resp 18 12/18/20 13:14 BP 122/64 12/18/20 13:14 Pulse Ox 96 12/18/20 13:14 - Orders/Labs/Meds Orders: Active Orders 24 hr Category Date Time Status EKG Documentation Completion [RC] AM Care 12/18/20 11:44 Active Sodium Chloride 0.9% [Saline Flush] Med 12/18/20 11:44 Active 10 ml FLUSH ASDIRECTED PRN Sodium Chloride 0.9% [Saline Flush] Med 12/18/20 11:44 Active 2.5 ml FLUSH ASDIRECTED PRN Saline Lock Insert [OM.PC] Stat Oth 12/18/20 11:44 Ordered Medication Orders Sodium Chloride (Sodium Chloride 0.9% 10 Ml Syringe) 10 ml FLUSH ASDIRECTED PRN PRN Reason: Keep Vein Open Last Admin: 12/18/20 12:14 Dose: 10 ml Documented by: [id number] Sodium Chloride (Sodium Chloride 0.9% 2.5 Ml Syringe) 2.5 ml FLUSH ASDIRECTED PRN PRN Reason: Keep Vein Open Last Admin: 12/18/20 12:14 Dose: 2.5 ml Documented by: [id number] Labs: Laboratory Tests 12/18/20 12/18/20 12/18/20 Range/Units 11:52 11:52 12:13 WBC 10.67 (4.0-11.0) K/uL RBC 4.60 (4.50-5.90) M/uL Hgb 13.3 (13.0-17.0) g/dL Hct 39.6 (38.0-50.0) % MCV 86.1 (80.0-98.0) fL MCH 28.9 (27.0-32.0) pg MCHC 33.6 (31.0-37.0) g/dL RDW Std Deviation 42.2 (28.0-62.0) fl RDW Coeff of Nino 13 (11.0-15.0) % Plt Count 181 (150-400) K/uL MPV 9.10 (7.40-12.00) fL Neut % (Auto) 82.2 H (48.0-80.0) % Lymph % (Auto) 6.9 L (16.0-40.0) % [place] % (Auto) 8.9 (0.0-15.0) % Eos % (Auto) 1.9 (0.0-7.0) % Baso % (Auto) 0.1 (0.0-1.5) % Neut # (Auto) 8.8 H (1.4-5.7) K/uL Lymph # (Auto) 0.7 (0.6-2.4) K/uL [place] # (Auto) 1.0 H (0.0-0.8) K/uL Eos # (Auto) 0.2 (0.0-0.7) K/uL Baso # (Auto) 0.0 (0.0-0.1) K/uL Nucleated RBC % 0.0 /100WBC Nucleated RBCs # 0 K/uL Sodium 142 (136-148) mmol/L Potassium 4.3 (3.5-5.1) mmol/L Chloride 103 (98-107) mmol/L Carbon Dioxide 28.9 (21.0-32.0) mmol/L BUN 25 H (7.0-18.0) mg/dL Creatinine 1.1 (0.8-1.3) mg/dL Est Cr Clr Drug Dosing TNP Estimated GFR (MDRD) > 60.0 ml/min Glucose 104 (74-106) mg/dL Calcium 9.1 (8.5-10.1) mg/dL Total Bilirubin 0.6 (0.2-1.0) mg/dL AST 10 L (15-37) IU/L ALT 16 (14-63) IU/L Alkaline Phosphatase 84 (46-116) U/L Troponin I < 0.050 (0.000-0.056) ng/mL Total Protein 7.3 (6.4-8.2) g/dL Albumin 3.2 L (3.4-5.0) g/dL Globulin 4.1 H (2.6-4.0) g/dL Albumin/Globulin Ratio 0.8 L (0.9-1.6) Lipase 81 (73-393) U/L Urine Color YELLOW Urine Appearance SLT CLOUDY Urine pH 5.5 (5.0-8.0) Ur Specific [place] 1.025 (1.001-1.035) Urine Protein NEGATIVE (NEGATIVE) mg/dL Urine Glucose (UA) NEGATIVE (NEGATIVE) mg/dL Urine Ketones NEGATIVE (NEGATIVE) mg/dL Urine Occult Blood SMALL H (NEGATIVE) Urine Nitrite POSITIVE H (NEGATIVE) Urine Bilirubin NEGATIVE (NEGATIVE) Urine Urobilinogen 0.2 (<2.0) EU/dL Ur Leukocyte Esterase LARGE H (NEGATIVE) Urine RBC 0-2 (0-2/HPF) Urine WBC 30-40 (0-5/HPF) Ur Epithelial Cells RARE (NONE-FEW) Urine Bacteria 3+ H (NEGATIVE) Meds: Medications Generic Name Dose Route Start Last Admin Trade Name Freq PRN Reason Stop Dose Admin Sodium Chloride 10 ml 12/18/20 11:44 12/18/20 12:14 Sodium Chloride 0.9% 10 Ml Syringe FLUSH 10 ml ASDIRECTED PRN Administration Keep Vein Open Sodium Chloride 2.5 ml 12/18/20 11:44 12/18/20 12:14 Sodium Chloride 0.9% 2.5 Ml Syringe FLUSH 2.5 ml ASDIRECTED PRN Administration Keep Vein Open Discontinued Medications Generic Name Dose Route Start Last Admin Trade Name Freq PRN Reason Stop Dose Admin Sodium Chloride 1,000 mls @ 999 mls/hr 12/18/20 11:44 12/18/20 12:05 Normal Saline IV 12/18/20 12:44 999 mls/hr .Bolus ONE Administration Ceftriaxone Sodium/Dextrose 1 50 mls @ 100 mls/hr 12/18/20 12:59 12/18/20 13:11 gm/ Premix IV 12/18/20 13:28 100 mls/hr ONETIME ONE Administration Departure - Departure Time of Disposition: 14:08 Disposition: Home, Self-Care 01 Condition: Good Clinical Impression: UTI, Urinary tract infectious disease - Discharge Information Instructions: Urinary Tract Infection, Adult Referrals: Ruslan Hope MD [Primary Care Provider] - Additional Instructions: You were seen and evaluated in the ER today secondary to decreased fluid intake, dehydration, and increased somnolence. Your work-up in the emergency department revealed that you have a urinary tract infection. He has been given a dose of IV antibiotics here in the ER and you will be discharged home with a prescription for Omnicef to take twice a day for 10 days. You will also be given a prescription for Zofran 4 mg ODT to take every 6 hours as needed to help with nausea to assist with increasing fluid intake. Please make an appointment to see his doctor next week for reevaluation. Return to the ER sooner if he develops any new or concerning symptoms such as fever, vomiting, abdominal pain, inability to take his antibiotics. The following information is given to patients seen in the emergency department who are being discharged to home. This information is to outline your options for follow-up care. We provide all patients seen in our emergency department with a follow-up referral. The need for follow-up, as well as the timing and circumstances, are variable depending upon the specifics of your emergency department visit. If you don't have a primary care physician on staff, we will provide you with a referral. We always advise you to contact your personal physician following an emergency department visit to inform them of the circumstance of the visit and for follow-up with them and/or the need for any referrals to a consulting specialist. The emergency department will also refer you to a specialist when appropriate. This referral assures that you have the opportunity for follow-up care with a specialist. All of these measure are taken in an effort to provide you with optimal care, which includes your follow-up. Under all circumstances we always encourage you to contact your private physician who remains a resource for coordinating your care. When calling for follow-up care, please make the office aware that this follow-up is from your recent emergency room visit. If for any reason you are refused follow-up, please contact the [facility] Emergency Department at and asked to speak to the emergency department charge nurse. [facility] [address] [place] [id number] [address] Sepsis Event Note (ED) - Evaluation Sepsis Screening Result: No Definite Risk - Focused Exam Vital Signs: Vital Signs Temp Pulse Resp BP Pulse Ox 12/18/20 13:14 88 18 122/64 96 12/18/20 11:34 97.4 F 95 18 109/71 94 L - My Orders Last 24 Hours: My Active Orders 12/18/20 11:44 EKG Documentation Completion [RC] AM Sodium Chloride 0.9% [Saline Flush] 10 ml FLUSH ASDIRECTED PRN Sodium Chloride 0.9% [Saline Flush] 2.5 ml FLUSH ASDIRECTED PRN Saline Lock Insert [OM.PC] Stat - Assessment/Plan Last 24 Hours: My Active Orders 12/18/20 11:44 EKG Documentation Completion [RC] AM Sodium Chloride 0.9% [Saline Flush] 10 ml FLUSH ASDIRECTED PRN Sodium Chloride 0.9% [Saline Flush] 2.5 ml FLUSH ASDIRECTED PRN Saline Lock Insert [OM.PC] Stat
[2020-12-18 14:52] VITALS: BP 100/64; PULSE 91
== END 2020-12-18 15:08 | disposition home or self-care (01) ==
LOC: MW.ED 11:26
DX: N39.0 Urinary tract infection, site not specified (principal); Z88.8 Allergy status to other drugs, medicaments and biological substances
CPT/HCPCS: 71045; 80053; 81001; 83690; 84484; 85025; 96365; 99285; J0696; J7030

== ENCOUNTER 2021-01-10 12:06 | Emergency (ER) | payer MEDICARE, BC ==
--- NOTE | 2021-01-10 12:16 | EDM.PDOC ---
ED HPI GENERAL MEDICAL PROBLEM - General Time Seen by Provider: 01/10/21 12:11 - History of Present Illness INITIAL COMMENTS - FREE TEXT/NARRATIVE: 80-year-old male with a history most notable for [place]'s chorea presenting with right knee contusion following a fall. was using a lift to get him ready for his regular physical therapy appointment and his left leg slipped off the step and he ended up twisting and falling and striking his right knee. He did not fall out of the lift he did not strike his head. His communication is severely limited by his Opal's and so his provides the majority of the history. Patient has otherwise been at his baseline. - Related Data Allergies Allergy/AdvReac Type Severity Reaction Status Date / Time olanzapine [From Zyprexa] Allergy Difficulty Verified 01/10/21 12:13 Swallowing Home Meds: Home Meds Pseudoephedrine HCl [Long Acting Nasal Decongestant] 120 mg PO BID 01/18/15 [History] Sertraline HCl 150 mg PO BEDTIME 01/18/15 [History] guaiFENesin [Mucinex] 1,200 mg PO BEDTIME 01/18/15 [History] risperiDONE 3 mg PO BID 01/18/15 [History] guaiFENesin [Mucinex] 600 mg PO DAILY 02/06/18 [History] Famotidine [Pepcid] 20 mg PO BID 05/23/18 [History] polyethylene glycoL 3350 [MiraLAX] 17 gm PO DAILY PRN 05/23/18 [History] Docusate Sodium/Sennosides [Senna Plus] 2 tab PO BID #40 tablet 05/11/20 [Rx] levoFLOXacin [Levaquin] 750 mg PO DAILY 1 Days #1 tab 05/11/20 [Rx] predniSONE [Prednisone] 40 mg PO DAILY 1 Days #2 tablet 05/11/20 [Rx] Cefpodoxime [Vantin] 200 mg PO BID 14 Days #28 tab 09/24/20 [Rx] Cefdinir 300 mg PO Q12HR #20 capsule 12/18/20 [Rx] Ondansetron [Zofran ODT] 4 mg PO Q6H PRN #12 tab.dis 12/18/20 [Rx] Past Medical History Other HEENT History: 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 - Infectious Disease History Infectious Disease History: Reports: Chicken Pox, Measles, Mumps - Past Surgical History HEENT Surgical History: Reports: Adenoidectomy, Tonsillectomy GI Surgical History: Reports: Appendectomy Other Neurological Surgeries/Procedures: non-verbal Social & Family History - Family History Family Medical History: No Pertinent Family History - Caffeine Use Caffeine Use: Reports: None - Living Situation & Occupation Living situation: Reports: Occupation: Retired ED ROS GENERAL - Review of Systems Review Of Systems: See Below Free Text/Narrative/Comment: General: No fever. Musculoskeletal: Per HPI Neurologic: No headache. ED EXAM, GENERAL - Physical Exam Exam: See Below Free Text/Narrative:: General Appearance: No acute distress, appears comfortable HEENT: Normocephalic/atraumatic, sclera anicteric, mucous membranes moist Neck: Normal range of motion Chest and Lungs: Bilateral breath sounds, clear to auscultation Cardiovascular: Regular rate and rhythm, no murmur Abdomen: Soft, non-tender Musculoskeletal: 2+ right DP pulse, no clinical joint effusion in the right knee, focal mild swelling and ecchymosis over the tibial tuberosity all 4 ligaments intact, extensor mechanism appears intact. In the right knee range of motion of the right knee is fluid full and does not appear to be painful. Neurologic: Awake and alert baseline profound speech deficit and generalized weakness Course - Vital Signs Last Recorded V/S: Last Vital Signs Temp 96.1 F L 01/10/21 12:15 Pulse 81 01/10/21 12:15 Resp 17 01/10/21 12:15 BP 114/75 01/10/21 12:15 Pulse Ox 97 01/10/21 12:15 Departure - Departure Time of Disposition: 13:20 Disposition: Home, Self-Care 01 Condition: Good Clinical Impression: Contusion of right knee - Discharge Information *PRESCRIPTION DRUG MONITORING PROGRAM REVIEWED*: Not Applicable *COPY OF PRESCRIPTION DRUG MONITORING REPORT IN PATIENT JOSE: Not Applicable Instructions: Contusion Additional Instructions: For the next 2 days you can intermittently ice the area. Make sure there is something like a towel between the ice and the skin apply the ice for 20 minutes and then have a period without ice for least 1 hour. This contusion should heal well over the next several days. He may have some minor discomfort in that knee but his exam does not suggest any disruption of any structural components and his x-ray shows no broken bones. You can use Tylenol or ibuprofen for the pain. He should not need anything stronger than this. And his symptoms should improve over the next several days. The following information is given to patients seen in the emergency department who are being discharged to home. This information is to outline your options for follow-up care. We provide all patients seen in our emergency department with a follow-up referral. The need for follow-up, as well as the timing and circumstances, are variable depending upon the specifics of your emergency department visit. If you don't have a primary care physician on staff, we will provide you with a referral. We always advise you to contact your personal physician following an emergency department visit to inform them of the circumstance of the visit and for follow-up with them and/or the need for any referrals to a consulting specialist. The emergency department will also refer you to a specialist when appropriate. This referral assures that you have the opportunity for follow-up care with a specialist. All of these measure are taken in an effort to provide you with optimal care, which includes your follow-up. Under all circumstances we always encourage you to contact your private physician who remains a resource for coordinating your care. When calling for follow-up care, please make the office aware that this follow-up is from your recent emergency room visit. If for any reason you are refused follow-up, please contact the [facility] Emergency Department at and asked to speak to the emergency department charge nurse. Sepsis Event Note (ED) - Focused Exam Vital Signs: Vital Signs Temp Pulse Resp BP Pulse Ox 01/10/21 12:15 96.1 F L 81 17 114/75 97 - Assessment/Plan Assessment:: 80-year-old male status post low velocity fall as described. Primary survey intact secondary survey is atraumatic with the exception of the right knee. I would favor superficial contusion and soft tissue injury. However given the limitation in his ability to communicate x-ray pending to exclude focal fracture. 1320: X-rays without fracture which is consistent with his exam. Anticipatory guidance provided patient discharged.
--- NOTE | 2021-01-10 13:12 | CR ---
Indication: Fall with tip with tibial tuberosity pain and swelling Technique: Three views right knee Comparison: None Findings: Bones: Alignment is normal. No fractures or bone lesions. Joint spaces: Unremarkable. Soft tissues: Unremarkable. Impression: Negative. Dictated by Hortensia Luna MD @ 01/10/2021 1:10:[address] Hortensia Luna @ Jan 10 2021 1:10PM
[2021-01-10 14:58] VITALS: BP 123/76; PULSE 82
== END 2021-01-10 14:56 | disposition home or self-care (01) ==
LOC: MW.ED 12:06
DX: S80.01XA Contusion of right knee, initial encounter (principal); Z79.899 Other long term (current) drug therapy; Z88.8 Allergy status to other drugs, medicaments and biological substances; W18.30XA Fall on same level, unspecified, initial encounter
CPT/HCPCS: 73562-26-RT; 73562-RT; 99283-25

== ENCOUNTER 2021-03-04 08:49 | Emergency (ER) | payer MEDICARE, BC ==
[2021-03-04] MEDS ORDERED: Sodium Chloride 0.9% 2.5 ML Syringe FLUSH PRN (08:54)
[2021-03-04] MEDS ORDERED: Sodium Chloride 0.9% 10 ML Syringe FLUSH PRN (08:54)
--- NOTE | 2021-03-04 08:58 | EDM.PDOC ---
ED HPI GENERAL MEDICAL PROBLEM - General Stated Complaint: elevated RR Time Seen by Provider: 03/04/21 08:54 - History of Present Illness INITIAL COMMENTS - FREE TEXT/NARRATIVE: 80-year-old male well-known to this emergency department with a history of [place]'s presenting with elevated respiratory rate last night. Further history limited at this time as his is not yet arrived. He is able to answer very basic questions by either blinking or not blinking. He denies any pain. Further history limited at this time. Patient is now at bedside. She noted that 09: He did not morning as much for dinner last night. Throughout the night she noted a respiratory rate in the low to mid 30s. He did not seem to be struggling to breathe. He has had no cough or fever or any other specific complaints. In the past when similar symptoms of developed he had a urinary tract infection. Patient is fully vaccinated against Covid as of July. He goes to his regular therapy appointments but has had no known Covid exposures. - Related Data Allergies Allergy/AdvReac Type Severity Reaction Status Date / Time olanzapine [From Zyprexa] Allergy Difficulty Verified 03/04/21 09:19 Swallowing Home Meds: Home Meds Pseudoephedrine HCl [Long Acting Nasal Decongestant] 120 mg PO BID 01/18/15 [History] Sertraline HCl 150 mg PO BEDTIME 01/18/15 [History] guaiFENesin [Mucinex] 1,200 mg PO BEDTIME 01/18/15 [History] risperiDONE 3 mg PO BID 01/18/15 [History] guaiFENesin [Mucinex] 600 mg PO DAILY 02/06/18 [History] Famotidine [Pepcid] 20 mg PO BID 05/23/18 [History] polyethylene glycoL 3350 [MiraLAX] 17 gm PO DAILY PRN 05/23/18 [History] Docusate Sodium/Sennosides [Senna Plus] 2 tab PO BID #40 tablet 05/11/20 [Rx] levoFLOXacin [Levaquin] 750 mg PO DAILY 1 Days #1 tab 05/11/20 [Rx] predniSONE [Prednisone] 40 mg PO DAILY 1 Days #2 tablet 05/11/20 [Rx] Cefpodoxime [Vantin] 200 mg PO BID 14 Days #28 tab 04/09/21 [Rx] Cefdinir 300 mg PO Q12HR #20 capsule 12/18/20 [Rx] Ondansetron [Zofran ODT] 4 mg PO Q6H PRN #12 tab.dis 12/18/20 [Rx] cephALEXin [Keflex] 500 mg PO QID 7 Days #28 cap 03/04/21 [Rx] Past Medical History Other HEENT History: 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 - Infectious Disease History Infectious Disease History: Reports: Chicken Pox, Measles, Mumps - Past Surgical History HEENT Surgical History: Reports: Adenoidectomy, Tonsillectomy GI Surgical History: Reports: Appendectomy Other Neurological Surgeries/Procedures: non-verbal Social & Family History - Family History Family Medical History: No Pertinent Family History - Caffeine Use Caffeine Use: Reports: None - Living Situation & Occupation Living situation: Reports: Occupation: Retired ED ROS GENERAL - Review of Systems Review Of Systems: See Below Free Text/Narrative/Comment: General: No fever. Skin: No rash. ENT: No sore throat. Neck: No neck stiffness. Respiratory: Per HPI Cardiac: No chest pain. Gastrointestinal: No nausea, vomiting or abdominal pain. Urinary: No hematuria Musculoskeletal: No myalgias/arthralgias. ED EXAM, GENERAL - Physical Exam Exam: See Below Free Text/Narrative:: General Appearance: No acute distress, appears comfortable Skin: No rash HEENT: Normocephalic/atraumatic, sclera anicteric, mucous membranes dry Neck: Normal range of motion Chest and Lungs: Bilateral breath sounds, clear to auscultation, normal respiratory rate Cardiovascular: Regular rate and rhythm, no murmur Abdomen: Soft, non-tender Musculoskeletal: No edema or tenderness Neurologic: Awake and alert, baseline generalized weakness and paralysis related to [place]'s #1 Interpretation EKG Date: 03/04/21 Time: 09:08 EKG Interpretation Comments: Sinus rhythm rate of 90 incomplete right bundle branch block no acute ischemia otherwise unremarkable normal intervals Course - Vital Signs Last Recorded V/S: Last Vital Signs Temp 98.6 F 03/04/21 08:49 Pulse 91 03/04/21 08:49 Resp 20 03/04/21 08:49 BP 120/84 03/04/21 08:49 Pulse Ox 97 03/04/21 08:49 - Orders/Labs/Meds Orders: Active Orders 24 hr Category Date Time Status Sodium Chloride 0.9% [Saline Flush] Med 03/04/21 08:54 Active 10 ml FLUSH ASDIRECTED PRN Sodium Chloride 0.9% [Saline Flush] Med 03/04/21 08:54 Active 2.5 ml FLUSH ASDIRECTED PRN Saline Lock Insert [OM.PC] Stat Oth 03/04/21 08:54 Ordered Medication Orders Sodium Chloride (Sodium Chloride 0.9% 10 Ml Syringe) 10 ml FLUSH ASDIRECTED PRN PRN Reason: Keep Vein Open Sodium Chloride (Sodium Chloride 0.9% 2.5 Ml Syringe) 2.5 ml FLUSH ASDIRECTED PRN PRN Reason: Keep Vein Open Labs: Laboratory Tests 03/04/21 03/04/21 03/04/21 Range/Units 09:30 09:30 10:10 WBC 7.45 (4.0-11.0) K/uL RBC 4.91 (4.50-5.90) M/uL Hgb 14.5 (13.0-17.0) g/dL Hct 42.7 (38.0-50.0) % MCV 87.0 (80.0-98.0) fL MCH 29.5 (27.0-32.0) pg MCHC 34.0 (31.0-37.0) g/dL RDW Std Deviation 41.6 (28.0-62.0) fl RDW Coeff of Nino 13 (11.0-15.0) % Plt Count 159 (150-400) K/uL MPV 9.20 (7.40-12.00) fL Neut % (Auto) 67.4 (48.0-80.0) % Lymph % (Auto) 17.9 (16.0-40.0) % [place] % (Auto) 9.9 (0.0-15.0) % Eos % (Auto) 4.7 (0.0-7.0) % Baso % (Auto) 0.1 (0.0-1.5) % Neut # (Auto) 5.0 (1.4-5.7) K/uL Lymph # (Auto) 1.3 (0.6-2.4) K/uL [place] # (Auto) 0.7 (0.0-0.8) K/uL Eos # (Auto) 0.4 (0.0-0.7) K/uL Baso # (Auto) 0.0 (0.0-0.1) K/uL Nucleated RBC % 0.0 /100WBC Nucleated RBCs # 0 K/uL Sodium 139 (136-148) mmol/L Potassium 3.8 (3.5-5.1) mmol/L Chloride 101 (98-107) mmol/L Carbon Dioxide 26.2 (21.0-32.0) mmol/L BUN 23 H (7.0-18.0) mg/dL Creatinine 1.3 (0.8-1.3) mg/dL Est Cr Clr Drug Dosing 49.43 mL/min Estimated GFR (MDRD) 53.1 ml/min Glucose 108 H (74-106) mg/dL Calcium 9.5 (8.5-10.1) mg/dL Total Bilirubin 0.8 (0.2-1.0) mg/dL AST 14 L (15-37) IU/L ALT 19 (14-63) IU/L Alkaline Phosphatase 89 (46-116) U/L Troponin I < 0.050 (0.000-0.056) ng/mL Total Protein 7.7 (6.4-8.2) g/dL Albumin 3.5 (3.4-5.0) g/dL Globulin 4.2 H (2.6-4.0) g/dL Albumin/Globulin Ratio 0.8 L (0.9-1.6) Urine Color BROWN Urine Appearance CLOUDY Urine pH 5.5 (5.0-8.0) Ur Specific [place] >= 1.030 (1.001-1.035) Urine Protein TRACE H (NEGATIVE) mg/dL Urine Glucose (UA) NEGATIVE (NEGATIVE) mg/dL Urine Ketones NEGATIVE (NEGATIVE) mg/dL Urine Occult Blood LARGE H (NEGATIVE) Urine Nitrite NEGATIVE (NEGATIVE) Urine Bilirubin NEGATIVE (NEGATIVE) Urine Urobilinogen 0.2 (<2.0) EU/dL Ur Leukocyte Esterase SMALL H (NEGATIVE) Urine RBC >100 (0-2/HPF) Urine WBC 6-10 (0-5/HPF) Ur Epithelial Cells RARE (NONE-FEW) Urine Bacteria 1+ H (NEGATIVE) Urine Mucus LIGHT (NONE-MOD) Meds: Medications Generic Name Dose Route Start Last Admin Trade Name Freq PRN Reason Stop Dose Admin Sodium Chloride 10 ml 03/04/21 08:54 Sodium Chloride 0.9% 10 Ml Syringe FLUSH ASDIRECTED PRN Keep Vein Open Sodium Chloride 2.5 ml 03/04/21 08:54 Sodium Chloride 0.9% 2.5 Ml Syringe FLUSH ASDIRECTED PRN Keep Vein Open Departure - Departure Time of Disposition: 10:52 Disposition: Home, Self-Care 01 Condition: Good Clinical Impression: UTI (urinary tract infection) Qualifiers: Urinary tract infection type: acute cystitis Hematuria presence: without hematuria Qualified Code(s): N30.00 - Acute cystitis without hematuria - Discharge Information *PRESCRIPTION DRUG MONITORING PROGRAM REVIEWED*: Not Applicable *COPY OF PRESCRIPTION DRUG MONITORING REPORT IN PATIENT JOSE: Not Applicable Prescriptions: cephALEXin [Keflex] 500 mg PO QID 7 Days #28 cap Instructions: Urinary Tract Infection, Adult, [id number] Referrals: Ruslan Hope MD [Primary Care Provider] - Additional Instructions: The urinalysis [id number] gave today was concerning for potential urinary tract infection. His other blood work was all normal and his vital signs here were good. For this reason I think treatment with oral antibiotics is reasonable first step. If his symptoms do not improve or he is in any other new symptoms or concern you please call your doctor or return to the ER. The following information is given to patients seen in the emergency department who are being discharged to home. This information is to outline your options for follow-up care. We provide all patients seen in our emergency department with a follow-up referral. The need for follow-up, as well as the timing and circumstances, are variable depending upon the specifics of your emergency department visit. If you don't have a primary care physician on staff, we will provide you with a referral. We always advise you to contact your personal physician following an emergency department visit to inform them of the circumstance of the visit and for follow-up with them and/or the need for any referrals to a consulting specialist. The emergency department will also refer you to a specialist when appropriate. T his referral assures that you have the opportunity for follow-up care with a specialist. All of these measure are taken in an effort to provide you with optimal care, which includes your follow-up. Under all circumstances we always encourage you to contact your private physician who remains a resource for coordinating your care. When calling for follow-up care, please make the office aware that this follow-up is from your recent emergency room visit. If for any reason you are refused follow-up, please contact the [facility] Emergency Department at and asked to speak to the emergency department charge nurse. Sepsis Event Note (ED) - Focused Exam Vital Signs: Vital Signs Temp Pulse Resp BP Pulse Ox 03/04/21 08:49 98.6 F 91 20 120/84 97 - My Orders Last 24 Hours: My Active Orders 03/04/21 08:54 Sodium Chloride 0.9% [Saline Flush] 10 ml FLUSH ASDIRECTED PRN Sodium Chloride 0.9% [Saline Flush] 2.5 ml FLUSH ASDIRECTED PRN Saline Lock Insert [OM.PC] Stat - Assessment/Plan Last 24 Hours: My Active Orders 03/04/21 08:54 Sodium Chloride 0.9% [Saline Flush] 10 ml FLUSH ASDIRECTED PRN Sodium Chloride 0.9% [Saline Flush] 2.5 ml FLUSH ASDIRECTED PRN Saline Lock Insert [OM.PC] Stat Assessment:: 80-year-old male presenting with reported increased respiratory rate last night. Multiple etiologies considered including ACS, CHF, pneumonia, abdominal process. Abdominal exam is benign and patient denies pain there is no reported vomiting I do not think this represents an acute abdominal process ACS considered think it is unlikely but EKG and troponin pending. Pneumonia consideration and chest x-ray pending. Covid considered no reported fever. Will hold on further evaluation pending arrival patient's for additional history as patient currently stable. 0905: Given additional data from patient's will add urinalysis. 1040: UA with some WBC and bacteria, large blood as well. Given this would favor early UTI. Pt's VS remain stable, will discuss with patient's . I think home with PO abx would be reasonable given his otherwise normal labs, good VS and lack of fever. 1105: Patient's again at bedside comfortable going home we discussed the early urinary tract infection return precaution discussed and understood.
--- NOTE | 2021-03-04 09:58 | CR ---
INDICATION: Shortness of breath COMPARISON: Portable chest dated 12/18/2020 TECHNIQUE: Portable chest performed at 9:20 a.m. FINDINGS: There has been clearance the infiltrate within the right lower lobe. Minimal scarring remains. Left lung is clear. There is no evidence of pneumothorax. The heart, mediastinum and pulmonary vessels are of normal size. There is no evidence of pleural fluid. IMPRESSION: No acute process identified. Dictated by Herbie Eagle MD @ 03/04/2021 9:57:21 AM (Electronically Signed)
[2021-03-04 10:17] LABS: BLOOD UREA NITROGEN,BUN 23 mg/dL (7.0-18.0); CARBON DIOXIDE,CO2 26.2 mmol/L (21.0-32.0); CHLORIDE,CL 101 mmol/L (98-107); GLUCOSE RANDOM 108 mg/dL (74-106); POTASSIUM,K 3.8 mmol/L (3.5-5.1); SODIUM,NA 139 mmol/L (136-148)
[2021-03-04] MEDS ORDERED: cefTRIAXone 1 GM in Lidocaine 1% 4 ML IM ONE (11:28)
[2021-03-04 11:31] VITALS: BP 124/65; PULSE 82
== END 2021-03-04 11:45 | disposition home or self-care (01) ==
LOC: MW.ED 08:49
DX: N30.00 Acute cystitis without hematuria (principal); Z88.8 Allergy status to other drugs, medicaments and biological substances
CPT/HCPCS: 36415; 71045; 80053; 81001; 84484; 85025; 93005; 96374; 99285; J0696

== ENCOUNTER 2021-03-05 12:30 | Emergency (ER) | payer MEDICARE, BC ==
--- NOTE | 2021-03-05 12:38 | EDM.PDOC ---
ED HPI GENERAL MEDICAL PROBLEM - General Chief Complaint: General Stated Complaint: ELEVATED PULSE Time Seen by Provider: 03/05/21 12:38 Source of Information: Reports: Patient History Limitations: Reports: No Limitations - History of Present Illness INITIAL COMMENTS - FREE TEXT/NARRATIVE: HISTORY AND PHYSICAL: History of present illness: Patient is an 80-year-old male who presents to the emergency room via ambulance with his with concerns of tachycardia and tachypnea. 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 He is nonverbal and does respond with blinking to communicate with her. She was in the emergency room yesterday as she was concerned he was breathing too quickly and felt he needed to be evaluated. During his ER visit it was noted he had a urinary tract infection and was given a shot of Rocephin (per request) and given a prescription for Keflex. states that he has taken his morning dose of Keflex with some yogurt but has not wanted to drink any fluids. She is concerned he may need IV fluids due to dehydration. States the 's pulse has been around 100 bpm with respirations of 26-28/minute. denies patient having any fever, chills, chest pain, back pain, shortness of breath or cough. Denies any abdominal pain, nausea, vomiting, diarrhea, constipation or dysuria. Review of systems: As per history of present illness and below otherwise all systems reviewed and negative. Past medical history: As per history of present illness and as reviewed below otherwise noncontributory. Surgical history: As per history of present illness and as reviewed below otherwise noncontributory. Social history: See social history for further information Family history: As per history of present illness and as reviewed below otherwise noncontributory. Physical exam: General: Wheelchair bound, chronically ill appearing 80 year old male. Alert and appropriate for self. Nontoxic in appearance and in no acute distress. Vital signs are stable and have been reviewed by me. Accompanied by who is at bedside. Nursing notes were reviewed. HEENT: Atraumatic, normocephalic, pupils equal and reactive bilaterally, negative for conjunctival pallor or scleral icterus, mucous membranes dry/tacky, trachea midline. No drooling or trismus noted. No meningeal signs. No hot potato voice noted. Lungs: Mouth breather. Clear to auscultation bilaterally. No wheezes, rales, or rhonchi. Chest nontender. Normal work of breathing, no accessory muscles used. Heart: S1S2, regular rate and rhythm without overt murmur, gallops, or rubs. No JVD. No peripheral edema Abdomen: Soft, nondistended, does not appear to be tender. Normoactive bowel sounds. Negative for masses or costovertebral tenderness. Skin: Intact, warm, dry. No lesions or rashes noted. Hematologic: No petechiae or purpra. Mucosa appropriate color and normal nail bed color and refill. Extremities: Atraumatic, moves all extremities per self without difficulty or deficits, negative for cords or calf pain. Neurovascular unremarkable. Neuro: Awake, alert, oriented. Cranial nerves II through XII unremarkable. Cerebellum unremarkable. Motor and sensory unremarkable throughout. Exam nonfocal. Psychiatric: Mood and affect are appropriate. Normal thought process. Answering questions appropriately. Please note that the patient was seen and evaluated during the 2019 SARS-CoV-2 novel coronavirus pandemic period. Community viral transmission is ongoing at time of this encounter and the emergency department is operating under pandemic response procedures. 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 She states she does routinely monitor his vital signs and was seen ye sterday in the emergency room and diagnosed with a urinary tract infection. She states she is concerned he needs some IV fluids as he has not drank much of the evening or today. Lab work is unremarkable. Vital signs are stable. is happy with the outcome of the IV fluids. She states he appears more lively and perky from the fluids. I have talked with the patient about today's findings, in addition to providing specific details for plan of care. Reassessment at the time of disposition demonstrates that the patient is in no acute distress. The patient is stable for discharge, counseling was provided and we discussed in great detail signs and symptoms that would prompt them to return to the Emergency Department. Medication, follow up and supportive care measures were reviewed and discussed. Voices understanding and is agreeable to plan of care. Denies any further questions or concerns at this time. Diagnostics: CBC, CMP, [employer]: IV fluids Prescription: None Impression: Encounter for medical screening exam Plan: 1. You were evaluated today on an emergent basis. Your lab work, physical exam and vital signs were normal today. Try to encourage fluids at home. Take your medication for the antibiotic for the UTI as directed. 2. You can alternate Tylenol and ibuprofen as needed for pain and fever management. 3. We encourage you to follow up with Dr Hope next week for re-evaluation and further care/management. 4. If your symptoms should worsen, new symptoms develop or any of the signs and symptoms we discussed should arise please return to the emergency room or call 911 (if needed). Definitive disposition and diagnosis as appropriate pending reevaluation and review of above. - Related Data Allergies Allergy/AdvReac Type Severity Reaction Status Date / Time olanzapine [From Zyprexa] Allergy Difficulty Verified 03/05/21 12:41 Swallowing Home Meds: Home Meds Pseudoephedrine HCl [Long Acting Nasal Decongestant] 120 mg PO BID 01/18/15 [History] Sertraline HCl 150 mg PO BEDTIME 01/18/15 [History] guaiFENesin [Mucinex] 1,200 mg PO BEDTIME 01/18/15 [History] risperiDONE 3 mg PO BID 01/18/15 [History] guaiFENesin [Mucinex] 600 mg PO DAILY 02/06/18 [History] Famotidine [Pepcid] 20 mg PO BID 05/23/18 [History] polyethylene glycoL 3350 [MiraLAX] 17 gm PO DAILY PRN 05/23/18 [History] Docusate Sodium/Sennosides [Senna Plus] 2 tab PO BID #40 tablet 05/11/20 [Rx] levoFLOXacin [Levaquin] 750 mg PO DAILY 1 Days #1 tab 05/11/20 [Rx] predniSONE [Prednisone] 40 mg PO DAILY 1 Days #2 tablet 05/11/20 [Rx] Cefpodoxime [Vantin] 200 mg PO BID 14 Days #28 tab 09/24/20 [Rx] Cefdinir 300 mg PO Q12HR #20 capsule 12/18/20 [Rx] Ondansetron [Zofran ODT] 4 mg PO Q6H PRN #12 tab.dis 12/18/20 [Rx] cephALEXin [Keflex] 500 mg PO QID 7 Days #28 cap 03/04/21 [Rx] Past Medical History Other HEENT History: 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 ED EXAM, GENERAL - Physical Exam Exam: See Below (See dictation) Course - Vital Signs Last Recorded V/S: Last Vital Signs Temp 97.4 F 03/05/21 12:41 Pulse 85 03/05/21 12:41 Resp 18 03/05/21 12:41 BP 113/71 03/05/21 13:13 Pulse Ox 97 03/05/21 13:13 - Orders/Labs/Meds Labs: Laboratory Tests 03/05/21 03/05/21 03/05/21 Range/Units 13:30 13:30 13:30 WBC 3.21 L (4.0-11.0) K/uL RBC 4.63 (4.50-5.90) M/uL Hgb 13.7 (13.0-17.0) g/dL Hct 40.1 (38.0-50.0) % MCV 86.6 (80.0-98.0) fL MCH 29.6 (27.0-32.0) pg MCHC 34.2 (31.0-37.0) g/dL RDW Std Deviation 41.0 (28.0-62.0) fl RDW Coeff of Nino 13 (11.0-15.0) % Plt Count 141 L (150-400) K/uL MPV 8.90 (7.40-12.00) fL Neut % (Auto) 64.2 (48.0-80.0) % Lymph % (Auto) 14.6 L (16.0-40.0) % [place] % (Auto) 18.1 H (0.0-15.0) % Eos % (Auto) 2.8 (0.0-7.0) % Baso % (Auto) 0.3 (0.0-1.5) % Neut # (Auto) 2.1 (1.4-5.7) K/uL Lymph # (Auto) 0.5 L (0.6-2.4) K/uL [place] # (Auto) 0.6 (0.0-0.8) K/uL Eos # (Auto) 0.1 (0.0-0.7) K/uL Baso # (Auto) 0.0 (0.0-0.1) K/uL Nucleated RBC % 0.0 /100WBC Nucleated RBCs # 0 K/uL Sodium 139 (136-148) mmol/L Potassium 4.3 (3.5-5.1) mmol/L Chloride 102 (98-107) mmol/L Carbon Dioxide 31.1 (21.0-32.0) mmol/L BUN 21 H (7.0-18.0) mg/dL Creatinine 1.2 (0.8-1.3) mg/dL Est Cr Clr Drug Dosing TNP Estimated GFR (MDRD) 58.3 ml/min Glucose 98 (74-106) mg/dL Lactic Acid 0.8 (0.4-2.0) mmol/L Calcium 9.1 (8.5-10.1) mg/dL Total Bilirubin 0.7 (0.2-1.0) mg/dL AST 13 L (15-37) IU/L ALT 19 (14-63) IU/L Alkaline Phosphatase 80 (46-116) U/L Total Protein 7.3 (6.4-8.2) g/dL Albumin 3.3 L (3.4-5.0) g/dL Globulin 4.0 (2.6-4.0) g/dL Albumin/Globulin Ratio 0.8 L (0.9-1.6) Meds: Medications Discontinued Medications Generic Name Dose Route Start Last Admin Trade Name Freq PRN Reason Stop Dose Admin Sodium Chloride 1,000 mls @ 999 mls/hr 03/05/21 12:40 03/05/21 13:38 Normal Saline IV 03/05/21 13:40 999 mls/hr STAT ONE Administration Departure - Departure Time of Disposition: 14:48 Disposition: Home, Self-Care 01 Clinical Impression: Encounter for medical screening examination - Discharge Information Instructions: Medical Screening Exam Referrals: Ruslan Hope MD [Primary Care Provider] - Forms: ED Department Discharge Additional Instructions: The following information is given to patients seen in the emergency department who are being discharged to home. This information is to outline your options for follow-up care. We provide all patients seen in our emergency department with a follow-up referral. The need for follow-up, as well as the timing and circumstances, are variable depending upon the specifics of your emergency department visit. If you don't have a primary care physician on staff, we will provide you with a referral. We always advise you to contact your personal physician following an emergency department visit to inform them of the circumstance of the visit and for follow-up with them and/or the need for any referrals to a consulting specialist. The emergency department will also refer you to a specialist when appropriate. This referral assures that you have the opportunity for follow-up care with a specialist. All of these measure are taken in an effort to provide you with optimal care, which includes your follow-up. Under all circumstances we always encourage you to contact your private physician who remains a resource for coordinating your care. When calling for follow-up care, please make the office aware that this follow-up is from your recent emergency room visit. If for any reason you are refused follow-up, please contact the [facility] Emergency Department at and asked to speak to the emergency department charge nurse. [facility] [address] [place] [id number] [id number] Thank you for choosing the [facility] emergency department in [place] for your medical needs today. It was a pleasure caring for you. Today you were seen in the emergency department for medical screening exam. 1. You were evaluated today on an emergent basis. Your lab work, physical exam and vital signs were normal today. Try to encourage fluids at home. Take your medication for the antibiotic for the UTI as directed. 2. You can alternate Tylenol and ibuprofen as needed for pain and fever management. 3. We encourage you to follow up with Dr Hope next week for re-evaluation and further care/management. 4. If your symptoms should worsen, new symptoms develop or any of the signs and symptoms we discussed should arise please return to the emergency room or call 911 (if needed). Sepsis Event Note (ED) - Focused Exam Vital Signs: Vital Signs Temp Pulse Resp BP Pulse Ox 03/05/21 13:13 113/71 97 03/05/21 12:41 97.4 F 85 18 113/67 97 03/05/21 12:35 85 123/67 99
[2021-03-05] MEDS ORDERED: Sodium Chloride 0.9% 1,000 ML IV ONE (12:40)
[2021-03-05 14:13] LABS: BLOOD UREA NITROGEN,BUN 21 mg/dL (7.0-18.0); CARBON DIOXIDE,CO2 31.1 mmol/L (21.0-32.0); CHLORIDE,CL 102 mmol/L (98-107); GLUCOSE RANDOM 98 mg/dL (74-106); POTASSIUM,K 4.3 mmol/L (3.5-5.1); SODIUM,NA 139 mmol/L (136-148)
[2021-03-05 15:27] VITALS: BP 116/64; PULSE 84
== END 2021-03-05 15:29 | disposition home or self-care (01) ==
LOC: MW.ED 12:30
DX: Z00.8 Encounter for other general examination (principal); Z88.8 Allergy status to other drugs, medicaments and biological substances
CPT/HCPCS: 36415; 80053; 83605; 85025; 99284; J7030

== ENCOUNTER 2021-04-01 02:29 | Emergency (ER) | payer MEDICARE, BC ==
[2021-04-01] MEDS ORDERED: Sodium Chloride 0.9% 2.5 ML Syringe FLUSH PRN (02:54)
[2021-04-01] MEDS ORDERED: Sodium Chloride 0.9% 10 ML Syringe FLUSH PRN (02:54)
[2021-04-01] MEDS ORDERED: Ondansetron 4 MG/2 ML SDV IVPUSH ONE (02:54)
[2021-04-01] MEDS ORDERED: Sodium Chloride 0.9% 1,000 ML IV ONE (02:54)
--- NOTE | 2021-04-01 03:23 | EDM.PDOC ---
ED HPI GENERAL MEDICAL PROBLEM - General Chief Complaint: General Stated Complaint: ELEVATED BREATHING/HX OF [place]S DISEASE Time Seen by Provider: 04/01/21 03:14 - History of Present Illness INITIAL COMMENTS - FREE TEXT/NARRATIVE: HISTORY AND PHYSICAL: History of present illness: This is an 80-year-old gentleman with a history significant for Shoshone's disease who presents ER today secondary to 's concerns that he might be dehydrated. reports that he had dinner tonight which include some ribs, solid and mashed potatoes. She reports that he ate a normal amount of food that he usually eats. She reports that he has been getting physical therapy and occupational therapy for fascial release and she believes that he might not have had enough liquids throughout the course of the day. reports that he has been somewhat more fatigued and unable to assist her as much as he normally would and she reports this is typical of how he gets when he gets slightly dehydrated. She denies any recent fevers, shakes, chills, vomiting, diarrhea, urinary complaints. Patient denies any abdominal pain or discomfort. Denies any vomiting. Denies any chest pain. Reports occasional nonproductive cough. No shortness of breath. Review of systems: As per history of present illness and below otherwise all systems reviewed and negative. Past medical history: As per history of present illness and as reviewed below otherwise noncontributory. Surgical history: As per history of present illness and as reviewed below otherwise noncontributory. Social history: No reported history of drug abuse. Family history: As per history of present illness and as reviewed below otherwise noncontributory. Physical exam: This patient was seen and evaluated during the 2019 SARS-CoV-2 novel coronavirus pandemic period. Community viral transmission is ongoing at time of this encounter and the emergency department is operating under pandemic response procedures. Constitutional: Patient is oriented to person, place, and time. Appears well- developed and well-nourished. No distress. HEENT: Moist mucous membranes Head: Normocephalic and atraumatic Eyes: Right eye exhibits no discharge. Left eye exhibits no discharge. No scleral icterus Neck: Normal range of motion. No tracheal deviation present. Cardiovascular: Normal rate and regular rhythm. Pulmonary: Effort normal, no respiratory distress. Abdominal: No distention Musculoskeletal: Normal range of motion Neurologic: Alert and oriented to person, place and time. Skin: [place], warm and dry. Psychiatric: Normal mood and affect. Behavior is normal. Judgment and thought content normal. Nursing note and vital signs have been reviewed Diagnostics: CBC, CMP Therapeutics: Patient required treatment with intravenous normal saline solution secondary to clinical evidence of dehydration as manifested by history and physical examination. NSS x1 L, Zofran Assessment and plan: This is an 80-year-old gentleman who presents ER today secondary to concerns for possible dehydration noted by his . knows him extremely well and reports that this is how he looks when he is dehydrated and she does want to make sure that he got too dehydrated since she feels that it becomes a vicious soboba when he gets dehydrated he gets weak and then has decreased p.o. intake which results worsening dehydration. Patient will have labs drawn here in the ED to assess his hydration status as well as NSS x1 L and reevaluated. Patient is not nauseous. Definitive disposition and diagnosis as appropriate pending reevaluation and review of above. - Related Data Allergies Allergy/AdvReac Type Severity Reaction Status Date / Time olanzapine [From Zyprexa] Allergy Difficulty Verified 04/01/21 02:32 Swallowing Home Meds: Home Meds Pseudoephedrine HCl [Long Acting Nasal Decongestant] 120 mg PO BID 01/18/15 [History] Sertraline HCl 150 mg PO BEDTIME 01/18/15 [History] guaiFENesin [Mucinex] 1,200 mg PO BEDTIME 01/18/15 [History] risperiDONE 3 mg PO BID 01/18/15 [History] guaiFENesin [Mucinex] 600 mg PO DAILY 02/06/18 [History] Famotidine [Pepcid] 20 mg PO BID 05/23/18 [History] polyethylene glycoL 3350 [MiraLAX] 17 gm PO DAILY PRN 05/23/18 [History] Docusate Sodium/Sennosides [Senna Plus] 2 tab PO BID #40 tablet 05/11/20 [Rx] levoFLOXacin [Levaquin] 750 mg PO DAILY 1 Days #1 tab 05/11/20 [Rx] predniSONE [Prednisone] 40 mg PO DAILY 1 Days #2 tablet 05/11/20 [Rx] Cefpodoxime [Vantin] 200 mg PO BID 14 Days #28 tab 09/24/20 [Rx] Cefdinir 300 mg PO Q12HR #20 capsule 12/18/20 [Rx] Ondansetron [Zofran ODT] 4 mg PO Q6H PRN #12 tab.dis 12/18/20 [Rx] cephALEXin [Keflex] 500 mg PO QID 7 Days #28 cap 03/04/21 [Rx] Past Medical History Other HEENT History: 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 - Infectious Disease History Infectious Disease History: Reports: Chicken Pox, Measles, Mumps - Past Surgical History HEENT Surgical History: Reports: Adenoidectomy, Tonsillectomy GI Surgical History: Reports: Appendectomy Other Neurological Surgeries/Procedures: non-verbal Social & Family History - Family History Family Medical History: No Pertinent Family History - Tobacco Use Tobacco Use Status *Q: Never Tobacco User - Caffeine Use Caffeine Use: Reports: None - Recreational Drug Use Recreational Drug Use: No - Living Situation & Occupation Living situation: Reports: Occupation: Retired ED ROS GENERAL - Review of Systems Review Of Systems: See Below ED EXAM, GENERAL - Physical Exam Exam: See Below Course - Vital Signs Last Recorded V/S: Last Vital Signs Temp 98.1 F 04/01/21 02:32 Pulse 88 04/01/21 02:32 Resp 20 04/01/21 02:32 BP 103/67 04/01/21 02:32 Pulse Ox 95 04/01/21 02:32 - Orders/Labs/Meds Orders: Active Orders 24 hr Category Date Time Status Sodium Chloride 0.9% [Saline Flush] Med 04/01/21 02:54 Active 10 ml FLUSH ASDIRECTED PRN Sodium Chloride 0.9% [Saline Flush] Med 04/01/21 02:54 Active 2.5 ml FLUSH ASDIRECTED PRN Saline Lock Insert [OM.PC] Stat Oth 04/01/21 02:54 Ordered Medication Orders Sodium Chloride (Sodium Chloride 0.9% 10 Ml Syringe) 10 ml FLUSH ASDIRECTED PRN PRN Reason: Keep Vein Open Last Admin: 04/01/21 03:20 Dose: 10 ml Documented by: GALLITO Sodium Chloride (Sodium Chloride 0.9% 2.5 Ml Syringe) 2.5 ml FLUSH ASDIRECTED PRN PRN Reason: Keep Vein Open Last Admin: 04/01/21 03:20 Dose: 2.5 ml Documented by: GALLITO Labs: Laboratory Tests 04/01/21 04/01/21 04/01/21 Range/Units 03:28 03:30 03:30 WBC 5.80 (4.0-11.0) K/uL RBC 4.39 L (4.50-5.90) M/uL Hgb 12.8 L (13.0-17.0) g/dL Hct 37.9 L (38.0-50.0) % MCV 86.3 (80.0-98.0) fL MCH 29.2 (27.0-32.0) pg MCHC 33.8 (31.0-37.0) g/dL RDW Std Deviation 40.9 (28.0-62.0) fl RDW Coeff of Nino 13 (11.0-15.0) % Plt Count 153 (150-400) K/uL MPV 9.00 (7.40-12.00) fL Neut % (Auto) 58.1 (48.0-80.0) % Lymph % (Auto) 23.1 (16.0-40.0) % [place] % (Auto) 11.9 (0.0-15.0) % Eos % (Auto) 6.6 (0.0-7.0) % Baso % (Auto) 0.3 (0.0-1.5) % Neut # (Auto) 3.4 (1.4-5.7) K/uL Lymph # (Auto) 1.3 (0.6-2.4) K/uL Morris # (Auto) 0.7 (0.0-0.8) K/uL Eos # (Auto) 0.4 (0.0-0.7) K/uL Baso # (Auto) 0.0 (0.0-0.1) K/uL Nucleated RBC % 0.0 /100WBC Nucleated RBCs # 0 K/uL Sodium 143 (136-148) mmol/L Potassium 4.4 (3.5-5.1) mmol/L Chloride 104 (98-107) mmol/L Carbon Dioxide 29.6 (21.0-32.0) mmol/L BUN 28 H (7.0-18.0) mg/dL Creatinine 1.3 (0.8-1.3) mg/dL Est Cr Clr Drug Dosing 49.74 mL/min Estimated GFR (MDRD) 53.1 ml/min Glucose 111 H (74-106) mg/dL Calcium 8.0 L (8.5-10.1) mg/dL Total Bilirubin 0.4 (0.2-1.0) mg/dL AST 12 L (15-37) IU/L ALT 16 (14-63) IU/L Alkaline Phosphatase 78 (46-116) U/L Total Protein 6.4 (6.4-8.2) g/dL Albumin 2.9 L (3.4-5.0) g/dL Globulin 3.5 (2.6-4.0) g/dL Albumin/Globulin Ratio 0.8 L (0.9-1.6) Urine Color YELLOW Urine Appearance CLEAR Urine pH 6.0 (5.0-8.0) Ur Specific [place] 1.025 (1.001-1.035) Urine Protein NEGATIVE (NEGATIVE) mg/dL Urine Glucose (UA) NEGATIVE (NEGATIVE) mg/dL Urine Ketones NEGATIVE (NEGATIVE) mg/dL Urine Occult Blood NEGATIVE (NEGATIVE) Urine Nitrite NEGATIVE (NEGATIVE) Urine Bilirubin NEGATIVE (NEGATIVE) Urine Urobilinogen 0.2 (<2.0) EU/dL Ur Leukocyte Esterase NEGATIVE (NEGATIVE) Meds: Medications Generic Name Dose Route Start Last Admin Trade Name Freq PRN Reason Stop Dose Admin Sodium Chloride 10 ml 04/01/21 02:54 04/01/21 03:20 Sodium Chloride 0.9% 10 Ml Syringe FLUSH 10 ml ASDIRECTED PRN Administration Keep Vein Open Sodium Chloride 2.5 ml 04/01/21 02:54 04/01/21 03:20 Sodium Chloride 0.9% 2.5 Ml Syringe FLUSH 2.5 ml ASDIRECTED PRN Administration Keep Vein Open Discontinued Medications Generic Name Dose Route Start Last Admin Trade Name Freq PRN Reason Stop Dose Admin Sodium Chloride 1,000 mls @ 999 mls/hr 04/01/21 02:54 04/01/21 03:20 Normal Saline IV 04/01/21 03:54 999 mls/hr .Bolus ONE Administration Ondansetron HCl 4 mg 04/01/21 02:54 04/01/21 03:20 Ondansetron 4 Mg/2 Ml Sdv IVPUSH 04/01/21 02:55 4 mg ONETIME ONE Administration Departure - Departure Time of Disposition: 04:53 Disposition: Home, Self-Care 01 Condition: Good Clinical Impression: Dehydration, Shoshone's disease - Discharge Information Instructions: Dehydration, Adult, [id number] Referrals: Ruslan Hope MD [Primary Care Provider] - Forms: ED Department Discharge Additional Instructions: You were seen and evaluated in ER today secondary to possible early dehydration. Your 's blood test were all within normal limits. He has been given 1 L of saline here in the ED. Please continue his current plan of care. Please have him follow-up with his primary care physician, please return to the ED if he has any new or concerning symptoms. The following information is given to patients seen in the emergency department who are being discharged to home. This information is to outline your options for follow-up care. We provide all patients seen in our emergency department with a follow-up referral. The need for follow-up, as well as the timing and circumstances, are variable depending upon the specifics of your emergency department visit. If you don't have a primary care physician on staff, we will provide you with a referral. We always advise you to contact your personal physician following an emergency department visit to inform them of the circumstance of the visit and for follow-up with them and/or the need for any referrals to a consulting specialist. The emergency department will also refer you to a specialist when appropriate. This referral assures that you have the opportunity for follow-up care with a specialist. All of these measure are taken in an effort to provide you with optimal care, which includes your follow-up. Under all circumstances we always encourage you to contact your private physician who remains a resource for coordinating your care. When calling for follow-up care, please make the office aware that this follow-up is from your recent emergency room visit. If for any reason you are refused follow-up, please contact the [facility] Emergency Department at and asked to speak to the emergency department charge nurse. [facility] - Primary [facility] [address] [place] [address] [facility] [address] [place] [address] Sepsis Event Note (ED) - Focused Exam Vital Signs: Vital Signs Temp Pulse Resp BP Pulse Ox 04/01/21 02:32 98.1 F 88 20 103/67 95 - My Orders Last 24 Hours: My Active Orders 04/01/21 02:54 Sodium Chloride 0.9% [Saline Flush] 10 ml FLUSH ASDIRECTED PRN Sodium Chloride 0.9% [Saline Flush] 2.5 ml FLUSH ASDIRECTED PRN Saline Lock Insert [OM.PC] Stat - Assessment/Plan Last 24 Hours: My Active Orders 04/01/21 02:54 Sodium Chloride 0.9% [Saline Flush] 10 ml FLUSH ASDIRECTED PRN Sodium Chloride 0.9% [Saline Flush] 2.5 ml FLUSH ASDIRECTED PRN Saline Lock Insert [OM.PC] Stat
[2021-04-01 04:04] LABS: CARBON DIOXIDE,CO2 29.6 mmol/L (21.0-32.0); POTASSIUM,K 4.4 mmol/L (3.5-5.1)
[2021-04-01 05:26] VITALS: BP 112/64; PULSE 83
== END 2021-04-01 05:26 | disposition home or self-care (01) ==
LOC: MW.ED 02:29
DX: E86.0 Dehydration (principal); G10 Huntington's disease; Z88.8 Allergy status to other drugs, medicaments and biological substances; Z79.899 Other long term (current) drug therapy
CPT/HCPCS: 36415; 80053; 81003; 85025; 96374; 99284; J2405; J7030

== ENCOUNTER 2021-10-14 03:19 | Emergency (ER) | payer MEDICARE, BC ==
[2021-10-14] MEDS ORDERED: Lactated Ringers 1,000 ML IV ONE (03:23)
[2021-10-14 04:37] LABS: BLOOD UREA NITROGEN,BUN 26 mg/dL (7.0-18.0); CARBON DIOXIDE,CO2 31.3 mmol/L (21.0-32.0); CHLORIDE,CL 106 mmol/L (98-107); GLUCOSE RANDOM 93 mg/dL (74-106); LIPASE 175 U/L (73-393); POTASSIUM,K 4.2 mmol/L (3.5-5.1); SODIUM,NA 142 mmol/L (136-148)
[2021-10-14] MEDS ORDERED: Cefuroxime 250 MG Tab PO STA ×2 (04:50→05:21)
[2021-10-14] MEDS ORDERED: Iopamidol 755 MG/ML 500 ML Multipack Bottle IVPUSH STA (05:16)
[2021-10-14 06:31] VITALS: BP 123/78; PULSE 81
== END 2021-10-14 06:31 | disposition home or self-care (01) ==
LOC: MW.ED 03:19
DX: I71.4 Abdominal aortic aneurysm, without rupture (principal); N39.0 Urinary tract infection, site not specified; K59.09 Other constipation; Z90.49 Acquired absence of other specified parts of digestive tract; Z88.8 Allergy status to other drugs, medicaments and biological substances; Z79.899 Other long term (current) drug therapy; Z20.822 Contact with and (suspected) exposure to COVID-19
CPT/HCPCS: 36415; 74177; 80053; 81001; 83605; 83690; 83735; 84484; 85025; 87086; 93005; 99284; A9270; J7120; Q9967; U0002; 87088; 87186; 93010

== ENCOUNTER 2022-01-04 14:27 | Emergency (ER) | payer MEDICARE, BC ==
[2022-01-04 14:57] VITALS: PULSE 85
[2022-01-04 16:10] LABS: CARBON DIOXIDE,CO2 29.8 mmol/L (21.0-32.0); POTASSIUM,K 4.3 mmol/L (3.5-5.1)
[2022-01-04 16:17] LABS: CORONAVIRUS COVID-19 NAA NEGATIVE (NEGATIVE); INFLUENZA A NAA NEGATIVE (NEGATIVE); INFLUENZA B NAA NEGATIVE (NEGATIVE)
[2022-01-04] MEDS: Iopamidol 755 MG/ML 500 ML Multipack Bottle IVPUSH STA (17:05)
[2022-01-04] MEDS: Sodium Chloride 0.9% 1,000 ML IV ONE (17:11)
[2022-01-04] MEDS: Sodium Chloride 0.9% 2.5 ML Syringe FLUSH PRN (17:23)
[2022-01-04] MEDS: Sodium Chloride 0.9% 10 ML Syringe FLUSH PRN (17:23)
[2022-01-04 20:32] VITALS: BP 147/76
== END 2022-01-04 19:39 | disposition home or self-care (01) ==
LOC: MW.ED 14:27
DX: R53.1 Weakness (principal); R91.8 Other nonspecific abnormal finding of lung field; Z88.8 Allergy status to other drugs, medicaments and biological substances; Z20.822 Contact with and (suspected) exposure to COVID-19
CPT/HCPCS: 0240U; 36415; 71045; 71275; 80053; 81003; 84484; 85025; 93005; 96360; 99285; J3490; J7030; Q9967; 99284

== ENCOUNTER 2022-03-15 07:12 | Inpatient (IN) | payer MEDICARE, BC ==
[2022-03-15] MEDS ORDERED: Sodium Chloride 0.9% 2.5 ML Syringe FLUSH PRN (08:34)
[2022-03-15] MEDS ORDERED: cefTRIAXone 1 GM in Sodium Chloride 0.9% 50 ML IV ONE (08:34)
[2022-03-15] MEDS ORDERED: Sodium Chloride 0.9% 10 ML Syringe FLUSH PRN (08:34)
[2022-03-15 08:35] LABS: CORONAVIRUS COVID-19 NAA NEGATIVE (NEGATIVE); INFLUENZA A NAA NEGATIVE (NEGATIVE); INFLUENZA B NAA NEGATIVE (NEGATIVE); RESPIRATORY SYNCYTIAL VIR NAA NEGATIVE (NEGATIVE)
[2022-03-15 09:40] LABS: CARBON DIOXIDE,CO2 30.5 mmol/L (21.0-32.0); POTASSIUM,K 4.1 mmol/L (3.5-5.1)
[2022-03-15] MEDS ORDERED: Ondansetron 4 MG/2 ML SDV IVPUSH PRN (12:11)
[2022-03-15] MEDS ORDERED: Sodium Chloride 0.9% 1,000 ML IV SCH (12:30)
[2022-03-15] MEDS ORDERED: Azithromycin 500 MG in Sodium Chloride 0.9% 250 ML IV SCH (12:45)
[2022-03-15] MEDS ORDERED: guaiFENesin 600 MG Tab.ER PO SCH (13:15)
[2022-03-15] MEDS: guaiFENesin 600 MG Tab.ER PO SCH (16:15)
[2022-03-15] MEDS: Azithromycin 500 MG in Sodium Chloride 0.9% 250 ML IV SCH (16:16)
[2022-03-15] MEDS: Heparin Sodium 5,000 Units/ML Vial SUBCUT SCH (20:24)
[2022-03-15] MEDS: Sertraline 100 MG Tab PO SCH (20:24)
[2022-03-15] MEDS: Famotidine 20 MG Tab PO SCH (20:24)
[2022-03-15] MEDS: PSEUDOEPHEDRINE HCL 120 MG PO SCH (21:33)
[2022-03-16 06:34] LABS: CARBON DIOXIDE,CO2 27.5 mmol/L (21.0-32.0); POTASSIUM,K 4.1 mmol/L (3.5-5.1)
[2022-03-16] MEDS ORDERED: Sodium Chloride 0.9% 1,000 ML IV SCH (07:45)
[2022-03-16] MEDS ORDERED: cefTRIAXone 2 GM in Premix Bag 1 BAG IV SCH (09:00)
[2022-03-16] MEDS: Heparin Sodium 5,000 Units/ML Vial SUBCUT SCH ×2 (09:31→20:48)
[2022-03-16] MEDS: Famotidine 20 MG Tab PO SCH ×2 (09:40→20:48)
[2022-03-16] MEDS: guaiFENesin 600 MG Tab.ER PO SCH (09:41)
[2022-03-16] MEDS: PSEUDOEPHEDRINE HCL 120 MG PO SCH ×2 (09:53→22:14)
[2022-03-16] MEDS: cefTRIAXone 1 GM in Sodium Chloride 0.9% 50 ML IV SCH (10:29)
[2022-03-16] MEDS: Azithromycin 500 MG in Sodium Chloride 0.9% 250 ML IV SCH (15:46)
[2022-03-16] MEDS: Sertraline 100 MG Tab PO SCH (20:48)
[2022-03-17] MEDS: Albuterol/Ipratropium 3.0-0.5 MG/3 ML Neb Soln NEB PRN ×3 (02:42→16:43)
[2022-03-17 06:52] LABS: CARBON DIOXIDE,CO2 26.5 mmol/L (21.0-32.0); POTASSIUM,K 4.1 mmol/L (3.5-5.1)
[2022-03-17] MEDS: PSEUDOEPHEDRINE HCL 120 MG PO SCH ×2 (08:12→20:19)
[2022-03-17] MEDS: guaiFENesin 600 MG Tab.ER PO SCH ×2 (08:13→20:19)
[2022-03-17] MEDS: Heparin Sodium 5,000 Units/ML Vial SUBCUT SCH ×2 (08:13→20:19)
[2022-03-17] MEDS: Famotidine 20 MG Tab PO SCH ×2 (08:56→20:19)
[2022-03-17] MEDS: cefTRIAXone 1 GM in Sodium Chloride 0.9% 50 ML IV SCH (09:36)
[2022-03-17] MEDS: Polyethylene Glycol 3350 Powder 17 GM Packet PO SCH (09:40)
[2022-03-17] MEDS ORDERED: VANCOmycin 1.5 GM/300 ML 1.5 GM in Premix Bag 1 BAG IV SCH (10:00)
[2022-03-17] MEDS: Piperacillin/Tazobactam 3.375 GM in Sodium Chloride 0.9% 100 ML IV SCH ×3 (10:33→20:20)
[2022-03-17] MEDS: VANCOmycin 1.5 GM/300 ML 1.5 GM in Premix Bag 1 BAG IV SCH (11:31)
[2022-03-17] MEDS: Carboxymethylcellulose Sodium 0.5% Ophth Soln 0.4 ML UD Box of 30 EYEBOTH PRN ×2 (12:30→20:34)
[2022-03-17] MEDS: Azithromycin 500 MG in Sodium Chloride 0.9% 250 ML IV SCH (16:11)
[2022-03-17] MEDS: Acetaminophen 325 MG Tab PO PRN (16:27)
[2022-03-17] MEDS: Sertraline 100 MG Tab PO SCH (20:19)
[2022-03-18] MEDS: Piperacillin/Tazobactam 3.375 GM in Sodium Chloride 0.9% 100 ML IV SCH ×4 (03:54→20:23)
[2022-03-18 06:15] LABS: CARBON DIOXIDE,CO2 27.6 mmol/L (21.0-32.0); POTASSIUM,K 3.9 mmol/L (3.5-5.1)
[2022-03-18] MEDS: cefTRIAXone 1 GM in Sodium Chloride 0.9% 50 ML IV SCH (08:47)
[2022-03-18] MEDS: Famotidine 20 MG Tab PO SCH ×2 (09:25→20:19)
[2022-03-18] MEDS: PSEUDOEPHEDRINE HCL 120 MG PO SCH ×2 (09:25→20:19)
[2022-03-18] MEDS: guaiFENesin 600 MG Tab.ER PO SCH ×2 (09:25→20:19)
[2022-03-18] MEDS: Heparin Sodium 5,000 Units/ML Vial SUBCUT SCH ×2 (09:26→20:18)
[2022-03-18] MEDS: Polyethylene Glycol 3350 Powder 17 GM Packet PO SCH (09:26)
[2022-03-18] MEDS: VANCOmycin 1.5 GM/300 ML 1.5 GM in Premix Bag 1 BAG IV SCH (10:27)
[2022-03-18] MEDS: Azithromycin 500 MG in Sodium Chloride 0.9% 250 ML IV SCH (16:48)
[2022-03-18] MEDS: Sertraline 100 MG Tab PO SCH (20:19)
[2022-03-18] MEDS: Carboxymethylcellulose Sodium 0.5% Ophth Soln 0.4 ML UD Box of 30 EYEBOTH PRN (20:32)
[2022-03-19] MEDS: Piperacillin/Tazobactam 3.375 GM in Sodium Chloride 0.9% 100 ML IV SCH ×4 (03:22→20:26)
[2022-03-19 06:11] LABS: CARBON DIOXIDE,CO2 25.4 mmol/L (21.0-32.0); POTASSIUM,K 4.1 mmol/L (3.5-5.1)
[2022-03-19] MEDS: Heparin Sodium 5,000 Units/ML Vial SUBCUT SCH ×2 (08:16→20:20)
[2022-03-19] MEDS: Famotidine 20 MG Tab PO SCH ×2 (08:17→20:20)
[2022-03-19] MEDS: Polyethylene Glycol 3350 Powder 17 GM Packet PO SCH (08:18)
[2022-03-19] MEDS: guaiFENesin 600 MG Tab.ER PO SCH ×2 (08:18→20:20)
[2022-03-19] MEDS: PSEUDOEPHEDRINE HCL 120 MG PO SCH ×2 (08:19→20:20)
[2022-03-19] MEDS: VANCOmycin 1.5 GM/300 ML 1.5 GM in Premix Bag 1 BAG IV SCH (10:21)
[2022-03-19] MEDS: Acetaminophen 325 MG Tab PO PRN (15:20)
[2022-03-19] MEDS: Azithromycin 500 MG in Sodium Chloride 0.9% 250 ML IV SCH (16:09)
[2022-03-19] MEDS: Sertraline 100 MG Tab PO SCH (20:20)
[2022-03-19] MEDS: Carboxymethylcellulose Sodium 0.5% Ophth Soln 0.4 ML UD Box of 30 EYEBOTH PRN (20:21)
[2022-03-19] MEDS: Albuterol/Ipratropium 3.0-0.5 MG/3 ML Neb Soln NEB PRN (22:53)
[2022-03-20 01:14] VITALS: BP 96/50; PULSE 77
[2022-03-20] MEDS ORDERED: Premix Bag 1 BAG ONE (15:29)
[2022-03-20] MEDS ORDERED: Sodium Chloride 0.9% 100 ML ONE ×3 (15:31→20:07)
[2022-03-20] MEDS ORDERED: Azithromycin 500 MG Vial ONE (16:07)
[2022-03-20] MEDS ORDERED: Sodium Chloride 0.9% 250 ML ONE (16:08)
[2022-03-20] MEDS ORDERED: guaiFENesin 600 MG Tab.ER ONE (19:56)
[2022-03-20] MEDS ORDERED: Sertraline 100 MG Tab ONE (19:56)
[2022-03-20] MEDS ORDERED: risperiDONE 1 MG Tab ONE (19:56)
[2022-03-20] MEDS ORDERED: Famotidine 20 MG Tab ONE (19:56)
[2022-03-20] MEDS ORDERED: Heparin Sodium 5,000 Units/ML Vial ONE (19:58)
[2022-03-20] MEDS ORDERED: Carboxymethylcellulose Sodium 0.5% Ophth Soln 0.4 ML UD Box of 30 ONE (20:14)
[2022-03-21] MEDS ORDERED: Sodium Chloride 0.9% 100 ML ONE ×2 (02:49→08:45)
[2022-03-21] MEDS ORDERED: Famotidine 20 MG Tab ONE (08:44)
[2022-03-21] MEDS ORDERED: guaiFENesin 600 MG Tab.ER ONE (08:44)
[2022-03-21] MEDS ORDERED: Heparin Sodium 5,000 Units/ML Vial ONE (08:44)
[2022-03-21] MEDS ORDERED: Polyethylene Glycol 3350 Powder 17 GM Packet ONE (08:45)
[2022-03-21] MEDS ORDERED: VANCOmycin 1.5 GM/300 ML 300 ML ONE (10:59)
== END 2022-03-21 16:30 | disposition home or self-care (01) | DRG 178 ==
LOC: MW.ED 07:12 → MW.MS 11:50 → MW.ZCENSUS 03-20 13:52
PROVIDERS: ADMIT Internal Medicine; ATTEND Internal Medicine
DX: J15.6 Pneumonia due to other Gram-negative bacteria (principal); G10 Huntington's disease; N17.9 Acute kidney failure, unspecified; K59.09 Other constipation; E86.0 Dehydration; Z20.822 Contact with and (suspected) exposure to COVID-19; Z87.440 Personal history of urinary (tract) infections; Z88.8 Allergy status to other drugs, medicaments and biological substances; Z79.899 Other long term (current) drug therapy; Z90.49 Acquired absence of other specified parts of digestive tract; Z90.89 Acquired absence of other organs
CPT/HCPCS: 0241U; 36415; 71045; 71045-26; 80048; 80053; 80202; 83605; 85025; 85730; 87040; 87070; 87205; 87899; 93005; 94640; 94667; 94668; 97110-GO; 97163-GP; 97165-GO; A9270-GY; J0456; J0696; J1644; J2543; J3370; J3490; J7030; J7050; J7620-GY

== ENCOUNTER 2022-06-26 16:14 | Emergency (ER) | payer MEDICARE, BC ==
[2022-06-26 17:23] VITALS: BP 129/57; PULSE 90
[2022-06-26 19:36] LABS: CARBON DIOXIDE,CO2 31.7 mmol/L (21.0-32.0); POTASSIUM,K 4.3 mmol/L (3.5-5.1)
[2022-06-26] MEDS: Amoxicillin/Clavulanate K 875-125 MG Tab PO STA ×2 (21:06→21:16)
[2022-06-26] MEDS: Doxycycline 100 MG Cap PO STA ×2 (21:06→21:16)
[2022-06-26] MEDS ORDERED: cefTRIAXone 1 GM Vial IM STA (21:29)
[2022-06-26] MEDS ORDERED: Lidocaine 1% 2 ML ONE (21:37)
[2022-06-26] MEDS ORDERED: Lidocaine 1% PF 2 ML SDV INJECT STA (21:37)
[2022-06-26] MEDS ORDERED: Amoxicillin/Clavulanate K 875-125 MG Tab PO STA (21:38)
[2022-06-26] MEDS ORDERED: Amoxicillin/Clavulanate K 875-125 MG Tab ONE (21:39)
== END 2022-06-26 22:22 | disposition home or self-care (01) ==
LOC: MW.ED 16:14
DX: N30.00 Acute cystitis without hematuria (principal); Z88.8 Allergy status to other drugs, medicaments and biological substances
CPT/HCPCS: 36415; 51701; 71045; 80053; 81001; 83880; 84484; 85025; 87086; 96372; 99284; A9270; J0696; 87088; 87186; J3490

== ENCOUNTER 2022-06-27 09:05 | Emergency (ER) | payer MEDICARE, BC ==
[2022-06-27 09:54] LABS: CARBON DIOXIDE,CO2 29.4 mmol/L (21.0-32.0); POTASSIUM,K 4.2 mmol/L (3.5-5.1)
[2022-06-27] MEDS ORDERED: Sodium Chloride 0.9% 1,000 ML IV ONE (10:09)
[2022-06-27 10:15] LABS: CORONAVIRUS COVID-19 NAA NEGATIVE (NEGATIVE); INFLUENZA A NAA NEGATIVE (NEGATIVE); INFLUENZA B NAA NEGATIVE (NEGATIVE); RESPIRATORY SYNCYTIAL VIR NAA NEGATIVE (NEGATIVE)
[2022-06-27] MEDS ORDERED: cefTRIAXone 1 GM in Sodium Chloride 0.9% 50 ML IV ONE (10:59)
[2022-06-27] MEDS ORDERED: Amoxicillin/Clavulanate K 875-125 MG Tab PO ONE (11:00)
[2022-06-27 11:18] VITALS: BP 136/69; PULSE 100
[2022-06-27] MEDS ORDERED: Lidocaine 5% 700 MG Patch TOP ONE (12:06)
== END 2022-06-27 11:37 | disposition home or self-care (01) ==
LOC: MW.ED 09:05
DX: N30.00 Acute cystitis without hematuria (principal); E86.0 Dehydration; Z88.8 Allergy status to other drugs, medicaments and biological substances; Z20.822 Contact with and (suspected) exposure to COVID-19
CPT/HCPCS: 0241U; 36415; 80053; 85025; 96361; 96365; 99284; A9270; J0696; J7030; J7050

== ENCOUNTER 2022-06-27 12:39 | Inpatient (IN) | payer MEDICARE, BC ==
[2022-06-27] MEDS ORDERED: Sodium Chloride 0.9% 1,000 ML IV ONE (13:24)
[2022-06-27] MEDS ORDERED: Polyethylene Glycol 3350 Powder 17 GM Packet PO PRN (15:33)
[2022-06-27] MEDS ORDERED: Ondansetron 4 MG/2 ML SDV IVPUSH PRN (17:09)
[2022-06-27] MEDS: Albuterol/Ipratropium 3.0-0.5 MG/3 ML Neb Soln NEB PRN (17:50)
[2022-06-27] MEDS: Acetaminophen 325 MG Tab PO PRN (17:50)
[2022-06-27] MEDS: Sertraline 50 MG Tab PO SCH ×2 (17:52→18:23)
[2022-06-27] MEDS ORDERED: Acetaminophen 650 MG in Premix Bag 1 BAG IV PRN (18:03)
[2022-06-27] MEDS ORDERED: Morphine 2 MG/ML SYRINGE IVPUSH PRN (18:14)
[2022-06-27] MEDS: Heparin Sodium 5,000 Units/ML Vial SUBCUT SCH (18:21)
[2022-06-27 20:28] LABS: CARBON DIOXIDE,CO2 26.1 mmol/L (21.0-32.0); POTASSIUM,K 4.4 mmol/L (3.5-5.1)
[2022-06-27] MEDS: Pseudoephedrine 30 MG Tab PO SCH ×2 (21:25→21:43)
[2022-06-27] MEDS: guaiFENesin 600 MG Tab.ER PO SCH ×2 (21:26→21:44)
[2022-06-27] MEDS: Azithromycin 500 MG in Sodium Chloride 0.9% 250 ML IV SCH (21:26)
[2022-06-27] MEDS: Famotidine 20 MG Tab PO SCH ×2 (21:26→21:43)
[2022-06-27] MEDS ORDERED: VANCOmycin 1.75 GM/350 ML 350 ML IV ONE (22:45)
[2022-06-27] MEDS: Sodium Chloride 0.9% 1,000 ML IV SCH (23:23)
[2022-06-27] MEDS: Piperacillin/Tazobactam 3.375 GM in Sodium Chloride 0.9% 50 ML IV SCH (23:23)
[2022-06-28] MEDS: Albuterol/Ipratropium 3.0-0.5 MG/3 ML Neb Soln NEB PRN ×3 (04:00→16:42)
[2022-06-28] MEDS: Piperacillin/Tazobactam 3.375 GM in Sodium Chloride 0.9% 50 ML IV SCH ×4 (04:01→22:53)
[2022-06-28] MEDS: Heparin Sodium 5,000 Units/ML Vial SUBCUT SCH ×3 (04:01→18:01)
[2022-06-28 06:45] LABS: CARBON DIOXIDE,CO2 25.1 mmol/L (21.0-32.0); POTASSIUM,K 4.2 mmol/L (3.5-5.1)
[2022-06-28] MEDS: guaiFENesin 600 MG Tab.ER PO SCH ×2 (09:00→21:45)
[2022-06-28] MEDS: PSEUDOEPHEDRINE 120 MG PO SCH ×2 (09:00→21:45)
[2022-06-28] MEDS: Sertraline 100 MG Tab PO SCH (09:00)
[2022-06-28] MEDS ORDERED: guaiFENesin 600 MG Tab.ER PO SCH (09:00)
[2022-06-28] MEDS: Famotidine 20 MG Tab PO SCH ×2 (09:00→21:45)
[2022-06-28] MEDS ORDERED: cefTRIAXone 1 GM in Sodium Chloride 0.9% 50 ML IV SCH (11:00)
[2022-06-28] MEDS: Sodium Chloride 0.9% 1,000 ML IV SCH ×2 (11:55→21:45)
[2022-06-28] MEDS: Sertraline 50 MG Tab PO SCH (18:04)
[2022-06-28] MEDS: Azithromycin 500 MG in Sodium Chloride 0.9% 250 ML IV SCH (21:29)
[2022-06-29] MEDS: Piperacillin/Tazobactam 3.375 GM in Sodium Chloride 0.9% 50 ML IV SCH ×4 (04:42→23:23)
[2022-06-29] MEDS: Heparin Sodium 5,000 Units/ML Vial SUBCUT SCH ×2 (04:43→16:56)
[2022-06-29] MEDS: Albuterol/Ipratropium 3.0-0.5 MG/3 ML Neb Soln NEB PRN (04:53)
[2022-06-29 06:12] LABS: CARBON DIOXIDE,CO2 25.5 mmol/L (21.0-32.0); POTASSIUM,K 3.7 mmol/L (3.5-5.1)
[2022-06-29] MEDS: guaiFENesin 600 MG Tab.ER PO SCH ×2 (08:27→20:29)
[2022-06-29] MEDS: PSEUDOEPHEDRINE 120 MG PO SCH ×2 (08:28→21:00)
[2022-06-29] MEDS: Famotidine 20 MG Tab PO SCH ×2 (08:28→20:26)
[2022-06-29] MEDS: Sertraline 100 MG Tab PO SCH ×2 (08:28→20:27)
[2022-06-29] MEDS: Sodium Chloride 0.9% 1,000 ML IV SCH ×2 (10:31→19:54)
[2022-06-29] MEDS: Azithromycin 500 MG in Sodium Chloride 0.9% 250 ML IV SCH (20:33)
[2022-06-29] MEDS: Acetaminophen 325 MG Tab PO PRN (23:13)
[2022-06-30] MEDS: VANCOmycin 1.5 GM/300 ML 1.5 GM in Premix Bag 1 BAG IV SCH ×2 (00:01→22:49)
[2022-06-30] MEDS: Heparin Sodium 5,000 Units/ML Vial SUBCUT SCH ×2 (05:58→17:03)
[2022-06-30] MEDS: Piperacillin/Tazobactam 3.375 GM in Sodium Chloride 0.9% 50 ML IV SCH ×4 (05:58→22:49)
[2022-06-30 06:14] LABS: CARBON DIOXIDE,CO2 26.3 mmol/L (21.0-32.0); POTASSIUM,K 3.5 mmol/L (3.5-5.1)
[2022-06-30] MEDS: guaiFENesin 600 MG Tab.ER PO SCH ×2 (09:25→21:26)
[2022-06-30] MEDS: Famotidine 20 MG Tab PO SCH ×2 (09:25→21:26)
[2022-06-30] MEDS: PSEUDOEPHEDRINE 120 MG PO SCH ×2 (10:38→21:26)
[2022-06-30] MEDS: Sodium Chloride 0.9% 1,000 ML IV SCH ×2 (14:51→22:49)
[2022-06-30] MEDS: Sertraline 100 MG Tab PO SCH (21:24)
[2022-06-30] MEDS: Azithromycin 500 MG in Sodium Chloride 0.9% 250 ML IV SCH (21:24)
[2022-07-01] MEDS: Acetaminophen 325 MG Tab PO PRN (02:01)
[2022-07-01] MEDS: Heparin Sodium 5,000 Units/ML Vial SUBCUT SCH (04:55)
[2022-07-01] MEDS: Piperacillin/Tazobactam 3.375 GM in Sodium Chloride 0.9% 50 ML IV SCH ×2 (04:55→10:39)
[2022-07-01 07:26] LABS: CARBON DIOXIDE,CO2 25.5 mmol/L (21.0-32.0); POTASSIUM,K 3.7 mmol/L (3.5-5.1)
[2022-07-01 08:38] VITALS: BP 116/62; PULSE 59
[2022-07-01] MEDS: PSEUDOEPHEDRINE 120 MG PO SCH (09:08)
[2022-07-01] MEDS: guaiFENesin 600 MG Tab.ER PO SCH (09:08)
[2022-07-01] MEDS: Famotidine 20 MG Tab PO SCH (09:08)
== END 2022-07-01 11:05 | disposition home or self-care (01) | DRG 682 ==
LOC: MW.ED 12:39 → MW.MS 13:51 → OBSVTOIN 06-29 08:36 → MW.MS 06-29 10:00
PROVIDERS: ADMIT Internal Medicine; ATTEND Internal Medicine
DX: N17.9 Acute kidney failure, unspecified (principal); J18.9 Pneumonia, unspecified organism; R07.81 Pleurodynia; N39.0 Urinary tract infection, site not specified; G10 Huntington's disease; K59.09 Other constipation; E86.0 Dehydration; Z79.2 Long term (current) use of antibiotics; Z79.899 Other long term (current) drug therapy; Z88.8 Allergy status to other drugs, medicaments and biological substances; Z87.01 Personal history of pneumonia (recurrent); Z90.89 Acquired absence of other organs; Z98.890 Other specified postprocedural states; Z90.49 Acquired absence of other specified parts of digestive tract; Z87.891 Personal history of nicotine dependence
CPT/HCPCS: 36415 ×3; 71045 ×2; 80048 ×2; 80053; 80202 ×2; 83605; 85025 ×3; 87040 ×2; 94640 ×2; 94667; 96361; 96365; 96366; 96367; 96372 ×3; 96375; 96376; 99284; A9270 ×4; G0378 ×4; J0131; J0456 ×2; J1644 ×4; J2543 ×6; J3370 ×2; J7030 ×4; J7050 ×3; 97163-GP; 97530-GP; J7620-GY

== ENCOUNTER 2022-10-06 15:06 | Emergency (ER) | payer MEDICARE, BC ==
[2022-10-06] MEDS ORDERED: Sodium Chloride 0.9% 2.5 ML Syringe FLUSH PRN (15:12)
[2022-10-06] MEDS ORDERED: Sodium Chloride 0.9% 10 ML Syringe FLUSH PRN (15:12)
[2022-10-06] MEDS ORDERED: Sodium Chloride 0.9% 1,000 ML IV ONE (15:25)
[2022-10-06 16:10] LABS: CARBON DIOXIDE,CO2 31.4 mmol/L (21.0-32.0)
[2022-10-06 18:15] VITALS: BP 124/58; PULSE 87
== END 2022-10-06 18:58 | disposition home or self-care (01) ==
LOC: MW.ED 15:06
DX: K59.00 Constipation, unspecified (principal); Z88.8 Allergy status to other drugs, medicaments and biological substances
CPT/HCPCS: 36415; 74176; 80053; 81003; 83605; 85025; 96360; 96361; 99284; J3490; J7030

== ENCOUNTER 2022-10-17 14:59 | Observation (INO) | payer MEDICARE, BC ==
[2022-10-17] MEDS ORDERED: Acetaminophen 325 MG Tab PO PRN (18:14)
[2022-10-17] MEDS ORDERED: Ondansetron 4 MG/2 ML SDV IVPUSH PRN (18:14)
[2022-10-17] MEDS ORDERED: Ondansetron 4 MG Tab.DIS PO PRN (18:14)
[2022-10-17] MEDS ORDERED: Polyethylene Glycol 3350 Powder 17 GM Packet PO PRN (18:24)
[2022-10-17] MEDS: Lactulose Soln 10 GM/15 ML 15 ML UD Cup PO SCH (20:48)
[2022-10-17] MEDS: risperiDONE 1 MG Tab PO SCH (20:49)
[2022-10-17] MEDS: Famotidine 20 MG Tab PO SCH (20:50)
[2022-10-17] MEDS ORDERED: guaiFENesin 600 MG Tab.ER PO SCH (21:00)
[2022-10-17] MEDS ORDERED: Sulfamethoxazole/Trimethoprim 800-160 MG Tab PO SCH (21:00)
[2022-10-17] MEDS ORDERED: Sodium Chloride 0.9% 1,000 ML IV SCH (21:00)
[2022-10-17] MEDS ORDERED: Sertraline 100 MG Tab PO SCH (21:00)
[2022-10-18 06:44] LABS: CARBON DIOXIDE,CO2 29.1 mmol/L (21.0-32.0); POTASSIUM,K 4.1 mmol/L (3.5-5.1)
[2022-10-18] MEDS ORDERED: Sennosides 8.6 MG Tab PO PRN (07:05)
[2022-10-18] MEDS ORDERED: Docusate Sodium 100 MG Cap PO PRN (07:05)
[2022-10-18] MEDS ORDERED: Acidophilus with Citrus Pectin/L.acidophilus Tab PO SCH (09:00)
[2022-10-18] MEDS ORDERED: Sertraline 100 MG Tab PO SCH (09:00)
[2022-10-18] MEDS: Lactulose Soln 10 GM/15 ML 15 ML UD Cup PO SCH (09:46)
[2022-10-18] MEDS: risperiDONE 1 MG Tab PO SCH (09:48)
[2022-10-18] MEDS: Famotidine 20 MG Tab PO SCH (09:49)
[2022-10-18 15:15] VITALS: BP 157/100; PULSE 87
== END 2022-10-18 15:45 | disposition home or self-care (01) ==
LOC: MW.ED 14:59 → MW.MS 18:06
PROVIDERS: ADMIT Internal Medicine; ATTEND Internal Medicine
DX: K59.01 Slow transit constipation (principal); K56.7 Ileus, unspecified; N39.0 Urinary tract infection, site not specified; G10 Huntington's disease; N40.0 Benign prostatic hyperplasia without lower urinary tract symptoms; Z88.8 Allergy status to other drugs, medicaments and biological substances; Z79.899 Other long term (current) drug therapy; Z87.891 Personal history of nicotine dependence
CPT/HCPCS: 36415; 74018; 80048; 83735; 84100; 85025; A9270; G0378; J7030; 99221; 99239

== ENCOUNTER 2022-11-03 15:12 | Emergency (ER) | payer MEDICARE, BC ==
[2022-11-03] MEDS ORDERED: Lactated Ringers 1,000 ML IV ONE (16:54)
[2022-11-03 16:58] LABS: BASOPHILS PERCENT AUTO 0.2 % (0.0-1.5); EOSINOPHILS ABSOLUTE AUTO 0.2 K/uL (0.0-0.7); EOSINOPHILS PERCENT AUTO 3.4 % (0.0-7.0); HEMATOCRIT 41.1 % (38.0-50.0); HEMOGLOBIN 13.3 g/dL (13.0-17.0); LYMPHOCYTES ABSOLUTE AUTO 1.6 K/uL (0.6-2.4); LYMPHOCYTES PERCENT AUTO 24.9 % (16.0-40.0); MEAN CORPUSCULAR HEMOGLOBIN 27.7 pg (27.0-32.0); MEAN CORPUSCULAR HGB CONC 32.4 g/dL (31.0-37.0); MEAN CORPUSCULAR VOLUME 85.6 fL (80.0-98.0); MONOCYTES ABSOLUTE AUTO 0.7 K/uL (0.0-0.8); MONOCYTES PERCENT AUTO 11.7 % (0.0-15.0); NEUTROPHILS ABSOLUTE AUTO 3.7 K/uL (1.4-5.7); NEUTROPHILS PERCENT AUTO 59.8 % (48.0-80.0); NRBC ABSOLUTE 0 K/uL; PLATELET COUNT,PLT 172 K/uL (150-400); WHITE BLOOD CELL COUNT,WBC 6.23 K/uL (4.0-11.0)
[2022-11-03 17:22] LABS: A/G RATIO 0.8 (0.9-1.6); ALANINE AMINOTRANSFERASE,ALT 25 IU/L (14-63); ALBUMIN 3.4 g/dL (3.4-5.0); ALKALINE PHOSPHATASE 83 U/L (46-116); ASPARTATE AMNIOTRANSFERASE,AST 18 IU/L (15-37); BILIRUBIN TOTAL 0.4 mg/dL (0.2-1.0); BLOOD UREA NITROGEN,BUN 16 mg/dL (7.0-18.0); CALCIUM 9.6 mg/dL (8.5-10.1); CARBON DIOXIDE,CO2 29.6 mmol/L (21.0-32.0); CHLORIDE,CL 107 mmol/L (98-107); CREATININE 1.3 mg/dL (0.8-1.3); GLUCOSE RANDOM 95 mg/dL (74-106); POTASSIUM,K 4.1 mmol/L (3.5-5.1); PROTEIN TOTAL,TP 7.5 g/dL (6.4-8.2); SODIUM,NA 144 mmol/L (136-148)
[2022-11-03 17:23] LABS: ESTIMATED GFR 55 mL/min (>60)
[2022-11-03 17:26] LABS: LACTIC ACID 1.3 mmol/L (0.4-2.0)
[2022-11-03 18:25] VITALS: BP 122/89; PULSE 76
== END 2022-11-03 18:25 | disposition home or self-care (01) ==
LOC: MW.ED 15:12
DX: K59.00 Constipation, unspecified (principal); Z88.8 Allergy status to other drugs, medicaments and biological substances; Z91.018 Allergy to other foods
CPT/HCPCS: 36415; 71045; 74018; 80053; 83605; 85025; 96360; 99284; J7120

== ENCOUNTER 2023-01-18 12:07 | Emergency (ER) | payer MEDICARE, BC ==
[2023-01-18] MEDS ORDERED: Sodium Chloride 0.9% 10 ML Syringe FLUSH PRN (12:21)
[2023-01-18] MEDS ORDERED: Sodium Chloride 0.9% 2.5 ML Syringe FLUSH PRN (12:21)
[2023-01-18 12:35] LABS: BASOPHILS PERCENT AUTO 0.2 % (0.0-1.5); EOSINOPHILS ABSOLUTE AUTO 0.1 K/uL (0.0-0.7); EOSINOPHILS PERCENT AUTO 2.4 % (0.0-7.0); HEMATOCRIT 42.6 % (38.0-50.0); HEMOGLOBIN 13.7 g/dL (13.0-17.0); LYMPHOCYTES ABSOLUTE AUTO 1.1 K/uL (0.6-2.4); MEAN CORPUSCULAR HEMOGLOBIN 27.7 pg (27.0-32.0); MEAN CORPUSCULAR HGB CONC 32.2 g/dL (31.0-37.0); MEAN CORPUSCULAR VOLUME 86.2 fL (80.0-98.0); MONOCYTES ABSOLUTE AUTO 0.6 K/uL (0.0-0.8); MONOCYTES PERCENT AUTO 9.7 % (0.0-15.0); NEUTROPHILS ABSOLUTE AUTO 4.1 K/uL (1.4-5.7); NEUTROPHILS PERCENT AUTO 69.7 % (48.0-80.0); NRBC ABSOLUTE 0 K/uL; PLATELET COUNT,PLT 175 K/uL (150-400); RED BLOOD CELL COUNT 4.94 M/uL (4.50-5.90)
[2023-01-18 13:00] VITALS: PULSE 75
[2023-01-18 13:05] LABS: A/G RATIO 0.8 (0.9-1.6); ALBUMIN 3.3 g/dL (3.4-5.0); BILIRUBIN TOTAL 0.9 mg/dL (0.2-1.0); CALCIUM 9.2 mg/dL (8.5-10.1); CARBON DIOXIDE,CO2 29.3 mmol/L (21.0-32.0); CREATININE 1.5 mg/dL (0.8-1.3); EST CRCL DRUG DOSING (CG) 44.14 mL/min; MAGNESIUM 2.3 mg/dL (1.8-2.4); POTASSIUM,K 4.1 mmol/L (3.5-5.1); PROTEIN TOTAL,TP 7.5 g/dL (6.4-8.2)
[2023-01-18] MEDS ORDERED: Sodium Chloride 0.9% 1,000 ML IV STA (13:12)
[2023-01-18] MEDS ORDERED: Doxycycline 100 MG Cap PO STA (13:45)
[2023-01-18 15:21] VITALS: BP 142/64
== END 2023-01-18 15:10 | disposition home or self-care (01) ==
LOC: MW.ED 12:07
DX: J18.9 Pneumonia, unspecified organism (principal); Z79.899 Other long term (current) drug therapy; Z91.018 Allergy to other foods; Z88.8 Allergy status to other drugs, medicaments and biological substances
CPT/HCPCS: 36415; 71045; 80053; 83735; 85025; 96360; 99285; A9270; J3490; J7030; 99284

== ENCOUNTER 2023-02-18 00:05 | Emergency (ER) | payer MEDICARE, BC ==
[2023-02-18 00:36] LABS: HEMATOCRIT 39.7 % (38.0-50.0); HEMOGLOBIN 13.1 g/dL (13.0-17.0); MEAN CORPUSCULAR HEMOGLOBIN 28.4 pg (27.0-32.0); MEAN CORPUSCULAR VOLUME 86.1 fL (80.0-98.0); NRBC ABSOLUTE 0 K/uL; PLATELET COUNT,PLT 184 K/uL (150-400); RED BLOOD CELL COUNT 4.61 M/uL (4.50-5.90); WHITE BLOOD CELL COUNT,WBC 3.39 K/uL (4.0-11.0)
[2023-02-18 00:57] LABS: CORONAVIRUS COVID-19 NAA POSITIVE (NEGATIVE); INFLUENZA A NAA NEGATIVE (NEGATIVE); INFLUENZA B NAA NEGATIVE (NEGATIVE); RESPIRATORY SYNCYTIAL VIR NAA NEGATIVE (NEGATIVE)
[2023-02-18 01:00] LABS: BAND ABSOLUTE MAN 0.1; BAND PERCENT MAN 3 %; LYMPHOCYTES ABSOLUTE MAN 0.5 (0.6-2.4); LYMPHOCYTES PERCENT MAN 16 % (16.0-40.0); MONOCYTES ABSOLUTE MAN 0.6 (0.0-0.8); MONOCYTES PERCENT MAN 19 % (0.0-15.0); SEG NEUTROPHILS ABSOLUTE MAN 2.1 (1.4-5.7); SEG NEUTROPHILS PERCENT MAN 62 % (48.0-80.0)
[2023-02-18 01:03] LABS: A/G RATIO 0.7 (0.9-1.6); BILIRUBIN TOTAL 0.5 mg/dL (0.2-1.0); CALCIUM 8.3 mg/dL (8.5-10.1); CARBON DIOXIDE,CO2 27.1 mmol/L (21.0-32.0); CREATININE 1.4 mg/dL (0.8-1.3); EST CRCL DRUG DOSING (CG) 45.67 mL/min; POTASSIUM,K 4.4 mmol/L (3.5-5.1); PROTEIN TOTAL,TP 7.2 g/dL (6.4-8.2)
[2023-02-18] MEDS ORDERED: Sodium Chloride 0.9% 1,000 ML IV ONE (01:04)
[2023-02-18] MEDS ORDERED: Acetaminophen 325 MG Tab PO ONE (01:13)
[2023-02-18] MEDS ORDERED: Ketorolac 30 MG/ML SDV IVPUSH ONE (01:13)
[2023-02-18 02:10] VITALS: BP 131/68; PULSE 78
== END 2023-02-18 02:09 | disposition home or self-care (01) ==
LOC: MW.ED 00:05
DX: U07.1 COVID-19 (principal); E86.0 Dehydration; Z79.899 Other long term (current) drug therapy; Z88.8 Allergy status to other drugs, medicaments and biological substances; Z91.018 Allergy to other foods
CPT/HCPCS: 0241U; 36415; 71045; 80053; 85025; 96361; 96374; 99285; A9270; J1885; J7030; 99284

== ENCOUNTER 2023-03-25 14:11 | Inpatient (IN) | payer MEDICARE, BC ==
[2023-03-25] MEDS ORDERED: Cefepime 2 GM Vial IVPUSH ONE (14:22)
[2023-03-25] MEDS ORDERED: Sodium Chloride 0.9% 10 ML Syringe FLUSH PRN (14:22)
[2023-03-25] MEDS ORDERED: Sodium Chloride 0.9% 2.5 ML Syringe FLUSH PRN (14:22)
[2023-03-25] MEDS ORDERED: Albuterol/Ipratropium 3.0-0.5 MG/3 ML Neb Soln NEB ONE (14:22)
[2023-03-25] MEDS ORDERED: Sodium Chloride 0.9% 1,000 ML IV ONE (14:38)
[2023-03-25] MEDS ORDERED: metroNIDAZOLE/Normal Saline 500 MG in Premix Bag 1 BAG IV ONE ×2 (14:39→19:30)
[2023-03-25] MEDS ORDERED: VANCOmycin 1.5 GM/300 ML 1.5 GM in Premix Bag 1 BAG IV ONE (14:45)
[2023-03-25 15:10] LABS: BASE EXCESS VENOUS 2.1 (-2.0-3.0); PH,VENOUS 7.41 (7.31-7.41)
[2023-03-25 15:14] LABS: BASOPHILS ABSOLUTE AUTO 0.01 K/uL (0.00-0.20); BASOPHILS PERCENT AUTO 0.1 % (0.0-1.0); EOSINOPHILS ABSOLUTE AUTO 0.07 K/uL (0.00-0.45); HEMATOCRIT 41.8 % (42.0-52.0); HEMOGLOBIN 13.6 g/dL (14.0-18.0); IMMATURE GRAN ABSOLUTE AUTO 0.01 K/uL (0.00-0.05); IMMATURE GRAN PERCENT AUTO 0.1 % (0.0-0.4); LYMPHOCYTES ABSOLUTE AUTO 0.85 K/uL (1.00-4.80); LYMPHOCYTES PERCENT AUTO 11.6 % (24.0-44.0); MEAN CORPUSCULAR HEMOGLOBIN 28.3 pg (28.0-32.0); MEAN CORPUSCULAR HGB CONC 32.5 g/dL (32.0-36.0); MEAN CORPUSCULAR VOLUME 86.9 fL (83.0-99.0); MONOCYTES ABSOLUTE AUTO 0.85 K/uL (0.00-0.80); MONOCYTES PERCENT AUTO 11.6 % (0.0-8.0); NEUTROPHILS ABSOLUTE AUTO 5.5 K/uL (1.8-7.7); NEUTROPHILS PERCENT AUTO 75.6 % (41.0-71.0); PLATELET COUNT,PLT 187 K/uL (150-400); RED BLOOD CELL COUNT 4.81 M/uL (4.52-5.90)
[2023-03-25 15:40] LABS: A/G RATIO 0.8 (0.9-1.6); ALBUMIN 3.5 g/dL (3.4-5.0); CARBON DIOXIDE,CO2 26.8 mmol/L (21.0-32.0); CREATININE 1.3 mg/dL (0.8-1.3); EST CRCL DRUG DOSING (CG) 50.94 mL/min; LACTIC ACID 1.8 mmol/L (0.4-2.0); POTASSIUM,K 4.5 mmol/L (3.5-5.1)
[2023-03-25 15:53] LABS: CORONAVIRUS COVID-19 NAA NEGATIVE (NEGATIVE); INFLUENZA A NAA NEGATIVE (NEGATIVE); INFLUENZA B NAA NEGATIVE (NEGATIVE); RESPIRATORY SYNCYTIAL VIR NAA NEGATIVE (NEGATIVE)
[2023-03-25 16:36] LABS: APPEARANCE,URINE CLEAR; BILIRUBIN,URINE NEGATIVE (NEGATIVE); COLOR,URINE YELLOW; GLUCOSE,URINE NEGATIVE (NEGATIVE); KETONES,URINE NEGATIVE (NEGATIVE); LEUKOCYTE ESTERASE,URINE NEGATIVE (NEGATIVE); NITRITE,URINE NEGATIVE (NEGATIVE); OCCULT BLOOD,URINE NEGATIVE (NEGATIVE); PROTEIN,URINE NEGATIVE (NEGATIVE); UROBILINOGEN,URINE 0.2 EU/dL (<2.0)
[2023-03-25] MEDS ORDERED: Acetaminophen 325 MG Tab PO PRN (16:47)
[2023-03-25] MEDS ORDERED: Albuterol/Ipratropium 3.0-0.5 MG/3 ML Neb Soln NEB PRN (16:47)
[2023-03-25] MEDS ORDERED: Ondansetron 4 MG/2 ML SDV IVPUSH PRN (16:47)
[2023-03-25] MEDS: Piperacillin/Tazobactam 4.5 GM in Sodium Chloride 0.9% 100 ML IV SCH ×2 (18:42→23:37)
[2023-03-25] MEDS: Enoxaparin 40 MG/0.4 ML Syringe SUBCUT SCH (18:42)
[2023-03-25] MEDS: guaiFENesin 600 MG Tab.ER PO SCH (20:08)
[2023-03-25] MEDS: Polyethylene Glycol 3350 Powder 17 GM Packet PO SCH ×2 (20:08→20:16)
[2023-03-25] MEDS: Sennosides 8.6 MG Tab PO SCH (20:08)
[2023-03-25] MEDS: Sulfamethoxazole/Trimethoprim 800-160 MG Tab PO SCH (20:08)
[2023-03-25] MEDS: Famotidine 20 MG Tab PO SCH (20:08)
[2023-03-25] MEDS ORDERED: Cefepime 2 GM in Sodium Chloride 0.9% 50 ML IV ONE (20:30)
[2023-03-25] MEDS: risperiDONE 1 MG Tab ONE ×2 (21:38→21:39)
[2023-03-25] MEDS: Acetaminophen 325 MG Tab PO PRN (23:45)
[2023-03-26] MEDS: Piperacillin/Tazobactam 4.5 GM in Sodium Chloride 0.9% 100 ML IV SCH ×3 (06:04→18:05)
[2023-03-26 06:54] LABS: BASOPHILS ABSOLUTE AUTO 0.02 K/uL (0.00-0.20); BASOPHILS PERCENT AUTO 0.4 % (0.0-1.0); EOSINOPHILS ABSOLUTE AUTO 0.16 K/uL (0.00-0.45); HEMATOCRIT 35.8 % (42.0-52.0); IMMATURE GRAN ABSOLUTE AUTO 0.02 K/uL (0.00-0.05); IMMATURE GRAN PERCENT AUTO 0.4 % (0.0-0.4); LYMPHOCYTES ABSOLUTE AUTO 0.79 K/uL (1.00-4.80); LYMPHOCYTES PERCENT AUTO 14.8 % (24.0-44.0); MEAN CORPUSCULAR HEMOGLOBIN 28.6 pg (28.0-32.0); MEAN CORPUSCULAR HGB CONC 33.5 g/dL (32.0-36.0); MEAN CORPUSCULAR VOLUME 85.4 fL (83.0-99.0); MEAN PLATELET VOLUME 9.1 fL (9.4-12.4); MONOCYTES ABSOLUTE AUTO 0.68 K/uL (0.00-0.80); MONOCYTES PERCENT AUTO 12.8 % (0.0-8.0); NEUTROPHILS ABSOLUTE AUTO 3.7 K/uL (1.8-7.7); NEUTROPHILS PERCENT AUTO 68.6 % (41.0-71.0); PLATELET COUNT,PLT 160 K/uL (150-400); RED BLOOD CELL COUNT 4.19 M/uL (4.52-5.90); WHITE BLOOD CELL COUNT,WBC 5.32 K/uL (3.9-11.3)
[2023-03-26 07:28] LABS: A/G RATIO 0.7 (0.9-1.6); ALBUMIN 2.9 g/dL (3.4-5.0); BILIRUBIN TOTAL 1.1 mg/dL (0.2-1.0); CALCIUM 8.4 mg/dL (8.5-10.1); CREATININE 1.1 mg/dL (0.8-1.3); EST CRCL DRUG DOSING (CG) 60.2 mL/min; MAGNESIUM 2.1 mg/dL (1.8-2.4); PHOSPHORUS 4.2 mg/dL (2.6-4.7); PROTEIN TOTAL,TP 6.8 g/dL (6.4-8.2)
[2023-03-26] MEDS: Acetaminophen 325 MG Tab PO PRN ×2 (07:44→21:40)
[2023-03-26] MEDS: Famotidine 20 MG Tab PO SCH ×2 (09:47→21:26)
[2023-03-26] MEDS: guaiFENesin 600 MG Tab.ER PO SCH ×2 (09:47→21:25)
[2023-03-26] MEDS: risperiDONE 1 MG Tab PO SCH ×2 (09:47→21:25)
[2023-03-26] MEDS: Polyethylene Glycol 3350 Powder 17 GM Packet PO SCH ×2 (09:49→21:31)
[2023-03-26] MEDS: Lactated Ringers 1,000 ML IV SCH (10:47)
[2023-03-26] MEDS ORDERED: Bisacodyl 10 MG Supp RECTAL ONE (13:30)
[2023-03-26] MEDS: VANCOmycin 1.5 GM/300 ML 1.5 GM in Premix Bag 1 BAG IV SCH (15:18)
[2023-03-26] MEDS: Enoxaparin 40 MG/0.4 ML Syringe SUBCUT SCH (16:58)
[2023-03-26] MEDS: Sennosides 8.6 MG Tab PO SCH (21:25)
[2023-03-26] MEDS: Sulfamethoxazole/Trimethoprim 800-160 MG Tab PO SCH (21:26)
[2023-03-27] MEDS: Piperacillin/Tazobactam 4.5 GM in Sodium Chloride 0.9% 100 ML IV SCH ×5 (00:32→23:55)
[2023-03-27 06:02] LABS: BASOPHILS ABSOLUTE AUTO 0.02 K/uL (0.00-0.20); BASOPHILS PERCENT AUTO 0.4 % (0.0-1.0); EOSINOPHILS ABSOLUTE AUTO 0.25 K/uL (0.00-0.45); EOSINOPHILS PERCENT AUTO 5.2 % (0.0-6.0); HEMATOCRIT 33.5 % (42.0-52.0); HEMOGLOBIN 11.1 g/dL (14.0-18.0); IMMATURE GRAN ABSOLUTE AUTO 0.02 K/uL (0.00-0.05); IMMATURE GRAN PERCENT AUTO 0.4 % (0.0-0.4); LYMPHOCYTES ABSOLUTE AUTO 1.09 K/uL (1.00-4.80); LYMPHOCYTES PERCENT AUTO 22.9 % (24.0-44.0); MEAN CORPUSCULAR HGB CONC 33.1 g/dL (32.0-36.0); MEAN CORPUSCULAR VOLUME 87.5 fL (83.0-99.0); MONOCYTES ABSOLUTE AUTO 0.56 K/uL (0.00-0.80); MONOCYTES PERCENT AUTO 11.7 % (0.0-8.0); NEUTROPHILS ABSOLUTE AUTO 2.8 K/uL (1.8-7.7); NEUTROPHILS PERCENT AUTO 59.4 % (41.0-71.0); PLATELET COUNT,PLT 156 K/uL (150-400); RED BLOOD CELL COUNT 3.83 M/uL (4.52-5.90); WHITE BLOOD CELL COUNT,WBC 4.77 K/uL (3.9-11.3)
[2023-03-27] MEDS: Lactated Ringers 1,000 ML IV SCH ×2 (06:22→21:05)
[2023-03-27 06:29] LABS: A/G RATIO 0.7 (0.9-1.6); ALBUMIN 2.6 g/dL (3.4-5.0); BILIRUBIN TOTAL 0.7 mg/dL (0.2-1.0); CALCIUM 8.1 mg/dL (8.5-10.1); CARBON DIOXIDE,CO2 24.6 mmol/L (21.0-32.0); CREATININE 1.2 mg/dL (0.8-1.3); EST CRCL DRUG DOSING (CG) 55.18 mL/min; POTASSIUM,K 3.9 mmol/L (3.5-5.1); PROTEIN TOTAL,TP 6.4 g/dL (6.4-8.2)
[2023-03-27] MEDS: Famotidine 20 MG Tab PO SCH ×2 (09:11→20:55)
[2023-03-27] MEDS: Polyethylene Glycol 3350 Powder 17 GM Packet PO SCH (09:12)
[2023-03-27] MEDS: guaiFENesin 600 MG Tab.ER PO SCH ×2 (09:12→20:56)
[2023-03-27] MEDS: risperiDONE 1 MG Tab PO SCH ×2 (09:49→20:56)
[2023-03-27] MEDS: Acetaminophen 325 MG Tab PO PRN ×2 (09:53→21:02)
[2023-03-27] MEDS: VANCOmycin 1.5 GM/300 ML 1.5 GM in Premix Bag 1 BAG IV SCH (14:23)
[2023-03-27] MEDS: Enoxaparin 40 MG/0.4 ML Syringe SUBCUT SCH (17:27)
[2023-03-27] MEDS: Sennosides 8.6 MG Tab PO SCH (20:55)
[2023-03-27] MEDS: Sulfamethoxazole/Trimethoprim 800-160 MG Tab PO SCH (20:55)
[2023-03-28] MEDS: Polyethylene Glycol 3350 Powder 17 GM Packet PO SCH ×2 (01:46→09:06)
[2023-03-28] MEDS: Piperacillin/Tazobactam 4.5 GM in Sodium Chloride 0.9% 100 ML IV SCH ×2 (05:29→11:28)
[2023-03-28 06:07] LABS: BASOPHILS ABSOLUTE AUTO 0.02 K/uL (0.00-0.20); BASOPHILS PERCENT AUTO 0.4 % (0.0-1.0); EOSINOPHILS ABSOLUTE AUTO 0.28 K/uL (0.00-0.45); HEMATOCRIT 34.4 % (42.0-52.0); HEMOGLOBIN 11.4 g/dL (14.0-18.0); IMMATURE GRAN ABSOLUTE AUTO 0.01 K/uL (0.00-0.05); IMMATURE GRAN PERCENT AUTO 0.2 % (0.0-0.4); LYMPHOCYTES ABSOLUTE AUTO 1.18 K/uL (1.00-4.80); LYMPHOCYTES PERCENT AUTO 25.2 % (24.0-44.0); MEAN CORPUSCULAR HEMOGLOBIN 28.6 pg (28.0-32.0); MEAN CORPUSCULAR HGB CONC 33.1 g/dL (32.0-36.0); MEAN CORPUSCULAR VOLUME 86.2 fL (83.0-99.0); MEAN PLATELET VOLUME 9.2 fL (9.4-12.4); MONOCYTES ABSOLUTE AUTO 0.58 K/uL (0.00-0.80); MONOCYTES PERCENT AUTO 12.4 % (0.0-8.0); NEUTROPHILS ABSOLUTE AUTO 2.6 K/uL (1.8-7.7); NEUTROPHILS PERCENT AUTO 55.8 % (41.0-71.0); PLATELET COUNT,PLT 190 K/uL (150-400); RED BLOOD CELL COUNT 3.99 M/uL (4.52-5.90); WHITE BLOOD CELL COUNT,WBC 4.69 K/uL (3.9-11.3)
[2023-03-28 06:27] LABS: A/G RATIO 0.6 (0.9-1.6); ALBUMIN 2.5 g/dL (3.4-5.0); BILIRUBIN TOTAL 0.5 mg/dL (0.2-1.0); CALCIUM 8.4 mg/dL (8.5-10.1); CARBON DIOXIDE,CO2 26.2 mmol/L (21.0-32.0); CREATININE 1.3 mg/dL (0.8-1.3); EST CRCL DRUG DOSING (CG) 50.94 mL/min; POTASSIUM,K 4.3 mmol/L (3.5-5.1); PROTEIN TOTAL,TP 6.4 g/dL (6.4-8.2)
[2023-03-28] MEDS: Famotidine 20 MG Tab PO SCH (09:03)
[2023-03-28] MEDS: risperiDONE 1 MG Tab PO SCH (09:04)
[2023-03-28] MEDS: guaiFENesin 600 MG Tab.ER PO SCH (09:05)
[2023-03-28 13:25] VITALS: BP 122/58; PULSE 74
== END 2023-03-28 13:15 | disposition home or self-care (01) | DRG 178 ==
LOC: MW.ED 14:11 → MW.MS 16:12
PROVIDERS: ADMIT Family Medicine; ATTEND Family Medicine
DX: J69.0 Pneumonitis due to inhalation of food and vomit (principal); G10 Huntington's disease; E86.0 Dehydration; J18.9 Pneumonia, unspecified organism; Z20.822 Contact with and (suspected) exposure to COVID-19; I95.9 Hypotension, unspecified; N40.0 Benign prostatic hyperplasia without lower urinary tract symptoms; Z91.018 Allergy to other foods; Z88.8 Allergy status to other drugs, medicaments and biological substances; Z87.891 Personal history of nicotine dependence; Z90.49 Acquired absence of other specified parts of digestive tract; Z90.89 Acquired absence of other organs; Z98.890 Other specified postprocedural states; Z87.440 Personal history of urinary (tract) infections; Z79.899 Other long term (current) drug therapy; Z86.16 Personal history of COVID-19
CPT/HCPCS: 0241U; 36415; 71045; 80053; 80202; 81003; 82803; 83605; 83690; 83735; 83880; 84100; 84484; 85025; 87040; 87086; 93005; 96365; 99285; 36410; 93010; 99222; 99232; 99239; A9270-GY; J0692; J1650; J2543; J3370; J3490; J7030; J7120; J7620-GY

== ENCOUNTER 2023-05-08 13:46 | Observation (INO) | payer MEDICARE, BC ==
[2023-05-08 14:48] LABS: BASOPHILS ABSOLUTE AUTO 0.01 K/uL (0.00-0.20); BASOPHILS PERCENT AUTO 0.2 % (0.0-1.0); EOSINOPHILS ABSOLUTE AUTO 0.13 K/uL (0.00-0.45); EOSINOPHILS PERCENT AUTO 2.5 % (0.0-6.0); HEMATOCRIT 42.1 % (42.0-52.0); HEMOGLOBIN 14.1 g/dL (14.0-18.0); IMMATURE GRAN ABSOLUTE AUTO 0.02 K/uL (0.00-0.05); IMMATURE GRAN PERCENT AUTO 0.4 % (0.0-0.4); LYMPHOCYTES ABSOLUTE AUTO 1.06 K/uL (1.00-4.80); LYMPHOCYTES PERCENT AUTO 20.7 % (24.0-44.0); MEAN CORPUSCULAR HEMOGLOBIN 28.7 pg (28.0-32.0); MEAN CORPUSCULAR HGB CONC 33.5 g/dL (32.0-36.0); MEAN CORPUSCULAR VOLUME 85.7 fL (83.0-99.0); MEAN PLATELET VOLUME 8.5 fL (9.4-12.4); MONOCYTES PERCENT AUTO 11.7 % (0.0-8.0); NEUTROPHILS ABSOLUTE AUTO 3.31 K/uL (1.80-7.70); NEUTROPHILS PERCENT AUTO 64.5 % (41.0-71.0); PLATELET COUNT,PLT 188 K/uL (150-400); RED BLOOD CELL COUNT 4.91 M/uL (4.52-5.90); WHITE BLOOD CELL COUNT,WBC 5.13 K/uL (3.9-11.3)
[2023-05-08] MEDS ORDERED: Sodium Chloride 0.9% 500 ML IV ONE (15:08)
[2023-05-08 15:13] LABS: A/G RATIO 0.7 (0.9-1.6); ALBUMIN 3.3 g/dL (3.4-5.0); BILIRUBIN TOTAL 0.6 mg/dL (0.2-1.0); C-REACTIVE PROTEIN 4.79 mg/dL (<0.3); CALCIUM 9.4 mg/dL (8.5-10.1); CARBON DIOXIDE,CO2 29.8 mmol/L (21.0-32.0); CREATININE 1.3 mg/dL (0.8-1.3); EST CRCL DRUG DOSING (CG) 49.72 mL/min; POTASSIUM,K 4.2 mmol/L (3.5-5.1); PROTEIN TOTAL,TP 7.9 g/dL (6.4-8.2)
[2023-05-08 17:17] LABS: APPEARANCE,URINE CLEAR; BILIRUBIN,URINE NEGATIVE (NEGATIVE); COLOR,URINE YELLOW; GLUCOSE,URINE NEGATIVE (NEGATIVE); KETONES,URINE NEGATIVE (NEGATIVE); LEUKOCYTE ESTERASE,URINE NEGATIVE (NEGATIVE); NITRITE,URINE NEGATIVE (NEGATIVE); OCCULT BLOOD,URINE NEGATIVE (NEGATIVE); PROTEIN,URINE NEGATIVE (NEGATIVE); UROBILINOGEN,URINE 0.2 EU/dL (<2.0)
[2023-05-08] MEDS ORDERED: Ondansetron 4 MG/2 ML SDV IVPUSH PRN (18:30)
[2023-05-08] MEDS ORDERED: Acetaminophen 325 MG Tab PO PRN (18:30)
[2023-05-08] MEDS ORDERED: Azithromycin 500 MG in Sodium Chloride 0.9% 250 ML IV SCH (18:45)
[2023-05-08] MEDS ORDERED: cefTRIAXone 1 GM in Sodium Chloride 0.9% 50 ML IV SCH (18:45)
[2023-05-08] MEDS ORDERED: Non-Formulary Medication 1 Each (Baclofen [Baclofen] 5 MG Tablet) PO SCH (18:45)
[2023-05-08] MEDS ORDERED: Acidophilus with Citrus Pectin/L.acidophilus Tab PO SCH (21:00)
[2023-05-08] MEDS ORDERED: Enoxaparin 40 MG/0.4 ML Syringe SUBCUT SCH (21:00)
[2023-05-08] MEDS ORDERED: guaiFENesin 600 MG Tab.ER PO SCH (21:00)
[2023-05-08] MEDS: Famotidine 20 MG Tab PO SCH (22:21)
[2023-05-08] MEDS: Polyethylene Glycol 3350 Powder 17 GM Packet PO SCH (22:23)
[2023-05-09 06:10] LABS: BASOPHILS ABSOLUTE AUTO 0.02 K/uL (0.00-0.20); BASOPHILS PERCENT AUTO 0.4 % (0.0-1.0); HEMATOCRIT 39.1 % (42.0-52.0); HEMOGLOBIN 13.1 g/dL (14.0-18.0); IMMATURE GRAN ABSOLUTE AUTO 0.02 K/uL (0.00-0.05); IMMATURE GRAN PERCENT AUTO 0.4 % (0.0-0.4); LYMPHOCYTES ABSOLUTE AUTO 1.56 K/uL (1.00-4.80); LYMPHOCYTES PERCENT AUTO 31.5 % (24.0-44.0); MEAN CORPUSCULAR HEMOGLOBIN 28.6 pg (28.0-32.0); MEAN CORPUSCULAR HGB CONC 33.5 g/dL (32.0-36.0); MEAN CORPUSCULAR VOLUME 85.4 fL (83.0-99.0); MEAN PLATELET VOLUME 8.6 fL (9.4-12.4); MONOCYTES ABSOLUTE AUTO 0.49 K/uL (0.00-0.80); MONOCYTES PERCENT AUTO 9.9 % (0.0-8.0); NEUTROPHILS ABSOLUTE AUTO 2.66 K/uL (1.80-7.70); NEUTROPHILS PERCENT AUTO 53.8 % (41.0-71.0); PLATELET COUNT,PLT 196 K/uL (150-400); RED BLOOD CELL COUNT 4.58 M/uL (4.52-5.90); WHITE BLOOD CELL COUNT,WBC 4.95 K/uL (3.9-11.3)
[2023-05-09 06:36] LABS: A/G RATIO 0.7 (0.9-1.6); BILIRUBIN TOTAL 0.8 mg/dL (0.2-1.0); CALCIUM 9.2 mg/dL (8.5-10.1); CARBON DIOXIDE,CO2 25.6 mmol/L (21.0-32.0); CREATININE 1.1 mg/dL (0.8-1.3); EST CRCL DRUG DOSING (CG) 58.76 mL/min; PROTEIN TOTAL,TP 7.2 g/dL (6.4-8.2)
[2023-05-09] MEDS: Polyethylene Glycol 3350 Powder 17 GM Packet PO SCH (08:56)
[2023-05-09] MEDS: Famotidine 20 MG Tab PO SCH (08:56)
[2023-05-09] MEDS ORDERED: Sennosides 8.6 MG Tab PO SCH (09:00)
[2023-05-09] MEDS ORDERED: risperiDONE 1 MG Tab PO SCH (09:00)
[2023-05-09] MEDS ORDERED: PSEUDOEPHEDRINE HCL 120 MG PO SCH (09:00)
[2023-05-09 13:06] VITALS: BP 94/52; PULSE 88
== END 2023-05-09 12:36 | disposition home or self-care (01) ==
LOC: MW.ED 13:46 → MW.MS 18:16
PROVIDERS: ADMIT Family Medicine; ATTEND Family Medicine
DX: K59.00 Constipation, unspecified (principal); J69.0 Pneumonitis due to inhalation of food and vomit; N40.1 Benign prostatic hyperplasia with lower urinary tract symptoms; N39.0 Urinary tract infection, site not specified; G10 Huntington's disease; R79.89 Other specified abnormal findings of blood chemistry; K92.9 Disease of digestive system, unspecified; Z90.49 Acquired absence of other specified parts of digestive tract; Z90.89 Acquired absence of other organs; Z79.899 Other long term (current) drug therapy; Z91.018 Allergy to other foods; Z88.8 Allergy status to other drugs, medicaments and biological substances
CPT/HCPCS: 36415; 71045; 71045-26; 74018; 74018-26; 80053; 81003; 83690; 83735; 84484; 85025; 86140; 93005; 93010; 96360; 96361; 96365; 96367; 96372; 99222; 99239; 99283; 99285-25; A9270-GY; G0378; J0456; J0696; J1650; J3490; J7030; J7050

== ENCOUNTER 2023-05-11 15:37 | Inpatient (IN) | payer MEDICARE, BC ==
[2023-05-11] MEDS ORDERED: Sodium Chloride 0.9% 1,000 ML IV ONE (16:30)
[2023-05-11 17:18] LABS: BASOPHILS ABSOLUTE AUTO 0.01 K/uL (0.00-0.20); BASOPHILS PERCENT AUTO 0.2 % (0.0-1.0); EOSINOPHILS ABSOLUTE AUTO 0.21 K/uL (0.00-0.45); EOSINOPHILS PERCENT AUTO 4.2 % (0.0-6.0); HEMATOCRIT 41.8 % (42.0-52.0); HEMOGLOBIN 14.3 g/dL (14.0-18.0); IMMATURE GRAN ABSOLUTE AUTO 0.01 K/uL (0.00-0.05); IMMATURE GRAN PERCENT AUTO 0.2 % (0.0-0.4); LYMPHOCYTES ABSOLUTE AUTO 1.23 K/uL (1.00-4.80); LYMPHOCYTES PERCENT AUTO 24.8 % (24.0-44.0); MEAN CORPUSCULAR HEMOGLOBIN 29.1 pg (28.0-32.0); MEAN CORPUSCULAR HGB CONC 34.2 g/dL (32.0-36.0); MEAN PLATELET VOLUME 8.4 fL (9.4-12.4); MONOCYTES ABSOLUTE AUTO 0.35 K/uL (0.00-0.80); MONOCYTES PERCENT AUTO 7.1 % (0.0-8.0); NEUTROPHILS ABSOLUTE AUTO 3.15 K/uL (1.80-7.70); NEUTROPHILS PERCENT AUTO 63.5 % (41.0-71.0); PLATELET COUNT,PLT 212 K/uL (150-400); RED BLOOD CELL COUNT 4.92 M/uL (4.52-5.90); WHITE BLOOD CELL COUNT,WBC 4.96 K/uL (3.9-11.3)
[2023-05-11 17:50] LABS: A/G RATIO 0.7 (0.9-1.6); ALBUMIN 3.4 g/dL (3.4-5.0); BILIRUBIN TOTAL 0.5 mg/dL (0.2-1.0); CALCIUM 9.5 mg/dL (8.5-10.1); CARBON DIOXIDE,CO2 30.8 mmol/L (21.0-32.0); CREATININE 1.1 mg/dL (0.8-1.3); EST CRCL DRUG DOSING (CG) 57.5 mL/min; POTASSIUM,K 4.3 mmol/L (3.5-5.1); PROTEIN TOTAL,TP 8.2 g/dL (6.4-8.2)
[2023-05-11] MEDS ORDERED: cefTRIAXone 1 GM in Sodium Chloride 0.9% 50 ML IV ONE (18:20)
[2023-05-11] MEDS ORDERED: Azithromycin 500 MG in Sodium Chloride 0.9% 250 ML IV ONE (18:20)
[2023-05-11] MEDS ORDERED: Ondansetron 4 MG/2 ML SDV IVPUSH PRN (18:34)
[2023-05-11 19:22] LABS: CORONAVIRUS COVID-19 NAA NEGATIVE (NEGATIVE); INFLUENZA A NAA NEGATIVE (NEGATIVE); INFLUENZA B NAA NEGATIVE (NEGATIVE)
[2023-05-11] MEDS: Lactated Ringers 1,000 ML IV SCH (20:40)
[2023-05-11] MEDS ORDERED: LORazepam 2 MG/ML SDV IVPUSH ONE (20:56)
[2023-05-11] MEDS ORDERED: PSEUDOEPHEDRINE HCL PO SCH (21:00)
[2023-05-11] MEDS: guaiFENesin 600 MG Tab.ER PO SCH (21:03)
[2023-05-11] MEDS: Acidophilus with Citrus Pectin/L.acidophilus Tab PO SCH (21:03)
[2023-05-11] MEDS: Pantoprazole 40 MG in Sodium Chloride 0.9% 10 ML IVPUSH SCH (21:10)
[2023-05-11] MEDS: Enoxaparin 40 MG/0.4 ML Syringe SUBCUT SCH (21:11)
[2023-05-12] MEDS: Lactated Ringers 1,000 ML IV SCH ×3 (04:55→23:51)
[2023-05-12] MEDS: Acetaminophen 325 MG Tab PO PRN (05:08)
[2023-05-12 06:23] LABS: BASOPHILS ABSOLUTE AUTO 0.02 K/uL (0.00-0.20); BASOPHILS PERCENT AUTO 0.4 % (0.0-1.0); EOSINOPHILS ABSOLUTE AUTO 0.16 K/uL (0.00-0.45); EOSINOPHILS PERCENT AUTO 3.3 % (0.0-6.0); HEMATOCRIT 35.8 % (42.0-52.0); HEMOGLOBIN 12.2 g/dL (14.0-18.0); IMMATURE GRAN ABSOLUTE AUTO 0.01 K/uL (0.00-0.05); IMMATURE GRAN PERCENT AUTO 0.2 % (0.0-0.4); LYMPHOCYTES ABSOLUTE AUTO 1.26 K/uL (1.00-4.80); LYMPHOCYTES PERCENT AUTO 25.9 % (24.0-44.0); MEAN CORPUSCULAR HEMOGLOBIN 28.7 pg (28.0-32.0); MEAN CORPUSCULAR HGB CONC 34.1 g/dL (32.0-36.0); MEAN CORPUSCULAR VOLUME 84.2 fL (83.0-99.0); MEAN PLATELET VOLUME 8.4 fL (9.4-12.4); MONOCYTES PERCENT AUTO 10.3 % (0.0-8.0); NEUTROPHILS ABSOLUTE AUTO 2.91 K/uL (1.80-7.70); NEUTROPHILS PERCENT AUTO 59.9 % (41.0-71.0); PLATELET COUNT,PLT 181 K/uL (150-400); RED BLOOD CELL COUNT 4.25 M/uL (4.52-5.90); WHITE BLOOD CELL COUNT,WBC 4.86 K/uL (3.9-11.3)
[2023-05-12 06:52] LABS: CALCIUM 8.9 mg/dL (8.5-10.1); CARBON DIOXIDE,CO2 27.3 mmol/L (21.0-32.0); EST CRCL DRUG DOSING (CG) 65.08 mL/min; POTASSIUM,K 3.8 mmol/L (3.5-5.1)
[2023-05-12] MEDS: guaiFENesin 600 MG Tab.ER PO SCH ×2 (09:24→20:36)
[2023-05-12] MEDS: Sennosides 8.6 MG Tab PO SCH (09:24)
[2023-05-12] MEDS: Polyethylene Glycol 3350 Powder 17 GM Packet PO SCH (09:24)
[2023-05-12] MEDS: risperiDONE 1 MG Tab PO SCH ×2 (10:16→20:35)
[2023-05-12] MEDS: PSEUDOEPHEDRINE HCL PO SCH ×3 (10:34→21:45)
[2023-05-12] MEDS: cefTRIAXone 1 GM in Sodium Chloride 0.9% 50 ML IV SCH (18:19)
[2023-05-12] MEDS: Azithromycin 500 MG in Sodium Chloride 0.9% 250 ML IV SCH (18:59)
[2023-05-12] MEDS: Pantoprazole 40 MG in Sodium Chloride 0.9% 10 ML IVPUSH SCH (20:33)
[2023-05-12] MEDS: Enoxaparin 40 MG/0.4 ML Syringe SUBCUT SCH (20:33)
[2023-05-12] MEDS: Acidophilus with Citrus Pectin/L.acidophilus Tab PO SCH (20:36)
[2023-05-13] MEDS: Acetaminophen 325 MG Tab PO PRN ×3 (01:58→20:33)
[2023-05-13 05:45] LABS: BASOPHILS ABSOLUTE AUTO 0.02 K/uL (0.00-0.20); BASOPHILS PERCENT AUTO 0.4 % (0.0-1.0); EOSINOPHILS ABSOLUTE AUTO 0.27 K/uL (0.00-0.45); EOSINOPHILS PERCENT AUTO 5.2 % (0.0-6.0); HEMATOCRIT 35.8 % (42.0-52.0); HEMOGLOBIN 12.1 g/dL (14.0-18.0); IMMATURE GRAN ABSOLUTE AUTO 0.01 K/uL (0.00-0.05); IMMATURE GRAN PERCENT AUTO 0.2 % (0.0-0.4); LYMPHOCYTES ABSOLUTE AUTO 1.42 K/uL (1.00-4.80); LYMPHOCYTES PERCENT AUTO 27.2 % (24.0-44.0); MEAN CORPUSCULAR HEMOGLOBIN 28.5 pg (28.0-32.0); MEAN CORPUSCULAR HGB CONC 33.8 g/dL (32.0-36.0); MEAN CORPUSCULAR VOLUME 84.4 fL (83.0-99.0); MEAN PLATELET VOLUME 8.7 fL (9.4-12.4); MONOCYTES ABSOLUTE AUTO 0.55 K/uL (0.00-0.80); MONOCYTES PERCENT AUTO 10.5 % (0.0-8.0); NEUTROPHILS ABSOLUTE AUTO 2.95 K/uL (1.80-7.70); NEUTROPHILS PERCENT AUTO 56.5 % (41.0-71.0); PLATELET COUNT,PLT 181 K/uL (150-400); RED BLOOD CELL COUNT 4.24 M/uL (4.52-5.90); WHITE BLOOD CELL COUNT,WBC 5.22 K/uL (3.9-11.3)
[2023-05-13 06:16] LABS: CALCIUM 8.9 mg/dL (8.5-10.1); CARBON DIOXIDE,CO2 27.8 mmol/L (21.0-32.0); EST CRCL DRUG DOSING (CG) 65.08 mL/min; POTASSIUM,K 3.9 mmol/L (3.5-5.1)
[2023-05-13] MEDS: risperiDONE 1 MG Tab PO SCH ×2 (09:58→20:26)
[2023-05-13] MEDS: Sennosides 8.6 MG Tab PO SCH (09:58)
[2023-05-13] MEDS: guaiFENesin 600 MG Tab.ER PO SCH ×2 (09:58→20:25)
[2023-05-13] MEDS: Polyethylene Glycol 3350 Powder 17 GM Packet PO SCH (09:58)
[2023-05-13] MEDS: PSEUDOEPHEDRINE HCL PO SCH ×2 (09:59→20:40)
[2023-05-13] MEDS: Lactated Ringers 1,000 ML IV SCH (10:19)
[2023-05-13] MEDS: cefTRIAXone 1 GM in Sodium Chloride 0.9% 50 ML IV SCH (17:23)
[2023-05-13] MEDS: Azithromycin 500 MG in Sodium Chloride 0.9% 250 ML IV SCH (18:01)
[2023-05-13] MEDS: Pantoprazole 40 MG in Sodium Chloride 0.9% 10 ML IVPUSH SCH (20:26)
[2023-05-13] MEDS: Enoxaparin 40 MG/0.4 ML Syringe SUBCUT SCH (20:26)
[2023-05-13] MEDS: Acidophilus with Citrus Pectin/L.acidophilus Tab PO SCH (20:26)
[2023-05-14] MEDS: PSEUDOEPHEDRINE HCL PO SCH (09:02)
[2023-05-14] MEDS: Polyethylene Glycol 3350 Powder 17 GM Packet PO SCH (09:03)
[2023-05-14] MEDS: Sennosides 8.6 MG Tab PO SCH (09:03)
[2023-05-14] MEDS: Sertraline 50 MG Tab PO SCH ×2 (09:03→09:10)
[2023-05-14] MEDS: risperiDONE 1 MG Tab PO SCH (09:03)
[2023-05-14] MEDS: guaiFENesin 600 MG Tab.ER PO SCH (09:03)
[2023-05-14] MEDS ORDERED: cefTRIAXone 1 GM in Sodium Chloride 0.9% 50 ML IV ONE (11:30)
[2023-05-14] MEDS: Acetaminophen 325 MG Tab PO PRN (11:40)
[2023-05-14] MEDS ORDERED: Azithromycin 500 MG in Sodium Chloride 0.9% 250 ML IV ONE (12:00)
[2023-05-14 15:33] VITALS: BP 116/78; PULSE 85
== END 2023-05-14 15:55 | disposition home or self-care (01) | DRG 640 ==
LOC: MW.ED 15:37 → MW.MS 18:23
PROVIDERS: ADMIT Family Medicine; ATTEND Family Medicine
DX: J69.0 Pneumonitis due to inhalation of food and vomit (principal); E86.0 Dehydration; J18.9 Pneumonia, unspecified organism; G10 Huntington's disease; N17.9 Acute kidney failure, unspecified; R53.83 Other fatigue; F03.90 Unspecified dementia, unspecified severity, without behavioral disturbance, psychotic disturbance, mood disturbance, and anxiety; Z11.52 Encounter for screening for COVID-19; K56.41 Fecal impaction; Z88.8 Allergy status to other drugs, medicaments and biological substances; Z91.018 Allergy to other foods; Z87.440 Personal history of urinary (tract) infections; Z98.890 Other specified postprocedural states; Z90.49 Acquired absence of other specified parts of digestive tract; F02.80 Dementia in other diseases classified elsewhere, unspecified severity, without behavioral disturbance, psychotic disturbance, mood disturbance, and anxiety; N40.0 Benign prostatic hyperplasia without lower urinary tract symptoms; Z79.899 Other long term (current) drug therapy
CPT/HCPCS: 0240U; 36415; 51702; 71045; 80048; 80053; 83605; 83690; 83735; 84484; 85025; 87040; 93005; 96360; 97163; 99285; 93010; 99222; 99231; 99238; A9270-GY; C9113; J0456; J0696; J1650; J2060; J3490; J7030; J7050; J7120

== ENCOUNTER 2023-06-20 10:12 | Emergency (ER) | payer MEDICARE, BC ==
[2023-06-20] MEDS ORDERED: Sodium Chloride 0.9% 2.5 ML Syringe FLUSH PRN (10:46)
[2023-06-20] MEDS ORDERED: Sodium Chloride 0.9% 1,000 ML IV STA (10:46)
[2023-06-20] MEDS ORDERED: Sodium Chloride 0.9% 10 ML Syringe FLUSH PRN (10:46)
[2023-06-20 11:35] LABS: BASOPHILS ABSOLUTE AUTO 0.01 K/uL (0.00-0.20); BASOPHILS PERCENT AUTO 0.2 % (0.0-1.0); EOSINOPHILS ABSOLUTE AUTO 0.12 K/uL (0.00-0.45); HEMATOCRIT 40.8 % (42.0-52.0); HEMOGLOBIN 13.6 g/dL (14.0-18.0); IMMATURE GRAN ABSOLUTE AUTO 0.01 K/uL (0.00-0.05); IMMATURE GRAN PERCENT AUTO 0.2 % (0.0-0.4); LYMPHOCYTES ABSOLUTE AUTO 0.99 K/uL (1.00-4.80); LYMPHOCYTES PERCENT AUTO 16.6 % (24.0-44.0); MEAN CORPUSCULAR HEMOGLOBIN 28.9 pg (28.0-32.0); MEAN CORPUSCULAR HGB CONC 33.3 g/dL (32.0-36.0); MEAN CORPUSCULAR VOLUME 86.6 fL (83.0-99.0); MEAN PLATELET VOLUME 8.8 fL (9.4-12.4); MONOCYTES ABSOLUTE AUTO 0.75 K/uL (0.00-0.80); MONOCYTES PERCENT AUTO 12.6 % (0.0-8.0); NEUTROPHILS ABSOLUTE AUTO 4.08 K/uL (1.80-7.70); NEUTROPHILS PERCENT AUTO 68.4 % (41.0-71.0); PLATELET COUNT,PLT 168 K/uL (150-400); RED BLOOD CELL COUNT 4.71 M/uL (4.52-5.90); WHITE BLOOD CELL COUNT,WBC 5.96 K/uL (3.9-11.3)
[2023-06-20 12:02] LABS: A/G RATIO 0.7 (0.9-1.6); ALBUMIN 3.2 g/dL (3.4-5.0); BILIRUBIN TOTAL 0.7 mg/dL (0.2-1.0); CARBON DIOXIDE,CO2 29.6 mmol/L (21.0-32.0); CREATININE 1.2 mg/dL (0.8-1.3); EST CRCL DRUG DOSING (CG) 54.23 mL/min; MAGNESIUM 2.1 mg/dL (1.8-2.4); POTASSIUM,K 4.6 mmol/L (3.5-5.1); PROTEIN TOTAL,TP 7.6 g/dL (6.4-8.2)
[2023-06-20 12:07] LABS: CORONAVIRUS COVID-19 NAA NEGATIVE (NEGATIVE); INFLUENZA A NAA NEGATIVE (NEGATIVE); INFLUENZA B NAA NEGATIVE (NEGATIVE); RESPIRATORY SYNCYTIAL VIR NAA NEGATIVE (NEGATIVE)
[2023-06-20 19:21] VITALS: BP 141/76; PULSE 77
== END 2023-06-20 13:13 | disposition home or self-care (01) ==
LOC: MW.ED 10:12
DX: E86.0 Dehydration (principal); Z20.822 Contact with and (suspected) exposure to COVID-19; Z91.018 Allergy to other foods; Z88.5 Allergy status to narcotic agent; Z90.49 Acquired absence of other specified parts of digestive tract
CPT/HCPCS: 0241U; 36415; 80053; 83735; 85025; 96360; 99284; J3490; J7030

== ENCOUNTER 2023-06-20 22:23 | Emergency (ER) | payer MEDICARE, BC ==
[2023-06-20] MEDS ORDERED: Azithromycin 250 MG Tab PO ONE (23:12)
[2023-06-21 00:33] VITALS: BP 120/64; PULSE 78
== END 2023-06-21 00:31 | disposition home or self-care (01) ==
LOC: MW.ED 22:23
DX: J06.9 Acute upper respiratory infection, unspecified (principal); Z88.8 Allergy status to other drugs, medicaments and biological substances; Z79.899 Other long term (current) drug therapy
CPT/HCPCS: 71045; 99284; A9270; 99283

== ENCOUNTER 2023-07-23 12:27 | Emergency (ER) | payer MEDICARE, BC ==
[2023-07-23] MEDS: Sodium Chloride 0.9% 1,000 ML IV ONE (13:06)
[2023-07-23 13:24] LABS: CORONAVIRUS COVID-19 NAA NEGATIVE (NEGATIVE); INFLUENZA A NAA NEGATIVE (NEGATIVE); INFLUENZA B NAA NEGATIVE (NEGATIVE); RESPIRATORY SYNCYTIAL VIR NAA NEGATIVE (NEGATIVE)
[2023-07-23 14:39] LABS: BASOPHILS ABSOLUTE AUTO 0.02 K/uL (0.00-0.20); BASOPHILS PERCENT AUTO 0.2 % (0.0-1.0); EOSINOPHILS PERCENT AUTO 1.2 % (0.0-6.0); HEMATOCRIT 41.3 % (42.0-52.0); HEMOGLOBIN 13.6 g/dL (14.0-18.0); IMMATURE GRAN ABSOLUTE AUTO 0.02 K/uL (0.00-0.05); IMMATURE GRAN PERCENT AUTO 0.2 % (0.0-0.4); LYMPHOCYTES ABSOLUTE AUTO 0.88 K/uL (1.00-4.80); LYMPHOCYTES PERCENT AUTO 10.4 % (24.0-44.0); MEAN CORPUSCULAR HEMOGLOBIN 28.6 pg (28.0-32.0); MEAN CORPUSCULAR HGB CONC 32.9 g/dL (32.0-36.0); MEAN CORPUSCULAR VOLUME 86.8 fL (83.0-99.0); MEAN PLATELET VOLUME 9.1 fL (9.4-12.4); MONOCYTES ABSOLUTE AUTO 0.83 K/uL (0.00-0.80); MONOCYTES PERCENT AUTO 9.8 % (0.0-8.0); NEUTROPHILS ABSOLUTE AUTO 6.61 K/uL (1.80-7.70); NEUTROPHILS PERCENT AUTO 78.2 % (41.0-71.0); PLATELET COUNT,PLT 151 K/uL (150-400); RED BLOOD CELL COUNT 4.76 M/uL (4.52-5.90); WHITE BLOOD CELL COUNT,WBC 8.46 K/uL (3.9-11.3)
[2023-07-23 15:13] LABS: A/G RATIO 0.8 (0.9-1.6); ALBUMIN 3.2 g/dL (3.4-5.0); BILIRUBIN TOTAL 1.2 mg/dL (0.2-1.0); CALCIUM 8.9 mg/dL (8.5-10.1); CARBON DIOXIDE,CO2 26.5 mmol/L (21.0-32.0); CREATININE 1.2 mg/dL (0.8-1.3); EST CRCL DRUG DOSING (CG) 50.01 mL/min; POTASSIUM,K 5.1 mmol/L (3.5-5.1); PROTEIN TOTAL,TP 7.4 g/dL (6.4-8.2)
[2023-07-23 17:33] VITALS: BP 109/49; PULSE 81
== END 2023-07-23 17:36 | disposition home or self-care (01) ==
LOC: MW.ED 12:27
DX: J06.9 Acute upper respiratory infection, unspecified (principal); L89.90 Pressure ulcer of unspecified site, unspecified stage; Z91.018 Allergy to other foods; Z88.8 Allergy status to other drugs, medicaments and biological substances
CPT/HCPCS: 0241U; 36415; 71045; 80053; 85025; 96360; 99285; J7030; 99283

== ENCOUNTER 2023-07-24 18:29 | Emergency (ER) | payer MEDICARE, BC ==
[2023-07-24 18:37] VITALS: BP 114/63; PULSE 85
[2023-07-24] MEDS: Sodium Chloride 0.9% 10 ML Syringe FLUSH PRN (19:46)
[2023-07-24] MEDS: Sodium Chloride 0.9% 2.5 ML Syringe FLUSH PRN (19:46)
[2023-07-24] MEDS: Sodium Chloride 0.9% 1,000 ML IV ONE (19:46)
[2023-07-24 19:50] LABS: BASOPHILS ABSOLUTE AUTO 0.02 K/uL (0.00-0.20); BASOPHILS PERCENT AUTO 0.3 % (0.0-1.0); EOSINOPHILS ABSOLUTE AUTO 0.19 K/uL (0.00-0.45); EOSINOPHILS PERCENT AUTO 3.1 % (0.0-6.0); HEMOGLOBIN 13.2 g/dL (14.0-18.0); IMMATURE GRAN ABSOLUTE AUTO 0.02 K/uL (0.00-0.05); IMMATURE GRAN PERCENT AUTO 0.3 % (0.0-0.4); LYMPHOCYTES ABSOLUTE AUTO 1.01 K/uL (1.00-4.80); LYMPHOCYTES PERCENT AUTO 16.7 % (24.0-44.0); MEAN CORPUSCULAR HEMOGLOBIN 28.3 pg (28.0-32.0); MEAN CORPUSCULAR VOLUME 85.8 fL (83.0-99.0); MEAN PLATELET VOLUME 8.6 fL (9.4-12.4); MONOCYTES ABSOLUTE AUTO 0.72 K/uL (0.00-0.80); MONOCYTES PERCENT AUTO 11.9 % (0.0-8.0); NEUTROPHILS ABSOLUTE AUTO 4.09 K/uL (1.80-7.70); NEUTROPHILS PERCENT AUTO 67.7 % (41.0-71.0); PLATELET COUNT,PLT 164 K/uL (150-400); RED BLOOD CELL COUNT 4.66 M/uL (4.52-5.90); WHITE BLOOD CELL COUNT,WBC 6.05 K/uL (3.9-11.3)
[2023-07-24 20:24] LABS: A/G RATIO 0.7 (0.9-1.6); ALBUMIN 3.3 g/dL (3.4-5.0); BILIRUBIN TOTAL 0.9 mg/dL (0.2-1.0); CALCIUM 9.4 mg/dL (8.5-10.1); CARBON DIOXIDE,CO2 27.7 mmol/L (21.0-32.0); CREATININE 1.2 mg/dL (0.8-1.3); EST CRCL DRUG DOSING (CG) 54.23 mL/min; POTASSIUM,K 4.2 mmol/L (3.5-5.1); PROTEIN TOTAL,TP 7.8 g/dL (6.4-8.2)
[2023-07-24] MEDS: Sodium Chloride 0.9% 500 ML IV SCH (23:58)
[2023-07-25 00:31] LABS: APPEARANCE,URINE CLEAR; BILIRUBIN,URINE NEGATIVE (NEGATIVE); COLOR,URINE YELLOW; GLUCOSE,URINE NEGATIVE (NEGATIVE); KETONES,URINE NEGATIVE (NEGATIVE); LEUKOCYTE ESTERASE,URINE NEGATIVE (NEGATIVE); NITRITE,URINE NEGATIVE (NEGATIVE); OCCULT BLOOD,URINE TRACE-INTACT (NEGATIVE); PROTEIN,URINE NEGATIVE (NEGATIVE); UROBILINOGEN,URINE 0.2 EU/dL (<2.0)
[2023-07-25 01:09] LABS: WBC,URINE 0-2 (0-5/HPF)
[2023-07-25 01:10] LABS: BACTERIA,URINE FEW (NEGATIVE); EPITHELIAL CELLS,URINE RARE (NONE-FEW)
== END 2023-07-25 00:34 | disposition other institution (70) ==
LOC: MW.ED 18:29
DX: E86.0 Dehydration (principal); R79.89 Other specified abnormal findings of blood chemistry; Z79.899 Other long term (current) drug therapy; Z90.49 Acquired absence of other specified parts of digestive tract; Z91.018 Allergy to other foods; Z88.8 Allergy status to other drugs, medicaments and biological substances
CPT/HCPCS: 36415; 51702; 71045; 80053; 81001; 83880; 84484; 85025; 93005; 96360; 96361; 99285; J3490; J7030; J7040; 93010; 99282

== ENCOUNTER 2023-07-24 22:49 | Observation (INO) | payer MEDICARE, BC ==
[2023-07-25] MEDS: Sodium Chloride 0.9% 1,000 ML IV SCH (04:45)
[2023-07-25] MEDS ORDERED: Ondansetron 4 MG/2 ML SDV IVPUSH PRN (07:47)
[2023-07-25] MEDS ORDERED: Acetaminophen 325 MG Tab PO PRN (07:47)
[2023-07-25] MEDS ORDERED: Bisacodyl 10 MG Supp RECTAL PRN (07:47)
[2023-07-25] MEDS ORDERED: Sodium Chloride 0.9% 2.5 ML Syringe FLUSH PRN (07:47)
[2023-07-25] MEDS ORDERED: Sodium Chloride 0.9% 10 ML Syringe FLUSH PRN (07:47)
[2023-07-25] MEDS: risperiDONE 1 MG Tab PO SCH (12:11)
[2023-07-25] MEDS: Amoxicillin/Clavulanate K 875-125 MG Tab PO SCH (12:12)
[2023-07-25 22:45] VITALS: BP 97/50; PULSE 77
== END 2023-07-25 18:00 | disposition home or self-care (01) ==
LOC: MW.MS 22:49
PROVIDERS: ADMIT Internal Medicine; ATTEND Internal Medicine
DX: E86.0 Dehydration (principal); G10 Huntington's disease; N40.0 Benign prostatic hyperplasia without lower urinary tract symptoms; Z79.899 Other long term (current) drug therapy
CPT/HCPCS: A9270; J7030

== ENCOUNTER 2023-09-03 16:32 | Observation (INO) | payer MEDICARE, BC ==
[2023-09-03] MEDS: Sodium Chloride 0.9% 500 ML IV SCH ×2 (17:07→23:00)
[2023-09-03 17:09] LABS: BASOPHILS ABSOLUTE AUTO 0.01 K/uL (0.00-0.20); BASOPHILS PERCENT AUTO 0.1 % (0.0-1.0); EOSINOPHILS ABSOLUTE AUTO 0.12 K/uL (0.00-0.45); EOSINOPHILS PERCENT AUTO 1.6 % (0.0-6.0); HEMATOCRIT 43.6 % (42.0-52.0); HEMOGLOBIN 14.4 g/dL (14.0-18.0); IMMATURE GRAN ABSOLUTE AUTO 0.02 K/uL (0.00-0.05); IMMATURE GRAN PERCENT AUTO 0.3 % (0.0-0.4); LYMPHOCYTES ABSOLUTE AUTO 0.81 K/uL (1.00-4.80); LYMPHOCYTES PERCENT AUTO 10.7 % (24.0-44.0); MEAN CORPUSCULAR HEMOGLOBIN 28.5 pg (28.0-32.0); MEAN CORPUSCULAR VOLUME 86.3 fL (83.0-99.0); MEAN PLATELET VOLUME 8.9 fL (9.4-12.4); MONOCYTES ABSOLUTE AUTO 0.68 K/uL (0.00-0.80); NEUTROPHILS ABSOLUTE AUTO 5.95 K/uL (1.80-7.70); NEUTROPHILS PERCENT AUTO 78.3 % (41.0-71.0); PLATELET COUNT,PLT 179 K/uL (150-400); RED BLOOD CELL COUNT 5.05 M/uL (4.52-5.90); WHITE BLOOD CELL COUNT,WBC 7.59 K/uL (3.9-11.3)
[2023-09-03 17:53] LABS: A/G RATIO 0.7 (0.9-1.6); ALBUMIN 3.4 g/dL (3.4-5.0); BILIRUBIN TOTAL 0.9 mg/dL (0.2-1.0); CALCIUM 9.5 mg/dL (8.5-10.1); CARBON DIOXIDE,CO2 28.6 mmol/L (21.0-32.0); CREATININE 1.4 mg/dL (0.8-1.3); EST CRCL DRUG DOSING (CG) 45.18 mL/min; POTASSIUM,K 4.1 mmol/L (3.5-5.1)
[2023-09-03 17:56] LABS: LACTIC ACID 1.6 mmol/L (0.4-2.0)
[2023-09-03 18:10] LABS: CORONAVIRUS COVID-19 NAA NEGATIVE (NEGATIVE); INFLUENZA A NAA NEGATIVE (NEGATIVE); INFLUENZA B NAA NEGATIVE (NEGATIVE); RESPIRATORY SYNCYTIAL VIR NAA NEGATIVE (NEGATIVE)
[2023-09-03 20:41] LABS: APPEARANCE,URINE CLEAR; BILIRUBIN,URINE NEGATIVE (NEGATIVE); COLOR,URINE YELLOW; GLUCOSE,URINE NEGATIVE (NEGATIVE); KETONES,URINE NEGATIVE (NEGATIVE); LEUKOCYTE ESTERASE,URINE SMALL (NEGATIVE); NITRITE,URINE NEGATIVE (NEGATIVE); OCCULT BLOOD,URINE TRACE-INTACT (NEGATIVE); PROTEIN,URINE NEGATIVE (NEGATIVE); UROBILINOGEN,URINE 0.2 EU/dL (<2.0)
[2023-09-03 21:13] LABS: BACTERIA,URINE FEW (NEGATIVE); EPITHELIAL CELLS,URINE RARE (NONE-FEW)
[2023-09-03] MEDS: cefTRIAXone 1 GM in Sodium Chloride 0.9% 50 ML IV ONE (22:59)
[2023-09-04] MEDS ORDERED: PSEUDOEPHEDRINE HCL PO SCH (01:00)
[2023-09-04] MEDS: Famotidine 20 MG Tab PO SCH (02:06)
[2023-09-04] MEDS: risperiDONE 1 MG Tab PO SCH (02:06)
[2023-09-04] MEDS: guaiFENesin 600 MG Tab.ER PO SCH (02:06)
[2023-09-04] MEDS: Sennosides 8.6 MG Tab PO SCH (02:23)
[2023-09-04 06:15] LABS: BASOPHILS ABSOLUTE AUTO 0.01 K/uL (0.00-0.20); BASOPHILS PERCENT AUTO 0.2 % (0.0-1.0); EOSINOPHILS ABSOLUTE AUTO 0.29 K/uL (0.00-0.45); HEMATOCRIT 36.8 % (42.0-52.0); HEMOGLOBIN 12.3 g/dL (14.0-18.0); IMMATURE GRAN ABSOLUTE AUTO 0.01 K/uL (0.00-0.05); IMMATURE GRAN PERCENT AUTO 0.2 % (0.0-0.4); LYMPHOCYTES ABSOLUTE AUTO 1.44 K/uL (1.00-4.80); LYMPHOCYTES PERCENT AUTO 24.8 % (24.0-44.0); MEAN CORPUSCULAR HEMOGLOBIN 29.1 pg (28.0-32.0); MEAN CORPUSCULAR HGB CONC 33.4 g/dL (32.0-36.0); MEAN PLATELET VOLUME 9.1 fL (9.4-12.4); MONOCYTES ABSOLUTE AUTO 0.63 K/uL (0.00-0.80); MONOCYTES PERCENT AUTO 10.8 % (0.0-8.0); NEUTROPHILS ABSOLUTE AUTO 3.43 K/uL (1.80-7.70); PLATELET COUNT,PLT 156 K/uL (150-400); RED BLOOD CELL COUNT 4.23 M/uL (4.52-5.90); WHITE BLOOD CELL COUNT,WBC 5.81 K/uL (3.9-11.3)
[2023-09-04 06:34] LABS: CALCIUM 8.9 mg/dL (8.5-10.1); CARBON DIOXIDE,CO2 27.6 mmol/L (21.0-32.0); CREATININE 1.1 mg/dL (0.8-1.3); EST CRCL DRUG DOSING (CG) 57.5 mL/min
[2023-09-04] MEDS ORDERED: Sodium Chloride 0.9% 10 ML Syringe FLUSH PRN (08:38)
[2023-09-04] MEDS ORDERED: Sodium Chloride 0.9% 2.5 ML Syringe FLUSH PRN (08:38)
[2023-09-04] MEDS ORDERED: Acetaminophen 325 MG Tab PO PRN (08:38)
[2023-09-04] MEDS ORDERED: Ondansetron 4 MG/2 ML SDV IVPUSH PRN (08:38)
[2023-09-04] MEDS: Polyethylene Glycol 3350 Powder 17 GM Packet PO SCH (10:11)
[2023-09-04] MEDS: Sertraline 50 MG Tab PO SCH (10:38)
[2023-09-04 11:34] VITALS: BP 118/67; PULSE 82
[2023-09-04] MEDS ORDERED: Sertraline 50 MG Tab PO SCH (21:00)
[2023-09-04] MEDS ORDERED: Acidophilus with Citrus Pectin/L.acidophilus Tab PO SCH (21:00)
[2023-09-04] MEDS ORDERED: Sennosides 8.6 MG Tab PO SCH (21:00)
[2023-09-04] MEDS ORDERED: cefTRIAXone 1 GM in Sodium Chloride 0.9% 50 ML IV SCH (23:00)
== END 2023-09-04 12:30 | disposition home or self-care (01) ==
LOC: MW.ED 16:32 → MW.MS 22:17
PROVIDERS: ADMIT Internal Medicine; ATTEND Internal Medicine
DX: N39.0 Urinary tract infection, site not specified (principal); N17.9 Acute kidney failure, unspecified; E86.0 Dehydration; K59.00 Constipation, unspecified; G10 Huntington's disease; I10 Essential (primary) hypertension; R13.10 Dysphagia, unspecified; Z79.899 Other long term (current) drug therapy; Z88.8 Allergy status to other drugs, medicaments and biological substances; Z91.018 Allergy to other foods
CPT/HCPCS: 0241U; 36415; 71045; 80048; 80053; 81001; 83605; 85025; 87040; 87086; 93005; A9270; J0696; J3490; J7040; 87088; 87186; 93010; 96365; 99222; 99284; 99285-25; G0378

== ENCOUNTER 2023-09-12 20:27 | Inpatient (IN) | payer MEDICARE, BC ==
[2023-09-12] MEDS: Sodium Chloride 0.9% 1,000 ML IV STA ×2 (20:47→22:00)
[2023-09-12] MEDS: Sodium Chloride 0.9% 2.5 ML Syringe FLUSH PRN (20:48)
[2023-09-12] MEDS: Sodium Chloride 0.9% 10 ML Syringe FLUSH PRN (20:49)
[2023-09-12 20:53] LABS: BASOPHILS ABSOLUTE AUTO 0.01 K/uL (0.00-0.20); BASOPHILS PERCENT AUTO 0.1 % (0.0-1.0); EOSINOPHILS ABSOLUTE AUTO 0.02 K/uL (0.00-0.45); EOSINOPHILS PERCENT AUTO 0.2 % (0.0-6.0); HEMATOCRIT 43.2 % (42.0-52.0); HEMOGLOBIN 14.5 g/dL (14.0-18.0); IMMATURE GRAN ABSOLUTE AUTO 0.02 K/uL (0.00-0.05); IMMATURE GRAN PERCENT AUTO 0.2 % (0.0-0.4); LYMPHOCYTES ABSOLUTE AUTO 0.35 K/uL (1.00-4.80); MEAN CORPUSCULAR HEMOGLOBIN 28.7 pg (28.0-32.0); MEAN CORPUSCULAR HGB CONC 33.6 g/dL (32.0-36.0); MEAN CORPUSCULAR VOLUME 85.5 fL (83.0-99.0); MEAN PLATELET VOLUME 9.2 fL (9.4-12.4); MONOCYTES ABSOLUTE AUTO 0.57 K/uL (0.00-0.80); MONOCYTES PERCENT AUTO 6.6 % (0.0-8.0); NEUTROPHILS PERCENT AUTO 88.9 % (41.0-71.0); PLATELET COUNT,PLT 188 K/uL (150-400); RED BLOOD CELL COUNT 5.05 M/uL (4.52-5.90); WHITE BLOOD CELL COUNT,WBC 8.67 K/uL (3.9-11.3)
[2023-09-12 21:01] LABS: APPEARANCE,URINE CLEAR; BILIRUBIN,URINE NEGATIVE (NEGATIVE); GLUCOSE,URINE NEGATIVE (NEGATIVE); KETONES,URINE NEGATIVE (NEGATIVE); LEUKOCYTE ESTERASE,URINE NEGATIVE (NEGATIVE); NITRITE,URINE NEGATIVE (NEGATIVE); OCCULT BLOOD,URINE NEGATIVE (NEGATIVE); PH,URINE 5.5 (5.0-8.0); PROTEIN,URINE NEGATIVE (NEGATIVE); UROBILINOGEN,URINE 0.2 EU/dL (<2.0)
[2023-09-12] MEDS: Levofloxacin/Dextrose 5%-Water 750 MG in Premix Bag 1 BAG IV STA (21:03)
[2023-09-12] MEDS: Acetaminophen 650 MG Supp RECTAL STA (21:04)
[2023-09-12] MEDS: Acetaminophen 325 MG Supp ONE (21:04)
[2023-09-12 21:12] LABS: INR 1.04 (0.86-1.11)
[2023-09-12 21:18] LABS: COLOR,URINE YELLOW
[2023-09-12 21:21] LABS: A/G RATIO 0.8 (0.9-1.6); ALBUMIN 3.4 g/dL (3.4-5.0); BILIRUBIN TOTAL 0.5 mg/dL (0.2-1.0); CALCIUM 9.5 mg/dL (8.5-10.1); CARBON DIOXIDE,CO2 24.6 mmol/L (21.0-32.0); CREATININE 1.2 mg/dL (0.8-1.3); EST CRCL DRUG DOSING (CG) 52.91 mL/min; POTASSIUM,K 4.4 mmol/L (3.5-5.1); PROTEIN TOTAL,TP 7.7 g/dL (6.4-8.2)
[2023-09-12 21:35] LABS: CORONAVIRUS COVID-19 NAA NEGATIVE (NEGATIVE); INFLUENZA A NAA NEGATIVE (NEGATIVE); INFLUENZA B NAA NEGATIVE (NEGATIVE); RESPIRATORY SYNCYTIAL VIR NAA NEGATIVE (NEGATIVE)
[2023-09-12 21:42] LABS: LACTIC ACID 3.4 mmol/L (0.4-2.0)
[2023-09-13] MEDS: Acetaminophen 325 MG Tab PO PRN (00:45)
[2023-09-13] MEDS: Enoxaparin 40 MG/0.4 ML Syringe SUBCUT SCH (00:47)
[2023-09-13 01:31] LABS: LACTIC ACID 1.8 mmol/L (0.4-2.0)
[2023-09-13 05:42] LABS: BASOPHILS ABSOLUTE AUTO 0.02 K/uL (0.00-0.20); BASOPHILS PERCENT AUTO 0.2 % (0.0-1.0); EOSINOPHILS ABSOLUTE AUTO 0.05 K/uL (0.00-0.45); EOSINOPHILS PERCENT AUTO 0.5 % (0.0-6.0); HEMOGLOBIN 11.6 g/dL (14.0-18.0); IMMATURE GRAN ABSOLUTE AUTO 0.02 K/uL (0.00-0.05); IMMATURE GRAN PERCENT AUTO 0.2 % (0.0-0.4); LYMPHOCYTES ABSOLUTE AUTO 0.67 K/uL (1.00-4.80); LYMPHOCYTES PERCENT AUTO 6.5 % (24.0-44.0); MEAN CORPUSCULAR HEMOGLOBIN 28.4 pg (28.0-32.0); MEAN CORPUSCULAR HGB CONC 33.1 g/dL (32.0-36.0); MEAN CORPUSCULAR VOLUME 85.6 fL (83.0-99.0); MEAN PLATELET VOLUME 8.8 fL (9.4-12.4); MONOCYTES ABSOLUTE AUTO 0.79 K/uL (0.00-0.80); MONOCYTES PERCENT AUTO 7.6 % (0.0-8.0); NEUTROPHILS ABSOLUTE AUTO 8.81 K/uL (1.80-7.70); PLATELET COUNT,PLT 170 K/uL (150-400); RED BLOOD CELL COUNT 4.09 M/uL (4.52-5.90); WHITE BLOOD CELL COUNT,WBC 10.36 K/uL (3.9-11.3)
[2023-09-13 06:11] LABS: CALCIUM 8.4 mg/dL (8.5-10.1); CARBON DIOXIDE,CO2 24.1 mmol/L (21.0-32.0); CREATININE 1.1 mg/dL (0.8-1.3); EST CRCL DRUG DOSING (CG) 57.72 mL/min; POTASSIUM,K 3.8 mmol/L (3.5-5.1)
[2023-09-13] MEDS: guaiFENesin 600 MG Tab.ER PO SCH (08:31)
[2023-09-13] MEDS: Famotidine 20 MG Tab PO SCH (08:31)
[2023-09-13] MEDS: Sertraline 50 MG Tab PO SCH ×2 (08:31→21:51)
[2023-09-13] MEDS: Sodium Chloride 0.9% 500 ML IV SCH (10:02)
[2023-09-13] MEDS: Polyethylene Glycol 3350 Powder 17 GM Packet PO SCH (10:08)
[2023-09-13] MEDS: Piperacillin/Tazobactam 4.5 GM in Sodium Chloride 0.9% 100 ML IV ONE (11:54)
[2023-09-13] MEDS ORDERED: Sertraline 50 MG Tab PO SCH (16:00)
[2023-09-13] MEDS: Piperacillin/Tazobactam 4.5 GM in Sodium Chloride 0.9% 100 ML IV SCH (19:41)
[2023-09-13] MEDS ORDERED: Levofloxacin/Dextrose 5%-Water 750 MG in Premix Bag 1 BAG IV SCH (20:00)
[2023-09-13] MEDS: Sennosides 8.6 MG Tab PO SCH (21:51)
[2023-09-14] MEDS: Levofloxacin/Dextrose 5%-Water 750 MG in Premix Bag 1 BAG IV SCH ×2 (00:03→03:49)
[2023-09-14 05:59] LABS: BASOPHILS ABSOLUTE AUTO 0.01 K/uL (0.00-0.20); BASOPHILS PERCENT AUTO 0.2 % (0.0-1.0); EOSINOPHILS ABSOLUTE AUTO 0.17 K/uL (0.00-0.45); EOSINOPHILS PERCENT AUTO 2.6 % (0.0-6.0); HEMATOCRIT 34.2 % (42.0-52.0); HEMOGLOBIN 11.3 g/dL (14.0-18.0); IMMATURE GRAN ABSOLUTE AUTO 0.01 K/uL (0.00-0.05); IMMATURE GRAN PERCENT AUTO 0.2 % (0.0-0.4); LYMPHOCYTES PERCENT AUTO 13.9 % (24.0-44.0); MEAN CORPUSCULAR HEMOGLOBIN 28.5 pg (28.0-32.0); MEAN CORPUSCULAR VOLUME 86.1 fL (83.0-99.0); MEAN PLATELET VOLUME 9.1 fL (9.4-12.4); MONOCYTES ABSOLUTE AUTO 0.57 K/uL (0.00-0.80); MONOCYTES PERCENT AUTO 8.8 % (0.0-8.0); NEUTROPHILS ABSOLUTE AUTO 4.83 K/uL (1.80-7.70); NEUTROPHILS PERCENT AUTO 74.3 % (41.0-71.0); PLATELET COUNT,PLT 161 K/uL (150-400); RED BLOOD CELL COUNT 3.97 M/uL (4.52-5.90); WHITE BLOOD CELL COUNT,WBC 6.49 K/uL (3.9-11.3)
[2023-09-14 06:22] LABS: A/G RATIO 0.6 (0.9-1.6); ALBUMIN 2.5 g/dL (3.4-5.0); BILIRUBIN TOTAL 0.7 mg/dL (0.2-1.0); CALCIUM 8.8 mg/dL (8.5-10.1); CARBON DIOXIDE,CO2 25.3 mmol/L (21.0-32.0); CREATININE 1.2 mg/dL (0.8-1.3); EST CRCL DRUG DOSING (CG) 52.91 mL/min; POTASSIUM,K 4.1 mmol/L (3.5-5.1); PROTEIN TOTAL,TP 6.5 g/dL (6.4-8.2)
[2023-09-15 05:59] LABS: BASOPHILS ABSOLUTE AUTO 0.01 K/uL (0.00-0.20); BASOPHILS PERCENT AUTO 0.2 % (0.0-1.0); EOSINOPHILS ABSOLUTE AUTO 0.08 K/uL (0.00-0.45); EOSINOPHILS PERCENT AUTO 1.2 % (0.0-6.0); HEMATOCRIT 34.6 % (42.0-52.0); HEMOGLOBIN 11.4 g/dL (14.0-18.0); IMMATURE GRAN ABSOLUTE AUTO 0.02 K/uL (0.00-0.05); IMMATURE GRAN PERCENT AUTO 0.3 % (0.0-0.4); LYMPHOCYTES ABSOLUTE AUTO 1.01 K/uL (1.00-4.80); LYMPHOCYTES PERCENT AUTO 15.4 % (24.0-44.0); MEAN CORPUSCULAR HEMOGLOBIN 28.9 pg (28.0-32.0); MEAN CORPUSCULAR HGB CONC 32.9 g/dL (32.0-36.0); MEAN CORPUSCULAR VOLUME 87.8 fL (83.0-99.0); MEAN PLATELET VOLUME 9.3 fL (9.4-12.4); MONOCYTES ABSOLUTE AUTO 0.55 K/uL (0.00-0.80); MONOCYTES PERCENT AUTO 8.4 % (0.0-8.0); NEUTROPHILS ABSOLUTE AUTO 4.87 K/uL (1.80-7.70); NEUTROPHILS PERCENT AUTO 74.5 % (41.0-71.0); PLATELET COUNT,PLT 189 K/uL (150-400); RED BLOOD CELL COUNT 3.94 M/uL (4.52-5.90); WHITE BLOOD CELL COUNT,WBC 6.54 K/uL (3.9-11.3)
[2023-09-15 06:41] LABS: A/G RATIO 0.6 (0.9-1.6); ALBUMIN 2.3 g/dL (3.4-5.0); BILIRUBIN TOTAL 0.6 mg/dL (0.2-1.0); CALCIUM 8.8 mg/dL (8.5-10.1); CARBON DIOXIDE,CO2 23.4 mmol/L (21.0-32.0); CREATININE 1.2 mg/dL (0.8-1.3); EST CRCL DRUG DOSING (CG) 52.91 mL/min; POTASSIUM,K 3.7 mmol/L (3.5-5.1); PROTEIN TOTAL,TP 6.3 g/dL (6.4-8.2)
[2023-09-15] MEDS: Albuterol/Ipratropium 3.0-0.5 MG/3 ML Neb Soln NEB PRN (23:25)
[2023-09-16 09:08] LABS: BASOPHILS ABSOLUTE AUTO 0.01 K/uL (0.00-0.20); BASOPHILS PERCENT AUTO 0.2 % (0.0-1.0); EOSINOPHILS ABSOLUTE AUTO 0.08 K/uL (0.00-0.45); EOSINOPHILS PERCENT AUTO 1.7 % (0.0-6.0); HEMATOCRIT 34.5 % (42.0-52.0); HEMOGLOBIN 11.3 g/dL (14.0-18.0); IMMATURE GRAN ABSOLUTE AUTO 0.02 K/uL (0.00-0.05); IMMATURE GRAN PERCENT AUTO 0.4 % (0.0-0.4); LYMPHOCYTES ABSOLUTE AUTO 0.95 K/uL (1.00-4.80); LYMPHOCYTES PERCENT AUTO 19.6 % (24.0-44.0); MEAN CORPUSCULAR HEMOGLOBIN 28.3 pg (28.0-32.0); MEAN CORPUSCULAR HGB CONC 32.8 g/dL (32.0-36.0); MEAN CORPUSCULAR VOLUME 86.5 fL (83.0-99.0); MONOCYTES ABSOLUTE AUTO 0.51 K/uL (0.00-0.80); MONOCYTES PERCENT AUTO 10.5 % (0.0-8.0); NEUTROPHILS ABSOLUTE AUTO 3.27 K/uL (1.80-7.70); NEUTROPHILS PERCENT AUTO 67.6 % (41.0-71.0); PLATELET COUNT,PLT 168 K/uL (150-400); RED BLOOD CELL COUNT 3.99 M/uL (4.52-5.90); WHITE BLOOD CELL COUNT,WBC 4.84 K/uL (3.9-11.3)
[2023-09-16 09:35] LABS: CALCIUM 8.7 mg/dL (8.5-10.1); CARBON DIOXIDE,CO2 25.2 mmol/L (21.0-32.0); CREATININE 1.1 mg/dL (0.8-1.3); EST CRCL DRUG DOSING (CG) 57.72 mL/min; POTASSIUM,K 3.7 mmol/L (3.5-5.1)
[2023-09-16] MEDS: Sodium Chloride 0.9% 100 ML ONE (11:06)
[2023-09-17 05:35] LABS: BASOPHILS ABSOLUTE AUTO 0.01 K/uL (0.00-0.20); BASOPHILS PERCENT AUTO 0.2 % (0.0-1.0); EOSINOPHILS ABSOLUTE AUTO 0.15 K/uL (0.00-0.45); EOSINOPHILS PERCENT AUTO 2.8 % (0.0-6.0); HEMATOCRIT 35.8 % (42.0-52.0); HEMOGLOBIN 11.5 g/dL (14.0-18.0); IMMATURE GRAN ABSOLUTE AUTO 0.02 K/uL (0.00-0.05); IMMATURE GRAN PERCENT AUTO 0.4 % (0.0-0.4); LYMPHOCYTES ABSOLUTE AUTO 1.16 K/uL (1.00-4.80); LYMPHOCYTES PERCENT AUTO 21.6 % (24.0-44.0); MEAN CORPUSCULAR HEMOGLOBIN 28.2 pg (28.0-32.0); MEAN CORPUSCULAR HGB CONC 32.1 g/dL (32.0-36.0); MEAN CORPUSCULAR VOLUME 87.7 fL (83.0-99.0); MONOCYTES ABSOLUTE AUTO 0.57 K/uL (0.00-0.80); MONOCYTES PERCENT AUTO 10.6 % (0.0-8.0); NEUTROPHILS ABSOLUTE AUTO 3.46 K/uL (1.80-7.70); NEUTROPHILS PERCENT AUTO 64.4 % (41.0-71.0); PLATELET COUNT,PLT 197 K/uL (150-400); RED BLOOD CELL COUNT 4.08 M/uL (4.52-5.90); WHITE BLOOD CELL COUNT,WBC 5.37 K/uL (3.9-11.3)
[2023-09-17 05:52] LABS: CALCIUM 8.8 mg/dL (8.5-10.1); CARBON DIOXIDE,CO2 25.8 mmol/L (21.0-32.0); CREATININE 1.2 mg/dL (0.8-1.3); EST CRCL DRUG DOSING (CG) 52.91 mL/min
[2023-09-17 08:35] VITALS: BP 108/77; PULSE 74
== END 2023-09-17 11:40 | disposition home or self-care (01) | DRG 871 ==
LOC: MW.ED 20:27 → MW.MS 22:16
PROVIDERS: ADMIT Internal Medicine; ATTEND Internal Medicine
DX: A41.9 Sepsis, unspecified organism (principal); J18.9 Pneumonia, unspecified organism; J69.0 Pneumonitis due to inhalation of food and vomit; Z88.8 Allergy status to other drugs, medicaments and biological substances; Z75.8 Other problems related to medical facilities and other health care; J44.0 Chronic obstructive pulmonary disease with (acute) lower respiratory infection; G10 Huntington's disease; N40.0 Benign prostatic hyperplasia without lower urinary tract symptoms; K59.09 Other constipation; Z91.018 Allergy to other foods; Z90.49 Acquired absence of other specified parts of digestive tract; Z90.89 Acquired absence of other organs; Z87.891 Personal history of nicotine dependence; Z79.899 Other long term (current) drug therapy; Z87.440 Personal history of urinary (tract) infections; Z87.01 Personal history of pneumonia (recurrent)
CPT/HCPCS: 0241U; 36415; 71045; 74018; 80048; 80053; 81003; 83605; 83690; 83735; 84484; 85025; 85610; 87040; 93005; 97163; 93010; 96365; 99285; 99285-25; A9270-GY; J1650; J1956; J2543; J3490; J7030; J7040; J7620-GY

== ENCOUNTER 2023-10-06 00:29 | Emergency (ER) | payer MEDICARE, BC ==
[2023-10-06] MEDS ORDERED: Sodium Chloride 0.9% 2.5 ML Syringe FLUSH PRN (01:32)
[2023-10-06] MEDS ORDERED: Sodium Chloride 0.9% 10 ML Syringe FLUSH PRN (01:32)
[2023-10-06 01:55] LABS: EOSINOPHILS ABSOLUTE AUTO 0.07 K/uL (0.00-0.45); EOSINOPHILS PERCENT AUTO 1.2 % (0.0-6.0); HEMATOCRIT 33.5 % (42.0-52.0); HEMOGLOBIN 11.3 g/dL (14.0-18.0); IMMATURE GRAN ABSOLUTE AUTO 0.01 K/uL (0.00-0.05); IMMATURE GRAN PERCENT AUTO 0.2 % (0.0-0.4); LYMPHOCYTES ABSOLUTE AUTO 0.81 K/uL (1.00-4.80); LYMPHOCYTES PERCENT AUTO 13.8 % (24.0-44.0); MEAN CORPUSCULAR HEMOGLOBIN 28.5 pg (28.0-32.0); MEAN CORPUSCULAR HGB CONC 33.7 g/dL (32.0-36.0); MEAN CORPUSCULAR VOLUME 84.4 fL (83.0-99.0); MEAN PLATELET VOLUME 9.1 fL (9.4-12.4); MONOCYTES ABSOLUTE AUTO 0.56 K/uL (0.00-0.80); MONOCYTES PERCENT AUTO 9.6 % (0.0-8.0); NEUTROPHILS PERCENT AUTO 75.2 % (41.0-71.0); PLATELET COUNT,PLT 157 K/uL (150-400); RED BLOOD CELL COUNT 3.97 M/uL (4.52-5.90); WHITE BLOOD CELL COUNT,WBC 5.85 K/uL (3.9-11.3)
[2023-10-06 02:13] LABS: INR 1.09 (0.86-1.11)
[2023-10-06 02:25] LABS: A/G RATIO 0.6 (0.9-1.6); ALANINE AMINOTRANSFERASE,ALT 15 IU/L (14-63); ALBUMIN 2.3 g/dL (3.4-5.0); ALKALINE PHOSPHATASE 49 U/L (46-116); ASPARTATE AMNIOTRANSFERASE,AST 11 IU/L (15-37); BILIRUBIN TOTAL 0.4 mg/dL (0.2-1.0); BLOOD UREA NITROGEN,BUN 15 mg/dL (7.0-18.0); CALCIUM 8.4 mg/dL (8.5-10.1); CARBON DIOXIDE,CO2 27.5 mmol/L (21.0-32.0); CHLORIDE,CL 104 mmol/L (98-107); CREATININE 1.2 mg/dL (0.8-1.3); GLUCOSE RANDOM 124 mg/dL (74-106); LIPASE 40 U/L (16-77); POTASSIUM,K 3.7 mmol/L (3.5-5.1); PROTEIN TOTAL,TP 6.4 g/dL (6.4-8.2); SODIUM,NA 140 mmol/L (136-148)
[2023-10-06 02:31] LABS: ESTIMATED GFR 60 mL/min (>60)
[2023-10-06 04:05] LABS: CORONAVIRUS COVID-19 NAA NEGATIVE (NEGATIVE); INFLUENZA A NAA NEGATIVE (NEGATIVE); INFLUENZA B NAA NEGATIVE (NEGATIVE); RESPIRATORY SYNCYTIAL VIR NAA NEGATIVE (NEGATIVE)
[2023-10-06] MEDS: Iopamidol 755 MG/ML 500 ML Multipack Bottle IVPUSH ONE (04:07)
[2023-10-06] MEDS: Sodium Chloride 0.9% 500 ML IV SCH (04:38)
[2023-10-06 06:06] LABS: APPEARANCE,URINE SLT CLOUDY; BILIRUBIN,URINE NEGATIVE (NEGATIVE); COLOR,URINE YELLOW; GLUCOSE,URINE NEGATIVE (NEGATIVE); KETONES,URINE NEGATIVE (NEGATIVE); LEUKOCYTE ESTERASE,URINE NEGATIVE (NEGATIVE); NITRITE,URINE POSITIVE (NEGATIVE); OCCULT BLOOD,URINE LARGE (NEGATIVE); PH,URINE 5.5 (5.0-8.0); PROTEIN,URINE NEGATIVE (NEGATIVE)
[2023-10-06 06:38] LABS: BACTERIA,URINE FEW (NEGATIVE); EPITHELIAL CELLS,URINE RARE (NONE-FEW); RBC,URINE 85-90 (0-2/HPF)
[2023-10-06 07:45] VITALS: BP 122/58; PULSE 77
== END 2023-10-06 07:42 | disposition home or self-care (01) ==
LOC: MW.ED 00:29
DX: N30.00 Acute cystitis without hematuria (principal); Z91.018 Allergy to other foods; Z88.8 Allergy status to other drugs, medicaments and biological substances; Z79.899 Other long term (current) drug therapy; Z79.2 Long term (current) use of antibiotics; Z75.8 Other problems related to medical facilities and other health care; Z90.49 Acquired absence of other specified parts of digestive tract
CPT/HCPCS: 0241U; 36415; 71045; 74177; 80053; 81001; 83690; 84484; 85025; 85610; 87086; 96360; 99285; J7040; Q9967; 99284

== ENCOUNTER 2024-01-18 19:33 | Inpatient (IN) | payer MEDICARE, BC ==
[2024-01-18] MEDS: Sodium Chloride 0.9% 1,000 ML IV ONE (19:54)
[2024-01-18] MEDS: Sodium Chloride 0.9% 2.5 ML Syringe FLUSH PRN (19:56)
[2024-01-18] MEDS: Sodium Chloride 0.9% 10 ML Syringe FLUSH PRN (19:56)
[2024-01-18 20:09] LABS: BASOPHILS ABSOLUTE AUTO 0.01 K/uL (0.00-0.20); BASOPHILS PERCENT AUTO 0.5 % (0.0-1.0); HEMATOCRIT 43.5 % (42.0-52.0); HEMOGLOBIN 14.2 g/dL (14.0-18.0); LYMPHOCYTES ABSOLUTE AUTO 0.24 K/uL (1.00-4.80); LYMPHOCYTES PERCENT AUTO 10.8 % (24.0-44.0); MEAN CORPUSCULAR HEMOGLOBIN 28.2 pg (28.0-32.0); MEAN CORPUSCULAR HGB CONC 32.6 g/dL (32.0-36.0); MEAN CORPUSCULAR VOLUME 86.3 fL (83.0-99.0); MEAN PLATELET VOLUME 8.9 fL (9.4-12.4); MONOCYTES ABSOLUTE AUTO 0.36 K/uL (0.00-0.80); MONOCYTES PERCENT AUTO 16.2 % (0.0-8.0); NEUTROPHILS ABSOLUTE AUTO 1.61 K/uL (1.80-7.70); NEUTROPHILS PERCENT AUTO 72.5 % (41.0-71.0); PLATELET COUNT,PLT 152 K/uL (150-400); RED BLOOD CELL COUNT 5.04 M/uL (4.52-5.90); WHITE BLOOD CELL COUNT,WBC 2.22 K/uL (3.9-11.3)
[2024-01-18] MEDS: Acetaminophen 500 MG Tab PO ONE (20:24)
[2024-01-18] MEDS: cefTRIAXone 1 GM in Sodium Chloride 0.9% 50 ML IV STA (20:25)
[2024-01-18] MEDS: Sodium Chloride 0.9% 1,000 ML IV SCH (20:25)
[2024-01-18 21:02] LABS: A/G RATIO 0.8 (0.9-1.6); ALBUMIN 3.6 g/dL (3.4-5.0); BILIRUBIN TOTAL 0.8 mg/dL (0.2-1.0); CALCIUM 9.4 mg/dL (8.5-10.1); CARBON DIOXIDE,CO2 26.6 mmol/L (21.0-32.0); CREATININE 1.3 mg/dL (0.8-1.3); EST CRCL DRUG DOSING (CG) 45.02 mL/min; PROTEIN TOTAL,TP 7.9 g/dL (6.4-8.2)
[2024-01-18 21:07] LABS: LACTIC ACID 2.1 mmol/L (0.4-2.0)
[2024-01-18 21:46] LABS: BILIRUBIN,URINE NEGATIVE (NEGATIVE); COLOR,URINE YELLOW; GLUCOSE,URINE NEGATIVE (NEGATIVE); KETONES,URINE NEGATIVE (NEGATIVE); LEUKOCYTE ESTERASE,URINE SMALL (NEGATIVE); NITRITE,URINE NEGATIVE (NEGATIVE); OCCULT BLOOD,URINE MODERATE (NEGATIVE); PROTEIN,URINE NEGATIVE (NEGATIVE); UROBILINOGEN,URINE 0.2 EU/dL (<2.0)
[2024-01-18 21:47] LABS: APPEARANCE,URINE HAZY
[2024-01-18 21:56] LABS: BACTERIA,URINE 2+ (NEGATIVE); EPITHELIAL CELLS,URINE RARE (NONE-FEW); RBC,URINE 13-15 (0-2/HPF)
[2024-01-18 22:16] LABS: CORONAVIRUS COVID-19 NAA NEGATIVE (NEGATIVE); INFLUENZA A NAA NEGATIVE (NEGATIVE); INFLUENZA B NAA NEGATIVE (NEGATIVE)
[2024-01-18] MEDS ORDERED: Melatonin 3 MG Tab PO PRN (22:22)
[2024-01-18] MEDS ORDERED: Bisacodyl 5 MG Tab PO PRN (22:22)
[2024-01-18] MEDS ORDERED: Ondansetron 4 MG/2 ML SDV IVPUSH PRN (22:22)
[2024-01-18] MEDS ORDERED: Polyethylene Glycol 3350 Powder 17 GM Packet PO PRN (22:22)
[2024-01-19] MEDS: Pantoprazole 40 MG in Sodium Chloride 0.9% 10 ML IVPUSH SCH (00:32)
[2024-01-19] MEDS: Sertraline 50 MG Tab PO SCH (00:38)
[2024-01-19] MEDS: Sodium Chloride 0.9% 1,000 ML IV SCH (03:12)
[2024-01-19 06:45] LABS: EOSINOPHILS ABSOLUTE AUTO 0.03 K/uL (0.00-0.45); HEMATOCRIT 38.8 % (42.0-52.0); HEMOGLOBIN 12.5 g/dL (14.0-18.0); LYMPHOCYTES ABSOLUTE AUTO 0.48 K/uL (1.00-4.80); LYMPHOCYTES PERCENT AUTO 15.5 % (24.0-44.0); MEAN CORPUSCULAR HEMOGLOBIN 28.3 pg (28.0-32.0); MEAN CORPUSCULAR HGB CONC 32.2 g/dL (32.0-36.0); MEAN PLATELET VOLUME 9.1 fL (9.4-12.4); MONOCYTES ABSOLUTE AUTO 0.55 K/uL (0.00-0.80); MONOCYTES PERCENT AUTO 17.8 % (0.0-8.0); NEUTROPHILS ABSOLUTE AUTO 2.03 K/uL (1.80-7.70); NEUTROPHILS PERCENT AUTO 65.7 % (41.0-71.0); PLATELET COUNT,PLT 124 K/uL (150-400); RED BLOOD CELL COUNT 4.41 M/uL (4.52-5.90); WHITE BLOOD CELL COUNT,WBC 3.09 K/uL (3.9-11.3)
[2024-01-19 07:17] LABS: CALCIUM 8.6 mg/dL (8.5-10.1); CARBON DIOXIDE,CO2 27.1 mmol/L (21.0-32.0); CREATININE 1.1 mg/dL (0.8-1.3); EST CRCL DRUG DOSING (CG) 52.54 mL/min; POTASSIUM,K 4.4 mmol/L (3.5-5.1)
[2024-01-19] MEDS: cefTRIAXone 1 GM in Sodium Chloride 0.9% 50 ML IV SCH (08:22)
[2024-01-19] MEDS: Acidophilus with Citrus Pectin/L.acidophilus Tab PO SCH (09:56)
[2024-01-19] MEDS: Heparin Sodium 5,000 Units/ML Vial SUBCUT SCH (12:23)
[2024-01-19] MEDS: Acetaminophen 325 MG Tab PO PRN (14:22)
[2024-01-19] MEDS ORDERED: Sertraline 50 MG Tab PO SCH (21:00)
[2024-01-20 06:19] LABS: BASOPHILS ABSOLUTE AUTO 0.01 K/uL (0.00-0.20); BASOPHILS PERCENT AUTO 0.2 % (0.0-1.0); EOSINOPHILS ABSOLUTE AUTO 0.06 K/uL (0.00-0.45); EOSINOPHILS PERCENT AUTO 1.4 % (0.0-6.0); HEMATOCRIT 36.8 % (42.0-52.0); HEMOGLOBIN 11.9 g/dL (14.0-18.0); IMMATURE GRAN ABSOLUTE AUTO 0.01 K/uL (0.00-0.05); IMMATURE GRAN PERCENT AUTO 0.2 % (0.0-0.4); LYMPHOCYTES ABSOLUTE AUTO 0.76 K/uL (1.00-4.80); LYMPHOCYTES PERCENT AUTO 17.8 % (24.0-44.0); MEAN CORPUSCULAR HEMOGLOBIN 28.3 pg (28.0-32.0); MEAN CORPUSCULAR HGB CONC 32.3 g/dL (32.0-36.0); MEAN CORPUSCULAR VOLUME 87.6 fL (83.0-99.0); MEAN PLATELET VOLUME 9.5 fL (9.4-12.4); MONOCYTES ABSOLUTE AUTO 0.48 K/uL (0.00-0.80); MONOCYTES PERCENT AUTO 11.2 % (0.0-8.0); NEUTROPHILS ABSOLUTE AUTO 2.96 K/uL (1.80-7.70); NEUTROPHILS PERCENT AUTO 69.2 % (41.0-71.0); PLATELET COUNT,PLT 115 K/uL (150-400); WHITE BLOOD CELL COUNT,WBC 4.28 K/uL (3.9-11.3)
[2024-01-20 06:47] LABS: A/G RATIO 0.7 (0.9-1.6); ALBUMIN 2.6 g/dL (3.4-5.0); BILIRUBIN TOTAL 0.6 mg/dL (0.2-1.0); CALCIUM 8.5 mg/dL (8.5-10.1); EST CRCL DRUG DOSING (CG) 57.79 mL/min; POTASSIUM,K 4.1 mmol/L (3.5-5.1); PROTEIN TOTAL,TP 6.4 g/dL (6.4-8.2)
[2024-01-20] MEDS: Albuterol/Ipratropium 3.0-0.5 MG/3 ML Neb Soln NEB SCH (13:32)
[2024-01-20] MEDS: Sodium Chloride 0.9% 1,000 ML IV SCH (23:39)
[2024-01-21] MEDS: Heparin Sodium 5,000 Units/ML Vial SUBCUT SCH (04:26)
[2024-01-21 07:28] LABS: BASOPHILS ABSOLUTE AUTO 0.01 K/uL (0.00-0.20); BASOPHILS PERCENT AUTO 0.3 % (0.0-1.0); EOSINOPHILS ABSOLUTE AUTO 0.11 K/uL (0.00-0.45); HEMATOCRIT 32.8 % (42.0-52.0); HEMOGLOBIN 10.6 g/dL (14.0-18.0); IMMATURE GRAN ABSOLUTE AUTO 0.01 K/uL (0.00-0.05); IMMATURE GRAN PERCENT AUTO 0.3 % (0.0-0.4); LYMPHOCYTES ABSOLUTE AUTO 0.71 K/uL (1.00-4.80); LYMPHOCYTES PERCENT AUTO 19.5 % (24.0-44.0); MEAN CORPUSCULAR HGB CONC 32.3 g/dL (32.0-36.0); MEAN CORPUSCULAR VOLUME 86.5 fL (83.0-99.0); MONOCYTES ABSOLUTE AUTO 0.45 K/uL (0.00-0.80); MONOCYTES PERCENT AUTO 12.4 % (0.0-8.0); NEUTROPHILS ABSOLUTE AUTO 2.35 K/uL (1.80-7.70); NEUTROPHILS PERCENT AUTO 64.5 % (41.0-71.0); PLATELET COUNT,PLT 116 K/uL (150-400); RED BLOOD CELL COUNT 3.79 M/uL (4.52-5.90); WHITE BLOOD CELL COUNT,WBC 3.64 K/uL (3.9-11.3)
[2024-01-21 07:58] LABS: A/G RATIO 0.7 (0.9-1.6); ALBUMIN 2.4 g/dL (3.4-5.0); BILIRUBIN TOTAL 0.5 mg/dL (0.2-1.0); CARBON DIOXIDE,CO2 25.3 mmol/L (21.0-32.0); EST CRCL DRUG DOSING (CG) 60.17 mL/min; POTASSIUM,K 3.7 mmol/L (3.5-5.1); PROTEIN TOTAL,TP 5.8 g/dL (6.4-8.2)
[2024-01-21] MEDS: guaiFENesin 600 MG Tab.ER PO SCH (08:47)
[2024-01-21] MEDS: Aspirin 81 MG Tab.EC PO SCH (08:47)
[2024-01-21] MEDS: Polyethylene Glycol 3350 Powder 17 GM Packet PO SCH (08:48)
[2024-01-21] MEDS: Famotidine 20 MG Tab PO SCH (08:48)
[2024-01-21] MEDS: Piperacillin/Tazobactam 4.5 GM in Sodium Chloride 0.9% 100 ML IV ONE (10:07)
[2024-01-21] MEDS: Azithromycin 500 MG in Sodium Chloride 0.9% 250 ML IV SCH (11:07)
[2024-01-21] MEDS: Sodium Chloride 0.9% 1,000 ML IV ONE ×2 (15:40→17:02)
[2024-01-21 16:39] LABS: LACTIC ACID 1.5 mmol/L (0.4-2.0)
[2024-01-21] MEDS: Sodium Chloride 0.9% 250 ML IV ONE (18:09)
[2024-01-21] MEDS: Piperacillin/Tazobactam 4.5 GM in Sodium Chloride 0.9% 100 ML IV SCH (19:57)
[2024-01-21] MEDS: Sennosides 8.6 MG Tab PO SCH (20:00)
[2024-01-21] MEDS: Albuterol/Ipratropium 3.0-0.5 MG/3 ML Neb Soln NEB PRN (22:13)
[2024-01-22 06:12] LABS: BASOPHILS ABSOLUTE AUTO 0.01 K/uL (0.00-0.20); BASOPHILS PERCENT AUTO 0.2 % (0.0-1.0); EOSINOPHILS ABSOLUTE AUTO 0.12 K/uL (0.00-0.45); EOSINOPHILS PERCENT AUTO 2.7 % (0.0-6.0); HEMATOCRIT 32.9 % (42.0-52.0); HEMOGLOBIN 10.8 g/dL (14.0-18.0); IMMATURE GRAN ABSOLUTE AUTO 0.01 K/uL (0.00-0.05); IMMATURE GRAN PERCENT AUTO 0.2 % (0.0-0.4); LYMPHOCYTES ABSOLUTE AUTO 0.71 K/uL (1.00-4.80); LYMPHOCYTES PERCENT AUTO 16.2 % (24.0-44.0); MEAN CORPUSCULAR HEMOGLOBIN 28.3 pg (28.0-32.0); MEAN CORPUSCULAR HGB CONC 32.8 g/dL (32.0-36.0); MEAN CORPUSCULAR VOLUME 86.4 fL (83.0-99.0); MEAN PLATELET VOLUME 9.1 fL (9.4-12.4); MONOCYTES ABSOLUTE AUTO 0.56 K/uL (0.00-0.80); MONOCYTES PERCENT AUTO 12.8 % (0.0-8.0); NEUTROPHILS ABSOLUTE AUTO 2.96 K/uL (1.80-7.70); NEUTROPHILS PERCENT AUTO 67.9 % (41.0-71.0); PLATELET COUNT,PLT 118 K/uL (150-400); RED BLOOD CELL COUNT 3.81 M/uL (4.52-5.90); WHITE BLOOD CELL COUNT,WBC 4.37 K/uL (3.9-11.3)
[2024-01-22 06:29] LABS: CALCIUM 8.2 mg/dL (8.5-10.1); CARBON DIOXIDE,CO2 26.3 mmol/L (21.0-32.0); CREATININE 1.1 mg/dL (0.8-1.3); EST CRCL DRUG DOSING (CG) 56.14 mL/min; POTASSIUM,K 4.2 mmol/L (3.5-5.1)
[2024-01-22 06:33] LABS: MAGNESIUM 1.8 mg/dL (1.8-2.4); PHOSPHORUS 3.1 mg/dL (2.6-4.7)
[2024-01-22] MEDS: Pantoprazole 40 MG in Sodium Chloride 0.9% 10 ML IVPUSH SCH (08:38)
[2024-01-22] MEDS: Acetaminophen 650 MG Supp RECTAL PRN (20:15)
[2024-01-23 05:53] LABS: BASOPHILS ABSOLUTE AUTO 0.01 K/uL (0.00-0.20); BASOPHILS PERCENT AUTO 0.3 % (0.0-1.0); EOSINOPHILS ABSOLUTE AUTO 0.24 K/uL (0.00-0.45); EOSINOPHILS PERCENT AUTO 6.3 % (0.0-6.0); HEMATOCRIT 33.8 % (42.0-52.0); HEMOGLOBIN 11.1 g/dL (14.0-18.0); IMMATURE GRAN ABSOLUTE AUTO 0.01 K/uL (0.00-0.05); IMMATURE GRAN PERCENT AUTO 0.3 % (0.0-0.4); LYMPHOCYTES ABSOLUTE AUTO 0.79 K/uL (1.00-4.80); LYMPHOCYTES PERCENT AUTO 20.6 % (24.0-44.0); MEAN CORPUSCULAR HGB CONC 32.8 g/dL (32.0-36.0); MEAN CORPUSCULAR VOLUME 85.4 fL (83.0-99.0); MEAN PLATELET VOLUME 9.2 fL (9.4-12.4); MONOCYTES ABSOLUTE AUTO 0.54 K/uL (0.00-0.80); MONOCYTES PERCENT AUTO 14.1 % (0.0-8.0); NEUTROPHILS ABSOLUTE AUTO 2.25 K/uL (1.80-7.70); NEUTROPHILS PERCENT AUTO 58.4 % (41.0-71.0); PLATELET COUNT,PLT 137 K/uL (150-400); RED BLOOD CELL COUNT 3.96 M/uL (4.52-5.90); WHITE BLOOD CELL COUNT,WBC 3.84 K/uL (3.9-11.3)
[2024-01-23 06:19] LABS: CALCIUM 8.6 mg/dL (8.5-10.1); CARBON DIOXIDE,CO2 28.4 mmol/L (21.0-32.0); CREATININE 0.9 mg/dL (0.8-1.3); EST CRCL DRUG DOSING (CG) 66.85 mL/min; MAGNESIUM 1.8 mg/dL (1.8-2.4); PHOSPHORUS 3.2 mg/dL (2.6-4.7); POTASSIUM,K 3.8 mmol/L (3.5-5.1)
[2024-01-23] MEDS: Dextrose 5%-0.9% NaCl 1,000 ML IV SCH (07:25)
[2024-01-23] MEDS: guaiFENesin 100 MG/5 ML Soln 5 ML UD Cup NGTUBE ONE (16:36)
[2024-01-23] MEDS: Sertraline 100 MG Tab GTUBE SCH (21:47)
[2024-01-24 06:10] LABS: BASOPHILS ABSOLUTE AUTO 0.01 K/uL (0.00-0.20); BASOPHILS PERCENT AUTO 0.3 % (0.0-1.0); EOSINOPHILS PERCENT AUTO 5.6 % (0.0-6.0); HEMATOCRIT 31.3 % (42.0-52.0); HEMOGLOBIN 10.5 g/dL (14.0-18.0); IMMATURE GRAN ABSOLUTE AUTO 0.01 K/uL (0.00-0.05); IMMATURE GRAN PERCENT AUTO 0.3 % (0.0-0.4); LYMPHOCYTES ABSOLUTE AUTO 0.59 K/uL (1.00-4.80); LYMPHOCYTES PERCENT AUTO 16.6 % (24.0-44.0); MEAN CORPUSCULAR HEMOGLOBIN 28.2 pg (28.0-32.0); MEAN CORPUSCULAR HGB CONC 33.5 g/dL (32.0-36.0); MEAN CORPUSCULAR VOLUME 84.1 fL (83.0-99.0); MEAN PLATELET VOLUME 9.2 fL (9.4-12.4); MONOCYTES ABSOLUTE AUTO 0.44 K/uL (0.00-0.80); MONOCYTES PERCENT AUTO 12.4 % (0.0-8.0); NEUTROPHILS ABSOLUTE AUTO 2.31 K/uL (1.80-7.70); NEUTROPHILS PERCENT AUTO 64.8 % (41.0-71.0); PLATELET COUNT,PLT 136 K/uL (150-400); RED BLOOD CELL COUNT 3.72 M/uL (4.52-5.90); WHITE BLOOD CELL COUNT,WBC 3.56 K/uL (3.9-11.3)
[2024-01-24 06:40] LABS: CARBON DIOXIDE,CO2 28.2 mmol/L (21.0-32.0); CREATININE 0.9 mg/dL (0.8-1.3); EST CRCL DRUG DOSING (CG) 68.17 mL/min; MAGNESIUM 1.5 mg/dL (1.8-2.4); PHOSPHORUS 2.9 mg/dL (2.6-4.7); POTASSIUM,K 3.4 mmol/L (3.5-5.1)
[2024-01-24] MEDS: Aspirin 81 MG Tab.EC GTUBE SCH (08:00)
[2024-01-24] MEDS: Magnesium Sulfate/Water 4 GM in Premix Bag 1 BAG IV ONE (09:06)
[2024-01-24] MEDS ORDERED: Bisacodyl 5 MG Tab GTUBE PRN (09:14)
[2024-01-24] MEDS: guaiFENesin 100 MG/5 ML Soln 5 ML UD Cup NGTUBE SCH (09:30)
[2024-01-24] MEDS: Potassium Chloride 10% 20 MEQ/15 ML Soln 15 ML UD Cup NGTUBE ONE (09:30)
[2024-01-24] MEDS: Acetaminophen 325 MG Tab NGTUBE PRN (18:36)
[2024-01-25 06:08] LABS: BASOPHILS ABSOLUTE AUTO 0.01 K/uL (0.00-0.20); BASOPHILS PERCENT AUTO 0.3 % (0.0-1.0); EOSINOPHILS ABSOLUTE AUTO 0.23 K/uL (0.00-0.45); EOSINOPHILS PERCENT AUTO 6.2 % (0.0-6.0); HEMATOCRIT 31.4 % (42.0-52.0); HEMOGLOBIN 10.2 g/dL (14.0-18.0); IMMATURE GRAN ABSOLUTE AUTO 0.01 K/uL (0.00-0.05); IMMATURE GRAN PERCENT AUTO 0.3 % (0.0-0.4); LYMPHOCYTES PERCENT AUTO 18.9 % (24.0-44.0); MEAN CORPUSCULAR HEMOGLOBIN 27.7 pg (28.0-32.0); MEAN CORPUSCULAR HGB CONC 32.5 g/dL (32.0-36.0); MEAN CORPUSCULAR VOLUME 85.3 fL (83.0-99.0); MEAN PLATELET VOLUME 9.8 fL (9.4-12.4); MONOCYTES ABSOLUTE AUTO 0.43 K/uL (0.00-0.80); MONOCYTES PERCENT AUTO 11.6 % (0.0-8.0); NEUTROPHILS ABSOLUTE AUTO 2.32 K/uL (1.80-7.70); NEUTROPHILS PERCENT AUTO 62.7 % (41.0-71.0); PLATELET COUNT,PLT 173 K/uL (150-400); RED BLOOD CELL COUNT 3.68 M/uL (4.52-5.90)
[2024-01-25 06:24] LABS: CALCIUM 8.1 mg/dL (8.5-10.1); CARBON DIOXIDE,CO2 29.3 mmol/L (21.0-32.0); CREATININE 0.9 mg/dL (0.8-1.3); EST CRCL DRUG DOSING (CG) 68.17 mL/min; MAGNESIUM 2.2 mg/dL (1.8-2.4); PHOSPHORUS 2.9 mg/dL (2.6-4.7); POTASSIUM,K 3.5 mmol/L (3.5-5.1)
[2024-01-25] MEDS ORDERED: Amoxicillin/Clavulanate K 400-57 MG/5 ML Susp 100 ML Bottle PO SCH (21:00)
[2024-01-25] MEDS: Amoxicillin/Clavulanate K 400-57 MG/5 ML Susp 100 ML Bottle GTUBE SCH (21:19)
[2024-01-26 06:10] LABS: BASOPHILS ABSOLUTE AUTO 0.01 K/uL (0.00-0.20); BASOPHILS PERCENT AUTO 0.2 % (0.0-1.0); EOSINOPHILS ABSOLUTE AUTO 0.26 K/uL (0.00-0.45); EOSINOPHILS PERCENT AUTO 5.7 % (0.0-6.0); HEMOGLOBIN 10.5 g/dL (14.0-18.0); IMMATURE GRAN ABSOLUTE AUTO 0.01 K/uL (0.00-0.05); IMMATURE GRAN PERCENT AUTO 0.2 % (0.0-0.4); LYMPHOCYTES ABSOLUTE AUTO 0.93 K/uL (1.00-4.80); LYMPHOCYTES PERCENT AUTO 20.2 % (24.0-44.0); MEAN CORPUSCULAR HEMOGLOBIN 28.1 pg (28.0-32.0); MEAN CORPUSCULAR HGB CONC 32.8 g/dL (32.0-36.0); MEAN CORPUSCULAR VOLUME 85.6 fL (83.0-99.0); MEAN PLATELET VOLUME 9.2 fL (9.4-12.4); MONOCYTES ABSOLUTE AUTO 0.59 K/uL (0.00-0.80); MONOCYTES PERCENT AUTO 12.8 % (0.0-8.0); NEUTROPHILS PERCENT AUTO 60.9 % (41.0-71.0); PLATELET COUNT,PLT 196 K/uL (150-400); RED BLOOD CELL COUNT 3.74 M/uL (4.52-5.90)
[2024-01-26 06:30] LABS: CALCIUM 8.4 mg/dL (8.5-10.1); CARBON DIOXIDE,CO2 28.6 mmol/L (21.0-32.0); CREATININE 0.9 mg/dL (0.8-1.3); EST CRCL DRUG DOSING (CG) 67.82 mL/min; PHOSPHORUS 3.1 mg/dL (2.6-4.7); POTASSIUM,K 4.3 mmol/L (3.5-5.1)
[2024-01-26] MEDS: Pantoprazole 40 MG Tab.CR SCH (07:25)
[2024-01-26] MEDS ORDERED: Ibuprofen Susp 100 MG/5 ML 10 ML UD Cup NGTUBE SCH (16:30)
[2024-01-27 05:55] LABS: BASOPHILS ABSOLUTE AUTO 0.01 K/uL (0.00-0.20); BASOPHILS PERCENT AUTO 0.2 % (0.0-1.0); EOSINOPHILS ABSOLUTE AUTO 0.25 K/uL (0.00-0.45); HEMATOCRIT 33.7 % (42.0-52.0); IMMATURE GRAN ABSOLUTE AUTO 0.01 K/uL (0.00-0.05); IMMATURE GRAN PERCENT AUTO 0.2 % (0.0-0.4); LYMPHOCYTES ABSOLUTE AUTO 0.86 K/uL (1.00-4.80); LYMPHOCYTES PERCENT AUTO 20.5 % (24.0-44.0); MEAN CORPUSCULAR HEMOGLOBIN 27.8 pg (28.0-32.0); MEAN CORPUSCULAR HGB CONC 32.6 g/dL (32.0-36.0); MEAN CORPUSCULAR VOLUME 85.1 fL (83.0-99.0); MEAN PLATELET VOLUME 9.4 fL (9.4-12.4); MONOCYTES ABSOLUTE AUTO 0.55 K/uL (0.00-0.80); MONOCYTES PERCENT AUTO 13.1 % (0.0-8.0); NEUTROPHILS ABSOLUTE AUTO 2.52 K/uL (1.80-7.70); PLATELET COUNT,PLT 217 K/uL (150-400); RED BLOOD CELL COUNT 3.96 M/uL (4.52-5.90)
[2024-01-27 06:22] LABS: A/G RATIO 0.5 (0.9-1.6); ALBUMIN 2.3 g/dL (3.4-5.0); BILIRUBIN TOTAL 0.5 mg/dL (0.2-1.0); CALCIUM 8.6 mg/dL (8.5-10.1); CARBON DIOXIDE,CO2 29.1 mmol/L (21.0-32.0); CREATININE 0.9 mg/dL (0.8-1.3); EST CRCL DRUG DOSING (CG) 67.7 mL/min; POTASSIUM,K 4.7 mmol/L (3.5-5.1); PROTEIN TOTAL,TP 6.6 g/dL (6.4-8.2)
[2024-01-28 08:29] LABS: BASOPHILS ABSOLUTE AUTO 0.01 K/uL (0.00-0.20); BASOPHILS PERCENT AUTO 0.2 % (0.0-1.0); EOSINOPHILS ABSOLUTE AUTO 0.23 K/uL (0.00-0.45); EOSINOPHILS PERCENT AUTO 5.5 % (0.0-6.0); HEMATOCRIT 33.6 % (42.0-52.0); HEMOGLOBIN 11.1 g/dL (14.0-18.0); IMMATURE GRAN ABSOLUTE AUTO 0.02 K/uL (0.00-0.05); IMMATURE GRAN PERCENT AUTO 0.5 % (0.0-0.4); LYMPHOCYTES ABSOLUTE AUTO 0.78 K/uL (1.00-4.80); LYMPHOCYTES PERCENT AUTO 18.5 % (24.0-44.0); MEAN CORPUSCULAR HEMOGLOBIN 28.1 pg (28.0-32.0); MEAN CORPUSCULAR VOLUME 85.1 fL (83.0-99.0); MEAN PLATELET VOLUME 9.6 fL (9.4-12.4); MONOCYTES ABSOLUTE AUTO 0.63 K/uL (0.00-0.80); NEUTROPHILS ABSOLUTE AUTO 2.54 K/uL (1.80-7.70); NEUTROPHILS PERCENT AUTO 60.3 % (41.0-71.0); PLATELET COUNT,PLT 207 K/uL (150-400); RED BLOOD CELL COUNT 3.95 M/uL (4.52-5.90); WHITE BLOOD CELL COUNT,WBC 4.21 K/uL (3.9-11.3)
[2024-01-28 08:49] LABS: CALCIUM 8.9 mg/dL (8.5-10.1); CARBON DIOXIDE,CO2 30.3 mmol/L (21.0-32.0); CREATININE 0.9 mg/dL (0.8-1.3); EST CRCL DRUG DOSING (CG) 67.7 mL/min; MAGNESIUM 2.2 mg/dL (1.8-2.4); PHOSPHORUS 4.5 mg/dL (2.6-4.7); POTASSIUM,K 4.7 mmol/L (3.5-5.1)
[2024-01-29 05:53] LABS: BASOPHILS ABSOLUTE AUTO 0.01 K/uL (0.00-0.20); BASOPHILS PERCENT AUTO 0.2 % (0.0-1.0); EOSINOPHILS ABSOLUTE AUTO 0.25 K/uL (0.00-0.45); EOSINOPHILS PERCENT AUTO 4.9 % (0.0-6.0); HEMATOCRIT 35.1 % (42.0-52.0); HEMOGLOBIN 11.2 g/dL (14.0-18.0); IMMATURE GRAN ABSOLUTE AUTO 0.03 K/uL (0.00-0.05); IMMATURE GRAN PERCENT AUTO 0.6 % (0.0-0.4); LYMPHOCYTES PERCENT AUTO 23.7 % (24.0-44.0); MEAN CORPUSCULAR HEMOGLOBIN 27.5 pg (28.0-32.0); MEAN CORPUSCULAR HGB CONC 31.9 g/dL (32.0-36.0); MEAN PLATELET VOLUME 9.5 fL (9.4-12.4); MONOCYTES ABSOLUTE AUTO 0.65 K/uL (0.00-0.80); MONOCYTES PERCENT AUTO 12.8 % (0.0-8.0); NEUTROPHILS ABSOLUTE AUTO 2.92 K/uL (1.80-7.70); NEUTROPHILS PERCENT AUTO 57.8 % (41.0-71.0); PLATELET COUNT,PLT 248 K/uL (150-400); RED BLOOD CELL COUNT 4.08 M/uL (4.52-5.90); WHITE BLOOD CELL COUNT,WBC 5.06 K/uL (3.9-11.3)
[2024-01-29 06:22] LABS: CALCIUM 9.3 mg/dL (8.5-10.1); CARBON DIOXIDE,CO2 26.9 mmol/L (21.0-32.0); CREATININE 0.9 mg/dL (0.8-1.3); EST CRCL DRUG DOSING (CG) 67.7 mL/min; MAGNESIUM 2.3 mg/dL (1.8-2.4); PHOSPHORUS 4.4 mg/dL (2.6-4.7); POTASSIUM,K 4.5 mmol/L (3.5-5.1)
[2024-01-29] MEDS ORDERED: Lidocaine 4% 5 ML Amp ONE (11:38)
[2024-01-29] MEDS: Fluconazole Susp 40 MG/1 ML 35 ML Bottle GTUBE SCH (21:43)
[2024-01-29] MEDS: Ibuprofen Susp 100 MG/5 ML 10 ML UD Cup NGTUBE PRN (23:10)
[2024-01-30] MEDS: Sodium Chloride 0.9% 1,000 ML IV ONE (01:06)
[2024-01-30 05:41] LABS: BASOPHILS ABSOLUTE AUTO 0.01 K/uL (0.00-0.20); BASOPHILS PERCENT AUTO 0.2 % (0.0-1.0); EOSINOPHILS ABSOLUTE AUTO 0.17 K/uL (0.00-0.45); EOSINOPHILS PERCENT AUTO 2.9 % (0.0-6.0); HEMATOCRIT 36.2 % (42.0-52.0); HEMOGLOBIN 11.3 g/dL (14.0-18.0); IMMATURE GRAN ABSOLUTE AUTO 0.03 K/uL (0.00-0.05); IMMATURE GRAN PERCENT AUTO 0.5 % (0.0-0.4); LYMPHOCYTES ABSOLUTE AUTO 1.35 K/uL (1.00-4.80); MEAN CORPUSCULAR HEMOGLOBIN 27.3 pg (28.0-32.0); MEAN CORPUSCULAR HGB CONC 31.2 g/dL (32.0-36.0); MEAN CORPUSCULAR VOLUME 87.4 fL (83.0-99.0); MEAN PLATELET VOLUME 9.1 fL (9.4-12.4); MONOCYTES ABSOLUTE AUTO 0.71 K/uL (0.00-0.80); MONOCYTES PERCENT AUTO 12.1 % (0.0-8.0); NEUTROPHILS ABSOLUTE AUTO 3.61 K/uL (1.80-7.70); NEUTROPHILS PERCENT AUTO 61.3 % (41.0-71.0); PLATELET COUNT,PLT 230 K/uL (150-400); RED BLOOD CELL COUNT 4.14 M/uL (4.52-5.90); WHITE BLOOD CELL COUNT,WBC 5.88 K/uL (3.9-11.3)
[2024-01-30 06:05] LABS: CALCIUM 9.1 mg/dL (8.5-10.1); CARBON DIOXIDE,CO2 29.1 mmol/L (21.0-32.0); CREATININE 0.9 mg/dL (0.8-1.3); EST CRCL DRUG DOSING (CG) 67.39 mL/min; MAGNESIUM 2.3 mg/dL (1.8-2.4); PHOSPHORUS 4.9 mg/dL (2.6-4.7); POTASSIUM,K 4.6 mmol/L (3.5-5.1)
[2024-01-30] MEDS: LANSOPRAZOLE 3 MG/ML GTUBE SCH (08:35)
[2024-01-30] MEDS: Heparin Sodium 5,000 Units/ML Vial SUBCUT SCH (18:44)
[2024-01-31 05:30] LABS: BASOPHILS ABSOLUTE AUTO 0.02 K/uL (0.00-0.20); BASOPHILS PERCENT AUTO 0.3 % (0.0-1.0); EOSINOPHILS ABSOLUTE AUTO 0.29 K/uL (0.00-0.45); EOSINOPHILS PERCENT AUTO 4.8 % (0.0-6.0); HEMOGLOBIN 11.3 g/dL (14.0-18.0); IMMATURE GRAN ABSOLUTE AUTO 0.03 K/uL (0.00-0.05); IMMATURE GRAN PERCENT AUTO 0.5 % (0.0-0.4); LYMPHOCYTES ABSOLUTE AUTO 1.15 K/uL (1.00-4.80); LYMPHOCYTES PERCENT AUTO 18.9 % (24.0-44.0); MEAN CORPUSCULAR HEMOGLOBIN 27.8 pg (28.0-32.0); MEAN CORPUSCULAR HGB CONC 32.3 g/dL (32.0-36.0); MEAN CORPUSCULAR VOLUME 86.2 fL (83.0-99.0); MEAN PLATELET VOLUME 9.5 fL (9.4-12.4); MONOCYTES PERCENT AUTO 9.9 % (0.0-8.0); NEUTROPHILS ABSOLUTE AUTO 3.99 K/uL (1.80-7.70); NEUTROPHILS PERCENT AUTO 65.6 % (41.0-71.0); PLATELET COUNT,PLT 249 K/uL (150-400); RED BLOOD CELL COUNT 4.06 M/uL (4.52-5.90); WHITE BLOOD CELL COUNT,WBC 6.08 K/uL (3.9-11.3)
[2024-01-31 05:49] LABS: CALCIUM 9.1 mg/dL (8.5-10.1); CARBON DIOXIDE,CO2 28.7 mmol/L (21.0-32.0); EST CRCL DRUG DOSING (CG) 58.19 mL/min; POTASSIUM,K 4.4 mmol/L (3.5-5.1)
[2024-02-01 05:42] LABS: BASOPHILS ABSOLUTE AUTO 0.01 K/uL (0.00-0.20); BASOPHILS PERCENT AUTO 0.2 % (0.0-1.0); EOSINOPHILS ABSOLUTE AUTO 0.23 K/uL (0.00-0.45); EOSINOPHILS PERCENT AUTO 4.2 % (0.0-6.0); HEMATOCRIT 35.3 % (42.0-52.0); HEMOGLOBIN 11.5 g/dL (14.0-18.0); IMMATURE GRAN ABSOLUTE AUTO 0.02 K/uL (0.00-0.05); IMMATURE GRAN PERCENT AUTO 0.4 % (0.0-0.4); LYMPHOCYTES ABSOLUTE AUTO 1.35 K/uL (1.00-4.80); LYMPHOCYTES PERCENT AUTO 24.4 % (24.0-44.0); MEAN CORPUSCULAR HGB CONC 32.6 g/dL (32.0-36.0); MEAN CORPUSCULAR VOLUME 85.9 fL (83.0-99.0); MEAN PLATELET VOLUME 9.5 fL (9.4-12.4); MONOCYTES ABSOLUTE AUTO 0.59 K/uL (0.00-0.80); MONOCYTES PERCENT AUTO 10.6 % (0.0-8.0); NEUTROPHILS ABSOLUTE AUTO 3.34 K/uL (1.80-7.70); NEUTROPHILS PERCENT AUTO 60.2 % (41.0-71.0); PLATELET COUNT,PLT 258 K/uL (150-400); RED BLOOD CELL COUNT 4.11 M/uL (4.52-5.90); WHITE BLOOD CELL COUNT,WBC 5.54 K/uL (3.9-11.3)
[2024-02-01 06:05] LABS: CALCIUM 9.2 mg/dL (8.5-10.1); EST CRCL DRUG DOSING (CG) 58.98 mL/min; MAGNESIUM 2.2 mg/dL (1.8-2.4); PHOSPHORUS 3.8 mg/dL (2.6-4.7); POTASSIUM,K 4.7 mmol/L (3.5-5.1)
[2024-02-02] MEDS: Melatonin 3 MG Tab GTUBE PRN (02:20)
[2024-02-02 06:58] LABS: BASOPHILS ABSOLUTE AUTO 0.01 K/uL (0.00-0.20); BASOPHILS PERCENT AUTO 0.2 % (0.0-1.0); EOSINOPHILS ABSOLUTE AUTO 0.25 K/uL (0.00-0.45); EOSINOPHILS PERCENT AUTO 5.2 % (0.0-6.0); HEMOGLOBIN 11.6 g/dL (14.0-18.0); IMMATURE GRAN ABSOLUTE AUTO 0.01 K/uL (0.00-0.05); IMMATURE GRAN PERCENT AUTO 0.2 % (0.0-0.4); LYMPHOCYTES ABSOLUTE AUTO 1.12 K/uL (1.00-4.80); LYMPHOCYTES PERCENT AUTO 23.1 % (24.0-44.0); MEAN CORPUSCULAR HEMOGLOBIN 27.8 pg (28.0-32.0); MEAN CORPUSCULAR HGB CONC 32.2 g/dL (32.0-36.0); MEAN CORPUSCULAR VOLUME 86.1 fL (83.0-99.0); MEAN PLATELET VOLUME 9.5 fL (9.4-12.4); MONOCYTES ABSOLUTE AUTO 0.41 K/uL (0.00-0.80); MONOCYTES PERCENT AUTO 8.5 % (0.0-8.0); NEUTROPHILS ABSOLUTE AUTO 3.04 K/uL (1.80-7.70); NEUTROPHILS PERCENT AUTO 62.8 % (41.0-71.0); PLATELET COUNT,PLT 304 K/uL (150-400); RED BLOOD CELL COUNT 4.18 M/uL (4.52-5.90); WHITE BLOOD CELL COUNT,WBC 4.84 K/uL (3.9-11.3)
[2024-02-02 07:29] LABS: CALCIUM 9.4 mg/dL (8.5-10.1); CARBON DIOXIDE,CO2 31.3 mmol/L (21.0-32.0); CREATININE 0.9 mg/dL (0.8-1.3); EST CRCL DRUG DOSING (CG) 65.09 mL/min; MAGNESIUM 2.2 mg/dL (1.8-2.4); PHOSPHORUS 3.9 mg/dL (2.6-4.7); POTASSIUM,K 3.8 mmol/L (3.5-5.1)
[2024-02-03] MEDS: Sodium Chloride 0.9% 1,000 ML IV ONE (05:24)
[2024-02-03 06:33] LABS: BASOPHILS ABSOLUTE AUTO 0.01 K/uL (0.00-0.20); BASOPHILS PERCENT AUTO 0.2 % (0.0-1.0); EOSINOPHILS ABSOLUTE AUTO 0.27 K/uL (0.00-0.45); HEMATOCRIT 33.5 % (42.0-52.0); HEMOGLOBIN 10.8 g/dL (14.0-18.0); IMMATURE GRAN ABSOLUTE AUTO 0.02 K/uL (0.00-0.05); IMMATURE GRAN PERCENT AUTO 0.4 % (0.0-0.4); LYMPHOCYTES ABSOLUTE AUTO 1.32 K/uL (1.00-4.80); LYMPHOCYTES PERCENT AUTO 24.5 % (24.0-44.0); MEAN CORPUSCULAR HEMOGLOBIN 27.9 pg (28.0-32.0); MEAN CORPUSCULAR HGB CONC 32.2 g/dL (32.0-36.0); MEAN CORPUSCULAR VOLUME 86.6 fL (83.0-99.0); MONOCYTES ABSOLUTE AUTO 0.49 K/uL (0.00-0.80); MONOCYTES PERCENT AUTO 9.1 % (0.0-8.0); NEUTROPHILS ABSOLUTE AUTO 3.28 K/uL (1.80-7.70); NEUTROPHILS PERCENT AUTO 60.8 % (41.0-71.0); PLATELET COUNT,PLT 275 K/uL (150-400); RED BLOOD CELL COUNT 3.87 M/uL (4.52-5.90); WHITE BLOOD CELL COUNT,WBC 5.39 K/uL (3.9-11.3)
[2024-02-03 07:03] LABS: A/G RATIO 0.6 (0.9-1.6); ALBUMIN 2.4 g/dL (3.4-5.0); BILIRUBIN TOTAL 0.4 mg/dL (0.2-1.0); CARBON DIOXIDE,CO2 31.5 mmol/L (21.0-32.0); EST CRCL DRUG DOSING (CG) 58.19 mL/min; POTASSIUM,K 4.4 mmol/L (3.5-5.1); PROTEIN TOTAL,TP 6.7 g/dL (6.4-8.2)
[2024-02-04 18:01] VITALS: BP 107/57; PULSE 74
== END 2024-02-04 14:00 | disposition home health service (06) | DRG 871 ==
LOC: MW.ED 19:33 → MW.MS 22:12 → MW.ICU 01-22 02:12 → MW.MS 01-25 12:22
PROVIDERS: ADMIT Family Medicine; ATTEND Internal Medicine
PROC: 0DH63UZ Insertion of Feeding Device into Stomach, Percutaneous Approach (ICD-10-PCS; 2024-01-18)
PROC: 5A0935A Assistance with Respiratory Ventilation, Less than 24 Consecutive Hours, High Flow/Velocity Cannula (ICD-10-PCS; 2024-01-21)
PROC: 0D9670Z Drainage of Stomach with Drainage Device, Via Natural or Artificial Opening (ICD-10-PCS; 2024-01-22)
PROC: 5A0935A Assistance with Respiratory Ventilation, Less than 24 Consecutive Hours, High Flow/Velocity Cannula (ICD-10-PCS; 2024-01-23)
PROC: 3E03329 Introduction of Other Anti-infective into Peripheral Vein, Percutaneous Approach (ICD-10-PCS; principal; 2024-01-25)
PROC: 0DH63UZ Insertion of Feeding Device into Stomach, Percutaneous Approach (ICD-10-PCS; 2024-01-29)
DX: R06.00 Dyspnea, unspecified (principal); A41.9 Sepsis, unspecified organism; A41.81 Sepsis due to Enterococcus; J18.9 Pneumonia, unspecified organism; Z90.49 Acquired absence of other specified parts of digestive tract; J69.0 Pneumonitis due to inhalation of food and vomit; J96.01 Acute respiratory failure with hypoxia; N30.00 Acute cystitis without hematuria; G10 Huntington's disease; E44.0 Moderate protein-calorie malnutrition; N17.9 Acute kidney failure, unspecified; I12.9 Hypertensive chronic kidney disease with stage 1 through stage 4 chronic kidney disease, or unspecified chronic kidney disease; J44.9 Chronic obstructive pulmonary disease, unspecified; H54.7 Unspecified visual loss; N18.30 Chronic kidney disease, stage 3 unspecified; E78.5 Hyperlipidemia, unspecified; E86.0 Dehydration; N40.0 Benign prostatic hyperplasia without lower urinary tract symptoms; K59.09 Other constipation; D69.59 Other secondary thrombocytopenia; L89.322 Pressure ulcer of left buttock, stage 2; Z88.8 Allergy status to other drugs, medicaments and biological substances; Z93.1 Gastrostomy status; Z90.89 Acquired absence of other organs; Z86.16 Personal history of COVID-19; Z79.82 Long term (current) use of aspirin; Z79.01 Long term (current) use of anticoagulants; Z91.018 Allergy to other foods; Z98.890 Other specified postprocedural states; Z79.899 Other long term (current) drug therapy
CPT/HCPCS: 0240U; 36415; 43752; 71045; 80048; 80053; 80202; 81001; 82947; 83605; 83690; 83735; 84100; 85025; 87040; 87086; 87088; 87186; 87641; 93005; 94640; 94667; 94668; 96361; 96365; 97110; 97140; 97162; 97165; 97530; 99285; 93010; 99222; 99232; 99233; 99239; 99284; A9270-GY; J0456; J0696; J1644; J2250; J2470; J2543; J3370; J3475; J3490; J7030; J7042; J7050; J7620-GY

== ENCOUNTER 2024-03-24 00:30 | Emergency (ER) | payer MEDICARE, BC ==
[2024-03-24 02:23] VITALS: BP 119/70; PULSE 85
== END 2024-03-24 02:21 | disposition home or self-care (01) ==
LOC: MW.ED 00:30
DX: Z43.1 Encounter for attention to gastrostomy (principal); Z91.018 Allergy to other foods; Z88.8 Allergy status to other drugs, medicaments and biological substances; Z79.82 Long term (current) use of aspirin; Z79.899 Other long term (current) drug therapy; Z86.16 Personal history of COVID-19; Z90.49 Acquired absence of other specified parts of digestive tract
CPT/HCPCS: 43752; 99283-25

== ENCOUNTER 2024-03-31 13:27 | Emergency (ER) | payer MEDICARE, BC ==
[2024-03-31] MEDS: Sodium Chloride 0.9% 1,000 ML IV ONE (13:58)
[2024-03-31 14:12] LABS: BASOPHILS ABSOLUTE AUTO 0.01 K/uL (0.00-0.20); BASOPHILS PERCENT AUTO 0.2 % (0.0-1.0); EOSINOPHILS ABSOLUTE AUTO 0.04 K/uL (0.00-0.45); EOSINOPHILS PERCENT AUTO 0.6 % (0.0-6.0); HEMOGLOBIN 12.2 g/dL (14.0-18.0); IMMATURE GRAN ABSOLUTE AUTO 0.03 K/uL (0.00-0.05); IMMATURE GRAN PERCENT AUTO 0.5 % (0.0-0.4); LYMPHOCYTES ABSOLUTE AUTO 0.71 K/uL (1.00-4.80); LYMPHOCYTES PERCENT AUTO 11.3 % (24.0-44.0); MEAN CORPUSCULAR HEMOGLOBIN 28.7 pg (28.0-32.0); MEAN CORPUSCULAR HGB CONC 32.1 g/dL (32.0-36.0); MEAN CORPUSCULAR VOLUME 89.4 fL (83.0-99.0); MEAN PLATELET VOLUME 9.5 fL (9.4-12.4); MONOCYTES ABSOLUTE AUTO 0.68 K/uL (0.00-0.80); MONOCYTES PERCENT AUTO 10.8 % (0.0-8.0); NEUTROPHILS ABSOLUTE AUTO 4.81 K/uL (1.80-7.70); NEUTROPHILS PERCENT AUTO 76.6 % (41.0-71.0); PLATELET COUNT,PLT 205 K/uL (150-400); RED BLOOD CELL COUNT 4.25 M/uL (4.52-5.90); WHITE BLOOD CELL COUNT,WBC 6.28 K/uL (3.9-11.3)
[2024-03-31 14:41] LABS: A/G RATIO 0.7 (0.9-1.6); ALANINE AMINOTRANSFERASE,ALT 41 IU/L (14-63); ALBUMIN 3.1 g/dL (3.4-5.0); ALKALINE PHOSPHATASE 115 U/L (46-116); ASPARTATE AMNIOTRANSFERASE,AST 38 IU/L (15-37); BILIRUBIN TOTAL 0.9 mg/dL (0.2-1.0); BLOOD UREA NITROGEN,BUN 31 mg/dL (7.0-18.0); CALCIUM 9.4 mg/dL (8.5-10.1); CARBON DIOXIDE,CO2 28.7 mmol/L (21.0-32.0); CHLORIDE,CL 109 mmol/L (98-107); GLUCOSE RANDOM 129 mg/dL (74-106); LIPASE 41 U/L (16-77); MAGNESIUM 2.1 mg/dL (1.8-2.4); POTASSIUM,K 4.8 mmol/L (3.5-5.1); PROTEIN TOTAL,TP 7.6 g/dL (6.4-8.2); SODIUM,NA 146 mmol/L (136-148)
[2024-03-31 14:42] LABS: ESTIMATED GFR 75 mL/min (>60)
[2024-03-31] MEDS: LORazepam 2 MG/ML SDV IVPUSH STA ×2 (16:12→16:58)
[2024-03-31 16:19] VITALS: BP 141/68; PULSE 81
== END 2024-03-31 17:09 | disposition home or self-care (01) ==
LOC: MW.ED 13:27
DX: M62.838 Other muscle spasm (principal); J44.9 Chronic obstructive pulmonary disease, unspecified; Z86.16 Personal history of COVID-19; Z90.49 Acquired absence of other specified parts of digestive tract; Z79.82 Long term (current) use of aspirin; Z79.899 Other long term (current) drug therapy; Z91.018 Allergy to other foods; Z88.8 Allergy status to other drugs, medicaments and biological substances; Z75.8 Other problems related to medical facilities and other health care
CPT/HCPCS: 36415; 71045; 80053; 83690; 83735; 85025; 96361; 96374; 96376; 99284; J2060; J7030

== ENCOUNTER 2024-04-15 18:39 | Emergency (ER) | payer MEDICARE, BC ==
[2024-04-15 20:34] LABS: BASOPHILS ABSOLUTE AUTO 0.01 K/uL (0.00-0.20); BASOPHILS PERCENT AUTO 0.2 % (0.0-1.0); EOSINOPHILS ABSOLUTE AUTO 0.04 K/uL (0.00-0.45); EOSINOPHILS PERCENT AUTO 0.9 % (0.0-6.0); HEMATOCRIT 37.8 % (42.0-52.0); HEMOGLOBIN 12.5 g/dL (14.0-18.0); IMMATURE GRAN ABSOLUTE AUTO 0.01 K/uL (0.00-0.05); IMMATURE GRAN PERCENT AUTO 0.2 % (0.0-0.4); LYMPHOCYTES ABSOLUTE AUTO 0.78 K/uL (1.00-4.80); LYMPHOCYTES PERCENT AUTO 16.8 % (24.0-44.0); MEAN CORPUSCULAR HEMOGLOBIN 28.9 pg (28.0-32.0); MEAN CORPUSCULAR HGB CONC 33.1 g/dL (32.0-36.0); MEAN CORPUSCULAR VOLUME 87.3 fL (83.0-99.0); MEAN PLATELET VOLUME 9.1 fL (9.4-12.4); MONOCYTES ABSOLUTE AUTO 0.62 K/uL (0.00-0.80); MONOCYTES PERCENT AUTO 13.3 % (0.0-8.0); NEUTROPHILS ABSOLUTE AUTO 3.19 K/uL (1.80-7.70); NEUTROPHILS PERCENT AUTO 68.6 % (41.0-71.0); PLATELET COUNT,PLT 226 K/uL (150-400); RED BLOOD CELL COUNT 4.33 M/uL (4.52-5.90); WHITE BLOOD CELL COUNT,WBC 4.65 K/uL (3.9-11.3)
[2024-04-15 21:00] LABS: CORONAVIRUS COVID-19 NAA NEGATIVE (NEGATIVE); INFLUENZA A NAA NEGATIVE (NEGATIVE); INFLUENZA B NAA NEGATIVE (NEGATIVE)
[2024-04-15] MEDS: Sodium Chloride 0.9% 10 ML Syringe FLUSH PRN (21:01)
[2024-04-15] MEDS: cefTRIAXone 2 GM in Sodium Chloride 0.9% 50 ML IV ONE (21:01)
[2024-04-15 21:02] VITALS: BP 118/77; PULSE 88
[2024-04-15 21:09] LABS: A/G RATIO 0.7 (0.9-1.6); BILIRUBIN TOTAL 0.5 mg/dL (0.2-1.0); CALCIUM 8.9 mg/dL (8.5-10.1); CARBON DIOXIDE,CO2 30.6 mmol/L (21.0-32.0); EST CRCL DRUG DOSING (CG) 59.77 mL/min; MAGNESIUM 2.1 mg/dL (1.8-2.4); POTASSIUM,K 4.3 mmol/L (3.5-5.1); PROTEIN TOTAL,TP 7.2 g/dL (6.4-8.2)
[2024-04-15 21:42] LABS: INR 1.03 (0.86-1.11)
[2024-04-15] MEDS: Doxycycline 100 MG in Sodium Chloride 0.9% 100 ML IV ONE (21:50)
== END 2024-04-15 23:05 ==
LOC: MW.ED 18:39
DX: I62.02 Nontraumatic subacute subdural hemorrhage (principal); J44.9 Chronic obstructive pulmonary disease, unspecified; Z74.01 Bed confinement status; Z86.69 Personal history of other diseases of the nervous system and sense organs; Z86.16 Personal history of COVID-19; Z79.899 Other long term (current) drug therapy; Z79.82 Long term (current) use of aspirin; Z88.8 Allergy status to other drugs, medicaments and biological substances; Z91.018 Allergy to other foods
CPT/HCPCS: 0240U; 36415; 70450; 71045; 80053; 83690; 83735; 83880; 85025; 85610; 86850; 86900; 86901; 87040; 93005; 96365; 96367; 96375; 99285; J0696; J1953; J3490; J7060; 93010